=== PATIENT | male | born 1935 | race Caucasian/White ===

== ENCOUNTER 2016-12-21 11:26 | Outpatient (CLI) | payer MEDICARE, OTHER ==
[~2016-12-21 11:26] MED LIST: AMLO2.5T PO; AMLO5TAB2 PO; BSP5T; CLON0.5T3; DNPZ5T PO; DONE5TAB30 PO; DULO60CA6 PO; FLC1T PO; FLUO40CA; GBPN100C PO; GBPN300C; HYOS0.127; LORA0.5T PO; MTC10T; NF-ESOM40C
== END 2016-12-21 11:50 | disposition home or self-care (01) ==
LOC: SLEEP 11:26
PROVIDERS: ATTEND Otolaryngology Otolaryngology/Facial Plastic Surgery
DX: G47.10 Hypersomnia, unspecified (principal); R06.83 Snoring

== ENCOUNTER → 2017-01-19 | Outpatient (CLI) | payer MEDICARE, OTHER ==
--- NOTE | 2017-01-19 10:43 | Diagnostic Imaging Report ---
PROCEDURE: MRI lumbar spine. TECHNIQUE: Multiplanar, multisequence MRI of the lumbar spine was performed without contrast. INDICATION: Back pain. FINDINGS: There is minimal retrolisthesis of L4 over L5. The vertebral body heights are preserved. There is moderate disc height loss at L4/5 and mild disc height loss at L5/S1 discs. Disc desiccation is seen at all levels. There is no significant marrow signal abnormality. There is unremarkable appearance of the cauda equina and conus medullaris. There is ectasia in the infrarenal abdominal aorta up to 2.6 cm in caliber. Schmorl's node along the upper endplate of T12 level is seen with geographic likely sclerotic margins suggestive of chronicity. T12/L1: There is a mild disc bulge and mild facet hypertrophy. No central canal or lateral recess stenosis. No foraminal narrowing. L1/2: There is mild disc bulge with no significant posterior component. There is mild facet hypertrophy. No central canal, lateral recess or foraminal stenosis. L2/3: There is a diffuse disc bulge and mild facet hypertrophy. No central canal stenosis. There is however bilateral stenosis of the lateral recess mild to moderate on the right and mild on the left side. The foramina demonstrate no significant stenosis. L3/4: There is a diffuse disc bulge with a superimposed left posterior lateral disc protrusion. Moderate facet and ligamentous hypertrophy is seen. There is no central canal stenosis. There is however severe stenosis of the left lateral recess encroaching upon the descending left L4 nerve root. There is mild right lateral recess stenosis at this level. The foramina demonstrate mild stenosis bilaterally. L4/5: There is mild retrolisthesis and diffuse disc bulge asymmetric to the left. There is superimposed caudally migrated disc extrusion along the left posterior lateral aspect causing severe stenosis of the left lateral recess and encroaching upon the descending left L5 nerve roots. The facet demonstrate mild to moderate arthropathy. The right lateral recess demonstrates mild to moderate stenosis. No central canal stenosis. The foramina demonstrate moderate stenosis on the left and mild stenosis on the right side. L5/S1: There is a mild disc bulge and mild to moderate facet hypertrophy. No central canal stenosis. There is no significant lateral recess stenosis as well. The neural foramina demonstrate bilateral moderate to severe stenosis encroaching upon the L5 nerve roots. 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 There is prominent left lateral recess stenosis at L4/5 and L3/4 encroaching upon the descending left L4 and L5 nerve roots. There is also moderate to severe foraminal stenosis bilaterally at L5/S1 level. Dictated by: Dictated on workstation # [id number]
== END ==
LOC: RAD 07:46
PROVIDERS: ATTEND Family Medicine
DX: M54.17 Radiculopathy, lumbosacral region (principal)
CPT/HCPCS: 72148

== ENCOUNTER 2017-02-14 10:58 | Emergency (ER) | payer MEDICARE, OTHER ==
[~2017-02-14] VITALS: Ht 170.2 cm; Wt 72.6 kg
--- NOTE | 2017-02-14 12:01 | ED Back Pain ---
General Chief Complaint: Back Problems Stated Complaint: BACK PAIN Nursing Triage Note: pt was in wheelchair when brought back to room. pt complains of severe back pain, been having this pain since spring. pt states he can't put any pressure on his left hip/side. pt states since december of this year his pain as been the worst ever. pt states he can't walk. Nursing Sepsis Screen: No Definite Risk Source of Information: Patient Exam Limitations: No Limitations (FLORENTINO GEIGER) History of Present Illness Time Seen by Provider: 12:00 (FLORENTINO GEIGER) Initial Comments The patient is an 81-year-old white male who presents today with an apparent increase in the level of his back pain. He reports that he has been having problems since at least mid December. He has been taking physical therapy at the [facility].. Last week he was taught some additional exercises. He used these at home over the weekend and now reports that he has much worse pain in the left sciatic distribution. This was particularly bad during the night last night it seems to go down from the buttocks to the bottom of the left foot. It is also noted that he places himself and an unusually skewed position in bed, apparently because this is the most comfortable position for him. Timing/Duration: Other (6 weeks or more) Pain/Injury Location: Back, Lower Extremity Radiation: Buttocks, Feet, Lower Legs, Upper Legs Method of Injury: Unknown Associated Symptoms: weakness, lower back pain (LISSY GARCIA MD) Allergies and Home Medications Allergies Coded Allergies: amoxicillin (Verified Allergy, Unknown, 07/25/16) Home Medications Amlodipine Besylate 5 Mg Tablet, 5 MG PO DAILY, (Reported) Clonazepam 0.5 Mg Tablet, #135 (Reported) Gabapentin 100 Mg Cap, 100 MG PO TID, (Reported) Lorazepam 0.5 Mg Tablet, 0.25 MG PO BID, (Reported) Lorazepam 0.5 Mg Tablet, 0.5 MG PO Q8HR AGITATION PRN, (Reported) Constitutional: see HPI EENTM: no symptoms reported Respiratory: no symptoms reported Cardiovascular: no symptoms reported Gastrointestinal: no symptoms reported Genitourinary: no symptoms reported Musculoskeletal: see HPI, back pain, muscle pain, muscle weakness Skin: no symptoms reported Psychiatric/Neurological: No Symptoms Reported (LISSY GARCIA MD) Past Jufjckk-Nvyhys-Axujuf Hx Patient Social History Alcohol Use: Denies Use Recreational Drug Use: No Smoking Status: Never a Smoker 2nd Hand Smoke Exposure: No Recent Foreign Travel: No Contact w/Someone Who Travel: No Recent Infectious Disease Expo: No Recent Hopitalizations: No (FLORENTINO GEIGER) Immunizations Up To Date Tetanus Booster (TDap): Less than 5yrs Date of Influenza Vaccine: Jul 13, 2016 (FLORENTINO GEIGER) Seasonal Allergies Seasonal Allergies: No (FLORENTINO GEIGER) Surgeries HX Surgeries: Yes (ING.HERNIA REPAIR,T&A, hiatal hernia repair) (FLORENTINO GEIGER) Respiratory Hx Respiratory Disorders: No (FLORENTINO GEIGER) Cardiovascular Hx Cardiac Disorders: Yes Cardiac Disorders: Hypertension (FLORENTINO GEIGER) Neurological Hx Neurological Disorders: Yes Neurological Disorders: Seizure Disorder (FLORENTINO GEIGER) Reproductive System Hx Reproductive Disorders: No (FLORENTINO GEIGER) Genitourinary Hx Genitourinary Disorders: No (FLORENTINO GEIGER) Gastrointestinal Hx Gastrointestinal Disorders: No (FLORENTINO GEIGER) Musculoskeletal Hx Musculoskeletal Disorders: No (FLORENTINO GEIGER) Endocrine Hx Endocrine Disorders: No (FLORENTINO GEIGER) HEENT HX ENT Disorders: Yes HEENT Disorders: Cataract, Double Vision (FLORENTINO GEIGER) Cancer Hx Cancer: No (FLORENTINO GEIGER) Psychosocial Hx Psychiatric Problems: Yes Behavioral Health Disorders: Anxiety (FLORENTINO GEIGER) Blood Transfusions Hx Blood Disorders: No (FLORENTINO GEIGER) Physical Exam Vital Signs Vital Sign - Last 12Hours 02/14/17 11:14 Temp 97.8 Pulse 75 Resp 20 B/P (MAP) 125/88 Pulse Ox 98 O2 Delivery Room Air (LISSY GARCIA MD) Vital Signs Capillary Refill : Less Than 3 Seconds (FLORENTINO GEIGER) General Appearance: Moderate Distress, Other (rapid speech) HEENT: Normal ENT Inspection Neck: Full Range of Motion, Normal Inspection, Non Tender, Supple Cardiovascular: Regular Rate, Rhythm, No Edema, No Gallop, No JVD, No Murmur, Normal Peripheral Pulses Respiratory: Chest Non Tender, Lungs Clear, Normal Breath Sounds, No Accessory Muscle Use, No Respiratory Distress, Accessory Muscle Use Extremity: Normal Capillary Refill, Normal Inspection, Normal Range of Motion, Non Tender, No Calf Tenderness, No Pedal Edema, Calf Tenderness Neurologic/Psychiatric: Other (left patellar reflex quite hyperactive especially as compared to right) Skin: Normal Color, Warm/Dry, Cool, Cyanosis (LISSY GARCIA MD) Progress/Results/Core Measures Results/Orders Lab Results Laboratory Tests Test 02/14/17 11:32 02/14/17 11:35 Range/Units White Blood Count 6.5 4.3-11.0 10^3/uL Red Blood Count 4.74 4.35-5.85 10^6/uL Hemoglobin 14.3 13.3-17.7 G/DL Hematocrit 42 40-54 % Mean Corpuscular Volume 89 80-99 FL Mean Corpuscular Hemoglobin 30 25-34 PG Mean Corpuscular Hemoglobin Concent 34 32-36 G/DL Red Cell Distribution Width 13.4 10.0-14.5 % Platelet Count 224 130-400 10^3/uL Mean Platelet Volume 11.1 H 7.4-10.4 FL Neutrophils (%) (Auto) 66 42-75 % Lymphocytes (%) (Auto) 25 12-44 % Monocytes (%) (Auto) 8 0-12 % Eosinophils (%) (Auto) 1 0-10 % Basophils (%) (Auto) 0 0-10 % Neutrophils # (Auto) 4.3 1.8-7.8 X 10^3 Lymphocytes # (Auto) 1.6 1.0-4.0 X 10^3 Monocytes # (Auto) 0.5 0.0-1.0 X 10^3 Eosinophils # (Auto) 0.1 0.0-0.3 10^3/uL Basophils # (Auto) 0.0 0.0-0.1 10^3/uL Sodium Level 142 135-145 MMOL/L Potassium Level 3.9 3.6-5.0 MMOL/L Chloride Level 111 H 98-107 MMOL/L Carbon Dioxide Level 21 21-32 MMOL/L Anion Gap 10 5-14 MMOL/L Blood Urea Nitrogen 13 7-18 MG/DL Creatinine 1.28 0.60-1.30 MG/DL Estimat Glomerular Filtration Rate 54 BUN/Creatinine Ratio 10 Glucose Level 113 H 70-105 MG/DL Calcium Level 9.1 8.5-10.1 MG/DL Total Bilirubin 2.3 H 0.1-1.0 MG/DL Aspartate Amino Transf (AST/SGOT) 15 5-34 U/L Alanine Aminotransferase (ALT/SGPT) 13 0-55 U/L Alkaline Phosphatase 66 40-136 U/L Total Protein 6.9 6.4-8.2 G/DL Albumin 3.9 3.2-4.5 G/DL Urine Color YELLOW Urine Clarity CLEAR Urine pH 5 5-9 Urine Specific Hawley 1.020 1.016-1.022 Urine Protein NEGATIVE NEGATIVE Urine Glucose (UA) NEGATIVE NEGATIVE Urine Ketones NEGATIVE NEGATIVE Urine Nitrite NEGATIVE NEGATIVE Urine Bilirubin NEGATIVE NEGATIVE Urine Urobilinogen NORMAL NORMAL MG/DL Urine Leukocyte Esterase NEGATIVE NEGATIVE Urine RBC (Auto) NEGATIVE NEGATIVE Urine RBC NONE /HPF Urine WBC RARE /HPF Urine Squamous Epithelial Cells 0-2 /HPF Urine Crystals NONE /LPF Urine Bacteria NEGATIVE /HPF Urine Casts NONE /LPF Urine Mucus SMALL H /LPF Urine Culture Indicated NO (LISSY GARCIA MD) My Orders Orders - LISSY GARCIA MD Cbc With Automated Diff (02/14/17 12:23) Comprehensive Metabolic Panel (02/14/17 12:23) Ua Culture If Indicated (02/14/17 12:23) (LISSY GARCIA MD) Vital Signs/I&O Vital Sign - Last 12Hours 02/14/17 11:14 Temp 97.8 Pulse 75 Resp 20 B/P (MAP) 125/88 Pulse Ox 98 O2 Delivery Room Air (LISSY GARCIA MD) Blood Pressure Mean: 100 Departure Communication Progress Notes After interviewing the patient and examining him, the patient's daughter whom I have known for some years came out of the room and reported that she considered her father to be crazy. He has previously been at [facility] and also a facility in [place]. He is verbally abusive and at times threatening to his . She is becoming increasingly fearful of living with him. Fortunately his present state of affairs relative to his back keep him from being able to inflict any physical harm. We elected after this discussion to have social services manager interview and that explore options for safety for both the patient and his . After the exploration the family concluded that the resources were not available at this time. They have elected to take him home and reconsider their circumstance after he sees Dr. Gibson in consultation on relative to his MRI findings in the lumbar spine (LISSY GARCIA MD) Impression Impression: Primary Impression: Lumbar radiculopathy Additional Impression: sociopathic behavior Disposition: HOME, SELF-CARE Condition: Stable/Unchanged Departure-Patient Inst. Decision time for Depature: 13:50 (LISSY GARCIA MD) Referrals: JONA FLOOD MD (PCP/Family) Primary Care Physician Patient Instructions: Radiculopathy (DC) Add. Discharge Instructions: All discharge instructions reviewed with patient and/or family. Voiced understanding. Continue present program. Keep appointment with Dr. Gibson for 02/22 FLORENTINO GEIGER Feb 14, 2017 12:01 LISSY GARCIA MD Feb 14, 2017 12:21
[2017-02-14 12:29] LABS: BILIRUBIN,URINE NEGATIVE (NEGATIVE); KETONES,URINE NEGATIVE (NEGATIVE); LEUKOCYTE ESTERASE ,URINE NEGATIVE (NEGATIVE); NITRITE,URINE NEGATIVE (NEGATIVE); PH,URINE 5 (5-9); PROTEIN,URINE NEGATIVE (NEGATIVE); UROBILINOGEN,URINE NORMAL (NORMAL)
[2017-02-14 12:29] LABS: BASOPHILS % (AUTO) 0 % (0-10); EOSINOPHILS # (AUTO) 0.1 10^3/uL (0.0-0.3); EOSINOPHILS % (AUTO) 1 % (0-10); LYMPHOCYTES # (AUTO) 1.6 X 10^3 (1.0-4.0); LYMPHOCYTES % (AUTO) 25 % (12-44); MEAN CORPUSCULAR HEMOGLOBIN 30 PG (25-34); MEAN CORPUSCULAR HGB CONC 34 G/DL (32-36); MEAN CORPUSCULAR VOLUME 89 FL (80-99); MEAN PLATELET VOLUME 11.1 FL (7.4-10.4); MONOCYTES # (AUTO) 0.5 X 10^3 (0.0-1.0); MONOCYTES % (AUTO) 8 % (0-12); NEUTROPHILS # (AUTO) 4.3 X 10^3 (1.8-7.8); NEUTROPHILS % (AUTO) 66 % (42-75); PLATELET COUNT 224 10^3/uL (130-400); RED BLOOD COUNT 4.74 10^6/uL (4.35-5.85); RED CELL DISTRIBUTION WIDTH 13.4 % (10.0-14.5); WHITE BLOOD COUNT 6.5 10^3/uL (4.3-11.0)
[2017-02-14 12:37] LABS: SQUAMOUS EPITHELIAL CELL,UR 0-2 /HPF; WBC,URINE RARE /HPF
[2017-02-14 12:41] LABS: ALBUMIN 3.9 G/DL (3.2-4.5); BILIRUBIN,TOTAL 2.3 MG/DL (0.1-1.0); CALCIUM 9.1 MG/DL (8.5-10.1); CREATININE SERUM 1.28 MG/DL (0.60-1.30); POTASSIUM 3.9 MMOL/L (3.6-5.0); TOTAL PROTEIN 6.9 G/DL (6.4-8.2)
[2017-02-14 14:15] VITALS: BP 140/89
== END 2017-02-14 14:15 | disposition home or self-care (01) ==
LOC: EDUNIT# 10:58 → ER 11:00
DX: M54.16 Radiculopathy, lumbar region (principal); F60.2 Antisocial personality disorder; I10 Essential (primary) hypertension; G40.909 Epilepsy, unspecified, not intractable, without status epilepticus
CPT/HCPCS: 36415; 80053; 81000; 85025

== ENCOUNTER 2020-05-09 09:22 | Emergency (ER) | payer MEDICARE, OTHER ==
[~2020-05-09] VITALS: Ht 170 cm; Wt 75.0 kg
[~2020-05-09 09:22] MED LIST changes: -CLON0.5T3; +CLON0.5T4
[2020-05-09 09:47] LABS: BASOPHILS % (AUTO) 0 % (0-10); EOSINOPHILS # (AUTO) 0.3 10^3/uL (0.0-0.3); EOSINOPHILS % (AUTO) 4 % (0-10); HEMATOCRIT 42 % (40-54); HEMOGLOBIN 13.9 G/DL (13.3-17.7); LYMPHOCYTES # (AUTO) 2.5 X 10^3 (1.0-4.0); LYMPHOCYTES % (AUTO) 34 % (12-44); MEAN CORPUSCULAR HEMOGLOBIN 30 PG (25-34); MEAN CORPUSCULAR HGB CONC 33 G/DL (32-36); MEAN CORPUSCULAR VOLUME 92 FL (80-99); MONOCYTES # (AUTO) 0.6 X 10^3 (0.0-1.0); MONOCYTES % (AUTO) 8 % (0-12); NEUTROPHILS # (AUTO) 3.9 X 10^3 (1.8-7.8); NEUTROPHILS % (AUTO) 54 % (42-75); PLATELET COUNT 220 10^3/uL (130-400); RED CELL DISTRIBUTION WIDTH 13.5 % (10.0-14.5); WHITE BLOOD COUNT 7.3 10^3/uL (4.3-11.0)
[2020-05-09 10:06] LABS: ALBUMIN 4.1 GM/DL (3.2-4.5); CHLORIDE 110 MMOL/L (98-107); POTASSIUM 4.3 MMOL/L (3.6-5.0); SODIUM 142 MMOL/L (135-145)
[2020-05-09 10:07] LABS: CALCIUM 9.1 MG/DL (8.5-10.1)
[2020-05-09 10:08] LABS: GLUCOSE 173 MG/DL (70-105); TOTAL PROTEIN 7.3 GM/DL (6.4-8.2)
--- NOTE | 2020-05-09 10:08 | Diagnostic Imaging Report ---
INDICATION: Speech difficulty and altered mental status. TECHNIQUE: Multiple contiguous axial images were obtained through the brain without the use of intravenous contrast. Auto Exposure Controls were utilized during the CT exam to meet ALARA standards for radiation dose reduction. Comparison made with 04/20/2012. There are mild diffuse atrophic changes. There are mild low-density changes in the deep white matter compatible with chronic ischemic change. There is no acute hemorrhage or subdural or epidural collection. The ventricles are normal in size for age. There are vascular calcifications in the carotid siphons. There is calcific density in the right sylvian fissure which may be vascular in nature. Correlate with CTA if clinically warranted. IMPRESSION: Diffuse atrophic changes and mild chronic changes in deep white matter. No acute intracranial hemorrhage. There is a calcific density in the right sylvian fissure which was not present on 04/20/2012, this is possibly vascular in nature. Consider CTA if clinically warranted. Dictated by: Dictated on workstation # [id number]
[2020-05-09 10:09] LABS: CARBON DIOXIDE 22 MMOL/L (21-32)
[2020-05-09 10:10] LABS: BILIRUBIN,TOTAL 1.3 MG/DL (0.1-1.0)
[2020-05-09 10:11] LABS: FIBRIN DEGRADATION PRODUCTS 0.7 UG/ML (0.00-0.49); PROTHROMBIN TIME PATIENT 13.7 SEC (12.2-14.7)
[2020-05-09 10:12] LABS: ALKALINE PHOSPHATASE 76 U/L (40-136); CREATININE SERUM 1.57 MG/DL (0.60-1.30); GFR ESTIMATED 42
[2020-05-09 10:13] LABS: BUN/CREATININE RATIO 15
[2020-05-09 10:15] LABS: ALANINE AMINOTRANSFERASE 18 U/L (0-55)
--- NOTE | 2020-05-09 10:22 | Diagnostic Imaging Report ---
INDICATION: Slurred speech, possible stroke. Frontal chest obtained at 0955 a.m. compared to 07/25/2016. Heart and mediastinal silhouette are normal in appearance. Lungs appear clear. There is poor inspiration. There is no pneumothorax or pleural fluid. IMPRESSION: No acute process in the chest. Dictated by: Dictated on workstation # [id number]
[2020-05-09] MEDS ORDERED: NS IV 1000 ML 1,000 ML IV ONE (10:30)
[2020-05-09 10:35] LABS: BILIRUBIN,URINE NEGATIVE (NEGATIVE); CLARITY,URINE CLEAR; COLOR,URINE YELLOW; GLUCOSE, URINE (UA) NEGATIVE (NEGATIVE); KETONES,URINE NEGATIVE (NEGATIVE); LEUKOCYTE ESTERASE ,URINE NEGATIVE (NEGATIVE); NITRITE,URINE NEGATIVE (NEGATIVE); PROTEIN,URINE NEGATIVE (NEGATIVE)
[2020-05-09 10:37] LABS: BACTERIA,URINE NEGATIVE /HPF; SQUAMOUS EPITHELIAL CELL,UR RARE /HPF
[2020-05-09] MEDS ORDERED: IOHEXOL 350 MG/ML 100 ML (OMNIPAQUE 350) VIAL IV ONE (10:45)
[2020-05-09] MEDS ORDERED: HOLD METFORMIN - RECEIVED CONTRAST 20 ML VIAL IV SCH (10:45)
[2020-05-09] MEDS ORDERED: CATHETER FLUSH 10 ML SYR IV PRN (10:45)
[2020-05-09] MEDS ORDERED: NS 100 ML (IVPB) BAG IV ONE (10:45)
--- NOTE | 2020-05-09 11:32 | ED Neurological Problem ---
General Chief Complaint: Neuro-Stroke Like Symptoms Stated Complaint: STROKE SYMPTOMS Nursing Triage Note: PT CO OF POSSIBLE STROKE STATES THIS AM WATER RAN OUT OF R SIDE OF MOUTH, STATES CEREAL MILK SL RAN OUT OF R SIDE OF MOUTH. NO OTHER CO. PT ABLE TO MOVE ALL EXT. NIH SCALE 0 Nursing Sepsis Screen: No Definite Risk Source: patient Exam Limitations: no limitations History of Present Illness Date Seen by Provider: May 09, 2020 Time Seen by Provider: 09:28 Initial Comments Here with report of possible stroke. States he noted drooling from the right side of his mouth and felt like his speech was off. It is very concerned he was having a stroke symptoms presented here. States he was getting ready to get his ladder out to go fix the gutter when all of this happened. Completely resolved now but patient is quite anxious and occasionally tearful. Denies headache, chest pain, breathing problems or other concerns. Denies recent injuries. Denies being on blood thinners. Timing/Duration: 1 hour, waxing and waning Severity: moderate Associated Symptoms: No fever/chills, No loss of consciousness, No nausea/vomiting; slurred speech Allergies and Home Medications Allergies Coded Allergies: amoxicillin (Verified Allergy, Unknown, 07/25/16) Home Medications Amlodipine Besylate 5 Mg Tablet, 5 MG PO DAILY, (Reported) Gabapentin 100 Mg Cap, 100 MG PO TID, (Reported) Lorazepam 0.5 Mg Tablet, 0.25 MG PO BID, (Reported) Lorazepam 0.5 Mg Tablet, 0.5 MG PO Q8HR AGITATION PRN, (Reported) Patient Home Medication List Home Medication List Reviewed: Yes Review of Systems Review of Systems Constitutional: see HPI; No chills, No fever Eyes: No Symptoms Reported Ears, Nose, Mouth, Throat: see HPI; denies nose pain, denies throat pain Respiratory: no symptoms reported Cardiovascular: no symptoms reported Gastrointestinal: no symptoms reported Genitourinary: no symptoms reported Musculoskeletal: no symptoms reported Skin: no symptoms reported Psychiatric/Neurological: See HPI Endocrine: No Symptoms Reported All Other Systems Reviewed Negative Unless Noted: Yes Past Sebsaxv-Dfdzcy-Utccel Hx Past Med/Social Hx: Reviewed Nursing Past Med/Soc Hx Patient Social History Alcohol Use: Denies Use Recreational Drug Use: No Smoking Status: Never a Smoker 2nd Hand Smoke Exposure: No Recent Foreign Travel: No Contact w/Someone Who Travel: No Recent Infectious Disease Expo: No Recent Hopitalizations: No Physical Abuse: No Sexual Abuse: No Immunizations Up To Date Tetanus Booster (TDap): Less than 5yrs Date of Influenza Vaccine: Jul 13, 2016 Seasonal Allergies Seasonal Allergies: No Past Medical History Surgeries: Yes (ING.HERNIA REPAIR,T&A, hiatal hernia repair) Respiratory: No Cardiac: Yes Hypertension Neurological: Yes Seizure Disorder Reproductive Disorders: No Genitourinary: No Gastrointestinal: No Musculoskeletal: No Endocrine: No HEENT: Yes Cataract, Double Vision Cancer: No Psychosocial: Yes Anxiety Integumentary: No Blood Disorders: No Family Medical History Reviewed Nursing Family Hx Physical Exam Vital Signs Vital Signs - First Documented 05/09/20 09:25 Temp 36.4 Pulse 73 Resp 18 B/P (MAP) 135/79 (97) Pulse Ox 96 Capillary Refill : Less Than 3 Seconds Height, Weight, BMI Height: 5'7.00" Weight: 160lbs. oz. 72.456925dj; 25.00 BMI Method:Stated General Appearance: WD/WN, no apparent distress HEENT: PERRL/EOMI, pharynx normal Neck: full range of motion, supple Respiratory: lungs clear, normal breath sounds Cardiovascular: regular rate, rhythm, no murmur Peripheral Pulses: 2+ Dorsalis Pedis (R), 2+ Left Dors-Pedis (L), 2+ Radial Pulses (R), 2+ Radial Pulses (L) Gastrointestinal: non tender, soft Back: normal inspection, no CVA tenderness, no vertebral tenderness Extremities: non-tender, normal inspection, no pedal edema, no calf tenderness Neurologic/Psychiatric: alert, oriented x 3 Crainal Nerves: normal hearing, normal speech, PERRL Coordination/Gait: normal finger to nose Motor/Sensory: no motor deficit, no sensory deficit, no pronator drift Skin: normal color, warm/dry Stroke NIH Stroke Scale Assessment Level of Consciousness: 0=Alert (0), Level of Consciousness-Questions: 0=Answers both month/age (0), LOC Commands: 0=Performs both tasks (0), Visual [place]: 0=No visual loss (0), Facial Movement (Facial Paresis): 0=Normal symmetrical mnt (0), Motor Function-Arms Right: 0=No drift (0), Motor Function-Arms Left: 0=No drift (0), Motor Function-Legs Right: 0=No drift (0), Motor Function-Legs Left: 0=No drift (0), Limb Ataxia: 0=Absent (0), Sensory: 0=Normal:no loss (0), Best Language: 0=No aphasia (0), Dysarthria: 0=Normal (0), Extinction & Inattention: 0=No abnormality (0), Total: Progress/Results/Core Measures Results/Orders Lab Results Laboratory Tests Test 05/09/20 09:35 05/09/20 09:48 05/09/20 10:23 Range/Units White Blood Count 7.3 4.3-11.0 10^3/uL Red Blood Count 4.60 4.35-5.85 10^6/uL Hemoglobin 13.9 13.3-17.7 G/DL Hematocrit 42 40-54 % Mean Corpuscular Volume 92 80-99 FL Mean Corpuscular Hemoglobin 30 25-34 PG Mean Corpuscular Hemoglobin Concent 33 32-36 G/DL Red Cell Distribution Width 13.5 10.0-14.5 % Platelet Count 220 130-400 10^3/uL Mean Platelet Volume 11.0 H 7.4-10.4 FL Neutrophils (%) (Auto) 54 42-75 % Lymphocytes (%) (Auto) 34 12-44 % Monocytes (%) (Auto) 8 0-12 % Eosinophils (%) (Auto) 4 0-10 % Basophils (%) (Auto) 0 0-10 % Neutrophils # (Auto) 3.9 1.8-7.8 X 10^3 Lymphocytes # (Auto) 2.5 1.0-4.0 X 10^3 Monocytes # (Auto) 0.6 0.0-1.0 X 10^3 Eosinophils # (Auto) 0.3 0.0-0.3 10^3/uL Basophils # (Auto) 0.0 0.0-0.1 10^3/uL Prothrombin Time 13.7 12.2-14.7 SEC INR Comment 1.0 0.8-1.4 Activated Partial Thromboplast Time 28 24-35 SEC D-Dimer 0.70 H 0.00-0.49 UG/ML Sodium Level 142 135-145 MMOL/L Potassium Level 4.3 3.6-5.0 MMOL/L Chloride Level 110 H 98-107 MMOL/L Carbon Dioxide Level 22 21-32 MMOL/L Anion Gap 10 5-14 MMOL/L Blood Urea Nitrogen 24 H 7-18 MG/DL Creatinine 1.57 H 0.60-1.30 MG/DL Estimat Glomerular Filtration Rate 42 BUN/Creatinine Ratio 15 Glucose Level 173 H 70-105 MG/DL Calcium Level 9.1 8.5-10.1 MG/DL Corrected Calcium 9.0 8.5-10.1 MG/DL Total Bilirubin 1.3 H 0.1-1.0 MG/DL Aspartate Amino Transf (AST/SGOT) 19 5-34 U/L Alanine Aminotransferase (ALT/SGPT) 18 0-55 U/L Alkaline Phosphatase 76 40-136 U/L Troponin I < 0.028 <0.028 NG/ML Total Protein 7.3 6.4-8.2 GM/DL Albumin 4.1 3.2-4.5 GM/DL Glucometer 164 H 70-110 MG/DL Urine Color YELLOW Urine Clarity CLEAR Urine pH 5.0 5-9 Urine Specific [place] 1.025 H 1.016-1.022 Urine Protein NEGATIVE NEGATIVE Urine Glucose (UA) NEGATIVE NEGATIVE Urine Ketones NEGATIVE NEGATIVE Urine Nitrite NEGATIVE NEGATIVE Urine Bilirubin NEGATIVE NEGATIVE Urine Urobilinogen 0.2 < = 1.0 MG/DL Urine Leukocyte Esterase NEGATIVE NEGATIVE Urine RBC (Auto) NEGATIVE NEGATIVE Urine RBC NONE /HPF Urine WBC NONE /HPF Urine Squamous Epithelial Cells RARE /HPF Urine Crystals NONE /LPF Urine Bacteria NEGATIVE /HPF Urine Casts NONE /LPF Urine Mucus NEGATIVE /LPF Urine Culture Indicated NO My Orders Orders - FLORECITA GUZMAN MD Cbc With Automated Diff (05/09/20 09:40) Protime With Inr (05/09/20 09:40) Partial Thromboplastin Time (05/09/20 09:40) Comprehensive Metabolic Panel (05/09/20 09:40) Fibrin Degradation Products (05/09/20 09:40) Troponin I (05/09/20 09:40) Ua Culture If Indicated (05/09/20 09:40) Chest 1 View, Ap/Pa Only (05/09/20 09:40) Ekg Tracing (05/09/20 09:40) Nothing By Mouth (05/09/20 Lunch) Accucheck Stat ONCE (05/09/20 09:40) Ed Iv/Invasive Line Start (05/09/20 09:40) Ed Iv/Invasive Line Start (05/09/20 09:40) Vital Signs Stroke Patient Q15M (05/09/20 09:40) Ct Head Wo-R/O Stroke (05/09/20 09:40) O2 (05/09/20 09:40) Intake & Output 06,14,22 (05/09/20 09:40) Monitor-Rhythm Ecg Trace Only (05/09/20 09:40) Dysphagia Screening Tool (05/09/20 09:40) Lipid Panel (05/10/20 06:00) Ed Iv/Invasive Line Start (05/09/20 10:30) Ns Iv 1000 Ml (Sodium Chloride 0.9%) (05/09/20 10:30) Ct Angio Head/Neck (05/09/20 10:30) Iohexol Injection (Omnipaque 350 Mg/Ml 1 (05/09/20 10:45) Received Contrast (Hold Metformin- Contr (05/09/20 10:45) Sodium Chloride Flush (Catheter Flush Sy (05/09/20 10:45) Ns (Ivpb) (Sodium Chloride 0.9% Ivpb Bag (05/09/20 10:45) Aspirin Chewable Tablet (Baby Aspirin Ch (05/09/20 12:30) Medications Given in ED Current Medications Medications Dose Ordered Sig/Richa Route Start Time Stop Time Status Last Admin Dose Admin Iohexol 75 ml ONCE ONCE IV 05/09/20 10:45 05/09/20 10:46 DC 05/09/20 10:56 75 ML Sodium Chloride 10 ml NEEDED PRN IV 05/09/20 10:45 05/09/20 10:56 10 ML Sodium Chloride 100 ml ONCE ONCE IV 05/09/20 10:45 05/09/20 10:46 DC 05/09/20 10:56 80 ML Sodium Chloride 1,000 ml @ 0 mls/hr Q0M ONCE IV 05/09/20 10:30 05/09/20 10:32 DC 05/09/20 10:49 0 MLS/HR Vital Signs/I&O 05/09/20 09:25 Temp 36.4 Pulse 73 Resp 18 B/P (MAP) 135/79 (97) Pulse Ox 96 Blood Pressure Mean: 97 FSBG Bedside Testing Finger Stick Blood Glucose: 164 Progress Progress Note : Progress Note Seen and evaluated on arrival. Stroke order set initiated. Patient is 0 on stroke scale and no indication for TPA. Monitor patient. CT angiogram head and neck ordered after CT results noted. Normal saline 1 L bolus ordered as patient's creatinine is on lower and a GFR is greater than 40. Monitor patient. 1235: I have discussed the case with Dr. Donovan Argueta. We will initiate aspirin 324 mg by mouth now and continue at 81 mg daily. He will follow the patient in clinic. I will send a copy of the chart over to him. This was discussed with the patient as well. Discharged home with return precautions. Patient verbalized understanding of instructions and agreement with plan. Still symptom free at discharge. Initial ECG Impression Date: May 09, 2020 Initial ECG Impression Time: 09:28 Initial ECG Rate: 72 Initial ECG Rhythm: Normal Sinus Initial ECG Impression: Normal Initial ECG Comparisson: Unchanged (24 April 2012) Comment Sinus rhythm with normal axis. No evidence of ST elevation HI. Interpreted by me. Diagnostic Imaging Diagonstic Imaging: Xray Plain Films/CT/US/NM/MRI: chest [facility] [place] NAME: ALY HENNESSY [facility] REC#: [id number] PT STATUS: REG ER : 1935 PHYSICIAN: FLORECITA GUZMAN MD ADMIT DATE: 05/09/20/ER Signed Date of Exam:05/09/20 CHEST 1 VIEW, AP/PA ONLY INDICATION: Slurred speech, possible stroke. Frontal chest obtained at 0955 a.m. compared to 07/25/2016. Heart and mediastinal silhouette are normal in appearance. Lungs appear clear. There is poor inspiration. There is no pneumothorax or pleural fluid. IMPRESSION: No acute process in the chest. Dictated by: Dictated on workstation # [id number] Dict: 05/09/20 1019 Trans: 05/09/20 1049 [place] [id number] Interpreted by: ANABEL HUANG MD Electronically signed by: ANABEL HUANG MD 05/09/20 1049 Diagonstic Imaging: CT Plain Films/CT/US/NM/MRI: head Comments [facility] [place] NAME: ALY HENNESSY [facility] REC#: [id number] PT STATUS: REG ER : 1935 PHYSICIAN: FLORECITA GUZMAN MD ADMIT DATE: 05/09/20/ER Signed Date of Exam:05/09/20 CT ANGIO HEAD/NECK PROCEDURE: CT angiography of the head and CT angiography of the neck with and without contrast. TECHNIQUE: Contiguous noncontrast images were obtained from the skull base through the vertex. After intravenous contrast administration, helical CT angiography of the neck was performed. Source data was reformatted into 3D MIP projections. Delayed post contrast acquisition was also obtained. Auto Exposure Controls were utilized during the CT exam to meet ALARA standards for radiation dose reduction. INDICATION: Abnormal CT, neuro deficit. COMPARISON: CT of the head from the same date and from 04/20/2012 FINDINGS: Evaluation for intracranial hemorrhage is significantly limited secondary to presence of intravenous contrast. Mild atrophy. No intracranial mass, mass effect, midline shift, herniation, hydrocephalus, or extra-axial fluid collection. The right ocular lens is absent. Otherwise, the orbits are unremarkable. Moderate mucosal thickening within the bilateral maxillary sinuses with mucous retention cyst within the inferior aspect of the left maxillary sinus. Paranasal sinuses otherwise clear. The calvarium is intact. No enhancing intracranial mass. Atrophic left submandibular gland. Salivary glands are otherwise unremarkable. Parapharyngeal fat is symmetric and well-maintained. No significant adenopathy. The thyroid gland is unremarkable. The airway is patent. No focal fluid collection. No apical pneumothorax. A three-vessel aortic arch is present. Scattered vascular calcifications are present. There is resulting 40-50% stenosis involving the right carotid bulb based on NASCET criteria. origin of the left posterior cerebral artery. Scattered vascular calcifications associated with the intracranial portions of the bilateral internal carotid arteries. Punctate calcification is noted within the right sylvian fissure corresponding to recent CT. This does appear to be vascular in nature though contrast is identified distal to this location within vessel. 50% stenosis involving the left carotid bulb is noted. The large arterial structures of the head and neck are otherwise unremarkable without evidence of occlusion, hemodynamically significant stenosis, dissection, aneurysm, or pseudoaneurysm. Large visualized dural venous sinuses are patent. Scattered osseous degenerative changes without acute osseous abnormality. 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 50% stenosis involving the left carotid bulb/proximal left internal carotid artery. Punctate calcification within the right sylvian fissure is noted to be vascular in nature. Therefore, this may relate to a phlebolith or simply vascular calcifications. Vascular flow is present distal to this location. Mild cerebral atrophy. origin of the left posterior cerebral artery. Dictated by: Dictated on workstation # [id number] Dict: 05/09/20 1115 Trans: 05/09/20 1158 [id number] Interpreted by: MARI DA SILVA MD Electronically signed by: MARI DA SILVA MD 05/09/20 1158 Diagonstic Imaging: CT Plain Films/CT/US/NM/MRI: head Comments [facility] [place] NAME: ALY HENNESSY [facility] REC#: [id number] PT STATUS: REG ER : 1935 PHYSICIAN: FLORECITA GUZMAN MD ADMIT DATE: 05/09/20/ER Signed Date of Exam:05/09/20 CT HEAD WO-R/O STROKE INDICATION: Speech difficulty and altered mental status. TECHNIQUE: Multiple contiguous axial images were obtained through the brain without the use of intravenous contrast. Auto Exposure Controls were utilized during the CT exam to meet ALARA standards for radiation dose reduction. Comparison made with 04/20/2012. There are mild diffuse atrophic changes. There are mild low-density changes in the deep white matter compatible with chronic ischemic change. There is no acute hemorrhage or subdural or epidural collection. The ventricles are normal in size for age. There are vascular calcifications in the carotid siphons. There is calcific density in the right sylvian fissure which may be vascular in nature. Correlate with CTA if clinically warranted. IMPRESSION: Diffuse atrophic changes and mild chronic changes in deep white matter. No acute intracranial hemorrhage. There is a calcific density in the right sylvian fissure which was not present on 04/20/2012, this is possibly vascular in nature. Consider CTA if clinically warranted. Dictated by: Dictated on workstation # [id number] Dict: 05/09/20 1004 Trans: 05/09/20 1020 [facility] [id number] Interpreted by: ANABEL HUANG MD Electronically signed by: ANABEL HUANG MD 05/09/20 1020 Departure Impression Primary Impression: Transient cerebral ischemia Qualified Codes: G45.9 - Transient cerebral ischemic attack, unspecified Disposition: HOME, SELF-CARE Condition: Improved Departure-Patient Inst. Decision time for Depature: 12:39 Referrals: DONOVAN ARGUETA MD, JOHN D MD (PCP/Family) Primary Care Physician Patient Instructions: Transient Ischemic Attack (DC) Add. Discharge Instructions: All discharge instructions reviewed with patient and/or family. Voiced u nderstanding. You should start 81 mg aspirin daily (baby aspirin one tablet). Follow-up with Dr. Argueta next week for recheck and further evaluation. Drink plenty of fluids and eat a normal diet. Return for worse pain, fever, vomiting, weakness, breathing problems, problems with speech or movement or other concerns as needed. Copy Copies To 1: DONOVAN ARGUETA MD, TIMOTHY D MD May 09, 2020 11:32
[2020-05-09] MEDS ORDERED: ASPIRIN 81 MG CHEW (CHILDREN'S ASA) PO ONE (12:30)
[2020-05-09 12:45] VITALS: BP 138/79
== END 2020-05-09 12:45 | disposition home or self-care (01) ==
LOC: EDUNIT# 09:22 → ER 09:25
DX: G45.9 Transient cerebral ischemic attack, unspecified (principal); I10 Essential (primary) hypertension; F41.9 Anxiety disorder, unspecified; G40.909 Epilepsy, unspecified, not intractable, without status epilepticus; Z88.0 Allergy status to penicillin
CPT/HCPCS: 36415; 70450; 70496; 70498; 71045; 80053; 81000; 82962; 84484; 85025; 85379; 85610; 85730; 93041

== ENCOUNTER 2021-01-22 05:29 | Outpatient (CLI) | payer MEDICARE, OTHER ==
[~2021-01-22] VITALS: Ht 170.2 cm; Wt 74.9 kg
[2021-01-22] MEDS ORDERED: ASPI-1238 PO (11:01)
[2021-01-22] MEDS ORDERED: MULT-1136 PO (11:01)
[2021-01-22] MEDS ORDERED: LISI10TA25 PO (11:01)
[2021-01-22] MEDS ORDERED: CLON1TAB13 PO (11:01)
[2021-01-22] MEDS ORDERED: OMG1KC PO (11:01)
[2021-01-22] MEDS ORDERED: GABA-486 PO ×2 (11:01)
== END 2021-01-22 11:23 | disposition home or self-care (01) ==
LOC: PREOP 05:29
PROVIDERS: ATTEND Urology
DX: Z01.818 Encounter for other preprocedural examination (principal); M06.9 Rheumatoid arthritis, unspecified

== ENCOUNTER 2021-01-28 06:00 | Day surgery (SDC) | payer MEDICARE, OTHER ==
[2021-01-28] VITALS (9 sets, daily range): BP systolic 108–132; BP diastolic 54–72
[~2021-01-28] VITALS: Ht 170 cm; Wt 74.9 kg
[~2021-01-28 06:00] MED LIST changes: +ASPI-1238 PO; +CLON1TAB13 PO; +GABA-486 PO; +LISI10TA25 PO; +MULT-1136 PO; +OMG1KC PO
[2021-01-28] MEDS ORDERED: ceFAZolin INJECTION 1,000 MG in WATER (STERILE) FOR INJECTION 10 ML IV ONE (06:15)
[2021-01-28] MEDS ORDERED: LACTATED RINGERS 1,000 ML IV PRN (06:15)
[2021-01-28] MEDS ORDERED: SEVOFLURANE (ULTANE) 15 ML INHAL SOLN ONE (06:52)
[2021-01-28] MEDS ORDERED: proPOfol 200 MG/20 ML (DIPRIVAN) VIAL IV ONE (06:52)
[2021-01-28] MEDS ORDERED: fentaNYL INJ 100 MCG/2 ML AMP ONE (06:52)
[2021-01-28] MEDS ORDERED: LIDOCAINE PF 2% 5 ML (XYLOCAINE) VIAL ONE (06:52)
[2021-01-28] MEDS ORDERED: ONDANSETRON 4 MG/2 ML (SDV) Z0FRAN ONE (06:55)
[2021-01-28] MEDS ORDERED: NEOSPORIN + PAIN RELIEF CREAM 15 GM ONE (07:11)
--- NOTE | 2021-01-28 07:23 | Progress Note-Pre Operative ---
Pre-Operative Progress Note H&P Reviewed The H&P was reviewed, patient examined and no changes noted. Date Seen by Provider: January 28, 2021 Time Seen by Provider: 07:22 Date H&P Reviewed: January 28, 2021 Time H&P Reviewed: 07:22 Pre-Operative Diagnosis: SEVERE PHIMOSIS AND BXO MEGHNA DAVEY MD January 28, 2021 07:23
--- NOTE | 2021-01-28 08:17 | Progress Note-Post Operative ---
Post-Operative Progess Note Surgeon (s)/Senior Engineering Associate (s) Surgeon MEGHNA DAVEY MD Senior Engineering Associate: NONE Pre-Operative Diagnosis SEVERE PHIMOSIS AND BXO Post-Operative Diagnosis SAME Procedure & Operative Findings Date of Procedure 01/28/21 Procedure Performed/Findings CIRCUMCISION Anesthesia Type GENERAL Estimated Blood Loss Estimated blood loss (mL): NEGLIGIBLE Specimens/Packing Specimens Removed NONE TO PATH Packing: NONE MEGHNA DAVEY MD January 28, 2021 08:17
--- NOTE | 2021-01-28 08:17 | Anesthesia-General Post-Op ---
General Patient Condition Mental Status/LOC: Same as Preop Cardiovascular: Satisfactory Nausea/Vomiting: Absent Respiratory: Satisfactory Pain: Controlled Complications: Absent Post Op Complications Complications None Follow Up Care/Instructions Patient Instructions None needed. Anesthesia/Patient Condition Patient Condition Patient is doing well, no complaints, stable vital signs, no apparent adverse anesthesia problems. No complications reported per nursing. KRYSTA ORTA CRNA January 28, 2021 08:17
--- NOTE | 2021-01-28 08:20 | Discharge Inst-Urology ---
Discharge Inst-Urology Reconcile Patient Problems Problems Reviewed?: Yes Final Diagnosis SEVERE PHIMOSIS AND BXO Patient Instructions/Follow Up Plan/Assessment/Instructions Please make appointment to been seen in office in 2 weeks. Stay off ASA till then and rest Ice to penis in RR and for 6hours at home and then PRN Tomorrow start showers, no bath Keep bowels soft and moving Increase oral fluids for 48 hours and then as needed. Diet as tolerated. If questions or concerns contact your physician Or seek help at emergency department. MEGHNA DAVEY MD January 28, 2021 08:20
[2021-01-28] MEDS ORDERED: MEPERIDINE (DEMEROL) INJ 50 MG/ML IVP ONE (08:30)
[2021-01-28] MEDS ORDERED: morphine INJ 10 MG/ML 1ML (SYR OR VIAL) IVP ONE (08:30)
[2021-01-28] MEDS ORDERED: TRM50T PO (08:32)
[2021-01-28] MEDS: ONDANSETRON 4 MG/2 ML (SDV) Z0FRAN IVP PRN ×2 (08:46→09:13)
--- NOTE | 2021-01-28 11:16 | OPERATIVE REPORT ---
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 POSTOPERATIVE DIAGNOSIS: Severe phimosis and balanitis xerotica obliterans. OPERATION PERFORMED: Circumcision. SURGEON: Tristian Davey MD ANESTHESIA: General. COMPLICATIONS: None. DESCRIPTION OF PROCEDURE: Under satisfactory general anesthesia, the patient in supine position, genitalia were prepped and draped in the usual sterile fashion. A dorsal slit was performed to be able to retract the foreskin. I judged to be able to perform a circumcision, so I made two circular incision. I went at the skin at the level of the tompkins glandis and the other one in the mucosa. The excess foreskin was sharply excised. Bleeders were cauterized as dissection was proceeding. The foreskin was removed. Hemostasis was complete. The foreskin and mucosa were approximated with 4-0 Vicryl in 4-quadrant. Neosporin plus pain ointment was applied. The patient tolerated the procedure and anesthesia well and was sent to recovery room in stable condition. Instructions were given to his . Job ID: [id number] DocumentID: [id number] Dictated Date: 01/28/2021 08:22:50 [employer] Agent [employer] Date: 01/28/2021 11:16:01 Dictated By: TRISTIAN DAVEY MD
== END 2021-01-28 10:15 | disposition home or self-care (01) ==
LOC: SDC 06:00
PROVIDERS: ATTEND Urology
DX: N47.1 Phimosis (principal); N48.0 Leukoplakia of penis; I10 Essential (primary) hypertension; K21.9 Gastro-esophageal reflux disease without esophagitis; G62.9 Polyneuropathy, unspecified; Z90.89 Acquired absence of other organs; Z88.0 Allergy status to penicillin; Z79.82 Long term (current) use of aspirin; Z79.899 Other long term (current) drug therapy; Z88.1 Allergy status to other antibiotic agents
CPT/HCPCS: 87081

== ENCOUNTER → 2021-12-02 | Outpatient (CLI) | payer MEDICARE, OTHER ==
[~2021-12-02] MED LIST changes: +TRM50T PO
--- NOTE | 2021-12-02 13:52 | Diagnostic Imaging Report ---
INDICATION: Left-sided neck pain. TIME OF EXAM: 1:05 PM There is minimal retrolisthesis of C2 on C3. Minimal anterolisthesis of C4 on C5 is noted. There is significant degenerative disc disease at the C5-C6 and C6-C7 levels, with disc space narrowing and marginal spurring. No fractures are seen. Prevertebral tissues are within normal limits. Odontoid is intact. Generalized facet degenerative changes noted. IMPRESSION: Cervical spondylosis, as described. No acute bony abnormality is detected. Dictated by: Dictated on workstation # [id number]
== END ==
LOC: RAD 12:42
PROVIDERS: ATTEND Family Medicine
DX: M47.812 Spondylosis without myelopathy or radiculopathy, cervical region (principal); M50.323 Other cervical disc degeneration at C6-C7 level; M48.02 Spinal stenosis, cervical region
CPT/HCPCS: 72040

== ENCOUNTER 2022-01-09 18:13 | Emergency (ER) | payer MEDICARE, OTHER ==
--- NOTE | 2022-01-09 19:19 | ED Integumentary General ---
General Chief Complaint: Skin/Wound Problems Stated Complaint: WOUND BLEEDING Nursing Triage Note: PT AMB TO [facility] 7 WITH C/O BLEEDING NOTICED AFTER A SHOWER AROUND 1800 AROUND HIS GROIN AREA. PT THINKS HE MAY HAVE PICKED A MOLE OFF AND ITS BLEEDING Source: patient Exam Limitations: no limitations History of Present Illness Date Seen by Provider: Jan 09, 2022 Time Seen by Provider: 18:56 Initial Comments Patient to the ER by private conveyance with his spouse and chief complaint of using a towel to dry off and noticed some bleeding on his scrotum that he was having a hard time getting to stop. He was using gauze and paper towels to stop it. He finally found some quick clot like substance and put on there and got it to stop bleeding by the time he got to the ER. He takes aspirin daily but does not take a blood thinner. He says he has had scope over [address] HOGAN and does not recall if he had polyps or not however he mentioned he was having some bright red bleeding per rectum recently. He says he had blood counts by Dr. Argueta which were normal. He says he gets his prostate checked routinely by Dr. Bettencourt. He does have hemorrhoids but he does not think the bleeding was from the hemorrhoids he thinks it was something more internal. Blood was mixed in the stool. He also has a history of upper GI's for GERD. 2009 he had a colonoscopy with no evidence of polyps, inflammation or neoplasm. Allergies and Home Medications Allergies Coded Allergies: amoxicillin (Verified Allergy, Unknown, 07/25/16) Patient Home Medication List Home Medication List Reviewed: Yes Amlodipine Besylate (Amlodipine Besylate) 5 Mg Tablet, 5 MG PO DAILY, (Reported) Entered as Reported by: JARRETT TALAVERA on 04/25/12 1145 Clonazepam (Clonazepam) 1 Mg Tablet, 0.5 TAB PO HS, (Reported) Entered as Reported by: FELI CONSTANTINO on 01/22/21 1101 Gabapentin (Gabapentin) 100 Mg Capsule, 200 MG PO BID, (Reported) Entered as Reported by: FELI CONSTANTINO on 01/22/21 1101 Gabapentin (Gabapentin) 100 Mg Capsule, 300 MG PO HS, (Reported) Entered as Reported by: FELI CONSTANTINO on 01/22/21 1101 Lisinopril (Lisinopril) 10 Mg Tablet, 10 MG PO DAILY, (Reported) Entered as Reported by: FELI CONSTANTINO on 01/22/21 110 Multivitamin (Multivitamin) 1 Each Tablet, 1 EACH PO DAILY, (Reported) Entered as Reported by: FELI CONSTANTINO on 01/22/21 1101 [place] 3 Polyunsat Fatty Acids (Fish Oil 1,000 mg Capsule) 1,000 Mg Cap, 1,000 MG PO DAILY, (Reported) Entered as Reported by: FELI CONSTANTINO on 01/22/21 110 Tramadol HCl (Tramadol HCl) 50 Mg Tablet, 1-2 MG PO Q4H PRN for PAIN-MODERATE (5-7) Prescribed by: LUIS ANTONIO VELASQUEZ on 01/28/21 0832 Review of Systems Review of Systems Constitutional: No chills, No diaphoresis EENTM: No ear pain, No eye pain Respiratory: No cough, No phlegm Cardiovascular: No chest pain, No palpitations Gastrointestinal: see HPI; No abdominal pain, No nausea Genitourinary: see HPI Skin: see HPI All Other Systems Reviewed Negative Unless Noted: Yes Past Bdhxsdb-Nqzjig-Czesey Hx Patient Social History Tobacco Use?: No Use of E-Cig and/or Vaping dev: No Substance use?: No Alcohol Use?: No Pt feels they are or have been: No Immunizations Up To Date Tetanus Booster (TDap): Less than 5yrs Influenza Vaccine Up-to-Date: Yes; Up-to-Date First/Initial COVID19 Vaccinat: OCT 2020 Second COVID19 Vaccination [place]: NOV 2020 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: [employer] Seasonal Allergies Seasonal Allergies: No Past Medical History Surgery/Hospitalization HX: HTN, NERVE PAIN, ANXIETY Surgeries: Yes (ING.HERNIA REPAIR, hiatal hernia repair, R CATARACT SURGERY) Abdominal, Eye Surgery, Tonsillectomy Respiratory: No Currently Using CPAP: No Currently Using BIPAP: No Cardiac: Yes Hypertension Neurological: Yes Seizure Disorder Reproductive Disorders: No Genitourinary: No Gastrointestinal: No Musculoskeletal: No Endocrine: No HEENT: Yes (HAD SURGERY ON R EYE) Cataract Cancer: No Psychosocial: Yes Anxiety Integumentary: No Blood Disorders: No Physical Exam Vital Signs Vital Signs - First Documented 01/09/22 18:50 Temp 36.0 Pulse 74 Resp 18 B/P (MAP) 132/78 (96) Capillary Refill : General Appearance: WD/WN, no apparent distress HEENT: PERRL/EOMI, pharynx normal Cardiovascular: normal peripheral pulses, regular rate, rhythm Respiratory: no respiratory distress, no accessory muscle use Gastrointestinal: other (Rectal exam he has a soft, prominent prostate with some present external, noninflamed small hemorrhoids seen. Normal colored Loam stool in the rectal vault. No other masses or troy blood seen.) Neurologic/Psychiatric: alert, normal mood/affect, oriented x 3 Skin: other (On the right side of the scrotum he has dried scab over what used to be a peter macula. It is hemostatic. There is no pulsatile or mass palpable. Testis and penis are unremarkable without other lesions.) Progress/Results/Core Measures Results/Orders Vital Signs/I&O 01/09/22 18:50 Temp 36.0 Pulse 74 Resp 18 B/P (MAP) 132/78 (96) Blood Pressure Mean: 96 Progress Progress Note : Time: 19:23 Progress Note Patient is complaining of a nosebleed and troy bleeding from the rectum in the stool which he does not think is from his hemorrhoids. We did offer to do check for PT/INR PTT and platelets but he says he just had blood done at Dr. Argueta and did not want this at this time. He is not having chest pain or shortness of air. We did review he had endoscopy 12 years ago demonstrating no polyp by Dr. HOGAN. We also offered to do a rectal exam and guaiac stool test which he assented to. Noninflamed external hemorrhoids were noted but no other concernin g features. Fecal Hemoccult is negative. Departure Impression Primary Impression: Hemangioma of skin Additional Impressions: BRBPR (bright red blood per rectum) External hemorrhoids without complication Disposition: 01 HOME, SELF-CARE Condition: Stable Departure-Patient Inst. Decision time for Depature: 19:33 Referrals: GIOVANI CHRISTIE MD, CHAD C MD (PCP/Family) Primary Care Physician Patient Instructions: Hemorrhoids ED, Bloody Stools, Adult (DC) Add. Discharge Instructions: Keep the wound clean with regular soap and water and dry. You may apply a small dollop of Vaseline if you wish to keep the skin from getting infected. If it bleeds again then you may apply direct firm pressure for 20 minutes without lifting pressure off to peer at it. If you cannot get the bleeding to stop then I encourage you to return to the ER and we will help with this. You may follow-up with a general surgeon to discuss your history and risk for colon cancer or you may discuss this further with your primary care doctor first. Your primary care doctor can help you if you would wish to do stool testing at home or any other routine testing. All discharge instructions reviewed with patient and/or family. Voiced understanding. Copy Copies To 1: GIOVANI CHRISTIE MD; DARWIN ARGUETA MD, TITUS J Jan 09, 2022 19:19
[2022-01-09 19:37] VITALS: BP 130/76
== END 2022-01-09 19:40 | disposition home or self-care (01) ==
LOC: EDUNIT# 18:13 → ER 18:14
DX: D18.01 Hemangioma of skin and subcutaneous tissue (principal); K64.4 Residual hemorrhoidal skin tags
CPT/HCPCS: 99281

== ENCOUNTER 2022-01-15 17:42 | Inpatient (IN) | payer MEDICARE, OTHER ==
[~2022-01-15] VITALS: Ht 170.1 cm; Wt 75.3 kg
--- NOTE | 2022-01-15 18:43 | ED Abdominal Pain ---
General Chief Complaint: Abdominal/GI Problems Stated Complaint: R LEG PAIN Nursing Triage Note: Pt arrival to ER with complaint of severe groin pain after pulling down attic stairs. Pt rates pain at a 20/10 and states that there is a large "buldge down there". Source of Information: Patient Exam Limitations: No Limitations History of Present Illness Date Seen by Provider: January 15, 2022 Time Seen by Provider: 18:28 Initial Comments The patient presents ER by private conveyance with his significant other chief complaint that he was pulling down the attic stairs when he felt a sharp, constant pain in his right lower groin with a bulge and states he has nausea wanting to vomit but only dry heaves. He has not take anything for the pain and instead came straight to the ER. Allergies and Home Medications Allergies Coded Allergies: amoxicillin (Verified Allergy, Unknown, 07/25/16) Patient Home Medication List Home Medication List Reviewed: Yes Amlodipine Besylate (Amlodipine Besylate) 5 Mg Tablet, 5 MG PO DAILY, (Reported) Entered as Reported by: JARRETT TALAVERA on 04/25/12 1145 Last Action: Last Taken Edited Clonazepam (Clonazepam) 1 Mg Tablet, 0.5 TAB PO HS, (Reported) Entered as Reported by: FELI CONSTANTINO on 01/22/211100 Last Action: Last Taken Edited Gabapentin (Gabapentin) 100 Mg Capsule, 200 MG PO BID, (Reported) Entered as Reported by: FELI CONSTANTINO on 01/22/211100 Last Action: Last Taken Edited Gabapentin (Gabapentin) 100 Mg Capsule, 300 MG PO HS, (Reported) Entered as Reported by: FELI CONSTANTINO on 01/22/211100 Last Action: Last Taken Edited Lisinopril (Lisinopril) 10 Mg Tablet, 10 MG PO DAILY, (Reported) Entered as Reported by: FELI CONSTANTINO on 01/22/211100 Last Action: Last Taken Edited Multivitamin (Multivitamin) 1 Each Tablet, 1 EACH PO DAILY, (Reported) Entered as Reported by: FELI CONSTANTINO on 01/22/211100 Last Action: Last Taken Edited [place] 3 Polyunsat Fatty Acids (Fish Oil 1,000 mg Capsule) 1,000 Mg Cap, 1,000 MG PO DAILY, (Reported) Entered as Reported by: FELI CONSTANTINO on 5/13/21 1101 Last Action: Last Taken Edited Tramadol HCl (Tramadol HCl) 50 Mg Tablet, 1-2 MG PO Q4H PRN for PAIN-MODERATE (5-7) Prescribed by: LUIS ANTONIO VELASQUEZ on 01/28/21 0832 Last Action: Last Taken Edited Review of Systems Review of Systems Constitutional: No chills, No diaphoresis EENTM: No Blurred Vision, No Double Vision Respiratory: Denies Cough, Denies Shortness of Air Cardiovascular: Denies Chest Pain, Denies Lightheadedness Gastrointestinal: Denies Constipated, Denies Diarrhea Genitourinary: Denies Burning, Denies Discharge, Denies Drainage Musculoskeletal: No back pain, No joint pain All Other Systems Reviewed Negative Unless Noted: Yes Past Ejrdteq-Qjvewl-Gjqvwj Hx Patient Social History Tobacco Use?: No Use of E-Cig and/or Vaping dev: No Substance use?: No Alcohol Use?: No Pt feels they are or have been: No Immunizations Up To Date Tetanus Booster (TDap): Less than 5yrs Influenza Vaccine Up-to-Date: Yes; Up-to-Date First/Initial COVID19 Vaccinat: OCT 2020 Second COVID19 Vaccination [place]: NOV 2020 Third COVID19 Vaccination Date: 2020 COVID19 Vaccine Manager Proposal: [employer] Seasonal Allergies Seasonal Allergies: No Past Medical History Surgery/Hospitalization HX: HTN, NERVE PAIN, ANXIETY Surgeries: Yes (ING.HERNIA REPAIR, hiatal hernia repair, R CATARACT SURGERY) Abdominal, Eye Surgery, Tonsillectomy Respiratory: No Currently Using CPAP: No Currently Using BIPAP: No Cardiac: Yes Hypertension Neurological: Yes Seizure Disorder Reproductive Disorders: No Genitourinary: No Gastrointestinal: No Musculoskeletal: No Endocrine: No HEENT: Yes (HAD SURGERY ON R EYE) Cataract Cancer: No Psychosocial: Yes Anxiety Integumentary: No Blood Disorders: No Physical Exam Vital Signs Vital Signs - First Documented 01/15/22 18:11 Temp 36.2 Pulse 55 Resp 20 B/P (MAP) 162/102 (122) Pulse Ox 95 O2 Delivery Room Air Capillary Refill : Less Than 3 Seconds Height/Weight/BMI Height: 5'7.00" Weight: 160lbs. oz. 72.528666dx; 26.00 BMI Method:Stated General Appearance: WD/WN, moderate distress HEENT: PERRL/EOMI, pharynx normal Neck: full range of motion, normal inspection Respiratory: no respiratory distress, no accessory muscle use Cardiovascular: normal peripheral pulses, regular rate, rhythm Peripheral Pulses: 2+ Radial Pulses (R), 2+ Radial Pulses (L) Gastrointestinal: normal bowel sounds, soft, tenderness, other (Firm fluid- filled sac palpable with no peristalsis auscultated in the right inguinal canal approximately 4 cm x 3 cm, nonreducible) Neurologic/Psychiatric: alert, oriented x 3, other (Pain and affect,) Progress/Results/Core Measures Results/Orders Lab Results Laboratory Tests Test 01/15/22 18:52 Range/Units White Blood Count 9.8 4.3-11.0 10^3/uL Red Blood Count 4.80 4.30-5.52 10^6/uL Hemoglobin 14.5 13.3-17.7 g/dL Hematocrit 44 40-54 % Mean Corpuscular Volume 92 80-99 fL Mean Corpuscular Hemoglobin 30 25-34 pg Mean Corpuscular Hemoglobin Concent 33 32-36 g/dL Red Cell Distribution Width 12.8 10.0-14.5 % Platelet Count 222 130-400 10^3/uL Mean Platelet Volume 10.8 9.0-12.2 fL Immature Granulocyte % (Auto) 0 % Neutrophils (%) (Auto) 71 42-75 % Lymphocytes (%) (Auto) 18 12-44 % Monocytes (%) (Auto) 8 0-12 % Eosinophils (%) (Auto) 2 0-10 % Basophils (%) (Auto) 1 0-10 % Neutrophils # (Auto) 7.0 1.8-7.8 10^3/uL Lymphocytes # (Auto) 1.8 1.0-4.0 10^3/uL Monocytes # (Auto) 0.8 0.0-1.0 10^3/uL Eosinophils # (Auto) 0.2 0.0-0.3 10^3/uL Basophils # (Auto) 0.1 0.0-0.1 10^3/uL Immature Granulocyte # (Auto) 0.0 0.0-0.1 10^3/uL Sodium Level 143 135-145 MMOL/L Potassium Level 4.0 3.6-5.0 MMOL/L Chloride Level 108 H 98-107 MMOL/L Carbon Dioxide Level 18 L 21-32 MMOL/L Anion Gap 17 H 5-14 MMOL/L Blood Urea Nitrogen 16 7-18 MG/DL Creatinine 1.43 H 0.60-1.30 MG/DL Estimat Glomerular Filtration Rate 48 BUN/Creatinine Ratio 11 Glucose Level 141 H 70-105 MG/DL Calcium Level 9.6 8.5-10.1 MG/DL Corrected Calcium 9.3 8.5-10.1 MG/DL Total Bilirubin 1.3 H 0.1-1.0 MG/DL Aspartate Amino Transf (AST/SGOT) 23 5-34 U/L Alanine Aminotransferase (ALT/SGPT) 21 0-55 U/L Alkaline Phosphatase 91 40-136 U/L C-Reactive Protein High Sensitivity 0.21 0.00-0.50 MG/DL Total Protein 7.7 6.4-8.2 GM/DL Albumin 4.4 3.2-4.5 GM/DL My Orders Orders - ELLA TAN Ed Iv/Invasive Line Start (01/15/22 18:38) Ns Iv 500 Ml (Sodium Chloride 0.9%) (01/15/22 18:45) Fentanyl Inj (Sublimaze Injection) (01/15/22 18:45) Cbc With Automated Diff (01/15/22 18:38) Comprehensive Metabolic Panel (01/15/22 18:38) Hs C Reactive Protein (01/15/22 18:38) Ua Culture If Indicated (01/15/22 18:38) Ct Abdomen/Pelvis W (01/15/22 18:38) Ondansetron Injection (Zofran Injectio (01/15/22 18:45) Fentanyl Inj (Sublimaze Injection) (01/15/22 18:45) Iohexol Injection (Omnipaque 350 Mg/Ml 1 (01/15/22 20:15) Received Contrast (Hold Metformin- Contr (01/15/22 20:15) Ns (Ivpb) (Sodium Chloride 0.9% Ivpb Bag (01/15/22 20:15) Medications Given in ED Current Medications Medications Dose Ordered Sig/Richa Route Start Time Stop Time Status Last Admin Dose Admin Fentanyl Citrate 100 mcg ONCE ONCE IVP 01/15/22 18:45 01/15/22 18:46 DC 01/15/22 19:01 100 MCG Iohexol 100 ml ONCE ONCE IV 01/15/22 20:15 01/15/22 20:16 DC 01/15/22 20:15 100 ML Ondansetron HCl 8 mg ONCE ONCE IVP 01/15/22 18:45 01/15/22 18:46 DC 01/15/22 19:01 8 MG Sodium Chloride 100 ml ONCE ONCE IV 01/15/22 20:15 01/15/22 20:16 DC 01/15/22 20:15 80 ML Sodium Chloride 500 ml @ 0 mls/hr Q0M ONCE IV 01/15/22 18:45 01/15/22 18:46 DC 01/15/22 19:00 999 MLS/HR Vital Signs/I&O 01/15/22 18:11 Temp 36.2 Pulse 55 Resp 20 B/P (MAP) 162/102 (122) Pulse Ox 95 O2 Delivery Room Air Blood Pressure Mean: 122 Progress Progress Note : Time: 18:41 Progress Note We will start an IV and 100 mg of fentanyl and 8 of Zofran so we get a better interview and examination. Currently he is curled over on himself with his head leaning against the bedside table unable to sit up, lay down or be very th oroughly examined of his abdomen. Aseptic vital signs. I suspect he may have an inguinal hernia or something similar and will obtain a CT with IV contrast to examine his abdominal contents. Diagnostic Imaging Diagonstic Imaging: CT Plain Films/CT/US/NM/MRI: abdomen, pelvis Comments [facility]. [place], [place] NAME: ALY HENNESSY [facility] REC#: [id number] PT STATUS: ADM IN : 1935 PHYSICIAN: ELLA TAN MD ADMIT DATE: 01/15/22 Signed Date of Exam:01/15/22 CT ABDOMEN/PELVIS W CLINICAL INDICATION: Patient with severe groin pain after pulling down the attic stairs. Patient states there is a large bulge down there. EXAM: Axial CT scan of the abdomen and pelvis performed with 100 mL of Omnipaque 300 IV contrast. Sagittal and coronal reformatted images were created. Auto Exposure Controls were utilized during the CT exam to meet ALARA standards for radiation dose reduction. COMPARISON: None. FINDINGS: There is mild atelectasis involving the posterior aspects of both lungs. There are degenerative spurs involving the visualized lower thoracic spine and lumbar spine. The liver, pancreas, gallbladder and adrenal glands are unremarkable. There is a small amount of perisplenic fluid noted which is nonspecific. Spleen is otherwise unremarkable. Bilateral renal cysts are seen, the largest one on the left side measuring roughly 2.3 cm involving the upper aspect. Small bilateral parapelvic cysts are noted. There is a punctate nonobstructive stone involving the inferior aspect of the right kidney measuring roughly 2 mm. There is no hydronephrosis. Bladder is fluid-filled and otherwise unremarkable. There is no intra-abdominal free air or free fluid. There is diverticulosis involving the sigmoid colon and descending colon with no evidence of diverticulitis. There is aneurysmal dilation involving the infrarenal abdominal aorta measuring roughly 3.5 cm in greatest axial dimension. There is vascular ectasia involving the left common iliac artery measuring 1.8 cm. There is a right inguinal hernia seen with fat and intestine extending into it. This right inguinal hernia measures 5.0 cm x 4.2 cm. A loop of small bowel is seen within it. There is no evidence of intestinal obstruction. There is mild fat stranding adjacent to the right inguinal hernia region. The remainder of the extra-abdominal and extra-pelvic soft tissue structures are unremarkable. IMPRESSION: 1: There is a right inguinal hernia with a loop of bowel within it. There is mild fat stranding adjacent to region. There is no evidence of intestinal obstruction. 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 3: There is diverticulosis with no CT evidence of diverticulitis. 4: Nonobstructive right nephrolithiasis. Dictated by: Dictated on workstation # [id number] Dict: 01/15/222024 Trans: 01/15/222317 [id number] Interpreted by: CELY HUTCHINS MD Electronically signed by: CELY HUTCHINS MD 01/15/222317 Reviewed: Reviewed by Al Departure Communication (Admissions) Time/Spoke to Admitting Phy: 20:45 Discussed the case with Dr. Medina and she agrees to admit the patient to the floor with consultation to general surgery for planned operational repair of right inguinal incarceration in the morning. N.p.o. Time/Spoke to Consulting Phy: 20:40 Discussed the case with Dr. Zamudio, general surgery who agrees to consult on the case with plans of taking him to surgery in the morning. Impression Primary Impression: Incarcerated right inguinal hernia Disposition: 01 HOME, SELF-CARE Condition: Stable Admissions Decision to Admit Reason: Admit from ER (General) Decision to Admit/Date: January 15, 2022 Time/Decision to Admit Time: 20:35 Departure-Patient Inst. Referrals: DARWIN ARGUETA MD (PCP/Family) Primary Care Physician ELLA TAN January 15, 2022 18:42
[2022-01-15] MEDS ORDERED: ONDANSETRON 4 MG/2 ML (SDV) Z0FRAN IVP ONE (18:45)
[2022-01-15] MEDS ORDERED: fentaNYL INJ 100 MCG/2 ML AMP IVP PRN (18:45)
[2022-01-15] MEDS ORDERED: NS IV 500 ML 500 ML IV ONE (18:45)
[2022-01-15] MEDS ORDERED: fentaNYL INJ 100 MCG/2 ML AMP IVP ONE (18:45)
[2022-01-15 19:01] LABS: BASOPHILS # (AUTO) 0.1 10^3/uL (0.0-0.1); BASOPHILS % (AUTO) 1 % (0-10); EOSINOPHILS # (AUTO) 0.2 10^3/uL (0.0-0.3); EOSINOPHILS % (AUTO) 2 % (0-10); HEMATOCRIT 44 % (40-54); HEMOGLOBIN 14.5 g/dL (13.3-17.7); LYMPHOCYTES # (AUTO) 1.8 10^3/uL (1.0-4.0); LYMPHOCYTES % (AUTO) 18 % (12-44); MEAN CORPUSCULAR HEMOGLOBIN 30 pg (25-34); MEAN CORPUSCULAR HGB CONC 33 g/dL (32-36); MEAN CORPUSCULAR VOLUME 92 fL (80-99); MEAN PLATELET VOLUME 10.8 fL (9.0-12.2); MONOCYTES # (AUTO) 0.8 10^3/uL (0.0-1.0); MONOCYTES % (AUTO) 8 % (0-12); NEUTROPHILS % (AUTO) 71 % (42-75); PLATELET COUNT 222 10^3/uL (130-400); WHITE BLOOD COUNT 9.8 10^3/uL (4.3-11.0)
[2022-01-15 20:01] LABS: ALBUMIN 4.4 GM/DL (3.2-4.5); BILIRUBIN,TOTAL 1.3 MG/DL (0.1-1.0); CALCIUM 9.6 MG/DL (8.5-10.1); CREATININE SERUM 1.43 MG/DL (0.60-1.30); TOTAL PROTEIN 7.7 GM/DL (6.4-8.2)
[2022-01-15] MEDS ORDERED: NS 100 ML (IVPB) BAG IV ONE (20:15)
[2022-01-15] MEDS ORDERED: HOLD METFORMIN - RECEIVED CONTRAST 20 ML VIAL IV SCH (20:15)
[2022-01-15] MEDS ORDERED: IOHEXOL 350 MG/ML 100 ML (OMNIPAQUE 350) VIAL IV ONE (20:15)
--- NOTE | 2022-01-15 20:39 | Diagnostic Imaging Report ---
CLINICAL INDICATION: Patient with severe groin pain after pulling down the attic stairs. Patient states there is a large bulge down there. EXAM: Axial CT scan of the abdomen and pelvis performed with 100 mL of Omnipaque 300 IV contrast. Sagittal and coronal reformatted images were created. Auto Exposure Controls were utilized during the CT exam to meet ALARA standards for radiation dose reduction. COMPARISON: None. FINDINGS: There is mild atelectasis involving the posterior aspects of both lungs. There are degenerative spurs involving the visualized lower thoracic spine and lumbar spine. The liver, pancreas, gallbladder and adrenal glands are unremarkable. There is a small amount of perisplenic fluid noted which is nonspecific. Spleen is otherwise unremarkable. Bilateral renal cysts are seen, the largest one on the left side measuring roughly 2.3 cm involving the upper aspect. Small bilateral parapelvic cysts are noted. There is a punctate nonobstructive stone involving the inferior aspect of the right kidney measuring roughly 2 mm. There is no hydronephrosis. Bladder is fluid-filled and otherwise unremarkable. There is no intra-abdominal free air or free fluid. There is diverticulosis involving the sigmoid colon and descending colon with no evidence of diverticulitis. There is aneurysmal dilation involving the infrarenal abdominal aorta measuring roughly 3.5 cm in greatest axial dimension. There is vascular ectasia involving the left common iliac artery measuring 1.8 cm. There is a right inguinal hernia seen with fat and intestine extending into it. This right inguinal hernia measures 5.0 cm x 4.2 cm. A loop of small bowel is seen within it. There is no evidence of intestinal obstruction. There is mild fat stranding adjacent to the right inguinal hernia region. The remainder of the extra-abdominal and extra-pelvic soft tissue structures are unremarkable. IMPRESSION: 1: There is a right inguinal hernia with a loop of bowel within it. There is mild fat stranding adjacent to region. There is no evidence of intestinal obstruction. 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 3: There is diverticulosis with no CT evidence of diverticulitis. 4: Nonobstructive right nephrolithiasis. Dictated by: Dictated on workstation # [id number]
[2022-01-15] MEDS ORDERED: PROMETHAZINE INJ 25 MG/ML (PHENERGAN) AMP IVP ONE (21:15)
[2022-01-15] MEDS ORDERED: LACTATED RINGERS 1,000 ML IV ONE (21:15)
[2022-01-15] MEDS ORDERED: ONDANSETRON 4 MG/2 ML (SDV) Z0FRAN IV PRN (22:45)
[2022-01-15] MEDS ORDERED: fentaNYL INJ 100 MCG/2 ML AMP IV PRN (22:45)
[2022-01-15] MEDS ORDERED: HYDROmorphone 2 MG/ML VIAL (DILAUDID) IV PRN (22:45)
[2022-01-15] MEDS ORDERED: morphine INJ 4 MG/ML 1 ML (VIAL/SYRINGE) IV PRN (22:45)
[2022-01-15] MEDS: 1/2 NS IV SOLUTION 1,000 ML IV SCH (23:43)
[2022-01-15 23:49] VITALS: BP 150/70
[2022-01-16] VITALS (13 sets, daily range): BP systolic 109–176; BP diastolic 56–77
[2022-01-16] MEDS: 1/2 NS IV SOLUTION 1,000 ML IV SCH ×3 (05:49→18:37)
[2022-01-16 06:01] LABS: BASOPHILS % (AUTO) 1 % (0-10); EOSINOPHILS # (AUTO) 0.1 10^3/uL (0.0-0.3); EOSINOPHILS % (AUTO) 1 % (0-10); HEMATOCRIT 37 % (40-54); HEMOGLOBIN 12.1 g/dL (13.3-17.7); LYMPHOCYTES # (AUTO) 2.1 10^3/uL (1.0-4.0); LYMPHOCYTES % (AUTO) 24 % (12-44); MEAN CORPUSCULAR HEMOGLOBIN 30 pg (25-34); MEAN CORPUSCULAR HGB CONC 32 g/dL (32-36); MEAN CORPUSCULAR VOLUME 93 fL (80-99); MEAN PLATELET VOLUME 11.1 fL (9.0-12.2); MONOCYTES # (AUTO) 0.9 10^3/uL (0.0-1.0); MONOCYTES % (AUTO) 10 % (0-12); NEUTROPHILS # (AUTO) 5.5 10^3/uL (1.8-7.8); NEUTROPHILS % (AUTO) 64 % (42-75); PLATELET COUNT 197 10^3/uL (130-400); WHITE BLOOD COUNT 8.5 10^3/uL (4.3-11.0)
[2022-01-16 06:16] LABS: POTASSIUM 4.1 MMOL/L (3.6-5.0)
[2022-01-16 06:18] LABS: CALCIUM 8.5 MG/DL (8.5-10.1)
[2022-01-16 06:22] LABS: CREATININE SERUM 1.3 MG/DL (0.60-1.30)
--- NOTE | 2022-01-16 09:42 | Consultation - Surgery ---
History of Present Illness History of Present Illness Patient Consulted On(alba/time) 01/16/22 09:35 Time Seen by Provider: 09:24 History of Present Illness Surgery asked to consult regarding Incarcerated RIGHT inguinal hernia. HPI per ED: Nurse report - Pt arrival to ER with complaint of severe groin pain after pulling down attic stairs. Pt rates pain at a 20/10 and states that there is a large "buldge down there". Per ED provider -The patient presents ER by private conveyance with his significant other chief complaint that he was pulling down the attic stairs when he felt a sharp, constant pain in his right lower groin with a bulge and states he has nausea wanting to vomit but only dry heaves. He has not take anything for the pain and instead came straight to the ER. When I spoke to the pt this morning he states that he may have had a "twinge" in the area within past 5 years that he would have rated 1 out of 10. Last night when he came to the ER "it was a 20". Pain was at the lump and radiated outward to hip and down into groin. He states it is better this am, but still has a little bit of pain. He also can still feel the bulge, but states that is "way down". Allergies and Home Medications Allergies Coded Allergies: amoxicillin (Verified Allergy, Unknown, 07/25/16) Patient Home Medication List Home Medication List Reviewed: Yes Amlodipine Besylate (Amlodipine Besylate) 5 Mg Tablet, 5 MG PO DAILY, (Reported) Entered as Reported by: JARRETT TALAVERA on 04/25/12 1145 Last Action: Last Taken Edited Clonazepam (Clonazepam) 1 Mg Tablet, 0.5 TAB PO HS, (Reported) Entered as Reported by: FELI CONSTANTINO on 01/22/211100 Last Action: Last Taken Edited Gabapentin (Gabapentin) 100 Mg Capsule, 200 MG PO BID, (Reported) Entered as Reported by: FELI CONSTANTINO on 01/22/211100 Last Action: Last Taken Edited Gabapentin (Gabapentin) 100 Mg Capsule, 300 MG PO HS, (Reported) Entered as Reported by: FELI CONSTANTINO on 01/22/211100 Last Action: Last Taken Edited Lisinopril (Lisinopril) 10 Mg Tablet, 10 MG PO DAILY, (Reported) Entered as Reported by: FELI CONSTANTINO on 01/22/211100 Last Action: Last Taken Edited Multivitamin (Multivitamin) 1 Each Tablet, 1 EACH PO DAILY, (Reported) Entered as Reported by: FELI CONSTANTINO on 01/22/211100 Last Action: Last Taken Edited [place] 3 Polyunsat Fatty Acids (Fish Oil 1,000 mg Capsule) 1,000 Mg Cap, 1,000 MG PO DAILY, (Reported) Entered as Reported by: FELI CONSTANTINO on 01/22/211100 Last Action: Last Taken Edited Tramadol HCl (Tramadol HCl) 50 Mg Tablet, 1-2 MG PO Q4H PRN for PAIN-MODERATE (5-7) Prescribed by: LUIS ANTONIO VELASQUEZ on 01/28/21 0832 Last Action: Last Taken Edited Past Inqcnzp-Gcmloc-Wgaigd Hx Patient Social History Smoking Status: Never a Smoker (smoked a few times in his 20's "to be part of the crowd") 2nd Hand Smoke Exposure: No Recent Hopitalizations: No Alcohol Use?: No Have you traveled recently?: No Immunizations Up To Date Tetanus Booster (TDap): Less than 5yrs Date of Influenza Vaccine: Jul 13, 2016 Seasonal Allergies Seasonal Allergies: No Surgeries History of Surgeries: Yes (ING.HERNIA REPAIR, hiatal hernia repair, R CATARACT SURGERY) Surgeries: Abdominal (hernia repair in 1973, "they put in a screen". It was bilateral inguinal), Eye Surgery, Tonsillectomy Respiratory History of Respiratory Disorde: No Cardiovascular History of Cardiac Disorders: Yes Cardiac Disorders: Hypertension Neurological History of Neurological Disord: Yes Neurological Disorders: Seizure Disorder Reproductive System Hx Reproductive Disorders: No Genitourinary History of Genitourinary Disor: No Gastrointestinal History of Gastrointestinal Di: No Musculoskeletal History of Musculoskeletal Dis: No Endocrine History of Endocrine Disorders: No HEENT History of HEENT Disorders: Yes (HAD SURGERY ON R EYE) HEENT Disorders: Cataract Cancer History of Cancer: No Psychosocial History of Psychiatric Problem: Yes Behavioral Health Disorders: Anxiety Integumentary History of Skin or Integumenta: No Blood Transfusions History of Blood Disorders: No Family Medical History Significant Family History: Cancer (brother), Diabetes (brother) Review of Systems-General Constitutional: No chills, No diaphoresis, No weight loss EENTM: No blurred vision, No double vision, No mouth swelling, No epistaxis Respiratory: No cough, No dyspnea on exertion, No short of breath Cardiovascular: No chest pain, No palpitations Gastrointestinal: abdominal pain; No hematemesis, No jaundice; nausea, vomiting Genitourinary: No dysuria; frequency; No hematuria Musculoskeletal: joint pain, joint swelling, muscle stiffness Skin: No change in color, No change in hair/nails Psychiatric/Neurological: Denies Anxiety, Denies Depressed; Seizure, Weakness (normal with age) Physical Exam-General Problems Physical Exam Vital Signs Vital Signs - First Documented 01/15/22 01/16/22 18:11 00:03 Temp 36.2 Pulse 55 Resp 20 B/P (MAP) 162/102 (122) Pulse Ox 95 O2 Delivery Room Air O2 Flow Rate 0.00 Capillary Refill : Less Than 3 Seconds General Appearance: WD/WN, no apparent distress Eyes: Left Eye PERRL; Bilateral Eye EOMI HEENT: pharynx normal; No scleral icterus (R), No scleral icterus (L); other (right eye shows surgical changes) Neck: non-tender, supple Respiratory: chest non-tender, lungs clear, normal breath sounds, no respiratory distress, no accessory muscle use Cardiovascular: regular rate, rhythm, no murmur Gastrointestinal: soft, no organomegaly; No guarding, No rebound; hernia (umbilical, incarcerated right inguinal, left inguinal) Back: no CVA tenderness, no vertebral tenderness Extremities: no pedal edema, no calf tenderness 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, alert, normal mood/affect, oriented x 3 Skin: normal color, warm/dry Lymphatic: no adenopathy (neck, axilla or groin) Data Review Labs Laboratory Tests 01/15/22 18:52: White Blood Count 9.8, Red Blood Count 4.80, Hemoglobin 14.5, Hematocrit 44, Mean Corpuscular Volume 92, Mean Corpuscular Hemoglobin 30, Mean Corpuscular Hemoglobin Concent 33, Red Cell Distribution Width 12.8, Platelet Count 222, Mean Platelet Volume 10.8, Immature Granulocyte % (Auto) 0, Neutrophils (%) (Auto) 71, Lymphocytes (%) (Auto) 18, Monocytes (%) (Auto) 8, Eosinophils (%) (Auto) 2, Basophils (%) (Auto) 1, Neutrophils # (Auto) 7.0, Lymphocytes # (Auto) 1.8, Monocytes # (Auto) 0.8, Eosinophils # (Auto) 0.2, Basophils # (Auto) 0.1, Immature Granulocyte # (Auto) 0.0, Sodium Level 143, Potassium Level 4.0, Chloride Level 108H, Carbon Dioxide Level 18L, Anion Gap 17H, Blood Urea Nitrogen 16, Creatinine 1.43H, Estimat Glomerular Filtration Rate 48, BUN/Creatinine Ratio 11, Glucose Level 141H, Calcium Level 9.6, Corrected Calcium 9.3, Total Bilirubin 1.3H, Aspartate Amino Transf (AST/SGOT) 23, Alanine Aminotransferase (ALT/SGPT) 21, Alkaline Phosphatase 91, C-Reactive Protein High Sensitivity 0.21, Total Protein 7.7, Albumin 4.4 01/16/22 05:12: White Blood Count 8.5, Red Blood Count 4.04L, Hemoglobin 12.1L, Hematocrit 37L, Mean Corpuscular Volume 93, Mean Corpuscular Hemoglobin 30, Mean Corpuscular Hemoglobin Concent 32, Red Cell Distribution Width 12.9, Platelet Count 197, Mean Platelet Volume 11.1, Immature Granulocyte % (Auto) 0, Neutrophils (%) (Auto) 64, Lymphocytes (%) (Auto) 24, Monocytes (%) (Auto) 10, Eosinophils (%) (Auto) 1, Basophils (%) (Auto) 1, Neutrophils # (Auto) 5.5, Lymphocytes # (Auto) 2.1, Monocytes # (Auto) 0.9, Eosinophils # (Auto) 0.1, Basophils # (Auto) 0.0, Immature Granulocyte # (Auto) 0.0, Sodium Level 143, Potassium Level 4.1, Chloride Level 111H, Carbon Dioxide Level 21, Anion Gap 11, Blood Urea Nitrogen 13, Creatinine 1.30, Estimat Glomerular Filtration Rate 54, BUN/Creatinine Ratio 10, Glucose Level 92, Calcium Level 8.5 Radiology Date of Exam:01/15/22 CT ABDOMEN/PELVIS W CLINICAL INDICATION: Patient with severe groin pain after pulling down the attic stairs. Patient states there is a large bulge down there. EXAM: Axial CT scan of the abdomen and pelvis performed with 100 mL of Omnipaque 300 IV contrast. Sagittal and coronal reformatted images were created. Auto Exposure Controls were utilized during the CT exam to meet ALARA standards for radiation dose reduction. COMPARISON: None. FINDINGS: There is mild atelectasis involving the posterior aspects of both lungs. There are degenerative spurs involving the visualized lower thoracic spine and lumbar spine. The liver, pancreas, gallbladder and adrenal glands are unremarkable. There is a small amount of perisplenic fluid noted which is nonspecific. Spleen is otherwise unremarkable. Bilateral renal cysts are seen, the largest one on the left side measuring roughly 2.3 cm involving the upper aspect. Small bilateral parapelvic cysts are noted. There is a punctate nonobstructive stone involving the inferior aspect of the right kidney measuring roughly 2 mm. There is no hydronephrosis. Bladder is fluid-filled and otherwise unremarkable. There is no intra-abdominal free air or free fluid. There is diverticulosis involving the sigmoid colon and descending colon with no evidence of diverticulitis. There is aneurysmal dilation involving the infrarenal abdominal aorta measuring roughly 3.5 cm in greatest axial dimension. There is vascular ectasia involving the left common iliac artery measuring 1.8 cm. There is a right inguinal hernia seen with fat and intestine extending into it. This right inguinal hernia measures 5.0 cm x 4.2 cm. A loop of small bowel is seen within it. There is no evidence of intestinal obstruction. There is mild fat stranding adjacent to the right inguinal hernia region. The remainder of the extra-abdominal and extra-pelvic soft tissue structures are unremarkable. IMPRESSION: 1: There is a right inguinal hernia with a loop of bowel within it. There is mild fat stranding adjacent to region. There is no evidence of intestinal obstruction. 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 3: There is diverticulosis with no CT evidence of diverticulitis. 4: Nonobstructive right nephrolithiasis. Dictated by: Dictated on workstation # [id number] Dict: 01/15/222024 Trans: 01/15/223 [id number] Interpreted by: CELY HUTCHINS MD Electronically signed by: CELY HUTCHINS MD 01/15/22 1878 Assessment/Plan Assessment/Plan Assessment/Plan Incarcerated Right inguinal hernia - intestine Left inguinal hernia - may have fat Umbilical hernia HTN Seizure disorder I had a discussion with pt and and went over their options: 1) do nothing, his WBC is normal and his pain is improved 2) open repair of incarcerated inguinal hernia 3) Laparoscopic repair. I explained to them my thinking behind the 2 different repairs and why I thought doing nothing was a bad idea. My main concern is putting a piece of mesh in the same spot if I went open and not being able to visualize all of the intestine that was stuck in the hernia. I need to make sure the intestine is viable and healthy, plus I think placing the mesh retroperitoneally is best physiologically and it avoids previous mesh. Laparas copic does come with risks of increased operative time which would increase risk of cardiac complication. I hope at most it will take me an hour to do the procedure laparoscopically. All questions answered to their satisfaction. They elected to do procedure laparoscopically. DAVID FIELD DO January 16, 2022 09:42
[2022-01-16] MEDS ORDERED: SALINE NASAL SPRAY (OCEAN) 45 ML BTL PRN (09:45)
--- NOTE | 2022-01-16 10:03 | History & Physical-Hospitalist ---
History of Present Illness HPI/Chief Complaint Patient is an 86-year-old male with past medical history of hypertension who presented to the emergency department due to abdominal and groin pain. He states he was pulling down the stairs to his attic yesterday when he suddenly developed sharp pain in his right lower abdomen and groin. He rated it a 20 out of 10. He decided to seek evaluation in the emergency department where CT of his abdomen revealed an incarcerated inguinal hernia. He was admitted for surgical evaluation. This morning he reports feeling much better and pain is minimal. His only concern at this time is some nasal congestion for which he is requesting Vicks or saline flushes. Source: patient Date Seen 01/16/22 Time Seen by a Provider: 09:30 Attending Physician Ted Medina MD PCP Donovan Bullard MD Referring Physician Date of Admission January 15, 2022 at 21:00 Home Medications & Allergies Home Medications Reviewed patient Home Medication Reconciliation performed by pharmacy medication reconciliations wheel alignment technician and/or nursing. Patients Allergies have been reviewed. Allergies Allergies Coded Allergies amoxicillin (Verified Allergy, Unknown, 07/25/16) Past Uadqryj-Sxhhvw-Ekxxmd Hx Patient Social History Marrital Status: Employed/Student: retired Tobacco Use?: No Smoking Status: Never a Smoker (smoked a few times in his 20's "to be part of the crowd") Use of E-Cig and/or Vaping dev: No Substance use?: No Alcohol Use?: No Pt feels they are or have been: No Immunizations Up To Date Date of Influenza Vaccine: Jul 13, 2016 First/Initial COVID19 Vaccinat: November 2020 Second COVID19 Vaccination [place]: January 2021 Tetanus Booster (TDap): More Than 5 Years Seasonal Allergies Seasonal Allergies: No Current Status Advance Directives: Yes Advance Directive Location: Family to bring in copy Communicates: Verbally Primary Language: Macedonian Preferred Spoken Language: Macedonian Is interpretation needed?: No Sensory deficits: Vision impairment Implanted or Applied Medical D: None Past Medical History Surgeries: Abdominal (hernia repair in 1973, "they put in a screen". It was bilateral inguinal), Eye Surgery, Tonsillectomy Currently Using CPAP: No Currently Using BIPAP: No Hypertension Seizure Disorder Cataract Anxiety Blood Disorders: No Family Medical History Reviewed Nursing Family Hx Cancer (brother), Diabetes (brother) Review of Systems Constitutional: No chills, No fever EENTM: nose congestion; No throat pain Respiratory: no symptoms reported Cardiovascular: no symptoms reported Gastrointestinal: see HPI Genitourinary: no symptoms reported Musculoskeletal: no symptoms reported Skin: no symptoms reported Psychiatric/Neurological: No Symptoms Reported Physical Exam Physical Exam Vital Signs Vital Signs - First Documented 01/15/22 01/16/22 18:11 00:03 Temp 36.2 Pulse 55 Resp 20 B/P (MAP) 162/102 (122) Pulse Ox 95 O2 Delivery Room Air O2 Flow Rate 0.00 Capillary Refill : Less Than 3 Seconds Height, Weight, BMI Height: 5'7.00" Weight: 160lbs. oz. 72.705768us; 26.02 BMI Method:Stated General Appearance: No Apparent Distress, WD/WN, Thin HEENT: PERRL/EOMI, Moist Mucous Membranes Neck: Normal Inspection, Supple Respiratory: Lungs Clear, No Accessory Muscle Use, No Respiratory Distress Cardiovascular: Regular Rate, Rhythm, No JVD, No Murmur Gastrointestinal: Normal Bowel Sounds, Non Tender, Soft Extremity: Normal Capillary Refill, No Calf Tenderness, No Pedal Edema Neurologic/Psychiatric: Alert, Oriented x3, Normal Mood/Affect Results Results/Procedures Labs Laboratory Tests 01/15/22 18:52 01/16/22 05:12 Patient resulted labs reviewed. Imaging: Reviewed Imaging Report Imaging [facility], [place] NAME: ALY HENNESSY [facility] REC#: [id number] PT STATUS: ADM IN : 1935 PHYSICIAN: ELLA TAN MD ADMIT DATE: 01/15/22 Signed Date of Exam:01/15/22 CT ABDOMEN/PELVIS W CLINICAL INDICATION: Patient with severe groin pain after pulling down the attic stairs. Patient states there is a large bulge down there. EXAM: Axial CT scan of the abdomen and pelvis performed with 100 mL of Omnipaque 300 IV contrast. Sagittal and coronal reformatted images were created. Auto Exposure Controls were utilized during the CT exam to meet ALARA standards for radiation dose reduction. COMPARISON: None. FINDINGS: There is mild atelectasis involving the posterior aspects of both lungs. There are degenerative spurs involving the visualized lower thoracic spine and lumbar spine. The liver, pancreas, gallbladder and adrenal glands are unremarkable. There is a small amount of perisplenic fluid noted which is nonspecific. Spleen is otherwise unremarkable. Bilateral renal cysts are seen, the largest one on the left side measuring roughly 2.3 cm involving the upper aspect. Small bilateral parapelvic cysts are noted. There is a punctate nonobstructive stone involving the inferior aspect of the right kidney measuring roughly 2 mm. There is no hydronephrosis. Bladder is fluid-filled and otherwise unremarkable. There is no intra-abdominal free air or free fluid. There is diverticulosis involving the sigmoid colon and descending colon with no evidence of diverticulitis. There is aneurysmal dilation involving the infrarenal abdominal aorta measuring roughly 3.5 cm in greatest axial dimension. There is vascular ectasia involving the left common iliac artery measuring 1.8 cm. There is a right inguinal hernia seen with fat and intestine extending into it. This right inguinal hernia measures 5.0 cm x 4.2 cm. A loop of small bowel is seen within it. There is no evidence of intestinal obstruction. There is mild fat stranding adjacent to the right inguinal hernia region. The remainder of the extra-abdominal and extra-pelvic soft tissue structures are unremarkable. IMPRESSION: 1: There is a right inguinal hernia with a loop of bowel within it. There is mild fat stranding adjacent to region. There is no evidence of intestinal obstruction. 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 3: There is diverticulosis with no CT evidence of diverticulitis. 4: Nonobstructive right nephrolithiasis. Dictated by: Dictated on workstation # [id number] Dict: 01/15/222024 Trans: 01/15/222317 [facility] [id number] Interpreted by: CELY HUTCHINS MD Electronically signed by: CELY HUTCHINS MD 01/15/22 6190 Assessment/Plan Admission Diagnosis Incarcerated right inguinal hernia Admission Status: Observation Assessment and Plan Incarcerated right inguinal hernia Surgery consulted, appreciate recs Planning for OR today Pain regimen HTN BP well controlled, resume home meds post op CKD 2 Creatinine stable, trend Anemia- normocytic likely dilutional, trend TED MEDINA MD January 16, 2022 10:03
[2022-01-16] MEDS ORDERED: SEVOFLURANE (ULTANE) 15 ML INHAL SOLN ONE ×2 (10:14→12:34)
[2022-01-16] MEDS ORDERED: ROCURONIUM 50 MG/5 ML (ZEMURON) VIAL IV ONE (10:14)
[2022-01-16] MEDS ORDERED: proPOfol 200 MG/20 ML (DIPRIVAN) VIAL IV ONE (10:14)
[2022-01-16] MEDS ORDERED: LIDOCAINE PF 2% 5 ML (XYLOCAINE) VIAL ONE (10:14)
[2022-01-16] MEDS ORDERED: LIDOCAINE/EPI 1%-1:200,000 (XYLOCAINE) 30 ML VIAL ONE (10:15)
[2022-01-16] MEDS ORDERED: MIDAZOLAM 2 MG/2 ML (VERSED) VIAL ONE (10:15)
[2022-01-16] MEDS ORDERED: fentaNYL INJ 100 MCG/2 ML AMP ONE (10:15)
[2022-01-16] MEDS ORDERED: CLINDAMYCIN 600 MG/50 ML IVPB 50 ML IV ONE (10:42)
[2022-01-16] MEDS ORDERED: LACTATED RINGERS 1,000 ML IV PRN (11:15)
--- NOTE | 2022-01-16 12:47 | Progress Note-Post Operative ---
Post-Operative Progess Note Surgeon (s)/Sand Operator (s) Surgeon DAVID FIELD DO Sand Operator: Cathy Pre-Operative Diagnosis Incarcerated right inguinal hernia Post-Operative Diagnosis Incarcerated right inguinal hernia Large cord lipoma Procedure & Operative Findings Date of Procedure 01/16/22 Procedure Performed/Findings Laparoscopic Right Inguinal Herniarrapy with mesh placement Excision of cord lipoma After informed consent was obtained, the patient was brought to the operating room and placed on the operating table in a supine position. He was sterilely prepped and draped in a normal fashion. Local lidocaine was used to infiltrate the skin above the umbilicus. I made an incision with #11 blade, carried down to the skin into subcutaneous tissue and then deepened down the subcutaneous tissue with Bovie electrocautery down to the fascia. Fascia was incised with Bovie electrocautery and bluntly entered the abdomen, swept a finger around, placed 0 Vicryl [id number] suture and placed limited trocar port under direct visualization. Created pneumoperitoneum, able to visualize the hernia and took a picture of this and then placed two 8 mm ports about 10 cm on either side of the midline port using a local lidocaine, 11 blade for stab incision and then advanced the robotic port under direct visualization. Once this was in, I then placed the patient in Trendelenburg and then placed the working instruments, the fenestrated bipolar and the scissors. Looked on the left side and saw early signs of inguinal hernia. I could see an indirect hernia defect on the right side. I also looked at the bowel it appeared viable, but the part that had been incarcerated was slightly dusky. It had fallen out on its own before I had to do anything to remove from the hernia. Next, I came across the peritoneum approximately 8 cm away from the hernia defect, going across laterally starting lateral about 17cm and cutting toward the median umbilical ligament. I then carefully dissected the visceral peritoneum away and down and then in the midline, went through the parietal side and dissected down to the pubic tubercle, dissecting this down carefully pushing the peritoneum away, I was able to then visualize the pubic tubercle and Max's ligament. I went 2 cm posterior and at this point, we then had a critical view of the dissection, able to dissect 2 cm across the midline to the right side, 2 cm posterior to the Max's ligament, able to then parietalize the vas deferens and spermatic vessels right at the groove between Max's and iliac vein and able to dissect, make sure there was no peritoneum between those two, able to see the indirect hernia space, took a picture of this, looked at the femoral space (no hernia seen). Then I carefully teased out the hernia sac and could visualize the indirect hernia space. Next I looked on the cord and cord structures. There was a very large cord lipoma that I was able to reduce and cut off. This was then removed throught the port to get it out of the peritoneal space. I could clearly see the inguinal canal and the indirect space. Next I carried the posterior lateral dissection all the way out and then placed a 12 x 17 [place] Bard 3DMax mesh. It laid in nicely, covered the hernia defect and the rest of the area. It was above the peritoneum, sutured it at the pubic tubercle with a 3-0 Vicryl suture and tied this off. I also place one suture laterally to hold the mesh in place and it appeared to lay in very nicely. I then brought down the pneumoperitoneum to about 8 mmHg and then started closing the peritoneum. Started laterally and used a 2-0 V-lock barbed suture to start a running stitch to close the peritoneum. I had mad a hole in the peritoneum and had to close this with some more 3-0 Vicryl. This was closed nicely, took a picture of the closure at this point, then removed both needles had switched to a suture skip load driver from the scissors. The patient was then placed back supine, removed all ports under direct visualization, allowed pneumoperitoneum to escape and then closed the supraumbilical incision, closing the fascia with 0 Vicryl suture previously placed. Copiously irrigated all incisions and then closed the two small 8 mm incisions with two interrupted 4-0 undyed Monocryl subcuticular stitches and closed the supraumbilical incision with three interrupted undyed Monocryl subcuticular stitch. Area was cleaned and dried. Dermabond was placed. The patient tolerated the procedure. The sponge, instrument and needle counts were correct at the end of the case. Dr. Morgan assisted during this surgery by making incisions, closing incisions, helping to identify anatomy and passing/retrieving suture and needles. Anesthesia Type GET Estimated Blood Loss Estimated blood loss (mL): scant Specimens/Packing Specimens Removed cord lipoma DAVID FIELD DO January 16, 2022 12:47
[2022-01-16] MEDS ORDERED: ACHD5005 PO (12:48)
--- NOTE | 2022-01-16 12:50 | Discharge Inst-Surgical ---
Discharge Inst-Surgical Depart Medication/Instructions New, Converted or Re-Newed RX: Transmitted to Pharmacy Patient Instructions Follow up Appt: Make appointment for 1 week. [phone] Instructions: No lifting greater than 20 pounds. No strenuous activity. May shower in 24 hours, no tub bath or soaking. Use incentive spirometer at home as directed. No Smoking Skin/Wound Care: May remove bandages in am. You need to leave the Dermabond on incision it will fall off on it's own. Symptoms to Report: Appetite Changes, Extremity Discoloration, Numbness/Tingling, Swelling Increased, Bleeding Excessive, Eyesight Changes, Pain Increased, Urine Color Change, Constipation(Persistent), Fever over 101 degree F, Pain/Pressure in chest, Urinating Difficulty, Cough Up/Vomit Blood, Heart Beat Irreg/Pounding, Pain/Pressure in jaw, Cramps in feet or legs, Lightheadedness, Pain/Pressure in shoulder, Diarrhea(Persistent), Memory Changes Suddenly, Questions/Concerns, Weight gain consecutive days, Dizziness/Fainting, Nausea/Vomiting, Shortness of Breath, Weight gain over 2 pounds If questions or concerns contact your physician Or seek help at emergency department. Activity Activity as Tolerated: Yes Activity Instructions: Avoid Stress to Incision Driving Instructions: No Driving/Refer to Dr. Farris Discharge Diet: No Restrictions Diet After 24 Hours: Clear Liquid if Nauseous If Any Problems/Questions/Issu: Contact Your Physician, Go to Emergency Room Skin/Wound Care Infection Signs and Symptoms: Increased Redness, Foul Odor of Wound, Increased Drainage, Skin Itchy or Has a Rash, Increased Swelling, Temperature Above 101 F Wound Care Comment: heating pad to shoulder or neck tonight for pain Bathing Instructions: Shower Stitches/Sabine/Dermabond Dis: Dermabond Ice Pack: Ice On and Off Site DAVID FIELD DO January 16, 2022 12:50
[2022-01-16] MEDS: CLINDAMYCIN 600 MG/50 ML IVPB 50 ML IV SCH ×2 (14:43→20:47)
[2022-01-16] MEDS ORDERED: GABAPENTIN 300 MG (NEURONTIN) CAP PO NR (21:00)
[2022-01-16] MEDS ORDERED: clonazePAM 0.5 MG (KlonoPIN) TAB PO NR (21:00)
[2022-01-17] MEDS: 1/2 NS IV SOLUTION 1,000 ML IV SCH ×2 (03:07→10:21)
[2022-01-17 03:10] VITALS: BP 137/64
[2022-01-17] MEDS: CLINDAMYCIN 600 MG/50 ML IVPB 50 ML IV SCH (05:01)
[2022-01-17 08:04] VITALS: BP 150/66
--- NOTE | 2022-01-17 10:12 | Discharge Summary ---
Diagnosis/Chief Complaint Date of Admission January 15, 2022 at 21:00 Date of Discharge Discharge Date: January 17, 2022 Admission Diagnosis Incarcerated right inguinal hernia Primary Care Donovan Bullard MD Discharge Summary Discharge Physical Exam Allergies: Coded Allergies: amoxicillin (Verified Allergy, Unknown, 07/25/16) Vitals & I&Os Vital Signs Date Time Temp Pulse Resp B/P (MAP) Pulse Ox O2 Delivery O2 Flow Rate FiO2 01/17/22 08:08 93 Room Air 0.00 01/17/22 08:04 36.9 59 18 150/66 (94) General Appearance: No Apparent Distress, WD/WN Respiratory: Lungs Clear, No Respiratory Distress Cardiovascular: Regular Rate, Rhythm, No Murmur Neurologic/Psychiatric: Alert, Oriented x3 Hospital Course Drink patient was admitted to the hospital secondary to incarcerated right inguinal hernia. He underwent laparoscopic repair with mesh placement by Dr. Zamudio. He did very well and pain was controlled. He was able to be discharged home in stable and improved condition to follow-up with his primary care provider Dr. Bullard and with Dr. Zamudio as recommended. Labs (last 24 hrs) Patient resulted labs reviewed. Imaging: Reviewed Imaging Report Discussion & Recommendations Discharge Planning: <30 minutes discharge planning Discharge Home Medications: Active Scripts Active HYDROcodone/APAP 5 MG/325 MG TAB (Acetaminophen/Hydrocodone Bitart) 1 Tab Tab 1 Tab PO Q8H PRN Reported Multivitamin 1 Each Tablet 1 Each PO DAILY Fish Oil 1,000 mg Capsule ([place] 3 Polyunsat Fatty Acids) 1,000 Mg Cap 1,000 Mg PO DAILY Lisinopril 10 Mg Tablet 10 Mg PO DAILY Gabapentin 100 Mg Capsule 300 Mg PO HS Gabapentin 100 Mg Capsule 200 Mg PO BID MORNING & AFTERNOON Clonazepam 1 Mg Tablet 0.5 Tab PO HS Amlodipine Besylate 5 Mg Tablet 5 Mg PO DAILY Instructions to patient/family Please see electronic discharge instructions given to patient. TED BROWN MD January 17, 2022 10:12
[2022-01-17 10:46] VITALS: BP 173/87
--- NOTE | 2022-01-18 07:07 | Anesthesia-General Post-Op ---
General Patient Condition Mental Status/LOC: Same as Preop Cardiovascular: Satisfactory Nausea/Vomiting: Absent Respiratory: Satisfactory Pain: Controlled Complications: Absent Post Op Complications Complications None Follow Up Care/Instructions Patient Instructions None needed. Anesthesia/Patient Condition Patient Condition Patient is doing well, no complaints, stable vital signs, no apparent adverse anesthesia problems. No complications reported per nursing. D/C home per [facility] Criteria: Yes DANNIELLE YUAN CRNA January 18, 2022 07:07
== END 2022-01-17 10:45 | disposition home or self-care (01) | DRG 352 ==
LOC: EDUNIT# 17:42 → ER 17:45 → 4TH 21:00
PROVIDERS: ADMIT Family Medicine; ATTEND Family Medicine
PROC: 0YU54JZ Supplement Right Inguinal Region with Synthetic Substitute, Percutaneous Endoscopic Approach (ICD-10-PCS; principal; 2022-01-15)
PROC: 0VBF4ZZ Excision of Right Spermatic Cord, Percutaneous Endoscopic Approach (ICD-10-PCS; 2022-01-15)
DX: K40.30 Unilateral inguinal hernia, with obstruction, without gangrene, not specified as recurrent (principal); D17.6 Benign lipomatous neoplasm of spermatic cord; G40.909 Epilepsy, unspecified, not intractable, without status epilepticus; F41.9 Anxiety disorder, unspecified; K42.9 Umbilical hernia without obstruction or gangrene; D64.9 Anemia, unspecified; N18.2 Chronic kidney disease, stage 2 (mild); I12.9 Hypertensive chronic kidney disease with stage 1 through stage 4 chronic kidney disease, or unspecified chronic kidney disease
CPT/HCPCS: 36415; 74177; 80048; 80053; 85025; 86141; 87081

== ENCOUNTER → 2022-04-05 | Outpatient (CLI) | payer MEDICARE, OTHER ==
[~2022-04-05] MED LIST changes: +ACHD5005 PO
--- NOTE | 2022-04-05 11:46 | Diagnostic Imaging Report ---
INDICATION: Neck injury from a fall. AP, lateral and oblique views of the cervical spine are obtained. There is a very slight spondylolisthesis at C4-C5. There is degenerative disc changes with disc space narrowing at C5-C6 and C6-C7. There are some degenerative changes of facet joints at C2-C3 and C3-C4. IMPRESSION: Degenerative changes of the cervical spine as noted. No fracture or acute abnormality seen. Dictated by: Dictated on workstation # [id number]
== END ==
LOC: RAD 09:31
PROVIDERS: ATTEND Registered Nurse
DX: M47.812 Spondylosis without myelopathy or radiculopathy, cervical region (principal)
CPT/HCPCS: 72050

== ENCOUNTER → 2022-04-09 | Outpatient (CLI) | payer MEDICARE, OTHER ==
--- NOTE | 2022-04-09 13:11 | Diagnostic Imaging Report ---
PROCEDURE: MR imaging cervical spine without contrast. TECHNIQUE: Multiplanar, multisequence MR imaging of the cervical spine was performed without contrast. INDICATION: Trauma. Neck pain. Fall 3 weeks ago. COMPARISON: Cervical spine radiographs 04/05/2022. FINDINGS: Grade 1 anterolisthesis of C7 on T1. Vertebral body heights preserved. Normal bone marrow signal. No abnormal signal in the cervical spinal cord. Visualized paravertebral soft tissues are unremarkable. Mild degenerative changes in the atlantoaxial articulation. C2-C3: Broad-based disc bulging results in mild spinal canal and bilateral neural foraminal narrowing. C3-C4: Central disc protrusion and uncovertebral joint hypertrophy combined with facet arthropathy result in severe left and mild right neural foraminal narrowing. Mild spinal canal narrowing. C4-C5: No spinal canal . Uncovertebral facet arthropathy result in moderate left and mild right neural foraminal narrowing. C5 and C6: No spinal canal narrowing. Uncovertebral and facet arthropathy result in moderate bilateral neural foraminal narrowing. C6-C7: Annular disc bulging results in moderate right and mild left neural foraminal narrowing. No spinal canal narrowing. C7-T1: No spinal canal or neural foraminal narrowing. IMPRESSION: 1. Spondylotic changes result in scattered high-grade neural foraminal narrowing detailed above level by level. 3. No high-grade spinal canal stenosis. 4. No abnormal signal in the cervical spinal cord. Dictated by: Dictated on workstation # [id number]
== END ==
LOC: RAD 11:55
PROVIDERS: ATTEND Registered Nurse
DX: M47.812 Spondylosis without myelopathy or radiculopathy, cervical region (principal); M50.21 Other cervical disc displacement, high cervical region; M48.02 Spinal stenosis, cervical region
CPT/HCPCS: 72141

== ENCOUNTER 2022-07-21 05:44 | Outpatient (CLI) | payer MEDICARE, OTHER ==
[~2022-07-21] VITALS: Ht 170.2 cm; Wt 72.6 kg
[2022-07-21] MEDS ORDERED: CYCL5TAB PO (08:38)
[2022-07-22] MEDS ORDERED: AMLO-250 PO (15:34)
[2022-07-22] MEDS ORDERED: CLON0.5T4 PO (15:34)
[2022-07-22] MEDS ORDERED: DOCU-26 PO (15:34)
[2022-07-22] MEDS ORDERED: GABA-486 PO (15:34)
[2022-07-22] MEDS ORDERED: FISH1CAP15 PO (15:34)
[2022-07-22] MEDS ORDERED: MULT200T12 PO (15:35)
[2022-07-23] MEDS ORDERED: CLOP75TA28 PO (16:54)
[2022-07-23] MEDS ORDERED: ATOR40TA PO (16:54)
[2022-07-23] MEDS ORDERED: ASPI81TA64 PO (16:54)
== END 2022-07-21 08:40 | disposition home or self-care (01) ==
LOC: PREOP 05:44
PROVIDERS: ATTEND Surgery
DX: Z01.818 Encounter for other preprocedural examination (principal)

== ENCOUNTER 2022-07-22 06:39 | Inpatient (IN) | payer MEDICARE, OTHER ==
[~2022-07-22] VITALS: Ht 167.6 cm; Wt 69.9 kg
[2022-07-22] VITALS (10 sets, daily range): BP systolic 118–168; BP diastolic 58–130
[~2022-07-22 06:39] MED LIST changes: +CYCL5TAB PO
[2022-07-22] MEDS ORDERED: NS IV 1000 ML 1,000 ML IV SCH (07:00)
[2022-07-22 07:02] LABS: BASOPHILS % (AUTO) 1 % (0-10); EOSINOPHILS # (AUTO) 0.2 10^3/uL (0.0-0.3); EOSINOPHILS % (AUTO) 3 % (0-10); HEMATOCRIT 41 % (40-54); HEMOGLOBIN 13.5 g/dL (13.3-17.7); LYMPHOCYTES # (AUTO) 2.6 10^3/uL (1.0-4.0); LYMPHOCYTES % (AUTO) 33 % (12-44); MEAN CORPUSCULAR HEMOGLOBIN 30 pg (25-34); MEAN CORPUSCULAR HGB CONC 33 g/dL (32-36); MEAN CORPUSCULAR VOLUME 91 fL (80-99); MEAN PLATELET VOLUME 10.8 fL (9.0-12.2); MONOCYTES # (AUTO) 0.7 10^3/uL (0.0-1.0); MONOCYTES % (AUTO) 9 % (0-12); NEUTROPHILS # (AUTO) 4.3 10^3/uL (1.8-7.8); NEUTROPHILS % (AUTO) 54 % (42-75); PLATELET COUNT 230 10^3/uL (130-400); WHITE BLOOD COUNT 7.9 10^3/uL (4.3-11.0)
[2022-07-22 07:05] LABS: CHLORIDE 108 MMOL/L (98-107); POTASSIUM 3.9 MMOL/L (3.6-5.0); SODIUM 139 MMOL/L (135-145)
--- NOTE | 2022-07-22 07:05 | ED Neurological Problem ---
General Chief Complaint: Neuro-Stroke Like Symptoms Stated Complaint: POSS STROKE Nursing Triage Note: Pt here by EMS with stroke-like s/s. Pt reports numbness to his left side upon waking up. Pt is A&Ox4. Source: patient Exam Limitations: no limitations History of Present Illness Date Seen by Provider: Jul 22, 2022 Time Seen by Provider: 06:55 Initial Comments Patient is a very pleasant 87-year-old male who presents to the emergency room by EMS chief complaint left-sided weakness and sensory disturbance on awakening at approximately 530 this morning. Patient went to bed at about midnight last night. He states that he was normal at that time. Woke up this morning and states that he could not feel his left arm and left leg. No speech difficulties, no swallowing difficulties. He went off his baby aspirin this week for a scheduled endoscopy to evaluate some swallowing difficulties he has been having chronically. History of hypertension, no history of atrial fibrillation. No recent illness such as COVID symptoms. No cough, fever, abdominal pain, diarrhea or problems with bladder. He states he did have a TIA approximately a year and a half ago. Timing/Duration: 1-3 hours Severity: moderate Associated Symptoms: numbness in legs/feet (numbness left leg), other (numbness left arm) Allergies and Home Medications Allergies Coded Allergies: amoxicillin (Verified Allergy, Unknown, 07/25/16) Patient Home Medication List Home Medication List Reviewed: Yes Amlodipine Besylate (Amlodipine Besylate) 5 Mg Tablet, 5 MG PO DAILY, (Reported) Entered as Reported by: JARRETT TALAVERA on 04/25/12 1145 Clonazepam (Clonazepam) 1 Mg Tablet, 0.5 TAB PO HS, (Reported) Entered as Reported by: FELI CONSTANTINO on 01/22/21 1101 Cyclobenzaprine HCl (Cyclobenzaprine HCl) 5 Mg Tablet, 5 MG PO HS, (Reported) Entered as Reported by: ANA CONNER on 07/21/22 0838 Gabapentin (Gabapentin) 100 Mg Capsule, 300 MG PO HS, (Reported) Entered as Reported by: FELI CONSTANTINO on 01/22/21 1101 Hydrocodone Bit/Acetaminophen (HYDROcodone/APAP 5 MG/325 MG TAB) 1 Tab Tab, 1 TAB PO Q8H PRN for PAIN-MODERATE (5-7) Prescribed by: DAVID FIELD on 01/16/22 1249 Lisinopril (Lisinopril) 10 Mg Tablet, 10 MG PO DAILY, (Reported) Entered as Reported by: FELI CONSTANTINO on 01/22/21 110 Multivitamin (Multivitamin) 1 Each Tablet, 1 EACH PO DAILY, (Reported) Entered as Reported by: FELI CONSTANTINO on 01/22/21 1101 [place] 3 Polyunsat Fatty Acids (Fish Oil 1,000 mg Capsule) 1,000 Mg Cap, 1,000 MG PO DAILY, (Reported) Entered as Reported by: FELI CONSTANTINO on 01/22/21 110 Discontinued Medications Gabapentin (Gabapentin) 100 Mg Capsule, 200 MG PO BID, (Reported) Discontinued Reason: No Longer Taking Entered as Reported by: FELI CONSTANTINO on 01/22/211100 Review of Systems Review of Systems Constitutional: see HPI Eyes: No Symptoms Reported Ears, Nose, Mouth, Throat: no symptoms reported Respiratory: no symptoms reported Cardiovascular: no symptoms reported Gastrointestinal: no symptoms reported Genitourinary: no symptoms reported Musculoskeletal: no symptoms reported Skin: no symptoms reported Psychiatric/Neurological: Anxiety, Numbness (LUE LLE), Weakness (t arm and leg) All Other Systems Reviewed Negative Unless Noted: Yes Past Zrrvqjg-Ypepha-Cdirmu Hx Immunizations Up To Date Tetanus Booster (TDap): Less than 5yrs First/Initial COVID19 Vaccinat: November 2020 Second COVID19 Vaccination [place]: January 2021 Third COVID19 Vaccination Date: July 2021 Seasonal Allergies Seasonal Allergies: No Past Medical History Surgery/Hospitalization HX: Tonsilectomy Cataract Right eye surgery Inguinal hernia repair Hiatal hernia repair Surgeries: Yes (ING.HERNIA REPAIR, hiatal hernia repair, R CATARACT SURGERY) Abdominal, Eye Surgery, Tonsillectomy Respiratory: No Currently Using CPAP: No Currently Using BIPAP: No Cardiac: Yes Hypertension Neurological: Yes Seizure Disorder Reproductive Disorders: No Genitourinary: No Gastrointestinal: No Musculoskeletal: No Endocrine: No HEENT: Yes (HAD SURGERY ON R EYE) Cataract Cancer: No Psychosocial: Yes Anxiety Integumentary: No Blood Disorders: No Family Medical History Cancer, Diabetes Physical Exam Vital Signs Vital Signs - First Documented 07/22/22 06:42 Temp 36.8 Pulse 62 Resp 18 B/P (MAP) 168/58 (94) Pulse Ox 94 O2 Delivery Room Air Capillary Refill : Less Than 3 Seconds Height, Weight, BMI Height: 5'7.00" Weight: 160lbs. oz. 72.280359ai; 25.00 BMI Method:Stated General Appearance: WD/WN, no apparent distress, thin HEENT: PERRL/EOMI, pharynx normal Neck: supple Respiratory: lungs clear, normal breath sounds, no respiratory distress, no accessory muscle use Cardiovascular: regular rate, rhythm (60's) Peripheral Pulses: 2+ Radial Pulses (R), 2+ Radial Pulses (L) Gastrointestinal: normal bowel sounds, non tender, soft Back: normal inspection Extremities: normal inspection, no pedal edema Neurologic/Psychiatric: alert, oriented x 3; No aphasia, No EOM palsy, No facial droop; motor weakness (LUE LLE some effort against gravity), sensory deficit, other (anxious) Crainal Nerves: normal hearing, normal speech, PERRL Coordination/Gait: normal finger to nose (on the right, cannot perform on the left) Motor/Sensory: sensory deficit, weak motor strength LUE, weak motor strength LLE Skin: normal color, warm/dry Stroke Onset of Symptoms Date of Onset of Symptoms: Jul 22, 2022 Onset of Symptoms: No Symptoms onset unknown: Yes NIH Stroke Scale Assessment Select: Initial Level of Consciousness: 0=Alert (0), Level of Consciousness- Questions: 0=Answers both month/age (0), LOC Commands: 0=Performs both tasks (0), Gaze: Normal (0), Visual [place]: 1=Partial hemianopia (1), Facial Movement (Facial Paresis): 0=Normal symmetrical mnt (0), Motor Function-Arms Right: 0=No drift (0), Motor Function-Arms Left: 2=Some effort/gravity (2), Motor Function-Legs Right: 0=No drift (0), Motor Function-Legs Left: 2=Some effort/gravity (2), Limb Ataxia: 2=Present in two limbs (2), Sensory: 2=Severe to total loss (2), Best Language: 0=No aphasia (0), Dysarthria: 0=Normal (0), Extinction & Inattention: 0=No abnormality (0), Total: 9 Stroke Thrombolytic Exclusion Age 18 or Over: Yes History of CVA: No Uncontrolled Coagulation Defec: No GI or Bleed: No Subarachnoid Hemorrhage: No Oral Anticoagulants: No Surgery or Trauma: No Puncture of Non-Compressible V: No Recent CPR: No Diabetic Hemorrhagic Retinopat: No Organ Biopsy: No Recent Obstetric Delivery: No Glucose: No Significant Hepatic Dysfunctio: No NIH Stoke Scale >22: No Bacterial Endocarditis: No Pericarditis: No Improving Symptoms: No Platelets: No TPA Contraindication: Yes IV - TPa Received IV - TPa Procedure Performed?: No Progress/Results/Core Measures Results/Orders Lab Results Laboratory Tests Test 07/22/22 06:47 07/22/22 06:50 07/22/22 07:36 Range/Units Glucometer 91 70-110 MG/DL White Blood Count 7.9 4.3-11.0 10^3/uL Red Blood Count 4.48 4.30-5.52 10^6/uL Hemoglobin 13.5 13.3-17.7 g/dL Hematocrit 41 40-54 % Mean Corpuscular Volume 91 80-99 fL Mean Corpuscular Hemoglobin 30 25-34 pg Mean Corpuscular Hemoglobin Concent 33 32-36 g/dL Red Cell Distribution Width 12.6 10.0-14.5 % Platelet Count 230 130-400 10^3/uL Mean Platelet Volume 10.8 9.0-12.2 fL Immature Granulocyte % (Auto) 0 % Neutrophils (%) (Auto) 54 42-75 % Lymphocytes (%) (Auto) 33 12-44 % Monocytes (%) (Auto) 9 0-12 % Eosinophils (%) (Auto) 3 0-10 % Basophils (%) (Auto) 1 0-10 % Neutrophils # (Auto) 4.3 1.8-7.8 10^3/uL Lymphocytes # (Auto) 2.6 1.0-4.0 10^3/uL Monocytes # (Auto) 0.7 0.0-1.0 10^3/uL Eosinophils # (Auto) 0.2 0.0-0.3 10^3/uL Basophils # (Auto) 0.0 0.0-0.1 10^3/uL Immature Granulocyte # (Auto) 0.0 0.0-0.1 10^3/uL Prothrombin Time 13.6 12.2-14.7 SEC INR Comment 1.0 0.8-1.4 Activated Partial Thromboplast Time 29 24-35 SEC D-Dimer 1.02 H 0.00-0.49 UG/ML Sodium Level 139 135-145 MMOL/L Potassium Level 3.9 3.6-5.0 MMOL/L Chloride Level 108 H 98-107 MMOL/L Carbon Dioxide Level 21 21-32 MMOL/L Anion Gap 10 5-14 MMOL/L Blood Urea Nitrogen 17 7-18 MG/DL Creatinine 1.46 H 0.60-1.30 MG/DL Estimat Glomerular Filtration Rate 46 BUN/Creatinine Ratio 12 Glucose Level 92 70-105 MG/DL Calcium Level 9.8 8.5-10.1 MG/DL Corrected Calcium 9.8 8.5-10.1 MG/DL Total Bilirubin 1.6 H 0.1-1.0 MG/DL Aspartate Amino Transf (AST/SGOT) 16 5-34 U/L Alanine Aminotransferase (ALT/SGPT) 14 0-55 U/L Alkaline Phosphatase 78 40-136 U/L Troponin I < 0.028 <0.028 NG/ML Total Protein 7.0 6.4-8.2 GM/DL Albumin 4.0 3.2-4.5 GM/DL Urine Color YELLOW Urine Clarity CLEAR Urine pH 5.5 5-9 Urine Specific [place] 1.025 H 1.016-1.022 Urine Protein NEGATIVE NEGATIVE Urine Glucose (UA) NEGATIVE NEGATIVE Urine Ketones NEGATIVE NEGATIVE Urine Nitrite NEGATIVE NEGATIVE Urine Bilirubin NEGATIVE NEGATIVE Urine Urobilinogen 0.2 < = 1.0 MG/DL Urine Leukocyte Esterase NEGATIVE NEGATIVE Urine RBC (Auto) NEGATIVE NEGATIVE Urine RBC NONE /HPF Urine WBC NONE /HPF Urine Squamous Epithelial Cells 0-2 /HPF Urine Crystals NONE /LPF Urine Bacteria NEGATIVE /HPF Urine Casts NONE /LPF Urine Mucus NEGATIVE /LPF Urine Culture Indicated NO My Orders Orders - MICHELLE GARCIA MD Cbc With Automated Diff (07/22/22 06:53) Protime With Inr (07/22/22 06:53) Partial Thromboplastin Time (07/22/22 06:53) Comprehensive Metabolic Panel (07/22/22 06:53) Fibrin Degradation Products (07/22/22 06:53) Troponin I Melonie (07/22/22 06:53) Ua Culture If Indicated (07/22/22 06:53) Chest 1 View, Ap/Pa Only (07/22/22 06:53) Ekg Tracing (07/22/22 06:53) Nothing By Mouth (07/22/22 Breakfast) Accucheck Stat ONCE (07/22/22 06:53) Ed Iv/Invasive Line Start (07/22/22 06:53) Ed Iv/Invasive Line Start (07/22/22 06:53) Vital Signs Stroke Patient Q15M (07/22/22 06:53) O2 (07/22/22 06:53) Intake & Output 06,14,22 (07/22/22 06:53) Monitor-Rhythm Ecg Trace Only (07/22/22 06:53) Dysphagia Screening Tool Q10MX1 (07/22/22 06:53) Post Thrombolytic Adminstratio (07/22/22 06:53) Lipid Panel (07/23/22 06:00) Ns Iv 1000 Ml (Sodium Chloride 0.9%) (07/22/22 07:00) Ct Head Perfusion W/ Contrast (07/22/22 06:55) Ct Head Wo-R/O Stroke (07/22/22 ) Ct Angio Head/Neck (07/22/22 06:53) Iohexol Injection (Omnipaque 350 Mg/Ml 1 (07/22/22 08:15) Received Contrast (Hold Metformin- Contr (07/22/22 08:15) Sodium Chloride Flush (Catheter Flush Sy (07/22/22 08:15) Ns (Ivpb) (Sodium Chloride 0.9% Ivpb Bag (07/22/22 08:15) Medications Given in ED Current Medications Medications Dose Ordered Sig/Richa Route Start Time Stop Time Status Last Admin Dose Admin Iohexol 150 ml ONCE ONCE IV 07/22/22 08:15 07/22/22 08:16 DC 07/22/22 08:20 150 ML Sodium Chloride 10 ml NEEDED PRN IV 07/22/22 08:15 07/22/22 08:20 10 ML Sodium Chloride 100 ml ONCE ONCE IV 07/22/22 08:15 07/22/22 08:16 DC 07/22/22 08:20 150 ML Vital Signs/I&O 07/22/22 06:42 Temp 36.8 Pulse 62 Resp 18 B/P (MAP) 168/58 (94) Pulse Ox 94 O2 Delivery Room Air Blood Pressure Mean: 94 FSBG Bedside Testing Finger Stick Blood Glucose: 91 Blood Glucose Action Taken: RN NOTIFIED Progress Progress Note #1: Time: 09:18 Progress Note Patient reexamined after CT angios, he has return of sensation in the left upper and lower extremity however maintains weakness in the left lower, can contract his quadriceps on the left but cannot straight leg raise. His left arm appears to be flaccid however he can squeeze my hand with relatively good strength. Call made to [facility] at this time to discuss with stroke neurologist. Progress Note #2: Time: 09:39 Progress Note Discussed with KENISHA, neurology Dr. Bojorquez. She did recommend an MRI as well as further risk stratification with echo and standard stroke work-up. She recommended full-strength aspirin today and a 300 mg Plavix load. Case is discussed with Dr. Snyder. We will put him in observation to the cardiac stepdown unit. Patient's vital signs are currently stable. Patient and family made aware of plan of care and are agreeable Initial ECG Impression Date: Jul 22, 2022 Initial ECG Impression Time: 07:15 Initial ECG Rate: 57 Initial ECG Rhythm: S.Jad Initial ECG Intervals: Normal Initial ECG Impression: Nonspecific Changes Diagnostic Imaging Diagonstic Imaging: Xray Plain Films/CT/US/NM/MRI: chest Comments [facility], [place] NAME: ALY HENNESSY [facility] REC#: [id number] PT STATUS: REG ER : 1935 PHYSICIAN: MICHELLE GARCIA MD ADMIT DATE: 07/22/22/ER Draft Date of Exam:07/22/22 CHEST 1 VIEW, AP/PA ONLY INDICATION: Stroke protocol, left-sided weakness. EXAMINATION: Chest 07/22/2022. COMPARISON: 05/09/2022 FINDINGS: Left hemidiaphragm elevated with adjacent atelectasis noted. Heart normal. Pulmonary vasculature unremarkable. No pneumothorax. No significant effusions. IMPRESSION: 1. Left base atelectasis versus infiltrate with elevated left hemidiaphragm. Dictated on workstation # [id number] Dict: 07/22/22 0751 Trans: 07/22/22 0755 [id number] Interpreted by: MEL BREAUX MD Electronically signed by: Diagonstic Imaging: CT Comments [facility], [place] NAME: ALY HENNESSY [facility] REC#: [id number] PT STATUS: REG ER : 1935 PHYSICIAN: MICHELLE GARCIA MD ADMIT DATE: 07/22/22/ER Draft Date of Exam:07/22/22 CT HEAD WO-R/O STROKE PROCEDURE: CT head wo r/o stroke. TECHNIQUE: Multiple contiguous axial images were obtained through the brain without the use of intravenous contrast. Auto Exposure Controls were utilized during the CT exam to meet ALARA standards for radiation dose reduction. INDICATION: Left-sided numbness EXAMINATION: CT brain without contrast 07/22/2022 COMPARISON: 05/09/2020 FINDINGS: There is chronic ischemic disease in a periventricular and deep white matter distribution with age-appropriate atrophy also noted. There is no acute hemorrhage or infarct. No mass, mass effect or midline shift. No hydrocephalus. There is no acute osseous abnormality. Mucosal thickening and retention polyp or cyst noted in the sinuses with no air-fluid levels present. Mastoid air cells clear. IMPRESSION: 1. Chronic changes with no superimposed acute intracranial process. Dictated on workstation # [id number] Dict: 07/22/2212 Trans: 07/22/22 0732 [facility] [phone] Interpreted by: MEL BREAUX MD Electronically signed by: Comments [facility], [place] NAME: ALY HENNESSY [facility] REC#: [id number] PT STATUS: REG ER : 1935 PHYSICIAN: MICHELLE GARCIA MD ADMIT DATE: 07/22/22/ER Signed Date of Exam:07/22/22 CT ANGIO HEAD/NECK INDICATION: Left-sided numbness, stroke alert. TECHNIQUE: Contiguous noncontrast images were obtained from the skull base through the vertex. After intravenous contrast administration, helical CT angiography of the neck was performed. Source data was reformatted into 3D MIP projections. Delayed post contrast acquisition was also obtained. Auto Exposure Controls were utilized during the CT exam to meet ALARA standards for radiation dose reduction. Comparison made with noncontrast CT earlier today. CTA neck findings: Aortic arch shows some atherosclerotic plaquing. There is no aneurysm or dissection. There is some atherosclerotic plaquing of the innominate artery with mild stenosis. The common carotid arteries are patent on both sides. The external carotids are patent. There are tight stenoses of the internal carotid origins on both sides, with about 70% stenosis of the right internal carotid proximally and about 90% stenosis of the left proximal ICA. Distal portions of the internal carotids were patent. The vertebral arteries are patent on both sides and appear codominant and without stenosis. There is fairly extensive degenerative change throughout the cervical spine. CTA head findings: The distal vertebral arteries and basilar artery are patent with mild plaquing. The posterior cerebral arteries are patent on both sides. The distal internal carotid arteries show some concentric plaquing throughout the carotid siphons. Distal ICAs are patent. The anterior cerebral arteries and middle cerebral arteries and their visualized branches appear unremarkable. The dural venous sinuses are patent. Delayed images demonstrate no abnormal intracranial enhancing lesions. IMPRESSION: CTA neck demonstrates about 90% stenosis of the left ICA origin and about 70% stenosis of the right ICA origin. There is plaquing visualized in the innominate artery without high-grade stenosis. Both vertebrals are patent. CTA had demonstrates scattered plaquing in the carotid siphon but no major vessel stenosis or occlusion or aneurysmal disease. 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 Dictated by: Dictated on workstation # [id number] Dict: 07/22/2235 Trans: 07/22/22911 PENDING [facility] TO [facility] [phone] Interpreted by: ANABEL HUANG MD Electronically signed by: ANABEL HUANG MD 07/22/22911 Comments [facility] [place] NAME: ALY HENNESSY [facility] REC#: [id number] PT STATUS: REG ER : 1935 PHYSICIAN: MICHELLE GARCIA MD ADMIT DATE: 07/22/22/ER Signed Date of Exam:07/22/22 CT HEAD PERFUSION W/ CONTRAST INDICATION: Stroke alert, left-sided numbness CT perfusion study performed with axial slices without IV contrast with perfusion maps generated via the rapid protocol. Dose reduction protocol was used. The cerebral blood flow images demonstrate no evidence of core infarct. T- max images demonstrate no ischemic penumbra using the 6 2nd threshold. Perfusion maps appear symmetric bilaterally. IMPRESSION: CT perfusion study demonstrates no evidence of core infarct or ischemic penumbra. Dictated by: Dictated on workstation # [id number] Dict: 07/22/22841 Trans: 07/22/22911 PEND[facility] TO [facility] [phone] Interpreted by: ANABEL HUANG MD Electronically signed by: ANABEL HUANG MD 07/22/22911 Departure Communication (Admissions) Time/Spoke to Admitting Phy: 09:[address] Snyder; observation Cardiac Stepdown; he will do que'd orders Impression Primary Impression: Stroke Qualified Codes: I63.9 - Cerebral infarction, unspecified Disposition: ADMITTED INPATIENT Condition: Stable Admissions Decision to Admit Reason: Admit from ER (General) Decision to Admit/Date: Jul 22, 2022 Time/Decision to Admit Time: 09:40 Departure-Patient Inst. Referrals: DARWIN ARGUETA MD (PCP/Family) Primary Care Physician MICHELLE GARCIA MD Jul 22, 2022 07:04
[2022-07-22 07:06] LABS: CALCIUM 9.8 MG/DL (8.5-10.1)
[2022-07-22 07:07] LABS: GLUCOSE 92 MG/DL (70-105)
[2022-07-22 07:09] LABS: BILIRUBIN,TOTAL 1.6 MG/DL (0.1-1.0); CARBON DIOXIDE 21 MMOL/L (21-32)
[2022-07-22 07:11] LABS: ALKALINE PHOSPHATASE 78 U/L (40-136); CREATININE SERUM 1.46 MG/DL (0.60-1.30); GFR ESTIMATED 46
[2022-07-22 07:12] LABS: BUN/CREATININE RATIO 12
[2022-07-22 07:14] LABS: ALANINE AMINOTRANSFERASE 14 U/L (0-55)
[2022-07-22 07:29] LABS: FIBRIN DEGRADATION PRODUCTS 1.02 UG/ML (0.00-0.49); PROTHROMBIN TIME PATIENT 13.6 SEC (12.2-14.7)
--- NOTE | 2022-07-22 07:32 | Diagnostic Imaging Report ---
PROCEDURE: CT head wo r/o stroke. TECHNIQUE: Multiple contiguous axial images were obtained through the brain without the use of intravenous contrast. Auto Exposure Controls were utilized during the CT exam to meet ALARA standards for radiation dose reduction. INDICATION: Left-sided numbness EXAMINATION: CT brain without contrast 07/22/2022 COMPARISON: 05/09/2020 FINDINGS: There is chronic ischemic disease in a periventricular and deep white matter distribution with age-appropriate atrophy also noted. There is no acute hemorrhage or infarct. No mass, mass effect or midline shift. No hydrocephalus. There is no acute osseous abnormality. Mucosal thickening and retention polyp or cyst noted in the sinuses with no air-fluid levels present. Mastoid air cells clear. IMPRESSION: 1. Chronic changes with no superimposed acute intracranial process. Dictated by: Dictated on workstation # [id number]
[2022-07-22 07:39] LABS: BILIRUBIN,URINE NEGATIVE (NEGATIVE); CLARITY,URINE CLEAR; COLOR,URINE YELLOW; GLUCOSE, URINE (UA) NEGATIVE (NEGATIVE); KETONES,URINE NEGATIVE (NEGATIVE); LEUKOCYTE ESTERASE ,URINE NEGATIVE (NEGATIVE); NITRITE,URINE NEGATIVE (NEGATIVE); PH,URINE 5.5 (5-9); PROTEIN,URINE NEGATIVE (NEGATIVE)
[2022-07-22 07:46] LABS: BACTERIA,URINE NEGATIVE /HPF; SQUAMOUS EPITHELIAL CELL,UR 0-2 /HPF
--- NOTE | 2022-07-22 07:56 | Diagnostic Imaging Report ---
INDICATION: Stroke protocol, left-sided weakness. EXAMINATION: Chest 07/22/2022. COMPARISON: 05/09/2022 FINDINGS: Left hemidiaphragm elevated with adjacent atelectasis noted. Heart normal. Pulmonary vasculature unremarkable. No pneumothorax. No significant effusions. IMPRESSION: 1. Left base atelectasis versus infiltrate with elevated left hemidiaphragm. Dictated by: Dictated on workstation # [id number]
[2022-07-22] MEDS ORDERED: HOLD METFORMIN - RECEIVED CONTRAST 20 ML VIAL IV SCH (08:15)
[2022-07-22] MEDS ORDERED: CATHETER FLUSH 10 ML SYR IV PRN (08:15)
[2022-07-22] MEDS ORDERED: NS 100 ML (IVPB) BAG IV ONE (08:15)
[2022-07-22] MEDS ORDERED: IOHEXOL 350 MG/ML 150 ML (OMNIPAQUE 350) VIAL IV ONE (08:15)
--- NOTE | 2022-07-22 09:02 | Diagnostic Imaging Report ---
INDICATION: Left-sided numbness, stroke alert. TECHNIQUE: Contiguous noncontrast images were obtained from the skull base through the vertex. After intravenous contrast administration, helical CT angiography of the neck was performed. Source data was reformatted into 3D MIP projections. Delayed post contrast acquisition was also obtained. Auto Exposure Controls were utilized during the CT exam to meet ALARA standards for radiation dose reduction. Comparison made with noncontrast CT earlier today. CTA neck findings: Aortic arch shows some atherosclerotic plaquing. There is no aneurysm or dissection. There is some atherosclerotic plaquing of the innominate artery with mild stenosis. The common carotid arteries are patent on both sides. The external carotids are patent. There are tight stenoses of the internal carotid origins on both sides, with about 70% stenosis of the right internal carotid proximally and about 90% stenosis of the left proximal ICA. Distal portions of the internal carotids were patent. The vertebral arteries are patent on both sides and appear codominant and without stenosis. There is fairly extensive degenerative change throughout the cervical spine. CTA head findings: The distal vertebral arteries and basilar artery are patent with mild plaquing. The posterior cerebral arteries are patent on both sides. The distal internal carotid arteries show some concentric plaquing throughout the carotid siphons. Distal ICAs are patent. The anterior cerebral arteries and middle cerebral arteries and their visualized branches appear unremarkable. The dural venous sinuses are patent. Delayed images demonstrate no abnormal intracranial enhancing lesions. IMPRESSION: CTA neck demonstrates about 90% stenosis of the left ICA origin and about 70% stenosis of the right ICA origin. There is plaquing visualized in the innominate artery without high-grade stenosis. Both vertebrals are patent. CTA had demonstrates scattered plaquing in the carotid siphon but no major vessel stenosis or occlusion or aneurysmal disease. 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 Dictated by: Dictated on workstation # [id number]
--- NOTE | 2022-07-22 09:08 | Diagnostic Imaging Report ---
INDICATION: Stroke alert, left-sided numbness CT perfusion study performed with axial slices without IV contrast with perfusion maps generated via the rapid protocol. Dose reduction protocol was used. The cerebral blood flow images demonstrate no evidence of core infarct. T- max images demonstrate no ischemic penumbra using the 6 2nd threshold. Perfusion maps appear symmetric bilaterally. IMPRESSION: CT perfusion study demonstrates no evidence of core infarct or ischemic penumbra. Dictated by: Dictated on workstation # [id number]
[2022-07-22] MEDS ORDERED: MILK OF MAGNESIA 400 MG/5 ML 30 ML UDC PO PRN (12:45)
[2022-07-22] MEDS ORDERED: polyethylene glycoL POWDER 17 GM (MIRALAX) PACK PO PRN (12:45)
[2022-07-22] MEDS ORDERED: ANTACID SUSP 30 ML UDC (MYLANTA) PO PRN (12:45)
[2022-07-22] MEDS ORDERED: CALCIUM CARBONATE 500 MG (TUMS) TAB.CHEW PO PRN (12:45)
[2022-07-22] MEDS ORDERED: MELATONIN 3 MG TABLET PO PRN (12:45)
[2022-07-22] MEDS ORDERED: ACETAMINOPHEN 325 MG TABLET PO PRN (12:45)
[2022-07-22] MEDS ORDERED: ONDANSETRON 4 MG (ZOFRAN) ORAL DISSOLVE TAB PO PRN (12:45)
[2022-07-22] MEDS ORDERED: BISACODYL 10 MG SUPP (DULCOLAX) PR PRN (12:45)
[2022-07-22] MEDS ORDERED: LACTULOSE SYRUP 10GM/15ML (ENULOSE) 30ML UDC PO PRN (12:45)
[2022-07-22] MEDS ORDERED: ONDANSETRON 4 MG/2 ML (SDV) Z0FRAN IV PRN (12:45)
[2022-07-22] MEDS: ENOXAPARIN 40 MG/0.4 ML (LOVENOX) SYR SC SCH (13:44)
[2022-07-22] MEDS ORDERED: hydrALAZINE (APESOLINE) 20 MG/ML VIAL IV PRN (13:45)
--- NOTE | 2022-07-22 14:38 | Occ Therapy Progress Note ---
Therapy Progress Note OT orders received and chart reviewed. Pt currently out of room for MRI. OT will attempt again at a later time if scheduling allows. Taylor Rinaldi OT Jul 22, 2022 14:38
--- NOTE | 2022-07-22 14:39 | History & Physical-Hospitalist ---
FREDYSHAILAIMMANUEL 07/22/22 1439: History of Present Illness HPI/Chief Complaint Joao Berrios is a 87y/o M w/ a PMH of TIA, HTN, and seizures who is being seen to day due to left sided weakness and sensory changes. Pt reports that this morning while sitting in bed and watching TV he started to experience a MOROCHO. He then tried to reach for the remote w/ his left hand and was unable to. He also noticed that he was unable to move his left leg. It was at this point that he told his to call for EMS. Currently he has been regaining function in his left arm and leg. Pt is now able to flex his elbow but unable to lift at the shoulder joint. Able to vegetable picker his left leg off the table but he cannot control it enough to slowly put it down. Sensation is decreased but is present in both his left arm and leg. Has not had any difficulties w/ speech or been unable to swallow over the course of the incident. Denies any vision changes or difficulties seeing. No motor or sensory issues on right side. He reports that he was not having any issues last night before he went to bed. When he had a TIA about 1.5 years ago he had slurred speech but did not have any other deficits. Does have chronic issues swallowing his medications and was scheduled to have an EGD down w/ Dr. Zamudio on Tuesday. Source: patient Exam Limitations: no limitations Date Seen 07/22/22 Time Seen by a Provider: 11:38 Attending Physician Donovan Bullard MD PCP Admitting Physician: Jorge Iniguez MD Attending Physician: Jorge Iniguez MD Referring Physician Date of Admission Jul 22, 2022 at 11:28 Home Medications & Allergies Home Medications Reviewed patient Home Medication Reconciliation performed by pharmacy medication reconciliations career resource technician and/or nursing. Patients Allergies have been reviewed. Allergies Allergies Coded Allergies amoxicillin (Verified Allergy, Unknown, 07/25/16) Past Pdsalbw-Xieenh-Ruywgm Hx Patient Social History Marrital Status: Employed/Student: retired Tobacco Use?: No Substance use?: No Alcohol Use?: No Pt feels they are or have been: No Immunizations Up To Date Date of Influenza Vaccine: Jun 28, 2022 First/Initial COVID19 Vaccinat: November 2020 Second COVID19 Vaccination [place]: January 2021 Tetanus Booster (TDap): Unknown Seasonal Allergies Seasonal Allergies: No Current Status Advance Directives: Yes Advance Directive Location: Copy from prev record Communicates: Verbally Primary Language: Moldovan Preferred Spoken Language: Moldovan Is interpretation needed?: No Implanted or Applied Medical D: None Past Medical History Surgeries: Abdominal, Eye Surgery, Tonsillectomy Currently Using CPAP: No Currently Using BIPAP: No Hypertension Seizure Disorder Cataract Anxiety Blood Disorders: No Family Medical History Cancer, Diabetes Review of Systems Constitutional: No chills, No fever; weakness EENTM: No blurred vision, No double vision Respiratory: No cough, No dyspnea on exertion, No short of breath Cardiovascular: No chest pain, No palpitations Gastrointestinal: No abdominal pain, No nausea, No vomiting Genitourinary: No dysuria, No hematuria Musculoskeletal: No back pain, No neck pain Psychiatric/Neurological: Headache, Numbness, Paresthesia; Denies Tremors; Weakness Physical Exam Physical Exam Vital Signs Vital Signs - First Documented 07/22/22 06:42 Temp 36.8 Pulse 62 Resp 18 B/P (MAP) 168/58 (94) Pulse Ox 94 O2 Delivery Room Air Capillary Refill : Less Than 3 Seconds Height, Weight, BMI Height: 5'7.00" Weight: 160lbs. oz. 72.755658jw; 25.41 BMI Method:Stated General Appearance: No Apparent Distress, WD/WN HEENT: PERRL/EOMI; No Photophobia Neck: Non Tender, Supple Respiratory: Chest Non Tender, Lungs Clear, Normal Breath Sounds, No Accessory Muscle Use, No Respiratory Distress Cardiovascular: Regular Rate, Rhythm, No Murmur, Normal Peripheral Pulses Gastrointestinal: Non Tender, Soft Extremity: Non Tender, No Calf Tenderness, No Pedal Edema Neurologic/Psychiatric: Alert, Oriented x3, Normal Mood/Affect, track moving machine operator II-XII Norm as Tested; No Facial Droop; Motor Weakness (B/l pyrometer operator strength 5/5, left elbow flexion 5/5, extension 3/5, lf arm flexion 1/5 extension 0/5, left leg flexion 4/5 extension 0/5 left, left foot dosiflexion and plantarflexion 5/5, rt arm and leg testing all 5/5), Sensory Deficit (decreased sensation in left arm and leg) Skin: Normal Color, Warm/Dry Results Results/Procedures Labs Laboratory Tests 07/22/22 06:50 Patient resulted labs reviewed. Assessment/Plan Admission Diagnosis CVA HTN Seizures Assessment and Plan CVA -CTs done of head and neck, no intracranial acute processes seen according to reports. left ICA 90% stenosis and right ICA 70% stenosis found -[facility] neurology suggested brain MRI and starting full dose aspirin and 300mg Plavix load according to report -EKG done, currently on telemetry -Echo ordered -Start high intensity statin -Aspirin 81mg QD and Plavix 75mg QD starting tomorrow -Refer to vascular surgery due to ICA stenosis -PT and OT ordered HTN -Hydralazine PRN -Start home meds tomorrow Seizures -Resume home gabapentin DVT prophylaxis: Lovenox Diet: Low sodium diet Code status: Full code Clinical Quality Measures Stroke: Date of last known well: Jul 22, 2022 Symptoms onset unknown: Yes JORGE INIGUEZ MD 07/22/22 1843: History of Present Illness Time Seen by a Provider: 12:00 Results Results/Procedures Imaging: Reviewed Imaging Films, Reviewed Imaging Report Assessment/Plan Admission Diagnosis Admission Status: Observation Assessment and Plan Admitted with stroke like symptoms. CTA revealed bilateral carotid stenosis, 90% on right. MRI revealed multifocal strokes, likely embolic, consistent with atheroembolism from carotid arteries. Will need vascular surgery follow up. Started on Plavix. Continue Aspirin. Started on Lipitor. PT/OT ordered. Echo ordered. 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 I reviewed and verified all information documented by the medical student and made modifications to such information, when appropriate. I personally performed the physical exam and medical decision making. IMMANUEL NORMAN Jul 22, 2022 14:39 JORGE INIGUEZ MD Jul 22, 2022 18:43
[2022-07-22] MEDS ORDERED: GADOTERATE 0.5 MMOL/ML (CLARISCAN) 15 ML VIAL IV ONE (14:45)
[2022-07-22] MEDS ORDERED: GABA-486 PO (15:34)
[2022-07-22] MEDS ORDERED: DOCU-26 PO (15:34)
[2022-07-22] MEDS ORDERED: AMLO-250 PO (15:34)
[2022-07-22] MEDS ORDERED: FISH1CAP15 PO (15:34)
[2022-07-22] MEDS ORDERED: CLON0.5T4 PO (15:34)
[2022-07-22] MEDS ORDERED: MULT200T12 PO (15:35)
--- NOTE | 2022-07-22 16:59 | Diagnostic Imaging Report ---
PROCEDURE: MR imaging of the brain with and without contrast. TECHNIQUE: Multiplanar, multisequence MR imaging of the brain was performed with and without contrast. INDICATION: Neurological changes. Evaluate for stroke. Left-sided numbness. Comparison is made with CT examinations performed earlier the same day. FINDINGS: The diffusion series demonstrates some small scattered cortical and subcortical foci of diffusion restriction present within both of the cerebral hemispheres. On the left, there are a few foci of involvement in both the left frontal and parietal lobes. On the right, there are some tiny foci within the right parietal lobe with the most significant involvement within the high right parietal lobe. There is a questionable small focus within the left occipital lobe. There is no involvement of the brainstem or of the cerebellum. Given the multiplicity of vascular territories, this suggests an embolic event. There is no large territorial infarct evident. There are no findings of associated hemorrhage. There is no mass effect. There is no hydrocephalus. There is no extra-axial collection. The findings are superimposed on age-related volume loss with moderate chronic microvascular changes in the subcortical and deep white matter. Note is also made of some microvascular disease within the bandar. The postcontrast imaging demonstrates no evidence of pathologic intracranial enhancement. The pituitary gland and the pineal region are normal. There is normal alignment of the craniocervical junction. The mastoid air cells are clear. There are mucus retention cysts and mucosal thickening in the maxillary sinuses and some scattered mucosal thickening within the ethmoids. There has been a prior right ocular lens replacement. The major expected vascular flow voids are maintained. IMPRESSION: 1. Scattered small cortical and subcortical microinfarcts are present within both cerebral hemispheres with greatest degree of involvement in the right parietal region. Given the multiplicity of vascular territories, this suggests an embolic event. There is no large territorial infarct. There is no associated hemorrhage or mass effect. 2. Age-related global volume loss with chronic microvascular changes within the white matter. 3. No findings of pathologic intracranial enhancement. Dictated by: Dictated on workstation # [id number]
[2022-07-22 18:53] LABS: TRIGLYCERIDES 96 MG/DL (<150); VLDL CHOLESTEROL 19 MG/DL (5-40)
[2022-07-22 18:58] LABS: CHOLESTEROL 180 MG/DL (< 200)
[2022-07-22 18:59] LABS: HDL CHOLESTEROL 43 MG/DL (40-60)
[2022-07-22] MEDS: DOCUSATE SODIUM 100 MG (COLACE) CAP PO SCH (20:53)
[2022-07-22] MEDS: SENNOSIDES 8.6 MG (SENOKOT) TAB PO SCH (20:54)
[2022-07-22] MEDS: amLODIPine 5 MG (NORVASC) TAB PO SCH (21:15)
[2022-07-22] MEDS: clonazePAM 0.5 MG (KlonoPIN) TAB PO SCH (21:15)
[2022-07-22] MEDS: GABAPENTIN 100 MG (NEURONTIN) CAP PO SCH (21:16)
[2022-07-23] VITALS (23 sets, daily range): BP systolic 104–150; BP diastolic 56–99
[2022-07-23 05:30] LABS: CALCIUM 8.9 MG/DL (8.5-10.1); CREATININE SERUM 1.21 MG/DL (0.60-1.30); POTASSIUM 3.5 MMOL/L (3.6-5.0)
[2022-07-23] MEDS: GABAPENTIN 100 MG (NEURONTIN) CAP PO SCH ×2 (08:29→20:48)
[2022-07-23] MEDS: lisINopril 10 MG (PRINIVIL) TABLET PO SCH (08:30)
[2022-07-23] MEDS: ASPIRIN 81 MG CHEW (CHILDREN'S ASA) PO SCH (08:30)
[2022-07-23] MEDS: SENNOSIDES 8.6 MG (SENOKOT) TAB PO SCH ×2 (08:30→20:47)
[2022-07-23] MEDS: CLOPIDOGREL 75 MG (PLAVIX) TABLET PO SCH (08:30)
[2022-07-23] MEDS: DOCUSATE SODIUM 100 MG (COLACE) CAP PO SCH ×2 (08:30→20:47)
--- NOTE | 2022-07-23 08:39 | Speech Therapy Progress Note ---
Therapy Progress Note Speech pathology received the consultation, completed a chart review, and presented for the evaluation at 0815 on this date. The patient was seated upright in bed, eating breakfast which consisted of toast, scrambled eggs, and milk. The patient greeted the clinician appropriately and was agreeable to participation in the cognitive, language, speech, and swallowing screening. The patient "passed" the RN Dysphagia Screening. The patient had a regular consistency diet order placed on 07/22/22 at 1251. The patient reports tolerance of the diet consistency and denied s/s of suspected aspiration. S/s of suspected aspiration were not present throughout the clinician's discussions with the patient. Per chart review, the patient experiences "chronic swallowing" issues and was scheduled for an EGD with Dr. Zamudio on 07/26/22. The clinician requested additional details from the patient regarding his swallowing issues. The patient stated, "I have GERD and my stomach wilson, especially with my medication. A long time ago, I had my stomach wrapped around my esophagus. I also had a hiatal hernia." The patient reports esophageal swallowing concerns which do remain most appropriate for evaluation and treatment by his surgeon. The patient does not report or display oropharyngeal swallowing concerns or changes. The patient does not display facial asymmetry. The patient denied changes or concerns to his his speech, language, or cognition. Per patient, the previous skills are at baseline function. The patient is curious if he should modify or cancel his EGD appointment for 07/26/22. The patient's question was provided to his RN. At this time, the patient does not qualify for skilled speech pathology services as he is functioning at baseline in the clinician's skill set. Speech pathology will discharge the patient. If concerns arise, please re-consult speech path ology. Thank you. JASE TIM Jul 23, 2022 08:39
--- NOTE | 2022-07-23 11:05 | Physical Therapy Evaluation ---
PT Evaluation-General Medical Diagnosis Admission Date Jul 22, 2022 at 11:28 Medical Diagnosis: CVA Onset Date: Jul 22, 2022 Therapy Diagnosis Therapy Diagnosis: generalized weakness/impaired mobility Height/Weight Height (Feet): 5 Height (Inches): 7.00 Weight (Pounds): 160 Precautions Precautions/Isolations: Seizure, Fall Prevention, Standard Precautions Referral Physician: Claudio Reason for Referral: Evaluation/Treatment Medical History Pertinent Medical History: HTN Additional Medical History seizure Current History EMS secondary to woke up with left sided weakness Reviewed History: Yes Social History Home: Single Level Current Living Status: Spouse Entry Into Home: Stairs With Railing PT Steps Into Home: 3 Prior Prior Level of Function SCALE: Activities may be completed with or without assistive devices. 4-Lvckjoxfsz-hpxuytu completes the activity by him/herself with no assistance from a helper. 5-Set-up or Clean-up Assistance-helper sets up or cleans up; patient completes activity. Kent assists only prior to or following the activity. 4-Supervision or Touching Assistance-helper provides verbal cues and/or touching/steadying and/or contact guard assistance as patient completes activity. Assistance may be provided throughout the activity or intermittently. 3-Partial/Moderate Assistance-helper does LESS THAN HALF the effort. Kent lifts, holds or supports trunk or limbs, but provides less than half the effort. 2-Substantial/Maximal Assistance-helper does MORE THAN HALF the effort. [place] lifts or holds trunk or limbs and provides more than half the effort. 4-Qhrnbldai-irccdz does ALL the effort. Patient does none of the effort to complete the activity. Or, the assistance of 2 or more helpers is required for the patient to complete the activity. If activity was not attempted, code reason: 7-Patient Refused. 9-Not Applicable-not attempted and the patient did not perform the activity before the current illness, exacerbation or injury. 10-Not Attempted due to Environmental Limitations-(lack of equipment, weather restraints, etc.). 88-Not Attempted due to Medical Conditions or Safety Concerns. Bed Mobility: 6 Transfers (B,C,W/C): 6 Gait: 6 Stairs: 6 Indoor Mobility (Ambulation): Independent Stairs: Independent Prior Devices Use: None PT Evaluation-Current Subjective Patient agrees to PT. Objective Patient Orientation: Normal For Age ROM/Strength ROM Lower Extremities bilateral LE WFL Strength Lower Extremities right LE 3/5 grossly/left LE 2-/5 grossly (unable to formally test due attention) Integumentary/Posture Posture kyphotic Neuromuscular (Tone, Coordination, Reflexes) severely diminished with all/severe left lean with moderate neglect Sensory Vision: Functional Hearing: Functional Transfers Roll Left to Right (QC): 1 (x 2) Sit to Lying (QC): 1 (x 2) Lying to Sitting/Side of Bed(Q: 1 (x 2) Sit to Stand (QC): 88 Chair/Chk-jx-Xhbfm Xfer(QC): 88 Patient currently not safe for OOB activity. Unable to sit EOB without dependent assist due to severe left knee and weakness. Balance Sitting Static: Poor Sitting Dynamic: Poor Assessment/Needs Patient will benefit from skilled PT to address functional strength and mobility. Patient is currently at dependent LOF. Rehab Potential: Guarded PT Short Term Goals Short Term Goals Time Frame: Aug 07, 2022 Roll Left & Right: 2 Sit to lyin Lying to sitting on side of be: 2 Sit to stand: 2 Chair/avb-az-xbwkb transfer: 2 PT Mcfp Goals Mcfp Goals PT Handwriting Expert Goals Time Frame: Aug 21, 2022 Roll Left & Right (QC): 3 Sit to Lying (QC): 3 Lying-Sitting on Side/Bed(QC): 3 Sit to Stand (QC): 3 Chair/Bzz-hu-Vxvdg Xfer(QC): 3 Toilet Transfer (QC): 3 Walk 10 feet (QC): 3 Walk 50ft with 2 Turns (QC): 3 PT Plan Problem List Problem List: Activity Tolerance, Functional Strength, Safety, Balance, Gait, Transfer, Bed Mobility Treatment/Plan Treatment Plan: Continue Plan of Care Treatment Plan: Bed Mobility, Education, Functional Activity Brit, Functional Strength, Gait, Safety, Therapeutic Exercise, Transfers Treatment Duration: Aug 21, 2022 Frequency: 6 times per week Estimated Hrs Per Day: .25 hour per day Discharge Recommendations Therapy Discharge Recommendati: Other, See Comments, Post Acute PT Time Time In: 720 Time Out: 736 DATE: Jul 23, 2022 Total Billed Treatment Time: 16 [facility] Jul 23, 2022 11:05
--- NOTE | 2022-07-23 11:57 | Occupational Therapy Eval ---
OT Evaluation-General/PLF Medical Diagnosis Admission Date Jul 22, 2022 at 11:28 Medical Diagnosis: CVA Onset Date: Jul 22, 2022 Therapy Diagnosis Therapy Diagnosis: Reduced ADL status Height/Weight Height (Feet): 5 Height (Inches): 7.00 Weight (Pounds): 160 Precautions Precautions/Isolations: Seizure, Fall Prevention, Standard Precautions Referral Physician: Claudio Referral Reason: Evaluation/Treatment Medical History Pertinent Medical History: CVA, HTN Current History Pt came to ER with left sided weakness and sensory changes. Pt was found to have had a stroke. Pt lives in a single story home with his . Pt was independent with all ADLs. He completed some yard work, but took care of cooking/cleaning. He did not use any AD at baseline. Reviewed History: Yes Social History Home: Single Level Current Living Status: Spouse Entry Into Home: Stairs With Railing Steps Into Home: 3 ADL-Prior Level of Function SCALE: Activities may be completed with or without assistive devices. 0-Nnkdtfqhmr-vfaifgx completes the activity by him/herself with no assistance from a helper. 5-Set-up or Clean-up Assistance-helper sets up or cleans up; patient completes activity. Falcon assists only prior to or following the activity. 4-Supervision or Touching Assistance-helper provides verbal cues and/or touching/steadying and/or contact guard assistance as patient completes activity. Assistance may be provided throughout the activity or intermittently. 3-Partial/Moderate Assistance-helper does LESS THAN HALF the effort. Falcon lifts, holds or supports trunk or limbs, but provides less than half the effort. 2-Substantial/Maximal Assistance-helper does MORE THAN HALF the effort. Falcon lifts or holds trunk or limbs and provides more than half the effort. 4-Bcvfhglup-jyjqsd does ALL the effort. Patient does none of the effort to complete the activity. Or, the assistance of 2 or more helpers is required for the patient to complete the activity. If activity was not attempted, code reason: 7-Patient Refused. 9-Not Applicable-not attempted and the patient did not perform the activity before the current illness, exacerbation or injury. 10-Not Attempted due to Environmental Limitations-(lack of equipment, weather restraints, etc.). 88-Not Attempted due to Medical Conditions or Safety Concerns. Self Care: Independent Functional Cognition: Independent DME/Equipment: Bath Chair, Tub/Shower Drive Self: Yes OT Current Status Subjective Pt was laying in bed with present. They agree to therapy eval. Appearance Pt was left laying in bed with all needs within reach. Mental Status/Objective Patient Orientation: Person, Place, Time, Situation Current Glasses/Contacts: Yes (reading) Hand Dominance: Right Upper Extremity ROM Right side: WNL Left side: ~10 degrees at shoulders. ~15-20 degrees at elbow. Full range of fingers and wrist. Upper Extremity Strength Left side: 2-/5 at shoulders. Minimally impaired assistant manager retail strength. Right side: 4/5 at shoulders ADL-Treatment Lower Body Dressing (QC): 1 On/Off Footwear (QC): 1 Toileting Hygiene (QC): 1 Pt in bed, at bedside. Pt and provided information about PLOF and home set up and pt participated in UE screen. Pt was dependent x2 to move towards HOB. Per PT, he was dependent x2 for all bed mobility and sitting EOB. Poor sitting balance. Therapist educated and demonstrated KAKE assisted UE exercises that he could perform in bed to improve L sided weakness and lack of ROM. Education OT Patient Education: Correct positioning, Exercise program, Purpose of tx/functional activities, Reviewed precautions, Rehab process Teaching Recipient: Patient Teaching Methods: Demonstration, Discussion Response to Teaching: Verbalize Understanding, Return Demonstration OT Alf Goals Home Stager Goals Time Frame: Aug 11, 2022 Oral Hygiene (QC): 3 Toileting Hygiene (QC): 3 Shower/Bathe Self (QC): 3 Upper Body Dressing (QC): 3 Lower Body Dressing (QC): 3 On/Off Footwear (QC): 3 Additional Goals: 1-Demonstrate ADL Tasks, 2-Verbalize Understanding, 3- ImproveStrength/Brit 1=Demonstrate adherence to instructed precautions during ADL tasks. 2=Patient will verbalize/demonstrate understanding of assistive devices/modifications for ADL. 3=Patient will improve strength/tolerance for activity to enable patient to perform ADL's. OT Education/Plan Problem List/Assessment Assessment: Decreased Activ Tolerance, Decreased Safety Aware, Decreased UE St rength, Dependent Transfers, Impaired Bed Mobility, Impaired Coordination, Impaired Funct Balance, Impaired I ADL's, Impaired Self-Care Skills, Restricted Funct UE ROM Discharge Recommendations Plan/Recommendations: Continue POC Therapy Discharge Recommendati: Post Acute OT Treatment Plan/Plan of Care Treatment,Training & Education: Yes Patient would benefit from OT for education, treatment and training to promote independence in ADL's, mobility, safety and/or upper extremity function for ADL's. Plan of Care: ADL Retraining, Caregiver Training, Functional Mobility, Group Exercise/Act as Ind, UE Funct Exercise/Act, UE Neuromus Re-Ed/Coord, W/C Manag ement Training Treatment Duration: Aug 11, 2022 Frequency: 3 times per week (3-5 x/week) Estimated Hrs Per Day: .25 hour per day Agreement: Yes Rehab Potential: Guarded Time Start Time: 11:17 Stop Time: 11:40 DATE: Jul 23, 2022 Total Time Billed (hr/min): 23 Billed Treatment Time 1, EVM (10'), EX (13') SHAKILA RUTH OT Jul 23, 2022 11:57
[2022-07-23] MEDS: ENOXAPARIN 40 MG/0.4 ML (LOVENOX) SYR SC SCH (14:01)
[2022-07-23] MEDS ORDERED: GABAPENTIN 100 MG (NEURONTIN) CAP PO SCH (15:00)
--- NOTE | 2022-07-23 16:48 | Progress Note - Hospitalist ---
Subjective HPI/CC On Admission Date Seen by Provider: Jul 23, 2022 Time Seen by Provider: 11:20 Subjective/Events-last exam He is feeling a little better. He still has left arm weakness. Objective Exam Vital Signs Vital Signs Date Time Temp Pulse Resp B/P (MAP) Pulse Ox O2 Delivery O2 Flow Rate FiO2 07/23/22 16:00 77 132/75 95 07/23/22 12:00 20 07/23/22 08:00 Room Air 07/22/22 06:42 36.8 Capillary Refill : Less Than 3 Seconds General Appearance: No Apparent Distress, WD/WN Respiratory: Lungs Clear, No Respiratory Distress Cardiovascular: Regular Rate, Rhythm, No Murmur Gastrointestinal: Normal Bowel Sounds, Soft Extremity: Normal Inspection, No Pedal Edema Neurologic/Psychiatric: Alert, Motor Weakness Skin: Normal Color, Warm/Dry Results/Procedures Lab Laboratory Tests 07/23/22 04:43 Patient resulted labs reviewed. 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
[2022-07-23] MEDS ORDERED: CLOP75TA28 PO (16:54)
[2022-07-23] MEDS ORDERED: ASPI81TA64 PO (16:54)
[2022-07-23] MEDS ORDERED: ATOR40TA PO (16:54)
[2022-07-23] MEDS: amLODIPine 5 MG (NORVASC) TAB PO SCH (20:47)
[2022-07-23] MEDS: clonazePAM 0.5 MG (KlonoPIN) TAB PO SCH (20:47)
[2022-07-24] VITALS (8 sets, daily range): BP systolic 104–157; BP diastolic 54–84
[2022-07-24] MEDS: GABAPENTIN 100 MG (NEURONTIN) CAP PO SCH (08:50)
[2022-07-24] MEDS: lisINopril 10 MG (PRINIVIL) TABLET PO SCH (08:51)
[2022-07-24] MEDS: ASPIRIN 81 MG CHEW (CHILDREN'S ASA) PO SCH (08:51)
[2022-07-24] MEDS: CLOPIDOGREL 75 MG (PLAVIX) TABLET PO SCH (08:51)
[2022-07-24] MEDS: SENNOSIDES 8.6 MG (SENOKOT) TAB PO SCH (09:17)
[2022-07-24] MEDS: DOCUSATE SODIUM 100 MG (COLACE) CAP PO SCH (09:17)
--- NOTE | 2022-07-24 16:06 | Discharge Summary ---
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 stenosis of carotid arteries Status: Acute (3) Bilateral carotid artery stenosis Status: Acute (4) HTN (hypertension) Status: Acute Qualifiers: Qualified Codes: I10 - Essential (primary) hypertension (5) HLD (hyperlipidemia) Status: Chronic Hospital Course Date of Admission: Jul 23, 2022 at 15:12 Admission Diagnosis : Stroke like symptoms Family Physician/Provider: Donovan Bullard MD Date of Discharge: 07/24/22 Discharge Diagnosis: Acute embolic stroke due to carotid stenosis Hospital Course: Joao Berrios is an 87 year old male who presented with stroke like symptoms and was admitted with acute embolic stroke secondary to carotid stenosis. His CT/CTA showed no acute intracranial abnormalities but did show bilateral carotid stenosis greater on the left with 90% stenosis. He underwent an MRI which showed multifocal strokes indicative of embolism. This was consistent with atheroembolism from known carotid stenosis. He was started on Plavix. He was continued on Aspirin. He was started on Lipitor. He worked with PT/OT. His weakness was greatest in his left upper extremity with some weakness of the left lower extremity as well. He was transferred to the inpatient rehab unit for continued therapy. He will need to follow up with vascular surgery in about a month to discuss possible intervention. Labs and Pending Lab Test: Home Meds Active Children's Aspirin (Aspirin) 81 Mg Tab.chew 81 Mg PO DAILY 30 Days Lipitor (Atorvastatin Calcium) 40 Mg Tablet 40 Mg PO HS 30 Days Clopidogrel (Clopidogrel Bisulfate) 75 Mg Tablet 75 Mg PO DAILY 30 Days Reported Multivitamin Gummies (Multivit-Minerals/Folic Acid) 200 Mcg Tab.chew 200 Mcg PO DAILY Fish Oil 1,200 mg Fish Oil (Fish Oil/Dha/Epa) 1,200 Mg-144 Mg-216 Mg Capsule 1 Each PO DAILY Stool Softener (Docusate Sodium) 100 Mg Capsule 100 Mg PO DAILY Clonazepam 0.5 Mg Tablet 0.25 Mg PO 2100 TAKES OF A 0.5MG Gabapentin 100 Mg Capsule 200 Mg PO 1500 TAKES 2 (100MG) CAPS Amlodipine Besylate 5 Mg Tablet 5 Mg PO 2100 Lisinopril 10 Mg Tablet 10 Mg PO DAILY Gabapentin 100 Mg Capsule 300 Mg PO 0800,2100 TAKES 3 (100MG) CAPS Assessment/Pt Instructions Transferred to inpatient rehab Discharge Planning: >30 minutes discharge planning Discharge Instructions Discharge Diet: Low Sodium Diet Activity as Tolerated: Yes Discharge Physical Examination Vital Signs Vital Signs Date Time Temp Pulse Resp B/P (MAP) Pulse Ox O2 Delivery O2 Flow Rate FiO2 07/24/22 08:00 61 19 127/60 (82) 92 Room Air 07/24/22 03:30 36.6 General Appearance: No Apparent Distress, WD/WN Respiratory: Lungs Clear, No Respiratory Distress Cardiovascular: Regular Rate, Rhythm, No Murmur Gastrointestinal: Normal Bowel Sounds, Soft Extremity: Normal Inspection, No Pedal Edema Skin: Normal Color, Warm/Dry Neurologic/Psychiatric: Alert, Oriented x3, Motor Weakness (left upper extremity weakness) Allergies: Coded Allergies: amoxicillin (Verified Allergy, Unknown, 07/25/16) Copy Copies To 1: DONOVAN BULLARD MD Discharge Summary Date of Admission Jul 23, 2022 at 15:12 Date of Discharge Jul 24, 2022 at 11:00 Discharge Date: Jul 24, 2022 Discharge Time: 11:00 Admission Diagnosis Stroke Discharge Diagnosis Acute embolic stroke secondary to carotid stenois (1) Stroke Status: Acute Qualifiers: (2) 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
== END 2022-07-24 11:00 | DRG 65 ==
LOC: EDUNIT# 06:39 → ER 06:40 → CSD 11:28 → UNDOADMOB 11:28 → CSD 21:31 → OBSVTOIN 07-23 15:11 → INTOOBSV 07-23 15:12 → OBSVTOIN 07-23 15:12 → UNDODISIN 07-24 11:00
PROVIDERS: ADMIT Internal Medicine; ATTEND Internal Medicine
DX: I63.233 Cerebral infarction due to unspecified occlusion or stenosis of bilateral carotid arteries (principal); G81.94 Hemiplegia, unspecified affecting left nondominant side; I10 Essential (primary) hypertension; E78.5 Hyperlipidemia, unspecified; G40.909 Epilepsy, unspecified, not intractable, without status epilepticus; F41.9 Anxiety disorder, unspecified; R29.709 NIHSS score 9; R20.0 Anesthesia of skin; M62.838 Other muscle spasm
CPT/HCPCS: 0042T; 36415; 70450; 70496; 70498; 70553; 71045; 80048; 80053; 80061; 81000; 82947; 84484; 85025; 85379; 85610; 85730; 93005; 93306

== ENCOUNTER 2022-07-24 11:00 | Inpatient (IN) | payer MEDICARE, OTHER ==
[~2022-07-24] VITALS: Ht 167.7 cm; Wt 73.0 kg
[~2022-07-24 11:00] MED LIST changes: +AMLO-250 PO; +ASPI81TA64 PO; +ATOR40TA PO; +CLON0.5T4 PO; +CLOP75TA28 PO; +DOCU-26 PO; +FISH1CAP15 PO; +MULT200T12 PO
[2022-07-24] MEDS ORDERED: FLEET ENEMA ADULT 1 EA BTL PR PRN (11:15)
[2022-07-24] MEDS ORDERED: BISACODYL 10 MG SUPP (DULCOLAX) PR PRN ×2 (11:15→12:15)
[2022-07-24] MEDS ORDERED: LACTULOSE SYRUP 10GM/15ML (ENULOSE) 30ML UDC PO PRN ×2 (11:15→12:15)
[2022-07-24] MEDS ORDERED: diphenhydrAMINE 25 MG TAB (BENADRYL) PO PRN (11:15)
[2022-07-24] MEDS ORDERED: ALPRAZolam 0.25 MG (XANAX) TAB PO PRN (11:15)
[2022-07-24] MEDS ORDERED: LOPERAMIDE 2 MG (IMODIUM) TABLET PO PRN (11:15)
[2022-07-24] MEDS ORDERED: ACETAMINOPHEN 325 MG TABLET PO PRN ×2 (11:15→12:15)
[2022-07-24] MEDS ORDERED: ONDANSETRON 4 MG (ZOFRAN) ORAL DISSOLVE TAB PO PRN ×2 (11:15→12:15)
[2022-07-24] MEDS ORDERED: MELATONIN 3 MG TABLET PO PRN ×2 (11:15→12:15)
[2022-07-24] MEDS ORDERED: DOCUSATE SODIUM 100 MG (COLACE) CAP PO PRN (11:15)
[2022-07-24] MEDS ORDERED: guaiFENesin/CODEINE (ROBITUSSIN AC) 10ML UDC PO PRN (11:15)
--- NOTE | 2022-07-24 11:15 | PM&R Post Admission Assessment ---
PM&R HP Date of Visit: Jul 24, 2022 Time of Visit: 11:30 History of Present Illness Chief complaint: CVA with left-sided weakness HPI: This is an 87-year-old male clinic patient of Dr. Donovan Bullard who has a past medical history of hypertension hyperlipidemia who presented to the ER with findings consistent with a subacute stroke. stroke center helped manage the patient and he was not a tPA candidate. Cardiology will be consulted. Left- sided weakness will be managed with aggressive therapy. [facility] H&P HPI: Joao Berrios is a 87y/o M w/ a PMH of TIA, HTN, and seizures who is being seen today due to left sided weakness and sensory changes. Pt reports that this morning while sitting in bed and watching TV he started to experience a MOROCHO. He then tried to reach for the remote w/ his left hand and was unable to. He also noticed that he was unable to move his left leg. It was at this point that he told his to call for EMS. Currently he has been regaining function in his left arm and leg. Pt is now able to flex his elbow but unable to lift at the shoulder joint. Able to pick up worker his left leg off the table but he cannot control it enough to slowly put it down. Sensation is decreased but is present in both his left arm and leg. Has not had any difficulties w/ speech or been unable to swallow over the course of the incident. Denies any vision changes or difficulties seeing. No motor or sensory issues on right side. He reports that he was not having any issues last night before he went to bed. When he had a TIA about 1.5 years ago he had slurred speech but did not have any other deficits. Does have chronic issues swallowing his medications and was scheduled to have an EGD down w/ Dr. Zamudio on Tuesday. Past Cvxfaig-Cwrmre-Hjcduc Hx Past Med/Social Hx: Reviewed Nursing Past Med/Soc Hx, Reviewed and Corrections made Patient Social History Marrital Status: Employed/Student: retired Alcohol Use: Denies Use Smoking Status: Former Smoker 2nd Hand Smoke Exposure: No Recent Hopitalizations: No Immunizations Up To Date Tetanus Booster (TDap): Less than 5yrs Date of Influenza Vaccine: Jun 28, 2022 Seasonal Allergies Seasonal Allergies: No Past Medical History Surgeries: Abdominal, Eye Surgery, Tonsillectomy Currently Using CPAP: No Currently Using BIPAP: No Cardiac: High Cholesterol, Hypertension Neurological: Seizure Disorder, Stroke, TIA Reproductive: No HEENT: Cataract Psychosocial: Anxiety History of Blood Disorders: No Family History Cancer, Diabetes PM&R Allergy/Meds/Data Review Allergies Coded Allergies: amoxicillin (Verified Allergy, Unknown, 07/25/16) Home Medications Scheduled Amlodipine Besylate (Amlodipine Besylate), 5 MG PO 2100, (Reported) Aspirin (Children's Aspirin), 81 MG PO DAILY Atorvastatin Calcium (Lipitor), 40 MG PO HS Clonazepam (Clonazepam), 0.25 MG PO 2100, (Reported) Clopidogrel Bisulfate (Clopidogrel), 75 MG PO DAILY Docusate Sodium (Stool Softener), 100 MG PO DAILY, (Reported) Fish Oil/Dha/Epa (Fish Oil 1,200 mg Fish Oil), 1 EACH PO DAILY, (Reported) Gabapentin (Gabapentin), 300 MG PO 0800,2100, (Reported) Gabapentin (Gabapentin), 200 MG PO 1500, (Reported) Lisinopril (Lisinopril), 10 MG PO DAILY, (Reported) Multivit-Minerals/Folic Acid (Multivitamin Gummies), 200 MCG PO DAILY, (Reported) Discontinued Medications Amlodipine Besylate (Amlodipine Besylate), 5 MG PO DAILY, (Reported) Discontinued Reason: No Longer Taking Clonazepam (Clonazepam), 0.5 TAB PO HS, (Reported) Discontinued Reason: No Longer Taking Cyclobenzaprine HCl (Cyclobenzaprine HCl), 5 MG PO HS, (Reported) Discontinued Reason: No Longer Taking Gabapentin (Gabapentin), 200 MG PO BID, (Reported) Discontinued Reason: No Longer Taking Hydrocodone Bit/Acetaminophen (HYDROcodone/APAP 5 MG/325 MG TAB), 1 TAB PO Q8H PRN for PAIN-MODERATE (5-7) Discontinued Reason: No Longer Taking Multivitamin (Multivitamin), 1 EACH PO DAILY, (Reported) Discontinued Reason: No Longer Taking [place] 3 Polyunsat Fatty Acids (Fish Oil 1,000 mg Capsule), 1,000 MG PO DAILY, (Reported) Discontinued Reason: No Longer Taking Current Medications Current Medications Reviewed Review of Systems Constitutional: see HPI, malaise, weakness EENTM: no symptoms reported Respiratory: no symptoms reported Cardiovascular: no symptoms reported Gastrointestinal: no symptoms reported Genitourinary: no symptoms reported Musculoskeletal: back pain, muscle pain, muscle stiffness, muscle cramps, muscle weakness Skin: no symptoms reported Psychiatric/Neurological: Paresthesia, Weakness All Other Systems Reviewed Negative Unless Noted: Yes Physical Exam Physical Exam Vital Signs Capillary Refill : Height, Weight, BMI Height: 5'7.00" Weight: 160lbs. oz. [id number]; 26.09 BMI Method:Stated General Appearance: No Apparent Distress, WD/WN, Chronically ill Eyes: Bilateral Eye Normal Inspection, Bilateral Eye PERRL HEENT: PERRL/EOMI, Normal ENT Inspection, Pharynx Normal Neck: Full Range of Motion, Normal Inspection, Non Tender, Supple, Carotid Bruit Respiratory: Chest Non Tender, Lungs Clear, Normal Breath Sounds, No Accessory Muscle Use, No Respiratory Distress Cardiovascular: Regular Rate, Rhythm, No Edema, No Gallop, No JVD, No Murmur, Normal Peripheral Pulses Gastrointestinal: Normal Bowel Sounds, No Organomegaly, No Pulsatile Mass, Non Tender, Soft Back: Normal Inspection, No CVA Tenderness, No Vertebral Tenderness Extremity: Normal Capillary Refill, Normal Inspection, Normal Range of Motion (except left side), Non Tender, No Calf Tenderness, No Pedal Edema Neurologic/Psychiatric: Alert, Oriented x3, Normal Mood/Affect, unit coordinator II-XII Norm as Tested, Abnormal Gait, Motor Weakness (left sided weakness 1/5) Skin: Normal Color, Warm/Dry Lymphatic: No Adenopathy PM&R Medical Assessment & Plan REHAB/MEDICAL ASSESSMENT AND PLAN: REHAB IMPAIRMENT GROUP: CVA ETIOLOGIC DIAGNOSIS: CVA The comorbidities that impact the patients function and/or functional outcome by: advanced age, left-sided weakness, fall risk REHAB PLAN: The patient is being admitted to our comprehensive inpatient rehabilitation facility and can tolerate the intensity of service consisting of at least: 180 minutes of therapy a day, 5 out of 7 days a week Rehab treatment will consist of: PT and OT will focus on regaining function of left-sided weakness with use of assistive devices and regain stamina in order to return back to independent living The patient/family has a good understanding of our discharge process and will benefit from an interdisciplinary inpatient rehabilitation program. The patient has potential to make improvement and is in need of at least two of the following multidisciplinary therapies including but not limited to physical, occupational, speech, and prosthetics and orthotics. Additionally the patient will need services from respiratory, nutritional services, wound care, psychology, etc. (Customize this to each patient). Given the patients complex condition and risk of further medical complications, rehabilitation services cannot be safely or effectively provided at a lower level of care such as a fpc facility. BARRIERS TO DISCHARGE: Advanced age with left-sided weakness ESTIMATED LOS: 10 days DISPOSITION: Home RELEVANT CHANGES SINCE PREADMISSION SCREENING: I have compared the patients medical and functional status at the time of the preadmission screening and there are: No changes PROGNOSIS: Fair REHABILITATION GOALS: 1. PT and OT will focus on regaining function of left-sided weakness with use of assistive devices and regain stamina in order to return back to independent living All the above goals were reviewed with the patient and he/she is in agreement. By signing this document, I acknowledge that I have personally performed a full physical examination on this patient within 24 hours of admission to this [facility] and have determined the patient to be able to tolerate the above course of treatment at an intensive level for a reasonable period of time. I will be completing a detailed individualized Plan of Care for this patient by day #4 of the patients stay based upon the Preadmission Screen, the Post-Admission Evaluation, and the therapy evaluations. 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2 - Mixed hyperlipidemia Assessment/Plan Assessment and Plan Assess & Plan/Chief Complaint Assessment: CVA with left-sided weakness Bilateral carotid stenosis Hypertension Hyperlipidemia History of TIA Advanced age Plan: Supportive care Monitor closely Aggressive rehab NEHEMIAH CHAMORRO DO Jul 24, 2022 11:15
[2022-07-24 11:20] VITALS: BP 165/81
[2022-07-24] MEDS ORDERED: CALCIUM CARBONATE 500 MG (TUMS) TAB.CHEW PO PRN (12:15)
[2022-07-24] MEDS ORDERED: CATHETER FLUSH 10 ML SYR IV PRN (12:15)
[2022-07-24] MEDS ORDERED: MILK OF MAGNESIA 400 MG/5 ML 30 ML UDC PO PRN (12:15)
[2022-07-24] MEDS ORDERED: polyethylene glycoL POWDER 17 GM (MIRALAX) PACK PO PRN (12:15)
[2022-07-24] MEDS ORDERED: ANTACID SUSP 30 ML UDC (MYLANTA) PO PRN (12:15)
[2022-07-24] MEDS ORDERED: ONDANSETRON 4 MG/2 ML (SDV) Z0FRAN IV PRN (12:15)
[2022-07-24] MEDS ORDERED: hydrALAZINE (APESOLINE) 20 MG/ML VIAL IV PRN (12:15)
--- NOTE | 2022-07-24 12:47 | Consultation-Cardiology ---
HPI-Cardiology Cardiology Consultation: Date of Consultation 07/24/22 Date of Admission 07/24/22 Attending Physician Donovan Bullard MD Admitting Physician Admitting Physician: Atiya Baldwin DO Attending Physician: Atiya Baldwin DO Consulting Physician GALA RIDER JR, MD HPI: Time Seen by a Provider: 12:46 Chief Complaint: REASON FOR CONSULTATION: Cerebrovascular accident. I had the pleasure of seeing Joao in the inpatient physical rehabilitation unit at [facility] in [place], [place] today. He has no known history of cardiac disease other than hypertension and carotid atherosclerosis. 2 days ago when he woke up he had left-sided weakness. He was afraid to even get out of bed because he was not sure he could stand. He called 911 and was taken to the emergency room for further evaluation. He was found to have had an acute/subacute stroke involving multiple vascular territories with the worst being in the right parietal region. He was admitted to the inpatient service and earlier today he was transferred to inpatient rehab. His left-sided weakness has made remarkable improvements. He denies any recurrent neurologic complaints. He denies chest discomfort, dyspnea, paroxysmal nocturnal dyspnea, orthopnea, or palpitations. He has had some intermittent lightheaded spells in the past but none recently. He denies syncope. From time to time, his feet will swell. Because of the cerebrovascular accident, a cardiology consultation was requested. Certain portions of this document may have been dictated utilizing voice recognition technology. Inherent to this technology, typographical and grammatical errors may exist. As much as I am diligent to identify and correct these mistakes, some errors may remain in the document. Review of Systems-Cardiology Review of Systems Other comments Review of 10 organ systems is as per the history of present illness, otherwise negative. GPA-Xqbvsm-Gvitey Hx Patient Social History Marrital Status: Smoking Status: Never a Smoker 2nd Hand Smoke Exposure: No Have you traveled recently?: No Alcohol Use?: No Pt feels they are or have been: No Immunizations Up To Date Tetanus Booster (TDap): Less than 5yrs Date of Influenza Vaccine: Jun 28, 2022 Past Medical History PMH As described under Assessment. Family Medical History Family Medical History: His mother had a myocardial infarction at the age of 87. Allergies and Home Medications Allergies Coded Allergies: amoxicillin (Verified Allergy, Unknown, 07/25/16) Patient Home Medication List Home Medication List Reviewed: Yes Amlodipine Besylate (Amlodipine Besylate) 5 Mg Tablet, 5 MG PO 2100, (Reported) Entered as Reported by: HERMINIA CHISHOLM on 07/22/22 153 Aspirin (Children's Aspirin) 81 Mg Tab.chew, 81 MG PO DAILY Prescribed by: JORGE INIGUEZ on 07/23/22 165 Atorvastatin Calcium (Lipitor) 40 Mg Tablet, 40 MG PO HS Prescribed by: JORGE INIGUEZ on 07/23/22 165 Clonazepam (Clonazepam) 0.5 Mg Tablet, 0.25 MG PO 2100, (Reported) Entered as Reported by: HERMINIA CHISHOLM on 07/22/22 153 Clopidogrel Bisulfate (Clopidogrel) 75 Mg Tablet, 75 MG PO DAILY Prescribed by: JORGE INIGUEZ on 07/23/221653 Docusate Sodium (Stool Softener) 100 Mg Capsule, 100 MG PO DAILY, (Reported) Entered as Reported by: HERMINIA CHISHOLM on 07/22/22 153 Fish Oil/Dha/Epa (Fish Oil 1,200 mg Fish Oil) 1,200 Mg-144 Mg-216 Mg Capsule, 1 EACH PO DAILY, (Reported) Entered as Reported by: HERMINIA CHISHOLM on 07/22/22 153 Gabapentin (Gabapentin) 100 Mg Capsule, 300 MG PO 0800,2100, (Reported) Entered as Reported by: FELI CONSTANTINO on 01/22/21 1101 Gabapentin (Gabapentin) 100 Mg Capsule, 200 MG PO 1500, (Reported) Entered as Reported by: HERMINIA CHISHOLM on 07/22/22 153 Lisinopril (Lisinopril) 10 Mg Tablet, 10 MG PO DAILY, (Reported) Entered as Reported by: FELI CONSTANTINO on 01/22/21 1101 Multivit-Minerals/Folic Acid (Multivitamin Gummies) 200 Mcg Tab.chew, 200 MCG PO DAILY, (Reported) Entered as Reported by: HERMINIA CHISHOLM on 07/22/22 153 Discontinued Medications Amlodipine Besylate (Amlodipine Besylate) 5 Mg Tablet, 5 MG PO DAILY, (Reported) Discontinued Reason: No Longer Taking Entered as Reported by: JARRETT TALAVERA on 04/25/12 1145 Clonazepam (Clonazepam) 1 Mg Tablet, 0.5 TAB PO HS, (Reported) Discontinued Reason: No Longer Taking Entered as Reported by: FELI CONSTANTINO on 01/22/21 1101 Cyclobenzaprine HCl (Cyclobenzaprine HCl) 5 Mg Tablet, 5 MG PO HS, (Reported) Discontinued Reason: No Longer Taking Entered as Reported by: ANA CONNER on 07/21/22 0838 Gabapentin (Gabapentin) 100 Mg Capsule, 200 MG PO BID, (Reported) Discontinued Reason: No Longer Taking Entered as Reported by: FELI CONSTANTINO on 01/22/21 1101 Hydrocodone Bit/Acetaminophen (HYDROcodone/APAP 5 MG/325 MG TAB) 1 Tab Tab, 1 TAB PO Q8H PRN for PAIN-MODERATE (5-7) Discontinued Reason: No Longer Taking Prescribed by: DAVID FIELD on 01/16/22 1249 Multivitamin (Multivitamin) 1 Each Tablet, 1 EACH PO DAILY, (Reported) Discontinued Reason: No Longer Taking Entered as Reported by: FELI CONSTANTINO on 01/22/21 1101 [place] 3 Polyunsat Fatty Acids (Fish Oil 1,000 mg Capsule) 1,000 Mg Cap, 1,000 MG PO DAILY, (Reported) Discontinued Reason: No Longer Taking Entered as Reported by: FELI CONSTANTINO on 01/22/21 1101 Exam Vital Signs Vital Signs Date Time Temp Pulse Resp B/P (MAP) Pulse Ox O2 Delivery O2 Flow Rate FiO2 07/24/22 11:20 36.6 63 20 165/81 (109) 96 Room Air Physical Exam General: Alert. No acute distress. Well nourished and appears stated age. Eye: Extraocular movements are intact. Conjunctivae are clear. There are no xanthelasma. HENT: Normocephalic. Atraumatic. Carotid pulsations 2/2 with bilateral bruits louder on the left. Neck: Jugular venous pressure does not appear elevated. No thyromegaly appreciated. Respiratory: Lungs are clear to auscultation. Respirations are non-labored. Breath sounds are equal. Symmetrical chest wall expansion. Cardiovascular: Normal rate. Regular rhythm. No murmur. No gallop. Point of maximal impulse is not appear displaced. Good pulses equal in all extremities. No edema. Gastrointestinal: Soft. Normal bowel sounds. Skin: Skin turgor is normal. There is no pallor. Musculoskeletal: No kyphosis or scoliosis appreciated. Neurologic: Alert and oriented to person, place, time. Cranial nerves 3-12 appear grossly intact. The patient has good motor tone strength in the upper and lower extremities bilaterally. Psychiatric: Cooperative. Appropriate mood & affect. ECG Impression ECG Comment Electrocardiogram from the emergency room in 07/22/2022 shows sinus bradycardia at 57 bpm, otherwise unremarkable tracing. Diagnosis/Problems Diagnosis/Problems (1) Acute cerebrovascular accident Assessment & Plan: He had a cerebrovascular accident that involved multiple vascular territories as noted on his MRI of the brain. This raises a concern for possible underlying atrial fibrillation. He is currently on telemetry monitoring. He is currently receiving aspirin and clopidogrel in addition to intensive dose statin medication. Once he is ready for discharge, I will plan on an external shelter monitor. If this does not show atrial fibrillation, he may need an implantable loop recorder. Additionally, he has significant bilateral carotid disease, worse on the left. Unclear whether or not this may have had anything to do with his stroke. He will ultimately need evaluation by vascular surgery but this can be done as an outpatient after he completely recovers from the stroke. (2) Bilateral carotid artery stenosis Status: Acute Assessment & Plan: As above, he had significant bilateral carotid stenosis. I recommend he continue on aspirin, clopidogrel, and intensive dose statin medication in light of the stroke. Since neither side is critically stenosed, and is often preferable to wait for a patient to recover from an acute stroke before performing any sort of carotid intervention. (3) Primary hypertension Assessment & Plan: He is on his home dose of amlodipine and lisinopril. His blood pressures are intermittently elevated. If this persists, we may need to make some adjustment to his antihypertensive medication. (4) Mixed hyperlipidemia Assessment & Plan: Continue intensive dose statin medication in light of the acute/subacute cerebrovascular accident. GALA RIDER JR, MD Jul 24, 2022 12:47
[2022-07-24 13:00] VITALS: BP 158/80
[2022-07-24] MEDS: HYDROcodone/APAP 7.5 MG/325 MG (LORTAB, LORCET PLUS) TABLET PO PRN (16:27)
[2022-07-24] MEDS: ENOXAPARIN 40 MG/0.4 ML (LOVENOX) SYR SC SCH (16:28)
[2022-07-24] MEDS: DICLOFENAC 1% GEL 100 GM (VOLTAREN) TUBE TOP SCH ×3 (16:29→21:07)
[2022-07-24] MEDS: GABAPENTIN 100 MG (NEURONTIN) CAP PO SCH (16:31)
[2022-07-24] MEDS: SENNOSIDES 8.6 MG (SENOKOT) TAB PO SCH (19:48)
[2022-07-24] MEDS: polyethylene glycoL POWDER 17 GM (MIRALAX) PACK PO SCH (19:48)
[2022-07-24] MEDS: DOCUSATE SODIUM 100 MG (COLACE) CAP PO SCH ×2 (19:48→20:35)
[2022-07-24 20:08] VITALS: BP 156/72
[2022-07-24] MEDS: SENNA W/DOCUSATE (SENOKOT S) TABLET PO SCH (20:35)
[2022-07-24] MEDS: clonazePAM 0.5 MG (KlonoPIN) TAB PO SCH (20:43)
[2022-07-24] MEDS: amLODIPine 5 MG (NORVASC) TAB PO SCH (20:43)
[2022-07-24] MEDS: GABAPENTIN 300 MG (NEURONTIN) CAP PO SCH (21:06)
[2022-07-25 05:28] LABS: BASOPHILS # (AUTO) 0.1 10^3/uL (0.0-0.1); BASOPHILS % (AUTO) 1 % (0-10); EOSINOPHILS # (AUTO) 0.4 10^3/uL (0.0-0.3); EOSINOPHILS % (AUTO) 5 % (0-10); HEMATOCRIT 40 % (40-54); HEMOGLOBIN 13.3 g/dL (13.3-17.7); LYMPHOCYTES # (AUTO) 2.4 10^3/uL (1.0-4.0); LYMPHOCYTES % (AUTO) 34 % (12-44); MEAN CORPUSCULAR HEMOGLOBIN 30 pg (25-34); MEAN CORPUSCULAR HGB CONC 33 g/dL (32-36); MEAN CORPUSCULAR VOLUME 91 fL (80-99); MEAN PLATELET VOLUME 10.9 fL (9.0-12.2); MONOCYTES # (AUTO) 0.7 10^3/uL (0.0-1.0); MONOCYTES % (AUTO) 10 % (0-12); NEUTROPHILS # (AUTO) 3.6 10^3/uL (1.8-7.8); NEUTROPHILS % (AUTO) 50 % (42-75); PLATELET COUNT 204 10^3/uL (130-400); WHITE BLOOD COUNT 7.2 10^3/uL (4.3-11.0)
[2022-07-25 05:48] LABS: ALBUMIN 3.6 GM/DL (3.2-4.5); BILIRUBIN,TOTAL 1.2 MG/DL (0.1-1.0); CALCIUM 8.9 MG/DL (8.5-10.1); CREATININE SERUM 1.3 MG/DL (0.60-1.30); POTASSIUM 3.8 MMOL/L (3.6-5.0); TOTAL PROTEIN 6.4 GM/DL (6.4-8.2)
--- NOTE | 2022-07-25 07:05 | PM&R Progress Note ---
Subjective HPI/CC On Admission Date Seen by Provider: Jul 25, 2022 Time Seen by Provider: 12:00 Subjective/Events-last exam 07/25/2022: Much improved status Left sided weakness remains Suicidal ideation reported by family at times but none that RN notes Monitoring closely Labs stable EGD postponed until stable Review of Systems General: Fatigue, Malaise Neurological: Weakness, Incoordination Objective Exam Vital Signs Vital Signs Date Time Temp Pulse Resp B/P (MAP) Pulse Ox O2 Delivery O2 Flow Rate FiO2 07/25/22 19:46 36.2 70 20 138/72 (94) 95 Room Air Capillary Refill : General Appearance: No Apparent Distress, WD/WN, Chronically ill HEENT: PERRL/EOMI, Normal ENT Inspection, Pharynx Normal Neck: Full Range of Motion, Normal Inspection, Non Tender, Supple, Carotid Bruit Respiratory: Chest Non Tender, Lungs Clear, Normal Breath Sounds, No Accessory Muscle Use, No Respiratory Distress Cardiovascular: Regular Rate, Rhythm, No Edema, No Gallop, No JVD, No Murmur, Normal Peripheral Pulses Gastrointestinal: Normal Bowel Sounds, No Organomegaly, No Pulsatile Mass, Non Tender, Soft Back: Normal Inspection, No CVA Tenderness, No Vertebral Tenderness Extremity: Normal Capillary Refill, Normal Inspection, Normal Range of Motion (except left side), Non Tender, No Calf Tenderness, No Pedal Edema Neurologic/Psychiatric: Alert, Oriented x3, Normal Mood/Affect, 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 FIM Transfers Therapy Code Descriptions/Definitions Functional [place] Measure: 0=Not Assessed/NA 4=Minimal Assistance 1=Total Assistance 5=Supervision or Setup 2=Maximal Assistance 6=Modified [place] 3=Moderate Assistance 7=Complete IndependenceSCALE: Activities may be completed with or without assistive devices. 2-Dwihwbbdjn-zlcsloh completes the activity by him/herself with no assistance from a helper. 5-Set-up or Clean-up Assistance-helper sets up or cleans up; patient completes activity. [place] assists only prior to or following the activity. 4-Supervision or Touching Assistance-helper provides verbal cues and/or touching/steadying and/or contact guard assistance as patient completes activity. Assistance may be provided throughout the activity or intermittently. 3-Partial/Moderate Assistance-helper does LESS THAN HALF the effort. [place] lifts, holds or supports trunk or limbs, but provides less than half the effort. 2-Substantial/Maximal Assistance-helper does MORE THAN HALF the effort. [place] lifts or holds trunk or limbs and provides more than half the effort. 9-Yvmzfxirw-vkjhcd does ALL the effort. Patient does none of the effort to c omplete the activity. Or, the assistance of 2 or more helpers is required for the patient to complete the activity. If activity was not attempted, code reason: 7-Patient Refused. 9-Not Applicable-not attempted and the patient did not perform the activity before the current illness, exacerbation or injury. 10-Not Attempted due to Environmental Limitations-(lack of equipment, weather restraints, etc.). 88-Not Attempted due to Medical Conditions or Safety Concerns. 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
[2022-07-25 07:11] VITALS: BP 160/82
[2022-07-25] MEDS: CLOPIDOGREL 75 MG (PLAVIX) TABLET PO SCH (08:14)
[2022-07-25] MEDS: ASPIRIN 81 MG CHEW (CHILDREN'S ASA) PO SCH (08:14)
[2022-07-25] MEDS: lisINopril 10 MG (PRINIVIL) TABLET PO SCH (08:14)
[2022-07-25] MEDS: GABAPENTIN 300 MG (NEURONTIN) CAP PO SCH ×2 (08:14→19:42)
[2022-07-25] MEDS: DICLOFENAC 1% GEL 100 GM (VOLTAREN) TUBE TOP SCH ×4 (08:14→19:45)
[2022-07-25] MEDS: HYDROcodone/APAP 7.5 MG/325 MG (LORTAB, LORCET PLUS) TABLET PO PRN (08:15)
[2022-07-25] MEDS: SENNA W/DOCUSATE (SENOKOT S) TABLET PO SCH ×2 (08:15→19:43)
[2022-07-25] MEDS: DOCUSATE SODIUM 100 MG (COLACE) CAP PO SCH ×4 (08:15→19:43)
--- NOTE | 2022-07-25 08:15 | Physical Therapy Evaluation ---
PT Evaluation-General Medical Diagnosis Admission Date Jul 24, 2022 at 11:00 Medical Diagnosis: CVA Onset Date: Jul 22, 2022 Therapy Diagnosis Therapy Diagnosis: impaired mobility/generalized weakness/diminished proprioception Height/Weight Height (Feet): 5 Height (Inches): 7.00 Weight (Pounds): 160 Precautions Precautions/Isolations: Seizure, Fall Prevention, Standard Precautions Referral Physician: Denny Reason for Referral: Evaluation/Treatment Medical History Pertinent Medical History: CVA, HTN Current History transfer to ARU for continued care Reviewed History: Yes Social History Home: Single Level Current Living Status: Spouse Entry Into Home: Stairs With Railing PT Steps Into Home: 3 Prior Prior Level of Function SCALE: Activities may be completed with or without assistive devices. 1-Afvocrgeom-xmdbaqf completes the activity by him/herself with no assistance from a helper. 5-Set-up or Clean-up Assistance-helper sets up or cleans up; patient completes activity. [place] assists only prior to or following the activity. 4-Supervision or Touching Assistance-helper provides verbal cues and/or touching/steadying and/or contact guard assistance as patient completes activity. Assistance may be provided throughout the activity or intermittently. 3-Partial/Moderate Assistance-helper does LESS THAN HALF the effort. [place] lifts, holds or supports trunk or limbs, but provides less than half the effort. 2-Substantial/Maximal Assistance-helper does MORE THAN HALF the effort. [place] lifts or holds trunk or limbs and provides more than half the effort. 0-Bruomlghg-kpjorr does ALL the effort. Patient does none of the effort to complete the activity. Or, the assistance of 2 or more helpers is required for the patient to complete the activity. If activity was not attempted, code reason: 7-Patient Refused. 9-Not Applicable-not attempted and the patient did not perform the activity before the current illness, exacerbation or injury. 10-Not Attempted due to Environmental Limitations-(lack of equipment, weather restraints, etc.). 88-Not Attempted due to Medical Conditions or Safety Concerns. Bed Mobility: 6 Transfers (B,C,W/C): 6 Gait: 6 Stairs: 6 Wheelchair Mobility: 9 Indoor Mobility (Ambulation): Independent Stairs: Independent Prior Devices Use: None per patient report PT Evaluation-Current Subjective Patient is very agreeable to participate with PT. C/o cervical pain with RN issuing pain pill. Pain Numeric Pain Scale: 5-Moderate Pain Location: Soft Tissue Location Body Site: Neck Pain Description: Chronic Section J - Health Conditions 1. Rarely or not at all 2. Occasionally 3. Frequently 4. Almost constantly 8. Unable to answer Pain Effect on Sleep: 2 Pain Interference with Therapy: 2 Pain Interference w/Day-to-Day: 2 Objective Patient Orientation: Normal For Age ROM/Strength ROM Lower Extremities bilateral LE WFL Strength Lower Extremities left knee flexion/extension 3+/5, hip flexion 3+/5., DF/PF 3/5 right knee flexion/extension 4+/5; hip flexion 4+/5; DF/PF 4/5 Integumentary/Posture Bowel Incontinence: No Bladder Incontinence: No Posture kyphotic Neuromuscular (Tone, Coordination, Reflexes) diminished coordination and proprioception left UE/LE Sensory Vision: Functional Hearing: Functional Sensation Right Lower Extremit: Intact Sensation Left Lower Extremity: Intact Transfers Roll Left & Right (QC): 3 Sit to Lying (QC): 3 Lying to Sitting/Side of Bed(Q: 3 Sit to Stand (QC): 2 Chair/Tac-ae-Nwbth Xfer(QC): 2 Toilet Transfer (QC): 2 Car Transfer (QC): 2 Gait Mode of Locomotion: Walk Anticipated Mode of Locomotion: Walk Walk 10 feet (QC): 2 Walk 50 ft with 2 Turns(QC): 88 Walk 150 ft (QC): 88 Walking 10ft/uneven surface-QC: 88 Distance: 10' Gait Assistive Device: FWW Comments/Gait Description severe left lean with Poor balance with PT correct/diminished coordination left LE Wheelchair Training Wheel 50 ft with 2 turns (QC): 88 Wheel 150 ft (QC): 88 Type of Wheelchair: Manual Stairs 1 Step (curb) (QC): 88 (not safe to perform due to Poor balance and diminished coordination) 4 Steps (QC): 88 12 Steps (QC): 88 Balance Sitting Static: Fair Sitting Dynamic: Poor Standing Static: Poor Standing Dynamic: Poor Picking up an Object (QC): 88 Assessment/Needs 87 y.o. male, will benefit from skilled PT to address functional strength and mobility to improve current LOF to safely return to home with family at maximum LOF. Patient presents with diminished strength, coordination and proprioception left UE/LE. Rehab Potential: Guarded PT Short Term Goals Short Term Goals Time Frame: Aug 11, 2022 Roll Left & Right: 4 Sit to lyin Lying to sitting on side of be: 4 Sit to stand: 4 Chair/mja-la-imdkj transfer: 4 Toilet transfer: 4 Car transfer: 4 Walk 10 feet: 3 Walk 50 feet with two turns: 3 Walk 150 feet: 3 Walking 10ft on uneven surface: 3 1 step (curb): 3 PT Underwriting Clerks Supervisor Goals Underwriting Clerks Supervisor Goals PT Underwriting Clerks Supervisor Goals Time Frame: Aug 28, 2022 Roll Left to Right (QC): 6 Sit to Lying (QC): 6 Lying-Sitting on Side/Bed(QC): 6 Sit to Stand (QC): 6 Chair/Syn-yu-Uezli Xfer(QC): 6 Toilet/Commode Transfer (QC): 6 Car Transfer (QC): 6 Walk 10 feet (QC): 5 Walk 10ft-Uneven Surface(QC): 5 Walk 50ft with 2 Turns (QC): 5 Walk 150 ft (QC): 5 Wheel 50 feet with 2 turns (QC: 9 Wheel 150 feet: 9 1 Step (curb) (QC): 4 4 Steps (QC): 4 12 Steps (QC): 4 Picking up an Object (QC): 4 PT Plan Problem List Problem List: Activity Tolerance, Functional Strength, Safety, Balance, Gait, Transfer, Bed Mobility Treatment/Plan Treatment Plan: Continue Plan of Care Treatment Plan: Bed Mobility, Concurrent Therapy, Education, Functional Activity Brit, Functional Strength, Group Therapy, Gait, Safety, Therapeutic Exercise, Transfers Treatment Duration: Aug 28, 2022 Frequency: At least 5 of 7 days/Wk (IRF) Estimated Hrs Per Day: 1.5 hours per day Patient and/or Family Agrees t: Yes Safety Risks/Education Patient Education: Gait Training, Correct Positioning, Safety Issues Teaching Recipient: Patient Teaching Methods: Demonstration, Discussion Response to Teaching: Verbalize Understanding, Return Demonstration Time Time In: 750 Time Out: 810 DATE: Jul 25, 2022 Total Billed Treatment Time: 20 Total Billed Treatment 1 visit EVModC 20 min THUY WHITE PT Jul 25, 2022 08:15
[2022-07-25] MEDS: polyethylene glycoL POWDER 17 GM (MIRALAX) PACK PO SCH ×2 (11:06→19:24)
[2022-07-25] MEDS: SENNOSIDES 8.6 MG (SENOKOT) TAB PO SCH ×2 (11:07→19:24)
[2022-07-25] MEDS ORDERED: cloNIDine 0.1 MG (CATAPRES) TAB PO PRN (11:45)
--- NOTE | 2022-07-25 12:00 | Cardiology Progress Note ---
Progress Note-Cardiology Events since last exam Date Seen by Provider: Jul 25, 2022 Time Seen by Provider: 11:59 Events since last exam I am following him due to a stroke. He remains on our inpatient physical re habilitation unit. He denies any recurrent neurologic complaints. His left- sided weakness has nearly completely resolved. He denies chest discomfort, dyspnea, palpitations, syncope, or ankle edema. Certain portions of this document may have been dictated utilizing voice recognition technology. Inherent to this technology, typographical and grammatical errors may exist. As much as I am diligent to identify and correct these mistakes, some errors may remain in the document. Vitals Last set of Vitals Signs Vital Signs 07/25/22 07/25/22 07:11 12:50 Temp 37.2 Pulse 76 Resp 16 B/P (MAP) 160/82 (108) Pulse Ox 94 O2 Delivery Room Air Labs Labs Laboratory Tests 07/25/22 05:20 Exam Vital Signs Vital Signs Date Time Temp Pulse Resp B/P (MAP) Pulse Ox O2 Delivery O2 Flow Rate FiO2 07/25/22 12:50 76 07/25/22 07:11 37.2 16 160/82 (108) 94 Room Air Physical Exam General: Alert. No acute distress. Eye: No xanthelasma. HENT: Normocephalic. Neck: Jugular venous pressure does not appear elevated. Respiratory: Lungs are clear to auscultation. Respirations are non-labored. Breath sounds are equal. Symmetrical chest wall expansion. Cardiovascular: Normal rate. Regular rhythm. No murmur. No gallop. No edema. Gastrointestinal: Soft. Normal bowel sounds. Skin: Warm. Dry. Neurologic: Alert and oriented to person, place, time. Cranial nerves 3-11 grossly intact. Psychiatric: Cooperative. Appropriate mood & affect. Labs Laboratory Tests Test 07/24/22 13:29 07/25/22 05:20 Range/Units Thyroid Stimulating Hormone (TSH) 1.43 0.35-4.94 UIU/ML White Blood Count 7.2 4.3-11.0 10^3/uL Red Blood Count 4.41 4.30-5.52 10^6/uL Hemoglobin 13.3 13.3-17.7 g/dL Hematocrit 40 40-54 % Mean Corpuscular Volume 91 80-99 fL Mean Corpuscular Hemoglobin 30 25-34 pg Mean Corpuscular Hemoglobin Concent 33 32-36 g/dL Red Cell Distribution Width 12.8 10.0-14.5 % Platelet Count 204 130-400 10^3/uL Mean Platelet Volume 10.9 9.0-12.2 fL Immature Granulocyte % (Auto) 0 % Neutrophils (%) (Auto) 50 42-75 % Lymphocytes (%) (Auto) 34 12-44 % Monocytes (%) (Auto) 10 0-12 % Eosinophils (%) (Auto) 5 0-10 % Basophils (%) (Auto) 1 0-10 % Neutrophils # (Auto) 3.6 1.8-7.8 10^3/uL Lymphocytes # (Auto) 2.4 1.0-4.0 10^3/uL Monocytes # (Auto) 0.7 0.0-1.0 10^3/uL Eosinophils # (Auto) 0.4 H 0.0-0.3 10^3/uL Basophils # (Auto) 0.1 0.0-0.1 10^3/uL Immature Granulocyte # (Auto) 0.0 0.0-0.1 10^3/uL Sodium Level 142 135-145 MMOL/L Potassium Level 3.8 3.6-5.0 MMOL/L Chloride Level 112 H 98-107 MMOL/L Carbon Dioxide Level 20 L 21-32 MMOL/L Anion Gap 10 5-14 MMOL/L Blood Urea Nitrogen 17 7-18 MG/DL Creatinine 1.30 0.60-1.30 MG/DL Estimat Glomerular Filtration Rate 53 BUN/Creatinine Ratio 13 Glucose Level 98 70-105 MG/DL Calcium Level 8.9 8.5-10.1 MG/DL Corrected Calcium 9.2 8.5-10.1 MG/DL Total Bilirubin 1.2 H 0.1-1.0 MG/DL Aspartate Amino Transf (AST/SGOT) 16 5-34 U/L Alanine Aminotransferase (ALT/SGPT) 8 0-55 U/L Alkaline Phosphatase 74 40-136 U/L Total Protein 6.4 6.4-8.2 GM/DL Albumin 3.6 3.2-4.5 GM/DL Diagnosis/Problems Diagnosis/Problems (1) Acute cerebrovascular accident Assessment & Plan: He had a cerebrovascular accident that involved multiple vascular territories as noted on his MRI of the brain. This raises a concern for possible underlying atrial fibrillation. He is currently receiving aspirin and clopidogrel in addition to intensive dose statin medication. Once he is ready for discharge, I will plan on an external cardiac monitor technician. If this does not show atrial fibrillation, he may need an implantable loop recorder. Additionally, he has significant bilateral carotid disease, worse on the left. Unclear whether or not this may have had anything to do with his stroke. He will ultimately need evaluation by vascular surgery but this can be done as an o utpatient after he completely recovers from the stroke. (2) Bilateral carotid artery stenosis Status: Acute Assessment & Plan: As above, he has significant bilateral carotid stenosis. I recommend he continue on aspirin, clopidogrel, and intensive dose statin medication in light of the stroke. Since neither side is critically stenosed it is often preferable to wait for a patient to recover from an acute stroke before performing any sort of carotid intervention. (3) Primary hypertension Assessment & Plan: He is on his home dose of amlodipine and lisinopril. His blood pressures are intermittently elevated. If this persists, we may need to make some adjustment to his antihypertensive medication. I would avoid aggressive treatment of the hypertension or he could be at risk of extension of the stroke if his blood pressure becomes too low. (4) Mixed hyperlipidemia Assessment & Plan: Continue intensive dose statin medication in light of the acute/subacute cerebrovascular accident. GALA RIDER JR, MD Jul 25, 2022 12:00
[2022-07-25] MEDS: ENOXAPARIN 40 MG/0.4 ML (LOVENOX) SYR SC SCH (13:59)
[2022-07-25] MEDS: GABAPENTIN 100 MG (NEURONTIN) CAP PO SCH (16:19)
[2022-07-25] MEDS: amLODIPine 5 MG (NORVASC) TAB PO SCH (19:42)
[2022-07-25] MEDS: clonazePAM 0.5 MG (KlonoPIN) TAB PO SCH (19:43)
[2022-07-25 19:46] VITALS: BP 138/72
--- NOTE | 2022-07-26 05:21 | PM&R Progress Note ---
Subjective HPI/CC On Admission Date Seen by Provider: Jul 26, 2022 Time Seen by Provider: 08:30 Subjective/Events-last exam 07/26/2022: Patient doing well Bowels moved yesterday Took a shower today with therapy Moving left arm a bit 07/25/2022: Much improved status Left sided weakness remains Suicidal ideation reported by family at times but none that RN notes Monitoring closely Labs stable EGD postponed until stable Review of Systems General: Fatigue, Malaise Neurological: Weakness, Incoordination Objective Exam Vital Signs Vital Signs Date Time Temp Pulse Resp B/P (MAP) Pulse Ox O2 Delivery O2 Flow Rate FiO2 07/27/22 01:00 61 07/26/22 21:00 Room Air 07/26/22 20:00 36.5 16 129/75 (93) 94 Capillary Refill : General Appearance: No Apparent Distress, WD/WN, Chronically ill HEENT: PERRL/EOMI, Normal ENT Inspection, Pharynx Normal Neck: Full Range of Motion, Normal Inspection, Non Tender, Supple, Carotid Bruit Respiratory: Chest Non Tender, Lungs Clear, Normal Breath Sounds, No Accessory Muscle Use, No Respiratory Distress Cardiovascular: Regular Rate, Rhythm, No Edema, No Gallop, No JVD, No Murmur, Normal Peripheral Pulses Gastrointestinal: Normal Bowel Sounds, No Organomegaly, No Pulsatile Mass, Non Tender, Soft Back: Normal Inspection, No CVA Tenderness, No Vertebral Tenderness Extremity: Normal Capillary Refill, Normal Inspection, Normal Range of Motion (except left side), Non Tender, No Calf Tenderness, No Pedal Edema Neurologic/Psychiatric: Alert, Oriented x3, Normal 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 FIM Transfers Therapy Code Descriptions/Definitions Functional [place] Measure: 0=Not Assessed/NA 4=Minimal Assistance 1=Total Assistance 5=Supervision or Setup 2=Maximal Assistance 6=Modified [place] 3=Moderate Assistance 7=Complete IndependenceSCALE: Activities may be completed with or without assistive devices. 5-Poqbztkxey-wtjfpcc completes the activity by him/herself with no assistance from a helper. 5-Set-up or Clean-up Assistance-helper sets up or cleans up; patient completes activity. [place] assists only prior to or following the activity. 4-Supervision or Touching Assistance-helper provides verbal cues and/or touching/steadying and/or contact guard assistance as patient completes activity. Assistance may be provided throughout the activity or intermittently. 3-Partial/Moderate Assistance-helper does LESS THAN HALF the effort. [place] lifts, holds or supports trunk or limbs, but provides less than half the effort. 2-Substantial/Maximal Assistance-helper does MORE THAN HALF the effort. [place] lifts or holds trunk or limbs and provides more than half the effort. 4-Tbhnimero-levcyx does ALL the effort. Patient does none of the effort to complete the activity. Or, the assistance of 2 or more helpers is required for the patient to complete the activity. If activity was not attempted, code reason: 7-Patient Refused. 9-Not Applicable-not attempted and the patient did not perform the activity before the current illness, exacerbation or injury. 10-Not Attempted due to Environmental Limitations-(lack of equipment, weather restraints, etc.). 88-Not Attempted due to Medical Conditions or Safety Concerns. Roll Left to Right (QC): 3 Sit to Lying (QC): 3 Sit to Stand (QC): 2 Chair/Hsq-pj-Niphp Xfer(QC): 2 Car Transfer (QC): 2 Gait Training Walk 10 feet (QC): 2 Walk 50 ft with 2 Turns(QC): 88 Walk 150 ft (QC): 88 Walking 10ft/uneven surface-QC: 88 Gait Assistive Device: FWW Wheelchair Training Wheel 50 ft with 2 turns (QC): 88 Wheel 150 ft (QC): 88 Type of Wheelchair: Manual Stair Training 1 Step (curb) (QC): 88 (not safe to perform due to Poor balance and diminished coordination) 4 Steps (QC): 88 12 Steps (QC): 88 Balance Picking up an Object (QC): 88 Assessment/Plan Assessment and Plan Assess & Plan/Chief Complaint Assessment: CVA with left-sided weakness Bilateral carotid stenosis Hypertension Hyperlipidemia History of TIA Advanced age Depression hx Suicidal ideation reported by family but no acute issues Plan: Supportive care Monitor closely Aggressive rehab 07/25/2022: Monitor closely 07/26/2022: Supportive care Monitor closely (1) Acute cerebrovascular accident Assessment & Plan: He had a cerebrovascular accident that involved multiple vascular territories as noted on his MRI of the brain. This raises a concern for possible underlying atrial fibrillation. He is currently receiving aspirin and clopidogrel in addition to intensive dose statin medication. Once he is ready for discharge, I will plan on an external thickener operator. If this does not show atrial fibrillation, he may need an implantable loop recorder. Additionally, he has significant bilateral carotid disease, worse on the left. Unclear whether or not this may have had anything to do with his stroke. He will ultimately need evaluation by vascular surgery but this can be done as an outpatient after he completely recovers from the stroke. (2) Bilateral carotid artery stenosis Status: Acute Assessment & Plan: As above, he has significant bilateral carotid stenosis. I recommend he continue on aspirin, clopidogrel, and intensive dose statin medication in light of the stroke. Since neither side is critically stenosed it is often preferable to wait for a patient to recover from an acute stroke before performing any sort of carotid intervention. (3) Primary hypertension Assessment & Plan: He is on his home dose of amlodipine and lisinopril. His blood pressures are intermittently elevated. If this persists, we may need to make some adjustment to his antihypertensive medication. I would avoid aggressive treatment of the hypertension or he could be at risk of extension of the stroke if his blood pressure becomes too low. (4) Mixed hyperlipidemia Assessment & Plan: Continue intensive dose statin medication in light of the acute/subacute cerebrovascular accident. NEHEMIAH CHAMORRO DO Jul 26, 2022 05:21
[2022-07-26] MEDS: CLOPIDOGREL 75 MG (PLAVIX) TABLET PO SCH (07:47)
[2022-07-26] MEDS: GABAPENTIN 300 MG (NEURONTIN) CAP PO SCH ×2 (07:47→20:14)
[2022-07-26] MEDS: ASPIRIN 81 MG CHEW (CHILDREN'S ASA) PO SCH (07:47)
[2022-07-26] MEDS: DOCUSATE SODIUM 100 MG (COLACE) CAP PO SCH ×2 (07:47→20:15)
[2022-07-26] MEDS: lisINopril 10 MG (PRINIVIL) TABLET PO SCH (07:47)
[2022-07-26] MEDS: SENNA W/DOCUSATE (SENOKOT S) TABLET PO SCH ×2 (07:47→20:16)
[2022-07-26] MEDS: DICLOFENAC 1% GEL 100 GM (VOLTAREN) TUBE TOP SCH ×4 (07:48→20:16)
[2022-07-26] MEDS: polyethylene glycoL POWDER 17 GM (MIRALAX) PACK PO SCH ×2 (07:49→20:16)
[2022-07-26 08:00] VITALS: BP 133/81
--- NOTE | 2022-07-26 08:59 | Occupational Therapy Eval ---
OT Evaluation-General/PLF Medical Diagnosis Admission Date Jul 24, 2022 at 11:00 Medical Diagnosis: CVA Onset Date: Jul 22, 2022 Therapy Diagnosis Therapy Diagnosis: Reduced ADL status Height/Weight Height (Feet): 5 Height (Inches): 7.00 Weight (Pounds): 160 Precautions Precautions/Isolations: Seizure, Fall Prevention, Standard Precautions Referral Physician: Denny Referral Reason: Evaluation/Treatment Medical History Pertinent Medical History: CVA, HTN Current History Pt came to ER with left sided weakness and sensory changes. Pt was found to have had a stroke. From the cardiac floor, pt came down to ARU. Pt lives in a single story home with his . Pt was independent with all ADLs. He completed some yard work, but took care of cooking/cleaning. He did not use any AD at baseline. Reviewed History: Yes Social History Home: Single Level Current Living Status: Spouse Entry Into Home: Stairs With Railing Steps Into Home: 3 ADL-Prior Level of Function SCALE: Activities may be completed with or without assistive devices. 6-Zomwtvbkrd-kjrbhbh completes the activity by him/herself with no assistance from a helper. 5-Set-up or Clean-up Assistance-helper sets up or cleans up; patient completes activity. [place] assists only prior to or following the activity. 4-Supervision or Touching Assistance-helper provides verbal cues and/or touching/steadying and/or contact guard assistance as patient completes activity. Assistance may be provided throughout the activity or intermittently. 3-Partial/Moderate Assistance-helper does LESS THAN HALF the effort. Marion lifts, holds or supports trunk or limbs, but provides less than half the effort. 2-Substantial/Maximal Assistance-helper does MORE THAN HALF the effort. [place] lifts or holds trunk or limbs and provides more than half the effort. 1-Zwzwbatou-ehwvry does ALL the effort. Patient does none of the effort to complete the activity. Or, the assistance of 2 or more helpers is required for the patient to complete the activity. If activity was not attempted, code reason: 7-Patient Refused. 9-Not Applicable-not attempted and the patient did not perform the activity before the current illness, exacerbation or injury. 10-Not Attempted due to Environmental Limitations-(lack of equipment, weather restraints, etc.). 88-Not Attempted due to Medical Conditions or Safety Concerns. Self Care: Independent Functional Cognition: Independent DME/Equipment: Bath Chair, Tub/Shower Drive Self: Yes OT Current Status Subjective Pt was laying in bed eating breakfast. Pt agreed to therapy eval and would like to get cleaned up. Co-treat with PT completed secondary to fall risk, poor coordination, strength, balance, and endurance. Appearance Pt was left laying in bed with bed alarm in place. All needs were within reach. Mental Status/Objective Patient Orientation: Person, Place, Time, Situation Attachments: IV Current Glasses/Contacts: Yes (reading) Hearing Aids: No Dentures/Partials: No Hand Dominance: Right Upper Extremity ROM Right side: WNL Left side: at acute eval on (07/23/22) pt was ~10 degrees at shoulders. ~15-20 degrees at elbow. Full range of fingers and wrist. Left side: at ARU eval on (07/26/22) pt was ~155 degrees at shoulders. Full range at elbows, wrist and fingers. Upper Extremity Coordination decreased coordination for L side- unable to control movements Upper Extremity Sensation intact Upper Extremity Strength Left side: 3-/5 at shoulders. 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 Right side: 4/5 at shoulders ADL-Treatment Eating (QC): 5 Oral Hygiene (QC): 3 (anticipate assist for balance if performed at baseline (standing)) Shower/Bathe Self (QC): 1 Upper Body Dressing (QC): 3 Lower Body Dressing (QC): 1 On/Off Footwear (QC): 3 (assist required for unsupported sitting balance, no righting reflex noted.) Toileting Hygiene (QC): 1 Pt is easily distracted, hypertalkative and needs cues for redirection to task. Sitting balance: min-mod assist with cues for returning to midline secondary to listing left. No righting reflex observed when patients loses balance. Pt required mod assist for bed<> w/c transfer. A full shower was deemed unsafe due to poor coordination, balance, and listing, so sponge bath seated in w/c was completed. Pt able to reach all body parts (except agnes area and buttocks) in supported sitting with SBA for safety, coordination, and balance. Anticipate significant increase in assist required if performed in unsupported sitting (such as a shower bench) secondary to poor sitting balance. He stood with min- mod assist but required assist x2 for standing functional tasks secondary to heavy leaning left during tasks.Pt attempted to cleanse agnes-area and buttocks, ultimately requiring mod assist for completion especially on left side. Pt able to thread bilateral legs and shows good flexibility in LEs. Mod assist for pulling pants over hips in standing. Min assist for pulling shirt over one shoulder and pulling down. Increased time needed to complete all tasks. Other Treatments Pt able to propel w/c with bilateral arms and feet with initiation cues. Pt completed 3 ambulation bouts of ~15 ft each with min assist for sit<>stand and during ambulation. Pt required mod-max cues for posture, hand placement, coordination, and step size. Pt is increasingly unsafe with ambulation and requires assist of 2 clinicians due to poor endurance, proprioception, strength, balance, coordination and need of 2 for w/c follow. Education OT Patient Education: Correct positioning, Energy conservation, Modified ADL t echniques, Progress toward Goal/Update tx plan, Purpose of tx/functional activities, Reviewed precautions, Rehab process, Safety issues, Transfer techniques, W/C management Teaching Recipient: Patient Teaching Methods: Demonstration, Discussion Response to Teaching: Verbalize Understanding, Return Demonstration, Rein forcement Needed BIMS CAM BIMS Expression of Ideas and Wants: Without Difficulty Understanding Verbal Content: Understands Brief Interview/Mental Status: Yes IRF ANA MARÍA BIMS: IRF ANA MARÍA BIMS Response (Comments) Value Repitition of Three Words Three 3 Recalls Socks Yes, No Cue Required 2 Recalls Blue Yes, No Cue Required 2 Recalls Bed Yes, No Cue Required 2 Year Correct 3 Month Accurate Within 5 Days 2 Day Correct 1 Total 15 Should Staff Asses. Mental St.: No Notes: CAM Mental Status Change/Baseline: 0 Inattention: 0 Disorganized thinkin Altered level of consciousness: 0 OT Short Term Goals Short Term Goals Time Frame: Aug 06, 2022 Eatin Oral hygiene: 5 Toileting hygiene: 3 Shower/bathe self: 3 Upper body dressin Lower body dressin Putting on/taking off footwear: 4 OT Land Commissioner Goals [facility] Goals Time Frame: Aug 13, 2022 Eating (QC): 6 Oral Hygiene (QC): 6 Toileting Hygiene (QC): 5 Shower/Bathe Self (QC): 5 Upper Body Dressing (QC): 5 Lower Body Dressing (QC): 5 On/Off Footwear (QC): 6 Additional Goals: 1-Demonstrate ADL Tasks, 2-Verbalize Understanding, 3- ImproveStrength/Brit 1=Demonstrate adherence to instructed precautions during ADL tasks. 2=Patient will verbalize/demonstrate understanding of assistive devices/modifications for ADL. 3=Patient will improve strength/tolerance for activity to enable patient to perform ADL's. OT Education/Plan Problem List/Assessment Assessment: Decreased Activ Tolerance, Decreased Safety Aware, Decreased UE Strength, Dependent Transfers, Impaired Bed Mobility, Impaired Coordination, Impaired Funct Balance, Impaired I ADL's, Impaired Self-Care Skills, Restricted Funct UE ROM Discharge Recommendations Plan/Recommendations: Continue POC Treatment Plan/Plan of Care Treatment,Training & Education: Yes Patient would benefit from OT for education, treatment and training to promote independence in ADL's, mobility, safety and/or upper extremity function for ADL's. Plan of Care: ADL Retraining, Caregiver Training, Functional Mobility, Group Exercise/Act as Ind, UE Funct Exercise/Act, UE Neuromus Re-Ed/Coord, W/C Management Training Treatment Duration: Aug 13, 2022 Frequency: At least 5 of 7 days/Wk (IRF) Estimated Hrs Per Day: 1.5 hours per day (75-90 min/day) Agreement: Yes Rehab Potential: Guarded Time Start Time: 07:45 Stop Time: 09:00 DATE: Jul 26, 2022 Total Time Billed (hr/min): 75 Billed Treatment Time 1 visit EVM (15 min) ADL x3 (45 min) FA (15 min) OT eval: [id number] Co-treat with PT: [id number] (60 min) Taylor Rinaldi OT Jul 26, 2022 08:59
--- NOTE | 2022-07-26 08:59 | Physical Therapy Daily Note ---
PT Daily Note-Current Subjective Patient in WC pre tx, agrees to PT, has no complaints of pain at rest. Will be co-treating with OT due to poor patient mobility, strength, endurance, severe balance deficit, coordinate UE and LE during activity, safety and reduce risk of falls. Pain Section J - Health Conditions 1. Rarely or not at all 2. Occasionally 3. Frequently 4. Almost constantly 8. Unable to answer Pain Effect on Sleep: 2 Pain Interference with Therapy: 2 Pain Interference w/Day-to-Day: 2 Appearance Patient in bed post tx with nurse call, phone, tray, all needs met, bed alarm on. Mental Status Patient Orientation: Person, Place, Situation Transfers SCALE: Activities may be completed with or without assistive devices. 7-Pxfktkgryq-ppyjyyr completes the activity by him/herself with no assistance f rom a helper. 5-Set-up or Clean-up Assistance-helper sets up or cleans up; patient completes activity. [place] assists only prior to or following the activity. 4-Supervision or Touching Assistance-helper provides verbal cues and/or touching/steadying and/or contact guard assistance as patient completes activity. Assistance may be provided throughout the activity or intermittently. 3-Partial/Moderate Assistance-helper does LESS THAN HALF the effort. [place] lifts, holds or supports trunk or limbs, but provides less than half the effort. 2-Substantial/Maximal Assistance-helper does MORE THAN HALF the effort. [place] lifts or holds trunk or limbs and provides more than half the effort. 7-Faylrcnrq-reuwth does ALL the effort. Patient does none of the effort to complete the activity. Or, the assistance of 2 or more helpers is required for the patient to complete the activity. If activity was not attempted, code reason: 7-Patient Refused. 9-Not Applicable-not attempted and the patient did not perform the activity before the current illness, exacerbation or injury. 10-Not Attempted due to Environmental Limitations-(lack of equipment, weather restraints, etc.). 88-Not Attempted due to Medical Conditions or Safety Concerns. Roll Left & Right (QC): 4 Sit to Lying (QC): 4 Sit to Stand (QC): 3 Chair/Cmx-kb-Dajrj Xfer(QC): 3 Patient performed bathing from level, partially dresses, stands to complete bathing and dressing. Cues for positioning and safety, min assist for balance. Gait Training Distance: 20'x3 Walk 10 feet (QC): 3 Gait Assistive Device: FWW min assist to maintain balance and to help guide walker, patient has uncoordinated steps, hyperextension of left knee, uncoordinated trunk and left arm and shoulder Wheelchair Training Does the Pt Use a Wheelchair?: Yes Wheel 50 ft with 2 turns (QC): 3 Type of Wheelchair: Manual 50'x2, min assist Treatments PT performed bed mobility and transfers, ambulation, WC mobility, positioning and safety during bathing and dressing, OT performed bathing, dressing, UE positioning and safety during activity. Assessment Current Status: Fair Progress slightly improved general mobility, fairly severe coordination deficits PT Short Term Goals Short Term Goals Time Frame: Aug 11, 2022 Roll Left & Right: 4 Sit to lyin Lying to sitting on side of be: 4 Sit to stand: 4 Chair/hut-lu-diqid transfer: 4 Toilet transfer: 4 Car transfer: 4 Walk 10 feet: 3 Walk 50 feet with two turns: 3 Walk 150 feet: 3 Walking 10ft on uneven surface: 3 1 step (curb): 3 PT Nursing Home Goals Nursing Home Goals PT Nursing Home Goals Time Frame: Aug 28, 2022 Roll Left & Right (QC): 6 Sit to Lying (QC): 6 Lying-Sitting on Side/Bed(QC): 6 Sit to Stand (QC): 6 Chair/Nji-wo-Efrfx Xfer(QC): 6 Toilet Transfer (QC): 6 Car Transfer (QC): 6 Does the Patient Walk: Yes Walk 10 feet (QC): 5 Walk 50ft with 2 Turns (QC): 5 Walk 150 ft (QC): 5 Walking 10ft on Uneven Surface: 5 1 Step (curb) (QC): 4 4 Steps (QC): 4 12 Steps (QC): 4 Picking up an Object (QC): 4 Wheel 50 feet with 2 turns (QC: 9 Wheel 150 feet: 9 PT Plan Problem List Problem List: Activity Tolerance, Functional Strength, Safety, Balance, Gait, Transfer, Bed Mobility, ROM Treatment/Plan Treatment Plan: Continue Plan of Care Treatment Plan: Bed Mobility, Concurrent Therapy, Education, Functional Activity Brit, Functional Strength, Group Therapy, Gait, Safety, Therapeutic Exercise, Transfers Treatment Duration: Aug 28, 2022 Frequency: At least 5 of 7 days/Wk (IRF) Estimated Hrs Per Day: 1.5 hours per day Patient and/or Family Agrees t: Yes Safety Risks/Education Patient Education: Gait Training, Transfer Techniques, Correct Positioning, W/C Management, Safety Issues Teaching Recipient: Patient Teaching Methods: Demonstration, Discussion Response to Teaching: Reinforcement Needed Time Time In: 0800 Time Out: 0900 DATE: Jul 26, 2022 Total Billed Treatment Time: 60 Total Billed Treatment 1 visit FA 60' co-treated for 60' BENNETT GONZALEZ PT Jul 26, 2022 08:59
--- NOTE | 2022-07-26 09:52 | ST Cognitive Linguistic Eval ---
Speech Evaluation-General Medical Diagnosis CVA Onset Date: Jul 22, 2022 Therapy Diagnosis Therapy Diagnosis: Intact Cognition (Baseline) Precautions Precautions: Fall Precautions/Isolations: Fall Prevention, Standard Precautions Referral Referring Physician: Dr. Baldwin Reason for Referral: Evaluation/Treatment Medical History Pertinent Medical History: CVA, HTN Current History The patient is an 87 year-old male with a past medical history of CVA and HTN, who presented to the acute rehabilitation unit following a stroke. Reviewed History: Yes Social History Current Living Status: Spouse Speech PLF-Current Status Prior Level of Function The patient denied prior or current concerns with his speech, language, or cognition. Subjective The patient was seated upright in his bed, awake and alert, upon entrance to his room by the clinician. The patient greeted the clinician appropriately and was agreeable to participation in the cognitive linguistic assessment. Language Eval: Auditory Comprehends Simple Yes/No Ques: Functional Indent/Objects Multiple [place]: Functional Follows 1-Step Commands: Functional Follows Complex Directions: Functional Follows General Conversations: Functional Language Eval: Verbal Language Completes Spontaneous Greeting: Functional Produces Auto, Serial Info: Functional Imitates Simple Words/Phrases: Functional Word Finding: Functional Requests Basic Needs: Functional States Basic Personal Info: Functional Language Evaluation: Reading Follows Simple Written Direct: Functional Cognitive Patient Orientation The patient was independently oriented to self, location, month, day of the week, and year. Objective Cognitive Domain Attention: WNL Memory: WNL Problem Solving: Functional Executive Functions: WNL Visuospatial Skills: WNL Composite Severity Rating: WNL Objective Formal/Standardized Tests [facility] Mental Status Exam (UMS) Results The patient demonstrated a result of +26/26 on the SLUMS correlating to a result within normal limits. The clock drawing task was unable to be completed due to time constraints. However, the patient was able to read the time accurately on the in-room clock. Oral Motor/Speech Production The patient did not display dysarthria or apraxia of speech. The patient was 100% intelligible in known and unknown contexts. Impression The patient demonstrated intact and baseline cognitive linguistic skills. Speech-Plan Treatment Plan Speech Therapy Treatment Plan: Discontinue ST Treatment Duration: Jul 26, 2022 Frequency: 1 time per week Estimated Hrs Per Day: .5 hour per day Rehab Potential: Good Safety Risks/Education Teaching Recipient: Patient Teaching Methods: Discussion Response to Teaching: Verbalize Understanding Education Topics Provided: Results, Recommendations, Plan of Care Time Speech Therapy Time In: 09:00 Speech Therapy Time Out: 09:30 DATE: Jul 26, 2022 Total Billed Time: 30 Billed Treatment Time 1, NILE EDDY ELIZABETH ST Jul 26, 2022 09:52
--- NOTE | 2022-07-26 11:04 | Physical Therapy Daily Note ---
PT Daily Note-Current Subjective Patient in bed pre tx, agrees to PT, has no complaints of pain. Pain Section J - Health Conditions 1. Rarely or not at all 2. Occasionally 3. Frequently 4. Almost constantly 8. Unable to answer Pain Effect on Sleep: 2 Pain Interference with Therapy: 2 Pain Interference w/Day-to-Day: 2 Appearance Patient in bed post tx with nurse call, phone, tray, all needs met, bed alarm on. Mental Status Patient Orientation: Person, Place, Situation Attachments: SCD's Transfers SCALE: Activities may be completed with or without assistive devices. 8-Qnwgcskntq-esfogzk completes the activity by him/herself with no assistance from a helper. 5-Set-up or Clean-up Assistance-helper sets up or cleans up; patient completes activity. [place] assists only prior to or following the activity. 4-Supervision or Touching Assistance-helper provides verbal cues and/or touching/steadying and/or contact guard assistance as patient completes activity. Assistance may be provided throughout the activity or intermittently. 3-Partial/Moderate Assistance-helper does LESS THAN HALF the effort. [place] lifts, holds or supports trunk or limbs, but provides less than half the effort. 2-Substantial/Maximal Assistance-helper does MORE THAN HALF the effort. [place] lifts or holds trunk or limbs and provides more than half the effort. 3-Sdrwowqqu-mdmwdi does ALL the effort. Patient does none of the effort to comp lete the activity. Or, the assistance of 2 or more helpers is required for the patient to complete the activity. If activity was not attempted, code reason: 7-Patient Refused. 9-Not Applicable-not attempted and the patient did not perform the activity before the current illness, exacerbation or injury. 10-Not Attempted due to Environmental Limitations-(lack of equipment, weather restraints, etc.). 88-Not Attempted due to Medical Conditions or Safety Concerns. Exercises Supine Ex: Ankle pumps, Quad Set, Glut sets, Heel Slides, Short Arc Quads, Straight leg raise, Hip abd/add Supine Reps: 20 Treatments LE strengthening/ROM Assessment Current Status: Fair Progress right leg ataxic PT Short Term Goals Short Term Goals Time Frame: Aug 11, 2022 Roll Left & Right: 4 Sit to lyin Lying to sitting on side of be: 4 Sit to stand: 4 Chair/cjm-rw-jkgmx transfer: 4 Toilet transfer: 4 Car transfer: 4 Walk 10 feet: 3 Walk 50 feet with two turns: 3 Walk 150 feet: 3 Walking 10ft on uneven surface: 3 1 step (curb): 3 PT Jail Goals Jail Goals PT Ciaio Lumite Injector Goals Time Frame: Aug 28, 2022 Roll Left & Right (QC): 6 Sit to Lying (QC): 6 Lying-Sitting on Side/Bed(QC): 6 Sit to Stand (QC): 6 Chair/Okt-js-Rfqpm Xfer(QC): 6 Toilet Transfer (QC): 6 Car Transfer (QC): 6 Does the Patient Walk: Yes Walk 10 feet (QC): 5 Walk 50ft with 2 Turns (QC): 5 Walk 150 ft (QC): 5 Walking 10ft on Uneven Surface: 5 1 Step (curb) (QC): 4 4 Steps (QC): 4 12 Steps (QC): 4 Picking up an Object (QC): 4 Wheel 50 feet with 2 turns (QC: 9 Wheel 150 feet: 9 PT Plan Problem List Problem List: Activity Tolerance, Functional Strength, Safety, Balance, Gait, Transfer, Bed Mobility, ROM Treatment/Plan Treatment Plan: Continue Plan of Care Treatment Plan: Bed Mobility, Concurrent Therapy, Education, Functional Activity Brit, Functional Strength, Group Therapy, Gait, Safety, Therapeutic Exercise, Transfers Treatment Duration: Aug 28, 2022 Frequency: At least 5 of 7 days/Wk (IRF) Estimated Hrs Per Day: 1.5 hours per day Patient and/or Family Agrees t: Yes Safety Risks/Education Patient Education: Correct Positioning, Safety Issues Teaching Recipient: Patient Teaching Methods: Demonstration, Discussion Response to Teaching: Reinforcement Needed Time Time In: 1000 Time Out: 1015 DATE: Jul 26, 2022 Total Billed Treatment Time: 15 Total Billed Treatment 1 visit EX 15' BENNETT GONZALEZ PT Jul 26, 2022 11:04
--- NOTE | 2022-07-26 11:39 | Progress Note ---
SOFYA VARGAS 07/26/22 1139: Progress Note S: Mr. Berrios is an 87 year old male who presents to the ARU s/p CVA with L- sided weakness. Patient was in the gym this morning working with PT. Patient states he is doing well. Patient reports increased strength and mobility of his L UE. Patient reports pain in his neck that he states is chronic from arthritis. Patient is tolerating PO food and drink. Patient's last BM was yesterday. O: Vital signs stable: T 36.2, HR 60, RR 20, BP 138/72, SpO2 95% RA PE: -Cardiovascular: HRRR -Pulmonary: LCTAB Labs: CBC and CMP WNL, Total bilirubin 1.2 A/P: 1. L-sided weakness s/p CVA; continue PT and OT in-patient rehabilitation 2. Continue Lovenox inj, ASA, and clopidogrel therapy for DVT prophylaxis and cardiovascular/neuro protection 3. Hyperbilirubinemia - monitor and repeat labs ATIYA CHAMORRO DO 07/27/22 0457: Supervisory-Addendum Brief Verification & Attestation Participated in pt care: history, MDM, physical Personally performed: exam, history, MDM, supervision of care Care discussed with: Medical Student Procedures: n/a Results interpretation: Verified all documentation Verification and Attestation of Medical Student E/M Service A medical student performed and documented this service in my presence. I reviewed and verified all information documented by the medical student and made modifications to such information, when appropriate. I personally performed the physical exam and medical decision making. Atiya Chamorro Jul 27, 2022,04:57 SOFYA VARGAS Jul 26, 2022 11:39 ATIYA CHAMORRO DO Jul 27, 2022 04:57
[2022-07-26] MEDS: ENOXAPARIN 40 MG/0.4 ML (LOVENOX) SYR SC SCH (12:00)
[2022-07-26] MEDS: GABAPENTIN 100 MG (NEURONTIN) CAP PO SCH (14:37)
[2022-07-26 20:00] VITALS: BP 129/75
[2022-07-26] MEDS: clonazePAM 0.5 MG (KlonoPIN) TAB PO SCH (20:14)
[2022-07-26] MEDS: amLODIPine 5 MG (NORVASC) TAB PO SCH (20:15)
--- NOTE | 2022-07-27 05:26 | PM&R Progress Note ---
Subjective HPI/CC On Admission Date Seen by Provider: Jul 27, 2022 Time Seen by Provider: 08:30 Subjective/Events-last exam 07/27/2022: Patient doing well No pain is reported Eating and drinking well Moving left arm a bit more 07/26/2022: Patient doing well Bowels moved yesterday Took a shower today with therapy Moving left arm a bit 07/25/2022: Much improved status Left sided weakness remains Suicidal ideation reported by family at times but none that RN notes Monitoring closely Labs stable EGD postponed until stable Review of Systems General: Fatigue, Malaise Objective Exam Vital Signs Vital Signs Date Time Temp Pulse Resp B/P (MAP) Pulse Ox O2 Delivery O2 Flow Rate FiO2 07/28/22 01:00 62 07/27/22 21:00 Room Air 07/27/22 20:32 36.2 16 120/69 (86) 94 Capillary Refill : General Appearance: No Apparent Distress, WD/WN, Chronically ill HEENT: PERRL/EOMI, Normal ENT Inspection, Pharynx Normal Neck: Full Range of Motion, Normal Inspection, Non Tender, Supple, Carotid Bruit Respiratory: Chest Non Tender, Lungs Clear, Normal Breath Sounds, No Accessory Muscle Use, No Respiratory Distress Cardiovascular: Regular Rate, Rhythm, No Edema, No Gallop, No JVD, No Murmur, Normal Peripheral Pulses Gastrointestinal: Normal Bowel Sounds, No Organomegaly, No Pulsatile Mass, Non Tender, Soft Back: Normal Inspection, No CVA Tenderness, No Vertebral Tenderness Extremity: Normal Capillary Refill, Normal Inspection, Normal Range of Motion (except left side), Non Tender, No Calf Tenderness, No Pedal Edema Neurologic/Psychiatric: Alert, Oriented x3, Normal Mood/Affect, prep manager II-XII Norm as Tested, Abnormal Gait, Motor Weakness (left sided weakness 1/5) Skin: Normal Color, Warm/Dry Lymphatic: No Adenopathy Results/Procedures Lab Patient resulted labs reviewed. FIM Transfers Therapy Code Descriptions/Definitions Functional [place] Measure: 0=Not Assessed/NA 4=Minimal Assistance 1=Total Assistance 5=Supervision or Setup 2=Maximal Assistance 6=Modified [place] 3=Moderate Assistance 7=Complete IndependenceSCALE: Activities may be completed with or without assistive devices. 9-Zjwaxpmrbw-qirykrr completes the activity by him/herself with no assistance from a helper. 5-Set-up or Clean-up Assistance-helper sets up or cleans up; patient completes activity. [place] assists only prior to or following the activity. 4-Supervision or Touching Assistance-helper provides verbal cues and/or touching/steadying and/or contact guard assistance as patient completes activity. Assistance may be provided throughout the activity or intermittently. 3-Partial/Moderate Assistance-helper does LESS THAN HALF the effort. [place] lifts, holds or supports trunk or limbs, but provides less than half the effort. 2-Substantial/Maximal Assistance-helper does MORE THAN HALF the effort. [place] lifts or holds trunk or limbs and provides more than half the effort. 7-Hsuacldlk-wuxprj does ALL the effort. Patient does none of the effort to complete the activity. Or, the assistance of 2 or more helpers is required for the patient to complete the activity. If activity was not attempted, code reason: 7-Patient Refused. 9-Not Applicable-not attempted and the patient did not perform the activity before the current illness, exacerbation or injury. 10-Not Attempted due to Environmental Limitations-(lack of equipment, weather restraints, etc.). 88-Not Attempted due to Medical Conditions or Safety Concerns. Roll Left to Right (QC): 4 Sit to Lying (QC): 4 Sit to Stand (QC): 3 Chair/Dtz-mn-Aifww Xfer(QC): 3 Car Transfer (QC): 2 Gait Training Distance: 20'x3 Walk 10 feet (QC): 3 Walk 50 ft with 2 Turns(QC): 88 Walk 150 ft (QC): 88 Walking 10ft/uneven surface-QC: 88 Gait Assistive Device: FWW Wheelchair Training Does the Pt Use a Wheelchair?: Yes Wheel 50 ft with 2 turns (QC): 3 Wheel 150 ft (QC): 88 Type of Wheelchair: Manual Stair Training 1 Step (curb) (QC): 88 (not safe to perform due to Poor balance and diminished coordination) 4 Steps (QC): 88 12 Steps (QC): 88 Balance Picking up an Object (QC): 88 ADL-Treatment Eating (QC): 5 Oral Hygiene (QC): 3 (anticipate assist for balance if performed at baseline (standing)) Shower/Bathe Self (QC): 1 Upper Body Dressing (QC): 3 Lower Body Dressing (QC): 1 On/Off Footwear (QC): 3 (assist required for unsupported sitting balance, no righting reflex noted.) Toileting Hygiene (QC): 1 Assessment/Plan Assessment and Plan Assess & Plan/Chief Complaint Assessment: CVA with left-sided weakness Bilateral carotid stenosis Hypertension Hyperlipidemia History of TIA Advanced age Depression hx Suicidal ideation reported by family but no acute issues Plan: Supportive care Monitor closely Aggressive rehab 07/25/2022: Monitor closely 07/26/2022: Supportive care Monitor closely 07/27/2022: Supportive care Fall risk (1) Acute cerebrovascular accident Assessment & Plan: He had a cerebrovascular accident that involved multiple vascular territories as noted on his MRI of the brain. This raises a concern for possible underlying atrial fibrillation. He is currently receiving aspirin and clopidogrel in addition to intensive dose statin medication. Once he is ready for discharge, I will plan on an external monitoring manager. If this does not show atrial fibrillation, he may need an implantable loop recorder. Additionally, he has significant bilateral carotid disease, worse on the left. Unclear whether or not this may have had anything to do with his stroke. He will ultimately need evaluation by vascular surgery but this can be done as an outpatient after he completely recovers from the stroke. (2) Bilateral carotid artery stenosis Status: Acute Assessment & Plan: As above, he has significant bilateral carotid stenosis. I recommend he continue on aspirin, clopidogrel, and intensive dose statin medication in light of the stroke. Since neither side is critically stenosed it is often preferable to wait for a patient to recover from an acute stroke before performing any sort of carotid intervention. (3) Primary hypertension Assessment & Plan: He is on his home dose of amlodipine and lisinopril. His blood pressures are intermittently elevated. If this persists, we may need to make some adjustment to his antihypertensive medication. I would avoid aggressive treatment of the hypertension or he could be at risk of extension of the stroke if his blood pressure becomes too low. (4) Mixed hyperlipidemia Assessment & Plan: Continue intensive dose statin medication in light of the acute/subacute cerebrovascular accident. NEHEMIAH CHAMORRO DO Jul 27, 2022 05:26
--- NOTE | 2022-07-27 05:28 | Individualized Plan of Care ---
Individualized Plan of Care Rehab Nursing IPOC Order Admission Date Jul 24, 2022 at 11:00 Current Orders Orders Admission Arrival Bed Request (07/24/22 11:00) Admission Order(Inpt,Obs,Sdc) (07/24/22 11:13) Vital Signs: Per Unit Policy ( 08,16,00 (07/24/22 11:13) Jb Cam (07/24/22 11:13) Sequential Compression Device (07/24/22 11:13) Boat Worker-Inpt Rehab Con (07/24/22 11:13) Rehab Nursing Orders-Ipoc (07/24/22 11:13) Physical Therapy Rehab Orders (07/24/22 11:13) Occupational Therapy Rehab Ord (07/24/22 11:13) Speech Therapy Rehab Orders (07/24/22 11:13) Cbc With Automated Diff (07/25/22 06:00) Comprehensive Metabolic Panel (07/25/22 06:00) Precautions (Aru) (07/24/22 11:13) Weekly Weight WEEK (07/24/22 11:13) Rehab-Intensity Of Therapy (07/24/22 11:13) Initiate Admission Nursing Pro .admission (07/24/22 11:13) Alprazolam Tablet (Xanax Tablet) (07/24/22 11:15) Calcium Carbonate Chew Tablet (Antacid C (07/24/22 11:15) Diphenhydramine Tablet (Benadryl Tablet) (07/24/22 11:15) Docusate Sodium Capsule (Colace Capsule) (07/24/22 21:00) Docusate Sodium Capsule (Colace Capsule) (07/24/22 11:15) Bisacodyl Suppository (Dulcolax Supposit (07/24/22 11:15) Lactulose Oral Solution (Enulose Oral So (07/24/22 11:15) Na Phos/Na Biphos Enema (Fleet Enema Nghia (07/24/22 11:15) Guaifenesin/Codeine Syrup (Robitussin Ac (07/24/22 11:15) Loperamide Tablet (Imodium Tablet) (07/24/22 11:15) Melatonin Tablet (Melatonin Tablet) (07/24/22 11:15) Polyethylene Glycol Powder Pkt (Miralax (07/24/22 21:00) Ondansetron Oral Dissolve Tab (Zofran (07/24/22 11:15) Senna S Tablet (Senokot S Tablet) (07/24/22 21:00) Acetaminophen Tablet/Caplet (Tylenol T (07/24/22 11:15) Code/Resuscitation (07/24/22 12:10) Sequential Compression Device ONCE (07/24/22 12:10) Telemetry (07/24/22 12:10) Sodium 2g (2000 Mg) (07/24/22 Lunch) Aspirin Chewable Tablet (Baby Aspirin Ch (07/25/22 09:00) Atorvastatin Tablet (Lipitor Tablet) (07/24/22 21:00) Clopidogrel Tablet (Plavix Tablet) (07/25/22 09:00) Docusate Sodium Capsule (Colace Capsule) (07/24/22 21:00) Bisacodyl Suppository (Dulcolax Supposit (07/24/22 12:15) Lactulose Oral Solution (Enulose Oral So (07/24/22 12:15) Gabapentin Capsule/Tablet (Neurontin Cap (07/24/22 15:00) Enoxaparin Injection (Lovenox Injection) (07/24/22 12:15) Melatonin Tablet (Melatonin Tablet) (07/24/22 12:15) Magnesium Hydroxide Oral Susp (Mom Oral (07/24/22 12:15) Polyethylene Glycol Powder Pkt (Miralax (07/24/22 12:15) Antacid Suspension (Mylanta Suspension (07/24/22 12:15) Sennosides Tablet (Senokot Tablet) (07/24/22 21:00) Sodium Chloride Flush (Catheter Flush Sy (07/24/22 12:15) Calcium Carbonate Chew Tablet (Antacid C (07/24/22 12:15) Acetaminophen Tablet/Caplet (Tylenol T (07/24/22 12:15) Ondansetron Injection (Zofran Injectio (07/24/22 12:15) Ondansetron Oral Dissolve Tab (Zofran (07/24/22 12:15) Amlodipine Tablet (Norvasc Tablet) (07/24/22 21:00) Clonazepam Tablet (Klonopin Tablet) (07/24/22 21:00) Hydralazine Injection (Apresoline Inject (07/24/22 12:15) Lisinopril Tablet (Zestril Tablet) (07/25/22 09:00) Telemetry (07/24/22 12:10) Telemetry Nursing Assessment ( (07/24/22 12:10) Heating Pad (07/24/22 12:10) Hydrocodone/Apap 7.5/325 Tab (Lortab 7. (07/24/22 12:15) Diclofenac 1% Gel (Voltaren 1% Gel) (07/24/22 13:00) Thyroid Stimulating Hormone (07/24/22 12:26) Consult Cardiology (07/24/22 12:47) Gabapentin Capsule/Tablet (Neurontin Cap (07/24/22 21:00) Patient Visit (07/25/22 ) Pt Eval Moderate Complexity (07/25/22 ) Clonidine Tablet (Catapres Tablet) (07/25/22 11:45) Patient Visit (07/26/22 ) Speech Sound Lang Comp (07/26/22 ) Treat. Speech/Lang/Voice (07/26/22 ) Patient Visit (07/25/22 ) Functional Activities, Ea 15 (07/25/22 ) Exercise Therap, Ea 15 Min (07/25/22 ) Rehab Nursing Orders: Ongoing Assess. of Cognitive Status, Ongoing Assess. of Function Status, Bladder Management, Bladder Scan, Bladder Training, Bowel Management, Bowel Training, Disease Management & Educaiton, DVT Prophylaxis, Fall Prevention, Fluid/Electrolyte/Nutrition Mgmt, Infection Prevention, Medication Management & Education, Management of Risks & Complications, Management of Skin Intergrity, Nutrition Management, Pain Management, Patient/Family Support, Safety Management Intensity of Therapy to be met Patient to be seen: Min.3h per day/5 of 7d PT IPOC Problem List: Activity Tolerance, Functional Strength, Safety, Balance, Gait, Transfer, Bed Mobility, ROM Treatment Plan: Continue Plan of Care Bed Mobility, Concurrent Therapy, Education, Functional Activity Brit, Functional Strength, Group Therapy, Gait, Safety, Therapeutic Exercise, Transfers Treatment Duration: Aug 28, 2022 Frequency: At least 5 of 7 days/Wk (IRF) Estimated Hrs Per Day: 1.5 hours per day OT IPOC Problems: Decreased Activ Tolerance, Decreased Safety Aware, Decreased UE Strength, Dependent Transfers, Impaired Bed Mobility, Impaired Coordination, Impaired Funct Balance, Impaired I ADL's, Impaired Self-Care Skills, Restricted Funct UE ROM OT Treatment, Training and Edu: Yes Plan of Care: ADL Retraining, Caregiver Training, Functional Mobility, Group Exercise/Act as Ind, UE Funct Exercise/Act, UE Neuromus Re-Ed/Coord, W/C Management Training Treatment Duration: Aug 13, 2022 Frequency: At least 5 of 7 days/Wk (IRF) Estimated Hrs Per Day: 1.5 hours per day (75-90 min/day) ST IPOC Speech Therapy Treatment Plan: Discontinue ST Treatment Duration: Jul 26, 2022 Frequency: 1 time per week Estimated Hrs Per Day: .5 hour per day Boat Worker/Case Mgmt Boat Worker/Case Managemen: Discharge Planning Dietitian/Robot Programmer Dietitian/Robot Programmer to monitor nutritional status and make changes and/or recommendations as needed and work with speech pathology on dietary upgrades as the occur. Physician IPOC Medical Issues being managed closely and that require the 24 hour availability of a physician: Recent CVA with high risk of decompensation so will require cardiology evaluation and monitoring of blood pressure and fall risk Medical Issues: Bowel/Bladder Function, DVT Prophylaxis, Falls Precautions, Fluid/Electrolyte/Nutrition Balance, Infection Protection, Pain Management, Weight Bearing Precautions Brief Synthesis of Preadmission Screen, Post-Admission Evaluation, and Therapy Evaluations: PT and OT will focus on regaining function with use of assistive devices in or ofelia to prevent falls and increase independence in order to return home Medical Prognosis: Fair Anticipated Length of Stay: 10 days NEHEMIAH CHAMORRO DO Jul 27, 2022 05:28
[2022-07-27 07:45] VITALS: BP 136/67
[2022-07-27] MEDS: ASPIRIN 81 MG CHEW (CHILDREN'S ASA) PO SCH (08:54)
[2022-07-27] MEDS: SENNA W/DOCUSATE (SENOKOT S) TABLET PO SCH ×2 (08:55→21:25)
[2022-07-27] MEDS: CLOPIDOGREL 75 MG (PLAVIX) TABLET PO SCH (08:55)
[2022-07-27] MEDS: DICLOFENAC 1% GEL 100 GM (VOLTAREN) TUBE TOP SCH ×4 (08:55→21:25)
[2022-07-27] MEDS: GABAPENTIN 300 MG (NEURONTIN) CAP PO SCH ×2 (08:55→21:25)
[2022-07-27] MEDS: lisINopril 10 MG (PRINIVIL) TABLET PO SCH (08:55)
[2022-07-27] MEDS: DOCUSATE SODIUM 100 MG (COLACE) CAP PO SCH ×2 (08:55→21:25)
[2022-07-27] MEDS: polyethylene glycoL POWDER 17 GM (MIRALAX) PACK PO SCH ×2 (08:56→21:24)
--- NOTE | 2022-07-27 09:01 | Occupational Ther Daily Note ---
OT Current Status-Daily Note Subjective Pt sitting up in bed eating breakfast. Pt agrees to therapy. Co-treat with PT completed secondary to fall risk, poor coordination, strength, balance, and endurance. Appearance Pt left laying in bed with all needs within reach. Mental Status/Objective Patient Orientation: Person, Place, Time, Situation Attachments: IV ADL-Treatment Therapy Code Descriptions/Definitions Functional [place] Measure: 0=Not Assessed/NA 4=Minimal Assistance 1=Total Assistance 5=Supervision or Setup 2=Maximal Assistance 6=Modified [place] 3=Moderate Assistance 7=Complete IndependenceSCALE: Activities may be completed with or without assistive devices. 3-Vrsgsowowj-ucutmxx completes the activity by him/herself with no assistance from a helper. 5-Set-up or Clean-up Assistance-helper sets up or cleans up; patient completes activity. [place] assists only prior to or following the activity. 4-Supervision or Touching Assistance-helper provides verbal cues and/or touching/steadying and/or contact guard assistance as patient completes activity. Assistance may be provided throughout the activity or intermittently. 3-Partial/Moderate Assistance-helper does LESS THAN HALF the effort. [place] lifts, holds or supports trunk or limbs, but provides less than half the effort. 2-Substantial/Maximal Assistance-helper does MORE THAN HALF the effort. [place] lifts or holds trunk or limbs and provides more than half the effort. 5-Lbqgyhoal-mvyudt does ALL the effort. Patient does none of the effort to complete the activity. Or, the assistance of 2 or more helpers is required for the patient to complete the activity. If activity was not attempted, code reason: 7-Patient Refused. 9-Not Applicable-not attempted and the patient did not perform the activity before the current illness, exacerbation or injury. 10-Not Attempted due to Environmental Limitations-(lack of equipment, weather restraints, etc.). 88-Not Attempted due to Medical Conditions or Safety Concerns. Eating (QC): 5 Upper Body Dressing (QC): 4 (SBA- cues for proper technique) Lower Body Dressing (QC): 1 (assist x2 for clothing management in standing. Heavy listing left needing cues to adjust posture.) On/Off Footwear: 4 (sitting EOB, needing cues for balance) Pt completes bed mobility with SBA for safety. Pt able to sit EOB for dressing but required min assist for balance. Pt completes footwear and UB dressing with SBA for cues with balance and proper technique of donning shirt. He was min assist for donning underwear/pants due to increased LOB. New technique taught to pt regarding figure 4 method and energy conservation to don pants. Assist x2 in standing for clothing management. Heavy listing left and slightly retropulsive in standing needing cues/physical assist to return to midline. Bed<>w/c transfer: Min assist. Other Treatment Pt shows compensation through trunk and shoulder for weak L side with all functional tasks. Pt able to propel w/c with bilateral arms and feet with initiation cues. Poor safety/body awareness notable as pt often will drag L hand on wheel throughout propulsion. Pt completed 2 ambulation bouts of ~120 ft each with min assist for sit<>stand and during ambulation. Pt required mod-max cues for posture, hand placement, coordination, and step size. Pt completes gait better with faster paced ambulation. Pt completed functional task of seated balloon batting to improve dynamic sitting balance and coordination. He performed dowel clive with isometric holds 1x10 in supine to improve bilateral coordination, endurance, and UE strength. Pt is increasingly unsafe with ambulation and functional activities and requires assist of 2 clinicians due to poor endurance, proprioception, strength, balance, coordination and need of 2 for w/c follow. Education OT Patient Education: Correct positioning, Exercise program, Modified ADL techniques, Progress toward Goal/Update tx plan, Purpose of tx/functional activities, Reviewed precautions, Rehab process, Safety issues, Transfer techniques, W/C management Teaching Recipient: Patient Teaching Methods: Demonstration, Discussion Response to Teaching: Verbalize Understanding, Return Demonstration OT Short Term Goals Short Term Goals Time Frame: Aug 06, 2022 Eatin Oral hygiene: 5 Toileting hygiene: 3 Shower/bathe self: 3 Upper body dressin Lower body dressin Putting on/taking off footwear: 4 OT Mcc Goals Mcc Goals Time Frame: Aug 13, 2022 Acute change in mental status: 0 Inattention: 0 Disorganized thinkin Altered level of consciousness: 0 Eating (QC): 6 Oral Hygiene (QC): 6 Toileting Hygiene (QC): 5 Shower/Bathe Self (QC): 5 Upper Body Dressing (QC): 5 Lower Body Dressing (QC): 5 On/Off Footwear (QC): 6 Additional Goals: 1-Demonstrate ADL Tasks, 2-Verbalize Understanding, 3-Impr oveStrength/Brit 1=Demonstrate adherence to instructed precautions during ADL tasks. 2=Patient will verbalize/demonstrate understanding of assistive devices/modifications for ADL. 3=Patient will improve strength/tolerance for activity to enable patient to perform ADL's. OT Education/Plan Problem List/Assessment Assessment: Decreased Activ Tolerance, Decreased Safety Aware, Decreased UE Strength, Impaired Coordination, Impaired Funct Balance, Impaired I ADL's, I mpaired Self-Care Skills, Restricted Funct UE ROM Discharge Recommendations Plan/Recommendations: Continue POC Treatment Plan/Plan of Care Treatment,Training & Education: Yes Patient would benefit from OT for education, treatment and training to promote independence in ADL's, mobility, safety and/or upper extremity function for ADL's. Plan of Care: ADL Retraining, Caregiver Training, Functional Mobility, Group Exercise/Act as Ind, UE Funct Exercise/Act, UE Neuromus Re-Ed/Coord, W/C Management Training Treatment Duration: Aug 13, 2022 Frequency: At least 5 of 7 days/Wk (IRF) Estimated Hrs Per Day: 1.5 hours per day (75-90 min/day) Agreement: Yes Rehab Potential: Good Time Start Time: 07:30 Stop Time: 09:00 DATE: Jul 27, 2022 Total Time Billed (hr/min): 90 Billed Treatment Time 1 visit ADL x2 (30 min) FA x3 (40 min) Ex (20 min) Co-treat with PT ([id number]) Taylor Rinaldi OT Jul 27, 2022 09:01
--- NOTE | 2022-07-27 09:01 | Physical Therapy Daily Note ---
PT Daily Note-Current Subjective Patient sitting EOB pre tx, agrees to PT, has no complaints of pain. Will be co-treating with OT due to poor patient mobility, strength, endurance, ataxia, coordinate UE and LE with activity, safety and reduce risk of falls. Pain Section J - Health Conditions 1. Rarely or not at all 2. Occasionally 3. Frequently 4. Almost constantly 8. Unable to answer Pain Effect on Sleep: 2 Pain Interference with Therapy: 2 Pain Interference w/Day-to-Day: 2 Appearance Patient in bed post tx with nurse call, phone, tray, bed alarm on. Mental Status Patient Orientation: Person, Place, Situation Transfers SCALE: Activities may be completed with or without assistive devices. 8-Nhophhmqru-pzdbomd completes the activity by him/herself with no assistance from a helper. 5-Set-up or Clean-up Assistance-helper sets up or cleans up; patient completes activity. [place] assists only prior to or following the activity. 4-Supervision or Touching Assistance-helper provides verbal cues and/or touching/steadying and/or contact guard assistance as patient completes activity. Assistance may be provided throughout the activity or intermittently. 3-Partial/Moderate Assistance-helper does LESS THAN HALF the effort. [place] lifts, holds or supports trunk or limbs, but provides less than half the effort. 2-Substantial/Maximal Assistance-helper does MORE THAN HALF the effort. [place] lifts or holds trunk or limbs and provides more than half the effort. 1-Swrobwsfm-ovdjhn does ALL the effort. Patient does none of the effort to complete the activity. Or, the assistance of 2 or more helpers is required for the patient to complete the activity. If activity was not attempted, code reason: 7-Patient Refused. 9-Not Applicable-not attempted and the patient did not perform the activity before the current illness, exacerbation or injury. 10-Not Attempted due to Environmental Limitations-(lack of equipment, weather restraints, etc.). 88-Not Attempted due to Medical Conditions or Safety Concerns. Roll Left & Right (QC): 6 Sit to Lying (QC): 4 Lying to Sitting/Side of Bed(Q: 4 Sit to Stand (QC): 3 Chair/Wsc-nv-Xjvzt Xfer(QC): 3 SBA for supine to sit, min assist for sit to stand and transfers, cues for po sitioning and safety Gait Training Distance: 100'x2 Walk 10 feet (QC): 3 Walk 50 ft with 2 Turns(QC): 3 Gait Assistive Device: FWW WC follow, min assist for balance and needs assist guiding walker, cues for increased gait speed and step length Wheelchair Training Does the Pt Use a Wheelchair?: Yes Wheel 50 ft with 2 turns (QC): 3 Wheel 150 ft (QC): 3 Type of Wheelchair: Manual 300', min assist, cues for left hand, tends to stop using it Exercises Supine Ex: Bridging (with theraball under legs), Lower trunk rotation (with theraball under legs) seated balance activity hitting balloon, supine marching x20 with abdominal activation Treatments PT performed bed mobility and transfers, ambulation, WC mobility, LE strengthening, balance and positioning during balloon activity, OT performed UE exercise, seated balloon activity, UE positioning and safety during activity Assessment Current Status: Fair Progress continued ataxia PT Short Term Goals Short Term Goals Time Frame: Aug 11, 2022 Roll Left & Right: 4 Sit to lyin Lying to sitting on side of be: 4 Sit to stand: 4 Chair/rvu-bp-nntvh transfer: 4 Toilet transfer: 4 Car transfer: 4 Walk 10 feet: 3 Walk 50 feet with two turns: 3 Walk 150 feet: 3 Walking 10ft on uneven surface: 3 1 step (curb): 3 PT Longterm Goals Aircraft Instrument Tester Goals PT Longterm Goals Time Frame: Aug 28, 2022 Roll Left & Right (QC): 6 Sit to Lying (QC): 6 Lying-Sitting on Side/Bed(QC): 6 Sit to Stand (QC): 6 Chair/Tmg-mr-Ecvsh Xfer(QC): 6 Toilet Transfer (QC): 6 Car Transfer (QC): 6 Does the Patient Walk: Yes Walk 10 feet (QC): 5 Walk 50ft with 2 Turns (QC): 5 Walk 150 ft (QC): 5 Walking 10ft on Uneven Surface: 5 1 Step (curb) (QC): 4 4 Steps (QC): 4 12 Steps (QC): 4 Picking up an Object (QC): 4 Wheel 50 feet with 2 turns (QC: 9 Wheel 150 feet: 9 PT Plan Problem List Problem List: Activity Tolerance, Functional Strength, Safety, Balance, Gait, Transfer, Bed Mobility, ROM Treatment/Plan Treatment Plan: Continue Plan of Care Treatment Plan: Bed Mobility, Concurrent Therapy, Education, Functional Activity Brit, Functional Strength, Group Therapy, Gait, Safety, Therapeutic Exercise, Transfers Treatment Duration: Aug 28, 2022 Frequency: At least 5 of 7 days/Wk (IRF) Estimated Hrs Per Day: 1.5 hours per day Patient and/or Family Agrees t: Yes Safety Risks/Education Patient Education: Gait Training, Transfer Techniques, Correct Positioning, Safety Issues Teaching Recipient: Patient Teaching Methods: Demonstration, Discussion Response to Teaching: Reinforcement Needed Time Time In: 0800 Time Out: 09 DATE: Jul 27, 2022 Total Billed Treatment Time: 60 Total Billed Treatment 1 visit EX 30' FA 30' co-treated for 60' BENNETT GONZALEZ PT Jul 27, 2022 09:01
--- NOTE | 2022-07-27 11:30 | Physical Therapy Daily Note ---
PT Daily Note-Current Subjective Patient in bed pre tx, agrees to PT, has no complaints of pain. Pain Section J - Health Conditions 1. Rarely or not at all 2. Occasionally 3. Frequently 4. Almost constantly 8. Unable to answer Pain Effect on Sleep: 2 Pain Interference with Therapy: 2 Pain Interference w/Day-to-Day: 2 Appearance Patient in bed post tx with nurse call, phone, tray, all needs met, bed alarm on. Mental Status Patient Orientation: Person, Place, Situation Transfers SCALE: Activities may be completed with or without assistive devices. 5-Pnxltukcwm-mkpmxqh completes the activity by him/herself with no assistance from a helper. 5-Set-up or Clean-up Assistance-helper sets up or cleans up; patient completes activity. [place] assists only prior to or following the activity. 4-Supervision or Touching Assistance-helper provides verbal cues and/or touching/steadying and/or contact guard assistance as patient completes a ctivity. Assistance may be provided throughout the activity or intermittently. 3-Partial/Moderate Assistance-helper does LESS THAN HALF the effort. [place] lifts, holds or supports trunk or limbs, but provides less than half the effort. 2-Substantial/Maximal Assistance-helper does MORE THAN HALF the effort. [place] lifts or holds trunk or limbs and provides more than half the effort. 9-Sekrlqzcg-iotkma does ALL the effort. Patient does none of the effort to complete the activity. Or, the assistance of 2 or more helpers is required for the patient to complete the activity. If activity was not attempted, code reason: 7-Patient Refused. 9-Not Applicable-not attempted and the patient did not perform the activity before the current illness, exacerbation or injury. 10-Not Attempted due to Environmental Limitations-(lack of equipment, weather restraints, etc.). 88-Not Attempted due to Medical Conditions or Safety Concerns. Roll Left & Right (QC): 4 Sit to Lying (QC): 4 Lying to Sitting/Side of Bed(Q: 4 Sit to Stand (QC): 3 Chair/Ltw-lp-Lbmcx Xfer(QC): 3 Gait Training Distance: 100'x2 Walk 10 feet (QC): 3 Walk 50 ft with 2 Turns(QC): 3 Gait Persons Needed: 1 Gait Assistive Device: FWW needs assist with balance and guiding walker, ataxia on right side and trunk Exercises NuStep Minutes: 15 NuStep Workload: 5 Treatments bed mobility and transfers, ambulation, strengthening Assessment Current Status: Fair Progress improving endurance but ataxia remains the same PT Short Term Goals Short Term Goals Time Frame: Aug 11, 2022 Roll Left & Right: 4 Sit to lyin Lying to sitting on side of be: 4 Sit to stand: 4 Chair/ufl-yd-eficy transfer: 4 Toilet transfer: 4 Car transfer: 4 Walk 10 feet: 3 Walk 50 feet with two turns: 3 Walk 150 feet: 3 Walking 10ft on uneven surface: 3 1 step (curb): 3 PT Process Automation Engineer Goals Process Automation Engineer Goals PT Process Automation Engineer Goals Time Frame: Aug 28, 2022 Roll Left & Right (QC): 6 Sit to Lying (QC): 6 Lying-Sitting on Side/Bed(QC): 6 Sit to Stand (QC): 6 Chair/Oji-fh-Ulcag Xfer(QC): 6 Toilet Transfer (QC): 6 Car Transfer (QC): 6 Does the Patient Walk: Yes Walk 10 feet (QC): 5 Walk 50ft with 2 Turns (QC): 5 Walk 150 ft (QC): 5 Walking 10ft on Uneven Surface: 5 1 Step (curb) (QC): 4 4 Steps (QC): 4 12 Steps (QC): 4 Picking up an Object (QC): 4 Wheel 50 feet with 2 turns (QC: 9 Wheel 150 feet: 9 PT Plan Problem List Problem List: Activity Tolerance, Functional Strength, Safety, Balance, Gait, T ransfer, Bed Mobility, ROM Treatment/Plan Treatment Plan: Continue Plan of Care Treatment Plan: Bed Mobility, Concurrent Therapy, Education, Functional Activity Brit, Functional Strength, Group Therapy, Gait, Safety, Therapeutic Exercise, Transfers Treatment Duration: Aug 28, 2022 Frequency: At least 5 of 7 days/Wk (IRF) Estimated Hrs Per Day: 1.5 hours per day Patient and/or Family Agrees t: Yes Safety Risks/Education Patient Education: Gait Training, Transfer Techniques, Correct Positioning, Safety Issues Teaching Recipient: Patient Teaching Methods: Demonstration, Discussion Response to Teaching: Reinforcement Needed Time Time In: 1100 Time Out: 1130 DATE: Jul 27, 2022 Total Billed Treatment Time: 30 Total Billed Treatment 1 visit EX 15' FA 15' BENNETT GONZALEZ PT Jul 27, 2022 11:30
[2022-07-27] MEDS: ENOXAPARIN 40 MG/0.4 ML (LOVENOX) SYR SC SCH (12:27)
--- NOTE | 2022-07-27 13:09 | Progress Note ---
SOFYA VARGAS 07/27/22 1309: Progress Note S: Mr. Berrios is an 87 year old male who presents to the ARU s/p CVA with L- sided weakness. Patient was resting in bed eating breakfast this morning. Patient states he is doing well. Patient reports increased strength and mobility of his L UE. Patient is tolerating PO food and drink. Patient's last BM was yesterday. Patient reports he is tolerating therapy well and feels like his strength is returning. O: Vital signs stable: T 36.6, HR 66, RR 18, BP 136/67, SpO2 91% RA PE: -Cardiovascular: HRRR -Pulmonary: LCTAB Labs: CBC and CMP WNL, Total bilirubin 1.2 on 07/25 A/P: 1. L-sided weakness s/p CVA; continue PT and OT in-patient rehabilitation 2. Continue Lovenox inj, ASA, and clopidogrel therapy for DVT prophylaxis and cardiovascular/neuro protection 3. Hyperbilirubinemia - monitor and repeat labs ATIYA CHAMORRO DO 07/27/22 2013: Supervisory-Addendum Brief Verification & Attestation Participated in pt care: history, MDM, physical Personally performed: exam, history, MDM, supervision of care Care discussed with: Medical Student Procedures: n/a Results interpretation: Verified all documentation Verification and Attestation of Medical Student E/M Service A medical student performed and documented this service in my presence. I reviewed and verified all information documented by the medical student and made modifications to such information, when appropriate. I personally performed the physical exam and medical decision making. Atiya Chamorro Jul 27, 2022,20:13 SOFYA VARGAS Jul 27, 2022 13:09 ATIYA CHAMORRO DO Jul 27, 2022 20:13
[2022-07-27] MEDS: GABAPENTIN 100 MG (NEURONTIN) CAP PO SCH (14:55)
--- NOTE | 2022-07-27 16:10 | Cardiology Progress Note ---
Progress Note-Cardiology Events since last exam Date Seen by Provider: Jul 27, 2022 Time Seen by Provider: 16:05 Events since last exam I am following him due to a stroke. This morning I received a notification from the nurse that the patient had several pauses while he was sleeping early this morning. He was asleep at the time and presumably asymptomatic. When I saw the patient this afternoon, he was laying in bed. He states rehab is going well. He denies chest discomfort, dyspnea, palpitations, syncope, or ankle edema. Certain portions of this document may have been dictated utilizing voice recognition technology. Inherent to this technology, typographical and gr ammatical errors may exist. As much as I am diligent to identify and correct these mistakes, some errors may remain in the document. Vitals Last set of Vitals Signs Vital Signs 07/27/22 07/27/22 07/27/22 07:45 09:24 13:00 Temp 36.6 Pulse 66 Resp 18 B/P (MAP) 136/67 (90) Pulse Ox 91 O2 Delivery Room Air Exam Vital Signs Vital Signs Date Time Temp Pulse Resp B/P (MAP) Pulse Ox O2 Delivery O2 Flow Rate FiO2 07/27/22 13:00 66 07/27/22 09:24 Room Air 07/27/22 07:45 36.6 18 136/67 (90) 91 Physical Exam General: Alert. No acute distress. Eye: No xanthelasma. HENT: Normocephalic. Neck: Jugular venous pressure does not appear elevated. Respiratory: Lungs are clear to auscultation. Respirations are non-labored. Breath sounds are equal. Symmetrical chest wall expansion. Cardiovascular: Normal rate. Regular rhythm. No murmur. No gallop. No edema. Gastrointestinal: Soft. Normal bowel sounds. Skin: Warm. Dry. Neurologic: Alert and oriented to person, place, time. Cranial nerves 3-11 grossly intact. Psychiatric: Cooperative. Appropriate mood & affect. Radiology Telemetry: There were several telemetry strips from earlier this morning that show sinus rhythm with 2-1 AV block that lasted 1 cardiac cycle on each occasion. This started around 04:49 and ended around 06:25. Diagnosis/Problems Diagnosis/Problems (1) Acute cerebrovascular accident Assessment & Plan: He had a cerebrovascular accident that involved multiple vascular territories as noted on his MRI of the brain. This raises a concern for possible underlying atrial fibrillation. He is currently receiving aspirin and clopidogrel in addition to intensive dose statin medication. Once he is ready for discharge, I will plan on an external postie. If this does not show atrial fibrillation, he may need an implantable loop recorder following discharge.. Additionally, he has significant bilateral carotid disease, worse on the left. Unclear whether or not this may have had anything to do with his stroke. He will ultimately need evaluation by vascular surgery but this can be done as an outpatient after he completely recovers from the stroke. (2) Mobitz type 1 second degree AV block Assessment & Plan: He had several episodes of 2-1 AV block earlier this morning. He is not on any AV jalil blocking agents and his TSH level was normal. I recommend we just continue the patient on telemetry monitoring for the time being. (3) Bilateral carotid artery stenosis Status: Acute Assessment & Plan: As above, he has significant bilateral carotid stenosis. I recommend he continue on aspirin, clopidogrel, and intensive dose statin medication in light of the stroke. Since neither side is critically stenosed it is often preferable to wait for a patient to recover from an acute stroke before performing any sort of carotid intervention. (4) Primary hypertension Assessment & Plan: He is on his home dose of amlodipine and lisinopril. His blood pressures are reasonably controlled most of the time. (5) Mixed hyperlipidemia Assessment & Plan: Continue intensive dose statin medication in light of the acute/subacute cerebrovascular accident. GALA RIDER JR, MD Jul 27, 2022 16:10
[2022-07-27 20:32] VITALS: BP 120/69
[2022-07-27] MEDS: amLODIPine 5 MG (NORVASC) TAB PO SCH (21:24)
[2022-07-27] MEDS: clonazePAM 0.5 MG (KlonoPIN) TAB PO SCH (21:25)
--- NOTE | 2022-07-28 06:06 | PM&R Progress Note ---
Subjective HPI/CC On Admission Date Seen by Provider: Jul 28, 2022 Time Seen by Provider: 08:30 Subjective/Events-last exam 07/28/2022: Patient doing well after in/out cath He does have urinary retention when he is constipated Will initiate soapsuds enema if needed along with lactulose and senna KUB showed dilated loops of bowel so in case this is an ileus we will initiate clear liquid diet 07/27/2022: Patient doing well No pain is reported Eating and drinking well Moving left arm a bit more 07/26/2022: Patient doing well Bowels moved yesterday Took a shower today with therapy Moving left arm a bit 07/25/2022: Much improved status Left sided weakness remains Suicidal ideation reported by family at times but none that RN notes Monitoring closely Labs stable EGD postponed until stable Review of Systems General: Fatigue, Malaise Neurological: Weakness, Incoordination Objective Exam Vital Signs Vital Signs Date Time Temp Pulse Resp B/P (MAP) Pulse Ox O2 Delivery O2 Flow Rate FiO2 07/29/22 01:00 75 07/28/22 20:46 Room Air 07/28/22 20:45 36.6 16 109/54 (72) 96 Capillary Refill : General Appearance: No Apparent Distress, WD/WN, Chronically ill HEENT: PERRL/EOMI, Normal ENT Inspection, Pharynx Normal Neck: Full Range of Motion, Normal Inspection, Non Tender, Supple, Carotid Bruit Respiratory: Chest Non Tender, Lungs Clear, Normal Breath Sounds, No Accessory Muscle Use, No Respiratory Distress Cardiovascular: Regular Rate, Rhythm, No Edema, No Gallop, No JVD, No Murmur, Normal Peripheral Pulses Gastrointestinal: Normal Bowel Sounds, No Organomegaly, No Pulsatile Mass, Non Tender, Soft Back: Normal Inspection, No CVA Tenderness, No Vertebral Tenderness Extremity: Normal Capillary Refill, Normal Inspection, Normal Range of Motion (except left side), Non Tender, No Calf Tenderness, No Pedal Edema Neurologic/Psychiatric: Alert, Oriented x3, Normal Mood/Affect, lockstitch front edge tape sewer II-XII Norm as Tested, Abnormal Gait, Motor Weakness (left sided weakness 1/5) Skin: Normal Color, Warm/Dry Lymphatic: No Adenopathy Results/Procedures Lab Patient resulted labs reviewed. FIM Transfers Therapy Code Descriptions/Definitions Functional [place] Measure: 0=Not Assessed/NA 4=Minimal Assistance 1=Total Assistance 5=Supervision or Setup 2=Maximal Assistance 6=Modified [place] 3=Moderate Assistance 7=Complete IndependenceSCALE: Activities may be completed with or without assistive devices. 5-Uxlnjxpzaw-nsnixqm completes the activity by him/herself with no assistance from a helper. 5-Set-up or Clean-up Assistance-helper sets up or cleans up; patient completes activity. [place] assists only prior to or following the activity. 4-Supervision or Touching Assistance-helper provides verbal cues and/or touching/steadying and/or contact guard assistance as patient completes activity. Assistance may be provided throughout the activity or intermittently. 3-Partial/Moderate Assistance-helper does LESS THAN HALF the effort. [place] lifts, holds or supports trunk or limbs, but provides less than half the effort. 2-Substantial/Maximal Assistance-helper does MORE THAN HALF the effort. [place] lifts or holds trunk or limbs and provides more than half the effort. 7-Vvayhkyea-qugwaw does ALL the effort. Patient does none of the effort to complete the activity. Or, the assistance of 2 or more helpers is required for the patient to complete the activity. If activity was not attempted, code reason: 7-Patient Refused. 9-Not Applicable-not attempted and the patient did not perform the activity before the current illness, exacerbation or injury. 10-Not Attempted due to Environmental Limitations-(lack of equipment, weather restraints, etc.). 88-Not Attempted due to Medical Conditions or Safety Concerns. Roll Left to Right (QC): 4 Sit to Lying (QC): 4 Sit to Stand (QC): 3 Chair/Juq-il-Schlf Xfer(QC): 3 Car Transfer (QC): 2 Gait Training Distance: 100'x2 Walk 10 feet (QC): 3 Walk 50 ft with 2 Turns(QC): 3 Walk 150 ft (QC): 88 Walking 10ft/uneven surface-QC: 88 Gait Persons Needed: 1 Gait Assistive Device: FWW Wheelchair Training Does the Pt Use a Wheelchair?: Yes Wheel 50 ft with 2 turns (QC): 3 Wheel 150 ft (QC): 3 Type of Wheelchair: Manual Stair Training 1 Step (curb) (QC): 88 (not safe to perform due to Poor balance and diminished coordination) 4 Steps (QC): 88 12 Steps (QC): 88 Balance Picking up an Object (QC): 88 ADL-Treatment Eating (QC): 5 Oral Hygiene (QC): 3 (anticipate assist for balance if performed at baseline (standing)) Shower/Bathe Self (QC): 1 Upper Body Dressing (QC): 4 (SBA- cues for proper technique) Lower Body Dressing (QC): 1 (assist x2 for clothing management in standing. Hea vy listing left needing cues to adjust posture.) On/Off Footwear (QC): 4 (sitting EOB, needing cues for balance) Toileting Hygiene (QC): 1 Assessment/Plan Assessment and Plan Assess & Plan/Chief Complaint Assessment: CVA with left-sided weakness Bilateral carotid stenosis Hypertension Hyperlipidemia History of TIA Advanced age Depression hx Suicidal ideation reported by family but no acute issues Plan: Supportive care Monitor closely Aggressive rehab 07/25/2022: Monitor closely 07/26/2022: Supportive care Monitor closely 07/27/2022: Supportive care Fall risk 07/28/2022: Supportive care Consult Dr. CHRISTIE Clear liquid diet MiraLAX and lactulose and senna (1) Acute cerebrovascular accident Assessment & Plan: He had a cerebrovascular accident that involved multiple vascular territories as noted on his MRI of the brain. This raises a concern for possible underlying atrial fibrillation. He is currently receiving aspirin and clopidogrel in addition to intensive dose statin medication. Once he is ready for discharge, I will plan on an external quality assurance monitor. If this does not show atrial fibrillation, he may need an implantable loop recorder following discharge.. Additionally, he has significant bilateral carotid disease, worse on the left. Unclear whether or not this may have had anything to do with his stroke. He will ultimately need evaluation by vascular surgery but this can be done as an outpatient after he completely recovers from the stroke. (2) Mobitz type 1 second degree AV block Assessment & Plan: He had several episodes of 2-1 AV block earlier this morning. He is not on any AV jalil blocking agents and his TSH level was normal. I recommend we just continue the patient on telemetry monitoring for e time being. (3) Bilateral carotid artery stenosis Status: Acute Assessment & Plan: As above, he has significant bilateral carotid stenosis. I recommend he continue on aspirin, clopidogrel, and intensive dose statin medication in light of the stroke. Since neither side is critically stenosed it is often preferable to wait for a patient to recover from an acute stroke before performing any sort of carotid intervention. (4) Primary hypertension Assessment & Plan: He is on his home dose of amlodipine and lisinopril. His blood pressures are reasonably controlled most of the time. (5) Mixed hyperlipidemia Assessment & Plan: Continue intensive dose statin medication in light of the acute/subacute cerebrovascular accident. NEHEMIAH CHAMORRO DO Jul 28, 2022 06:06
[2022-07-28 07:51] VITALS: BP 163/73
[2022-07-28 08:38] LABS: BILIRUBIN,URINE NEGATIVE (NEGATIVE); CLARITY,URINE CLEAR; COLOR,URINE YELLOW; GLUCOSE, URINE (UA) NEGATIVE (NEGATIVE); KETONES,URINE NEGATIVE (NEGATIVE); LEUKOCYTE ESTERASE ,URINE NEGATIVE (NEGATIVE); NITRITE,URINE NEGATIVE (NEGATIVE); PROTEIN,URINE NEGATIVE (NEGATIVE)
--- NOTE | 2022-07-28 08:43 | Occupational Ther Daily Note ---
OT Current Status-Daily Note Subjective Pt laying in bed upon arrival. He immediately declined therapy this morning due to 10/10 pain in stomach and feeling constipated. With encouragement for movement to get bowels moving, he agreed. Nursing conducted a bladder ultrasound, catheterization, and ordered an x-ray for a possible bowel obstruction. Appearance Pt left laying in bed with all needs within reach. Pt extremely fatigued and fell asleep quickly after laying down. Mental Status/Objective Patient Orientation: Person, Place, Time, Situation ADL-Treatment Therapy Code Descriptions/Definitions Functional [place] Measure: 0=Not Assessed/NA 4=Minimal Assistance 1=Total Assistance 5=Supervision or Setup 2=Maximal Assistance 6=Modified [place] 3=Moderate Assistance 7=Complete IndependenceSCALE: Activities may be completed with or without assistive devices. 1-Agnbcolbpj-jnofzwr completes the activity by him/herself with no assistance from a helper. 5-Set-up or Clean-up Assistance-helper sets up or cleans up; patient completes activity. [place] assists only prior to or following the activity. 4-Supervision or Touching Assistance-helper provides verbal cues and/or touching/steadying and/or contact guard assistance as patient completes activity. Assistance may be provided throughout the activity or intermittently. 3-Partial/Moderate Assistance-helper does LESS THAN HALF the effort. [place] lifts, holds or supports trunk or limbs, but provides less than half the effort. 2-Substantial/Maximal Assistance-helper does MORE THAN HALF the effort. [place] lifts or holds trunk or limbs and provides more than half the effort. 7-Ymxaeryhw-qedojh does ALL the effort. Patient does none of the effort to complete the activity. Or, the assistance of 2 or more helpers is required for the patient to complete the activity. If activity was not attempted, code reason: 7-Patient Refused. 9-Not Applicable-not attempted and the patient did not perform the activity before the current illness, exacerbation or injury. 10-Not Attempted due to Environmental Limitations-(lack of equipment, weather restraints, etc.). 88-Not Attempted due to Medical Conditions or Safety Concerns. Bathing Location: L Arm, R Arm, L Upper Leg, R Upper Leg, Chest, Abdomen Shower/Bathe Self (QC): 4 Upper Body Dressing (QC): 3 (mod assist for buttoning shirt) Lower Body Dressing (QC): 3 On/Off Footwear: 1 (due to time (leaving room for stat x-ray) and pain) Toileting Hygiene (QC): 2 Toilet Transfer (QC): 3 1st session-([id number]) Min-mod assist for supine<>sit at beginning of session. Extra assist required due to c/o abdominal pain. While seated EOB, Pt washed UB and thighs with SBA, cues for initiation. Pt often has no insight/awareness that he is falling backwards or to the side. Cues to return to midline often. He was able to don button up shirt with good retention of yesterday's cue to thread L arm first. He needed min assist for buttoning half of the shirt due to fatigue and pain. Post minimal activity, pt reports wanting to return to bed secondary to pain. RN in to complete bladder scan, assist to return to supine. After urine catheterization, X-ray in to take patient off floor. Min a to stand, slightly impulsive. Once standing, pt with liquid stools. Assist for rectal agnes care. Pt returned to sitting and OT donned brief over feet secondary to time restraints and pain. Dependent to pull clothing over hips in standing. Pt ambulated short distance to w/c with min a and use of walker. 2nd session: ([id number]) Pt sitting on toilet at OT arrival. Mod a for standing balance as he attempts agnes care. Mod a still needed for thoroughness. Pt threaded brief and pants over feet with significant time and cues. Again, mod a for standing balance, max a to trap puller hips. Pt exhibits increased weakness and fatigue when compared to past sessions. He ambulated back to room, ~15 feet with mod a and walker. Pt often sinking further into flexion and needs cues to extend at hips/trunk and knees. Cues for walker safety as he pushes walker too far out in front of him. Pt requires several rest breaks this date and often verbalizes significant levels of fatigue. Pt able to return to supine with cues for body placement. Pt able to reach towards HOB and scoot self up. Physical assist to move hips over. Once back in bed, pt immediately falls asleep. Education OT Patient Education: Correct positioning, Energy conservation, Modified ADL techniques, Progress toward Goal/Update tx plan, Purpose of tx/functional activities, Reviewed precautions, Rehab process, Safety issues, Transfer techniques Teaching Recipient: Patient Teaching Methods: Demonstration, Discussion Response to Teaching: Verbalize Understanding, Return Demonstration OT Short Term Goals Short Term Goals Time Frame: Aug 06, 2022 Eatin Oral hygiene: 5 Toileting hygiene: 3 Shower/bathe self: 3 Upper body dressin Lower body dressin Putting on/taking off footwear: 4 OT Teacher Music Goals Assisted Goals Time Frame: Aug 13, 2022 Acute change in mental status: 0 Inattention: 0 Disorganized thinkin Altered level of consciousness: 0 Eating (QC): 6 Oral Hygiene (QC): 6 Toileting Hygiene (QC): 5 Shower/Bathe Self (QC): 5 Upper Body Dressing (QC): 5 Lower Body Dressing (QC): 5 On/Off Footwear (QC): 6 Additional Goals: 1-Demonstrate ADL Tasks, 2-Verbalize Understanding, 3- ImproveStrength/Brit 1=Demonstrate adherence to instructed precautions during ADL tasks. 2=Patient will verbalize/demonstrate understanding of assistive devices/modifications for ADL. 3=Patient will improve strength/tolerance for activity to enable patient to perform ADL's. OT Education/Plan Problem List/Assessment Assessment: Decreased Activ Tolerance, Decreased Safety Aware, Decreased UE Strength, Impaired Coordination, Impaired Funct Balance, Impaired I ADL's, Impaired Self-Care Skills Discharge Recommendations Plan/Recommendations: Continue POC Treatment Plan/Plan of Care Treatment,Training & Education: Yes Patient would benefit from OT for education, treatment and training to promote independence in ADL's, mobility, safety and/or upper extremity function for ADL's. Plan of Care: ADL Retraining, Caregiver Training, Functional Mobility, Group Exercise/Act as Ind, UE Funct Exercise/Act, UE Neuromus Re-Ed/Coord, W/C Management Training Treatment Duration: Aug 13, 2022 Frequency: At least 5 of 7 days/Wk (IRF) Estimated Hrs Per Day: 1.5 hours per day (75-90 min/day) Agreement: Yes Rehab Potential: Good Time Start Time: 07:40 (1015) Stop Time: 08:30 (1055) DATE: Jul 28, 2022 Total Time Billed (hr/min): 90 Billed Treatment Time 1 visit ADL x3 (50 min) 2nd visit ADL x3 (40 min) Taylor Rinaldi OT Jul 28, 2022 08:43
[2022-07-28 08:44] LABS: BACTERIA,URINE NEGATIVE /HPF
[2022-07-28] MEDS ORDERED: SENNA W/DOCUSATE (SENOKOT S) TABLET PO NR (09:00)
[2022-07-28] MEDS ORDERED: LACTULOSE SYRUP 10GM/15ML (ENULOSE) 30ML UDC PO NR (09:00)
--- NOTE | 2022-07-28 09:06 | Diagnostic Imaging Report ---
Indication: Bowel obstruction, no bowel movement COMPARISON: 01/15/2022 TECHNIQUE: 2 radiographs of the abdomen dated 07/28/2022 FINDINGS: The minimally visualized lung bases are clear. Small amount of gas and stool within the colon. No abnormally dilated loops of small bowel. No free air. Scattered osseous degenerative changes without acute osseous abnormality. IMPRESSION: Nonobstructive bowel gas pattern without free air. Dictated by: Dictated on workstation # [id number]
--- NOTE | 2022-07-28 09:21 | Progress Note ---
SOFYA VARGAS 07/28/22 0921: Progress Note S: Mr. Berrios is an 87 year old male who presents to the ARU s/p CVA with L- sided weakness. This morning around 0500 the patient was experiencing 10/10 lower abdominal pain with abdominal distension and absent bowel sounds. A bladder scan was performed indicating urinary retention and straight catheteri zation produced 950cc of urine. Urine was sent for UA. Patient denies chronic urinary retention but does admit that occasionally when he is constipated he must relieve his bladder first before defecating. Patient states his pain has greatly improved. The patient last had a small bowel movement yesterday, 07/27. Per nursing report, yesterday evening the patient was attempting to disimpact stool. Patient was given a suppository last night and no stool was appreciated in the rectal vault. O: Vital signs stable: T 36.2, HR 63, RR 16, BP 120/69, SpO2 94% RA PE: -Cardiovascular: HRRR -Pulmonary: LCTAB -GI: Bowel sounds absent, no current tenderness with palpation of four quadrants, no masses palpable, mild lower abdominal distension Labs: CBC and CMP WNL, Total bilirubin 1.2 on 07/25. UA 07/28 unremarkable, negative for UTI KUB 07/28: FINDINGS: The minimally visualized lung bases are clear. Small amount of gas and stool within the colon. No abnormally dilated loops of small bowel. No free air. Scattered osseous degenerative changes without acute osseous abnormality. IMPRESSION: Nonobstructive bowel gas pattern without free air. A/P: 1. L-sided weakness s/p CVA; continue PT and OT in-patient rehabilitation 2. Continue Lovenox inj, ASA, and clopidogrel therapy for DVT prophylaxis and cardiovascular/neuro protection 3. Hyperbilirubinemia - monitor and repeat labs 4. Urinary retention. Patient has had a bladder scan with straight catheterization. KUB has been performed and UA sent. UA was unremarkable for UTI. KUB was negative for signs of SBO or large stool burden. Non-obstructing gas pattern was visualized, thus patient may benefit from PO simethicone and an enema to relieve any impacted stool and promote flatus. Patient should have bowel rest with clear liquids until symptoms improve. ATIYA CHAMORRO DO 07/29/22 0541: Supervisory-Addendum Brief Verification & Attestation Participated in pt care: history, MDM, physical Personally performed: exam, history, MDM, supervision of care Care discussed with: Medical Student Procedures: n/a Results interpretation: Verified all documentation Verification and Attestation of Medical Student E/M Service A medical student performed and documented this service in my presence. I reviewed and verified all information documented by the medical student and made modifications to such information, when appropriate. I personally performed the physical exam and medical decision making. Atiya Chamorro, Jul 29, 2022,05:41 SOFYA VARGAS Jul 28, 2022 09:21 ATIYA CHAMORRO DO Jul 29, 2022 05:41
[2022-07-28] MEDS: SENNA W/DOCUSATE (SENOKOT S) TABLET PO SCH ×2 (10:14→20:26)
[2022-07-28] MEDS: GABAPENTIN 300 MG (NEURONTIN) CAP PO SCH ×2 (10:14→20:30)
[2022-07-28] MEDS: lisINopril 10 MG (PRINIVIL) TABLET PO SCH (10:15)
[2022-07-28] MEDS: CLOPIDOGREL 75 MG (PLAVIX) TABLET PO SCH (10:15)
[2022-07-28] MEDS: DICLOFENAC 1% GEL 100 GM (VOLTAREN) TUBE TOP SCH ×4 (10:15→20:30)
[2022-07-28] MEDS: DOCUSATE SODIUM 100 MG (COLACE) CAP PO SCH ×2 (10:16→20:25)
[2022-07-28] MEDS: polyethylene glycoL POWDER 17 GM (MIRALAX) PACK PO SCH ×2 (10:16→20:34)
[2022-07-28] MEDS: LACTULOSE SYRUP 10GM/15ML (ENULOSE) 30ML UDC PO SCH ×2 (10:19→20:44)
[2022-07-28] MEDS: ASPIRIN 81 MG CHEW (CHILDREN'S ASA) PO SCH (10:23)
[2022-07-28] MEDS: TAMSULOSIN 0.4 MG (FLOMAX) CAP PO SCH ×2 (10:29→20:26)
--- NOTE | 2022-07-28 11:59 | Physical Therapy Daily Note ---
PT Daily Note-Current Subjective Pt. in bed curled up on his side . Pt. keeps eyes closed and needs several attempts at verbal stimuli and a gentle tap on the leg to respond verbally but still keeps eyes closed. Pt. eventually awakens and shares that he is "having a really bad day and doesnt feel well at all", "I think Im still constipated and they got so much urine out of me earlier today because I could not urinate" Pt encouraged to slowly move in bed to begin therapy . Pain Location: No Pain Reported Section J - Health Conditions 1. Rarely or not at all 2. Occasionally 3. Frequently 4. Almost constantly 8. Unable to answer Pain Effect on Sleep: 2 Pain Interference with Therapy: 2 Pain Interference w/Day-to-Day: 2 Mental Status Patient Orientation: Normal For Age pt. head down, somnolent but more engaging as Rx unfolds Transfers SCALE: Activities may be completed with or without assistive devices. 9-Gsckabibsm-luqywcs completes the activity by him/herself with no assistance from a helper. 5-Set-up or Clean-up Assistance-helper sets up or cleans up; patient completes activity. [place] assists only prior to or following the activity. 4-Supervision or Touching Assistance-helper provides verbal cues and/or touching/steadying and/or contact guard assistance as patient completes activity. Assistance may be provided throughout the activity or intermittently. 3-Partial/Moderate Assistance-helper does LESS THAN HALF the effort. [place] lifts, holds or supports trunk or limbs, but provides less than half the effort. 2-Substantial/Maximal Assistance-helper does MORE THAN HALF the effort. [place] lifts or holds trunk or limbs and provides more than half the effort. 2-Cfxpsekpz-qzalhq does ALL the effort. Patient does none of the effort to complete the activity. Or, the assistance of 2 or more helpers is required for the patient to complete the activity. If activity was not attempted, code reason: 7-Patient Refused. 9-Not Applicable-not attempted and the patient did not perform the activity before the current illness, exacerbation or injury. 10-Not Attempted due to Environmental Limitations-(lack of equipment, weather restraints, etc.). 88-Not Attempted due to Medical Conditions or Safety Concerns. Roll Left & Right (QC): 4 Sit to Lying (QC): 3 Lying to Sitting/Side of Bed(Q: 3 Sit to Stand (QC): 3 Gait Training Does the Patient Walk?: Yes Walk 10 feet (QC): 3 Gait Persons Needed: 1 Gait Assistive Device: FWW pt. leaning heavily left , required instruction for broader ARSH and alignment as pt. is very kyphotic, 12 ft in room to recliner from bed Exercises Supine Ex: Bridging, Ankle pumps, Quad Set, Rolling, Glut sets, Heel Slides, Short Arc Quads, Scooting, Straight leg raise, Hip abd/add Supine Reps: 15 Seated Therapy Exercises: Ankle pumps, Sit to stand, Long arc quads, Hip flexion Seated Reps: 15 Treatments supine ex LEs, nursing in to do EKG as pt. was monitored and has elevated T wave per nurse . TRF training for up in bed, rolling sup to sit and sitting balance as well as sit to stand, pt. requires assist min to mod, gait short dist in room as pt c/o fatigue and not feeling well but agrees to up in recliner for meal. pt requested coffee and warmed blankets and room air turned warmer, this was all delivered . call em at hand Assessment Current Status: Poor Progress pt. struggling to participate today, fatigue and abdominal discomfort PT Short Term Goals Short Term Goals Time Frame: Aug 11, 2022 Roll Left & Right: 4 Sit to lyin Lying to sitting on side of be: 4 Sit to stand: 4 Chair/izf-hx-ndyby transfer: 4 Toilet transfer: 4 Car transfer: 4 Walk 10 feet: 3 Walk 50 feet with two turns: 3 Walk 150 feet: 3 Walking 10ft on uneven surface: 3 1 step (curb): 3 PT Ssis Developer Goals Ssis Developer Goals PT [facility] Goals Time Frame: Aug 28, 2022 Roll Left & Right (QC): 6 Sit to Lying (QC): 6 Lying-Sitting on Side/Bed(QC): 6 Sit to Stand (QC): 6 Chair/Bms-pc-Tbskl Xfer(QC): 6 Toilet Transfer (QC): 6 Car Transfer (QC): 6 Does the Patient Walk: Yes Walk 10 feet (QC): 5 Walk 50ft with 2 Turns (QC): 5 Walk 150 ft (QC): 5 Walking 10ft on Uneven Surface: 5 1 Step (curb) (QC): 4 4 Steps (QC): 4 12 Steps (QC): 4 Picking up an Object (QC): 4 Wheel 50 feet with 2 turns (QC: 9 Wheel 150 feet: 9 PT Plan Treatment/Plan Treatment Plan: Continue Plan of Care Treatment Plan: Bed Mobility, Concurrent Therapy, Education, Functional Activity Brit, Functional Strength, Group Therapy, Gait, Safety, Therapeutic Exercise, Transfers Treatment Duration: Aug 28, 2022 Frequency: At least 5 of 7 days/Wk (IRF) Estimated Hrs Per Day: 1.5 hours per day Patient and/or Family Agrees t: Yes Safety Risks/Education Patient Education: Gait Training, Transfer Techniques, Correct Positioning, Disease Process, Safety Issues Teaching Recipient: Patient Teaching Methods: Demonstration, Discussion Response to Teaching: Verbalize Understanding, Return Demonstration, Reinforcement Needed Time Time In: 1100 Time Out: 1200 DATE: Jul 28, 2022 Total Billed Treatment Time: 60 Total Billed Treatment 1,FA35m,GT10m,EX15m MAXIMILIAN GARCÍA MANAGEMENT RETAIL INTERN Jul 28, 2022 11:59
[2022-07-28] MEDS: ENOXAPARIN 40 MG/0.4 ML (LOVENOX) SYR SC SCH (12:35)
--- NOTE | 2022-07-28 14:40 | Physical Therapy Daily Note ---
PT Daily Note-Current Subjective Pt. c/o he is still so tired and thinks it is from a med he took to help him relax this morning, "and now Joanie had no energy all day long" During supine ex pt states he needs to go in to toilet. present in room. Pain Location: No Pain Reported Section J - Health Conditions 1. Rarely or not at all 2. Occasionally 3. Frequently 4. Almost constantly 8. Unable to answer Pain Effect on Sleep: 1 Pain Interference with Therapy: 1 Pain Interference w/Day-to-Day: 1 Appearance conts lethargic and fatigued Mental Status Patient Orientation: Normal For Age Transfers SCALE: Activities may be completed with or without assistive devices. 7-Tkojmyhoqk-ztbuqsx completes the activity by him/herself with no assistance from a helper. 5-Set-up or Clean-up Assistance-helper sets up or cleans up; patient completes activity. [place] assists only prior to or following the activity. 4-Supervision or Touching Assistance-helper provides verbal cues and/or touching/steadying and/or contact guard assistance as patient completes activity. Assistance may be provided throughout the activity or intermittently. 3-Partial/Moderate Assistance-helper does LESS THAN HALF the effort. [place] lifts, holds or supports trunk or limbs, but provides less than half the effort. 2-Substantial/Maximal Assistance-helper does MORE THAN HALF the effort. [place] lifts or holds trunk or limbs and provides more than half the effort. 1-Dqjdasdbm-wroovj does ALL the effort. Patient does none of the effort to complete the activity. Or, the assistance of 2 or more helpers is required for the patient to complete the activity. If activity was not attempted, code reason: 7-Patient Refused. 9-Not Applicable-not attempted and the patient did not perform the activity before the current illness, exacerbation or injury. 10-Not Attempted due to Environmental Limitations-(lack of equipment, weather restraints, etc.). 88-Not Attempted due to Medical Conditions or Safety Concerns. Roll Left & Right (QC): 4 Sit to Lying (QC): 4 Lying to Sitting/Side of Bed(Q: 3 Sit to Stand (QC): 3 Toilet Transfer (QC): 3 pt. required mod assist of 1 and 25% of time max assist, back up was called for gait as pts function was vulnerable and unsafe Gait Training Does the Patient Walk?: Yes Walk 10 feet (QC): 2 Gait Persons Needed: 2 Gait Assistive Device: FWW 2 assist for gait bed to toilet in bthrom with pt. leaning heavily on this MACHINE PECAN PICKER on right and required assist to maintain safe ARSH as pts feet slipped and scissored . pt. using FWW required max assist to advance it and for turns, approx 3 ft from toilet pt required max assist to prevent a fall, pts posture very flexed and diffifuclt to right him Exercises Supine Ex: Bridging, Ankle pumps, Quad Set, Rolling, Heel Slides, Scooting, Straight leg raise, Hip abd/add Supine Reps: 15 Treatments therx in bed, TRFs, gait asst of 2 FWW to bthrm 10 ft, incont BM in brief, pt was cleaned, brief changed , w/c back to bed as pts function is declined from 11-15. in bed with call maria antonia, at side Assessment Current Status: Poor Progress limited balance and function, poor control, weakness PT Short Term Goals Short Term Goals Time Frame: Aug 11, 2022 Roll Left & Right: 4 Sit to lyin Lying to sitting on side of be: 4 Sit to stand: 4 Chair/qqe-cl-irwxy transfer: 4 Toilet transfer: 4 Car transfer: 4 Walk 10 feet: 3 Walk 50 feet with two turns: 3 Walk 150 feet: 3 Walking 10ft on uneven surface: 3 1 step (curb): 3 PT Dry Cleaner Apprentice Goals Intermediate Goals PT Dry Cleaner Apprentice Goals Time Frame: Aug 28, 2022 Roll Left & Right (QC): 6 Sit to Lying (QC): 6 Lying-Sitting on Side/Bed(QC): 6 Sit to Stand (QC): 6 Chair/Njc-dg-Hzjnr Xfer(QC): 6 Toilet Transfer (QC): 6 Car Transfer (QC): 6 Does the Patient Walk: Yes Walk 10 feet (QC): 5 Walk 50ft with 2 Turns (QC): 5 Walk 150 ft (QC): 5 Walking 10ft on Uneven Surface: 5 1 Step (curb) (QC): 4 4 Steps (QC): 4 12 Steps (QC): 4 Picking up an Object (QC): 4 Wheel 50 feet with 2 turns (QC: 9 Wheel 150 feet: 9 PT Plan Treatment/Plan Treatment Plan: Continue Plan of Care Treatment Plan: Bed Mobility, Concurrent Therapy, Education, Functional Activity Brit, Functional Strength, Group Therapy, Gait, Safety, Therapeutic Exercise, Transfers Treatment Duration: Aug 28, 2022 Frequency: At least 5 of 7 days/Wk (IRF) Estimated Hrs Per Day: 1.5 hours per day Patient and/or Family Agrees t: Yes Safety Risks/Education Patient Education: Gait Training, Transfer Techniques, Correct Positioning, Safety Issues Teaching Recipient: Patient Teaching Methods: Demonstration, Discussion Response to Teaching: Unable to Return Demonstration, Reinforcement Needed Time Time In: 1400 Time Out: 1430 DATE: Jul 28, 2022 Total Billed Treatment Time: 30 Total Billed Treatment 1,EX10m,FA20m MAXIMILIAN GARCÍA MACHINE PECAN PICKER Jul 28, 2022 14:40
[2022-07-28] MEDS: GABAPENTIN 100 MG (NEURONTIN) CAP PO SCH (15:17)
--- NOTE | 2022-07-28 15:34 | Cardiology Progress Note ---
Progress Note-Cardiology Events since last exam Date Seen by Provider: Jul 28, 2022 Time Seen by Provider: 15:29 Events since last exam I am following him due to a cerebrovascular accident and then bradycardia. He remains on the inpatient rehab unit. He denies chest discomfort, dyspnea, palpitations, syncope, or ankle edema. Plans are in place for him to potentially be discharged on Tuesday. Certain portions of this document may have been dictated utilizing voice recognition technology. Inherent to this technology, typographical and grammat ical errors may exist. As much as I am diligent to identify and correct these mistakes, some errors may remain in the document. Vitals Last set of Vitals Signs Vital Signs 07/28/22 07/28/22 07/28/22 07:51 09:00 13:09 Temp 36.4 Pulse 81 Resp 16 B/P (MAP) 163/73 (103) Pulse Ox 96 O2 Delivery Room Air Exam Vital Signs Vital Signs Date Time Temp Pulse Resp B/P (MAP) Pulse Ox O2 Delivery O2 Flow Rate FiO2 07/28/22 13:09 81 07/28/22 09:00 Room Air 07/28/22 07:51 36.4 16 163/73 (103) 96 Physical Exam General: Alert. No acute distress. Eye: No xanthelasma. HENT: Normocephalic. Neck: Jugular venous pressure does not appear elevated. Respiratory: Lungs are clear to auscultation. Respirations are non-labored. Breath sounds are equal. Symmetrical chest wall expansion. Cardiovascular: Normal rate. Regular rhythm. No murmur. No gallop. No edema. Gastrointestinal: Soft. Normal bowel sounds. Skin: Warm. Dry. Neurologic: Alert and oriented to person, place, time. Cranial nerves 3-11 grossly intact. Psychiatric: Cooperative. Appropriate mood & affect. Labs Laboratory Tests Test 07/28/22 08:20 Range/Units Urine Color YELLOW Urine Clarity CLEAR Urine pH 6.0 5-9 Urine Specific [place] 1.010 L 1.016-1.022 Urine Protein NEGATIVE NEGATIVE Urine Glucose (UA) NEGATIVE NEGATIVE Urine Ketones NEGATIVE NEGATIVE Urine Nitrite NEGATIVE NEGATIVE Urine Bilirubin NEGATIVE NEGATIVE Urine Urobilinogen 0.2 < = 1.0 MG/DL Urine Leukocyte Esterase NEGATIVE NEGATIVE Urine RBC (Auto) NEGATIVE NEGATIVE Urine RBC NONE /HPF Urine WBC NONE /HPF Urine Squamous Epithelial Cells NONE /HPF Urine Crystals NONE /LPF Urine Bacteria NEGATIVE /HPF Urine Casts NONE /LPF Urine Mucus NEGATIVE /LPF Urine Culture Indicated NO Diagnosis/Problems Diagnosis/Problems (1) Acute cerebrovascular accident Assessment & Plan: He had a cerebrovascular accident that involved multiple vascular territories as noted on his MRI of the brain. This raises a concern for possible underlying atrial fibrillation. There has not been any evidence of atrial fibrillation on telemetry. He is currently receiving aspirin and clopidogrel in addition to intensive dose statin medication. Once he is ready for discharge, I will plan on an external campus monitor. I have ordered this through the office. Unfortunately, if he is discharged on the weekend, he will need to come back to the hospital to get the monitor at a later point in time. These external monitors are an outpatient test and cannot be placed while the patient is on inpatient status. If this external monitor does not show atrial fibrillation, he may need an implantable loop recorder following discharge. Additionally, he has significant bilateral carotid disease, worse on the left. Unclear whether or not this may have had anything to do with his stroke. He will ultimately need evaluation by vascular surgery but this can be done as an outpatient after he completely recovers from the stroke. 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 He is not on any AV jalil blocking agents and his TSH level was normal. I recommend we just continue the patient on telemetry monitoring for the time being. We can also evaluate this with the external monitor that we will be coordinating following discharge. (3) Bilateral carotid artery stenosis Status: Acute Assessment & Plan: As above, he has significant bilateral carotid stenosis. I recommend he continue on aspirin, clopidogrel, and intensive dose statin medication in light of the stroke. Since neither side is critically stenosed it is often preferable to wait for a patient to recover from an acute stroke before performing any sort of carotid intervention. (4) Primary hypertension Assessment & Plan: His blood pressures have been running somewhat high over the past 24-48 hours. I will increase his dose of lisinopril from 10 mg daily to 20 mg daily. I will give an extra dose of 10 mg of lisinopril today and he will need a basic metabolic panel in the morning and preferably again in 1 week. He should continue on the current dose of amlodipine. (5) Mixed hyperlipidemia Assessment & Plan: Continue intensive dose statin medication in light of the acute/subacute cerebrovascular accident. GALA RIDER JR, MD Jul 28, 2022 15:34
[2022-07-28] MEDS ORDERED: lisINopril 10 MG (PRINIVIL) TABLET PO NR (15:45)
[2022-07-28 17:27] VITALS: BP 124/60
--- NOTE | 2022-07-28 19:00 | CONSULTATION REPORT ---
DATE OF SERVICE: 07/28/2022 HISTORY OF PRESENT ILLNESS: The patient is an 87-year-old male with history of hypertension, hyperlipidemia, who presented to the Emergency Department with findings consistent with a subacute stroke. He was outside of the tissue plasminogen activator timeframe. Cardiology was consulted and he did have a significant left sided weakness, which has been managed with aggressive therapy in inpatient rehabilitation. The patient has had some abdominal distention and has not had a bowel movement for the past few days. He also does have some crampy pain. An abdominal x-ray was performed, which did not show any distended loops of small bowel. There was a significant amount of stool along the right side of the colon, but the vast majority was in the rectal vault. This was the likely cause of his abdominal symptoms. PAST MEDICAL HISTORY: History of subacute stroke, hypertension, hypercholesterolemia, seizure disorder, history of TIA, anxiety, cataracts. PAST SURGICAL HISTORY: Tonsillectomy, bilateral cataract surgery. ALLERGIES: AMOXICILLIN. MEDICATIONS: Amlodipine 5 mg daily, aspirin 81 mg daily, atorvastatin 40 mg daily, Plavix 75 mg daily, Colace 100 mg daily. Gabapentin 200 mg once a day, 300 mg twice a day. Lisinopril 10 mg daily. SOCIAL HISTORY: Previous smoker. Negative alcohol. FAMILY HISTORY: Noncontributory. PHYSICAL EXAMINATION: VITAL SIGNS: Temperature 36.4, blood pressure 124/60, pulse 88, respirations 16, pulse ox 96% on room air. REVIEW OF SYSTEMS: Well-nourished male, currently in no acute distress. He is not experiencing any shortness of breath or difficulty breathing. No chest pain, palpitations, diaphoresis. He did develop some mild abdominal distention as well as crampy pain starting yesterday. He also has not had a bowel movement in the past few days. No fever or chills. No recent inadvertent illness. All other review of systems negative. PHYSICAL EXAMINATION: CHEST: Clear, good breath sounds bilaterally. HEART: Regular, no murmurs. EXTREMITIES: No lower extremity edema. Negative Homans sign. HEENT: No scleral icterus. No cervical lymphadenopathy. ABDOMEN: Soft, nondistended. No hernias. SKIN: Warm and dry. LABORATORY DATA: WBC 7.2. Labs on July 25, WBC 7.2, hemoglobin 13.3, hematocrit 40, platelets 204. BUN 17, creatinine 1.30. ASSESSMENT AND PLAN: An 87-year-old male with constipation with the majority of the stool bulk in the rectal vault. Recommendation is to proceed with MiraLax 17 grams b.i.d.; however, also proceed with Dulcolax suppositories b.i.d. This has already been initiated and he did have a significant large bowel movement and since that time, his abdominal distention and pain has resolved. He was also started back on his regular, low sodium diet, which he has been able to tolerate. Due to his hindered mobility due to his subacute stroke as well as being on pain medications, recommendations is to be cognizant about having bowel movements on a daily basis and to use either stool softeners or a small amount of laxatives on a daily basis and to gauge this by having at least one bowel movement on a daily basis. Job ID: [id number] DocumentID: [id number] Dictated Date: 07/28/2022 18:07:34 Fitting Room Associate Date: 07/28/2022 18:59:00 Dictated By: GIOVANI CHRISTIE MD
[2022-07-28] MEDS: clonazePAM 0.5 MG (KlonoPIN) TAB PO SCH (20:25)
[2022-07-28] MEDS: amLODIPine 5 MG (NORVASC) TAB PO SCH (20:26)
[2022-07-28 20:45] VITALS: BP 109/54
[2022-07-28] MEDS ORDERED: BISACODYL 10 MG SUPP (DULCOLAX) PR SCH (21:00)
[2022-07-29] MEDS: CALCIUM CARBONATE 500 MG (TUMS) TAB.CHEW PO PRN (02:51)
[2022-07-29 05:41] LABS: POTASSIUM 4.4 MMOL/L (3.6-5.0)
[2022-07-29 05:46] LABS: CREATININE SERUM 2.22 MG/DL (0.60-1.30)
[2022-07-29 07:31] VITALS: BP 103/57
--- NOTE | 2022-07-29 08:16 | Occupational Ther Daily Note ---
OT Current Status-Daily Note Subjective Pt consistently reporting fatigue and that he usually naps during the day. ADL-Treatment Therapy Code Descriptions/Definitions Functional [place] Measure: 0=Not Assessed/NA 4=Minimal Assistance 1=Total Assistance 5=Supervision or Setup 2=Maximal Assistance 6=Modified [place] 3=Moderate Assistance 7=Complete IndependenceSCALE: Activities may be completed with or without assistive devices. 2-Zoxhnukvlc-tivrpnd completes the activity by him/herself with no assistance from a helper. 5-Set-up or Clean-up Assistance-helper sets up or cleans up; patient completes activity. [place] assists only prior to or following the activity. 4-Supervision or Touching Assistance-helper provides verbal cues and/or touching/steadying and/or contact guard assistance as patient completes activity. Assistance may be provided throughout the activity or intermittently. 3-Partial/Moderate Assistance-helper does LESS THAN HALF the effort. [place] lifts, holds or supports trunk or limbs, but provides less than half the effort. 2-Substantial/Maximal Assistance-helper does MORE THAN HALF the effort. [place] lifts or holds trunk or limbs and provides more than half the effort. 3-Fnfytkpxy-snwxos does ALL the effort. Patient does none of the effort to complete the activity. Or, the assistance of 2 or more helpers is required for the patient to complete the activity. If activity was not attempted, code reason: 7-Patient Refused. 9-Not Applicable-not attempted and the patient did not perform the activity before the current illness, exacerbation or injury. 10-Not Attempted due to Environmental Limitations-(lack of equipment, weather restraints, etc.). 88-Not Attempted due to Medical Conditions or Safety Concerns. C/o fatigue prior to any activity. BP at start of treatment: 88/50. RN notified and reports that is pt's normal. OT Short Term Goals Short Term Goals Time Frame: Aug 06, 2022 Eatin Oral hygiene: 5 Toileting hygiene: 3 Shower/bathe self: 3 Upper body dressin Lower body dressin Putting on/taking off footwear: 4 OT Alf Goals Alf Goals Time Frame: Aug 13, 2022 Acute change in mental status: 0 Inattention: 0 Disorganized thinkin Altered level of consciousness: 0 Eating (QC): 6 Oral Hygiene (QC): 6 Toileting Hygiene (QC): 5 Shower/Bathe Self (QC): 5 Upper Body Dressing (QC): 5 Lower Body Dressing (QC): 5 On/Off Footwear (QC): 6 Additional Goals: 1-Demonstrate ADL Tasks, 2-Verbalize Understanding, 3- ImproveStrength/Brit 1=Demonstrate adherence to instructed precautions during ADL tasks. 2=Patient will verbalize/demonstrate understanding of assistive devices/m odifications for ADL. 3=Patient will improve strength/tolerance for activity to enable patient to perform ADL's. OT Education/Plan Treatment Plan/Plan of Care Patient would benefit from OT for education, treatment and training to promote independence in ADL's, mobility, safety and/or upper extremity function for ADL's. Plan of Care: ADL Retraining, Caregiver Training, Functional Mobility, Group Exercise/Act as Ind, UE Funct Exercise/Act, UE Neuromus Re-Ed/Coord, W/C Management Training Treatment Duration: Aug 13, 2022 Frequency: At least 5 of 7 days/Wk (IRF) Estimated Hrs Per Day: 1.5 hours per day (75-90 min/day) Agreement: Yes Rehab Potential: Taylor Coronado OT Jul 29, 2022 08:16
--- NOTE | 2022-07-29 08:45 | Occupational Ther Daily Note ---
OT Current Status-Daily Note Subjective Session 1: Pt sitting up in recliner, eating breakfast. Pt stated that nursing got him into the chair for breakfast but only put on his pants, no brief. Per student physician, pt was to stop therapy after third low BP reading was taken. Session 2: BP taken at beginning of session. He was laying in bed and agreed to therapy. He was much more awake and cognitively aware during this session. Although he needed increased cues to remember that we already worked with him this morning. Appearance Session 1: Pt left laying in bed, extremely fatigued. Pt immediately fell asleep once back in bed. Session 2: Pt's now in room. Pt laying in bed with all needs within reach. Mental Status/Objective Patient Orientation: Person ADL-Treatment Therapy Code Descriptions/Definitions Functional [place] Measure: 0=Not Assessed/NA 4=Minimal Assistance 1=Total Assistance 5=Supervision or Setup 2=Maximal Assistance 6=Modified [place] 3=Moderate Assistance 7=Complete IndependenceSCALE: Activities may be completed with or without assistive devices. 5-Uiqsjputqe-crbplkf completes the activity by him/herself with no assistance from a helper. 5-Set-up or Clean-up Assistance-helper sets up or cleans up; patient completes activity. [place] assists only prior to or following the activity. 4-Supervision or Touching Assistance-helper provides verbal cues and/or touching/steadying and/or contact guard assistance as patient completes activity. Assistance may be provided throughout the activity or intermittently. 3-Partial/Moderate Assistance-helper does LESS THAN HALF the effort. [place] lifts, holds or supports trunk or limbs, but provides less than half the effort. 2-Substantial/Maximal Assistance-helper does MORE THAN HALF the effort. [place] lifts or holds trunk or limbs and provides more than half the effort. 9-Dnggfdkdx-gciygm does ALL the effort. Patient does none of the effort to complete the activity. Or, the assistance of 2 or more helpers is required for the patient to complete the activity. If activity was not attempted, code reason: 7-Patient Refused. 9-Not Applicable-not attempted and the patient did not perform the activity before the current illness, exacerbation or injury. 10-Not Attempted due to Environmental Limitations-(lack of equipment, weather restraints, etc.). 88-Not Attempted due to Medical Conditions or Safety Concerns. Eating (QC): 6 Oral Hygiene (QC): 4 Toileting Hygiene (QC): 1 Toilet Transfer (QC): 3 Session 1: ([id number]) C/o fatigue prior to any activity. BP at start of treatment: 88/50. RN notified and reports that is pt's normal; treatment continued. Pt requested to use bathroom, but unable to reach toilet before having incontinence of bowels in pants. Dependent for clean up. Sit<>stand: Min assist. Mod assist for ambulation with constant cues for posture, hand/foot placement, and correct technique. As fatigue worsens, pt sinks further into flexion. BP after toiletin/59. Pt transferred to w/c to perform seated grooming tasks with set up assist. Consistent cues for upright posture as pt leaning left while seated in chair. Medical student came into room at this time. While threading underwear, pt became fatigued, dizzy, and lethargic. He was unable to answer questions being asked and had a blank look on his face. BP taken again and was 76/44 with a HR of 92. Medical student requested pt be put back to bed and to hold therapy. Mod assist for assisting pt back in bed. Therapist and medical student donned Jb Hose. Total assist x2 for positioning pt in bed. Pt immediately fell asleep after getting into bed. Significant decline in balance, attention, activity tolerance, and overall performance this date. RN notified on change in status. Other Treatment Session 2: ([id number]) BP taken at beginning of session: 101/60. Pt was SBA for bed mobility. He was much more awake and with it during this session. He required zero cues in this session for proper positioning or maintaining balance. Pt participated in functional activity of playing sequence sitting EOB unsupported to improve ROM, fine motor skills, scanning, strength, coordination, and seated balance. He used primarily his L UE for game. He has good self-awareness to use L UE during functional tasks/activities to regain function and coordination. 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 Pt still shows a lack of coordination/ control, and strength in L UE. Education OT Patient Education: Correct positioning, Energy conservation, Modified ADL techniques, Progress toward Goal/Update tx plan, Purpose of tx/functional acti vities, Rehab process, Safety issues, Transfer techniques, W/C management Teaching Recipient: Patient Teaching Methods: Demonstration, Discussion Response to Teaching: Verbalize Understanding, Reinforcement Needed OT Short Term Goals Short Term Goals Time Frame: Aug 06, 2022 Eatin Oral hygiene: 5 Toileting hygiene: 3 Shower/bathe self: 3 Upper body dressin Lower body dressin Putting on/taking off footwear: 4 OT Fpc Goals Fpc Goals Time Frame: Aug 13, 2022 Acute change in mental status: 0 Inattention: 0 Disorganized thinkin Altered level of consciousness: 0 Eating (QC): 6 Oral Hygiene (QC): 6 Toileting Hygiene (QC): 5 Shower/Bathe Self (QC): 5 Upper Body Dressing (QC): 5 Lower Body Dressing (QC): 5 On/Off Footwear (QC): 6 Additional Goals: 1-Demonstrate ADL Tasks, 2-Verbalize Understanding, 3-Im proveStrength/Brit 1=Demonstrate adherence to instructed precautions during ADL tasks. 2=Patient will verbalize/demonstrate understanding of assistive devices/modifications for ADL. 3=Patient will improve strength/tolerance for activity to enable patient to perform ADL's. OT Education/Plan Problem List/Assessment Assessment: Decreased Activ Tolerance, Decreased Safety Aware, Decreased UE Strength, Impaired Bed Mobility, Impaired Coordination, Impaired Funct Balance, Impaired I ADL's, Impaired Self-Care Skills, Restricted Funct UE ROM Discharge Recommendations Plan/Recommendations: Continue POC Treatment Plan/Plan of Care Treatment,Training & Education: Yes Patient would benefit from OT for education, treatment and training to promote independence in ADL's, mobility, safety and/or upper extremity function for ADL's. Plan of Care: ADL Retraining, Caregiver Training, Functional Mobility, Group Exercise/Act as Ind, UE Funct Exercise/Act, UE Neuromus Re-Ed/Coord, W/C Management Training Treatment Duration: Aug 13, 2022 Frequency: At least 5 of 7 days/Wk (IRF) Estimated Hrs Per Day: 1.5 hours per day (75-90 min/day) Agreement: Yes Rehab Potential: Good Time Start Time: 07:40 (7505) Stop Time: 08:40 (1335) DATE: Jul 29, 2022 Total Time Billed (hr/min): 90 Billed Treatment Time 1 visit ADL x4 2nd visit FA x2 Taylor Rinaldi OT Jul 29, 2022 08:45
[2022-07-29] MEDS ORDERED: BISACODYL 10 MG SUPP (DULCOLAX) PR SCH (09:00)
[2022-07-29] MEDS: DICLOFENAC 1% GEL 100 GM (VOLTAREN) TUBE TOP SCH ×4 (09:00→19:43)
[2022-07-29] MEDS ORDERED: lisINopril 10 MG (PRINIVIL) TABLET PO SCH (09:00)
[2022-07-29] MEDS ORDERED: NS IV 1000 ML 1,000 ML ONE (09:05)
[2022-07-29] MEDS: GABAPENTIN 300 MG (NEURONTIN) CAP PO SCH ×2 (09:09→19:43)
[2022-07-29] MEDS: DOCUSATE SODIUM 100 MG (COLACE) CAP PO SCH ×2 (09:09→19:43)
[2022-07-29] MEDS: ASPIRIN 81 MG CHEW (CHILDREN'S ASA) PO SCH (09:09)
[2022-07-29] MEDS: TAMSULOSIN 0.4 MG (FLOMAX) CAP PO SCH ×2 (09:09→19:43)
[2022-07-29] MEDS: LACTULOSE SYRUP 10GM/15ML (ENULOSE) 30ML UDC PO SCH ×2 (09:09→19:29)
[2022-07-29] MEDS: CLOPIDOGREL 75 MG (PLAVIX) TABLET PO SCH (09:09)
[2022-07-29] MEDS: polyethylene glycoL POWDER 17 GM (MIRALAX) PACK PO SCH ×2 (09:10→19:30)
[2022-07-29] MEDS: SENNA W/DOCUSATE (SENOKOT S) TABLET PO SCH ×2 (09:10→19:43)
[2022-07-29] MEDS: lisINopril 10 MG (PRINIVIL) TABLET PO SCH (09:10)
[2022-07-29 11:07] VITALS: BP 114/55
--- NOTE | 2022-07-29 11:41 | Physical Therapy Daily Note ---
PT Daily Note-Current Subjective Patient in bed pre-tx, reports no pain, agrees to PT. Pain Section J - Health Conditions 1. Rarely or not at all 2. Occasionally 3. Frequently 4. Almost constantly 8. Unable to answer Pain Effect on Sleep: 1 Pain Interference with Therapy: 1 Pain Interference w/Day-to-Day: 1 Appearance Patient in bed post-tx with nurse call, tray, phone, SCD's on, all needs met. Mental Status Patient Orientation: Person, Place, Situation Attachments: IV Transfers SCALE: Activities may be completed with or without assistive devices. 2-Zulwcndokh-bugsvdr completes the activity by him/herself with no assistance from a helper. 5-Set-up or Clean-up Assistance-helper sets up or cleans up; patient completes activity. [place] assists only prior to or following the activity. 4-Supervision or Touching Assistance-helper provides verbal cues and/or touching/steadying and/or contact guard assistance as patient completes activity. Assistance may be provided throughout the activity or intermittently. 3-Partial/Moderate Assistance-helper does LESS THAN HALF the effort. [place] lifts, holds or supports trunk or limbs, but provides less than half the effort. 2-Substantial/Maximal Assistance-helper does MORE THAN HALF the effort. [place] lifts or holds trunk or limbs and provides more than half the effort. 1-Pnregksmd-lzzkzu does ALL the effort. Patient does none of the effort to complete the activity. Or, the assistance of 2 or more helpers is required for the patient to complete the activity. If activity was not attempted, code reason: 7-Patient Refused. 9-Not Applicable-not attempted and the patient did not perform the activity before the current illness, exacerbation or injury. 10-Not Attempted due to Environmental Limitations-(lack of equipment, weather restraints, etc.). 88-Not Attempted due to Medical Conditions or Safety Concerns. Roll Left & Right (QC): 4 (SBA) Sit to Lying (QC): 4 (SBA) Lying to Sitting/Side of Bed(Q: 4 (SBA) Sit to Stand (QC): 4 (CGA) SBA for bed mobility, CGA for alg-lh-hsmmc transfer and W/C transfers due to impulsive movements and unsteadiness. Patient partially dresses pants in sitting, finishes with assist in standing and transfers to WC. Weight Bearing Right Lower Extremity: Right Full Weight Bearing Left Lower Extremity: Left Full Weight Bearing Wheelchair Training Does the Pt Use a Wheelchair?: Yes Wheel 50 ft with 2 turns (QC): 4 Wheel 150 ft (QC): 4 Type of Wheelchair: Manual SBA for W/C, patient requires verbal cueing to turn right so that he does not run into objects, reach back farther with hands, and that he can use his feet. Patient requires breaks, reports BUE's get tired quickly. Exercises Seated Therapy Exercises: Ankle pumps, Long arc quads, Hip flexion Seated Reps: 20 Treatments W/C Mobility, Transfers, LE Strengthening Assessment Current Status: Fair Progress Patient BP taken laying down in bed (97/54), sitting EOB (99/53), after transferring to W/C (115/58), and half-way through session in W/C (115/55). Patient did all exercises seated in bed or in W/C due to low BP readings. Patient fatigues quickly and requires verbal cueing to correct direction of W/C. Needs frequent rest breaks due to fatigue. PT Short Term Goals Short Term Goals Time Frame: Aug 11, 2022 Roll Left & Right: 4 Sit to lyin Lying to sitting on side of be: 4 Sit to stand: 4 Chair/hrb-um-ajanu transfer: 4 Toilet transfer: 4 Car transfer: 4 Walk 10 feet: 3 Walk 50 feet with two turns: 3 Walk 150 feet: 3 Walking 10ft on uneven surface: 3 1 step (curb): 3 PT Assistant Case Manager Goals Assistant Case Manager Goals PT Assisted Goals Time Frame: Aug 28, 2022 Roll Left & Right (QC): 6 Sit to Lying (QC): 6 Lying-Sitting on Side/Bed(QC): 6 Sit to Stand (QC): 6 Chair/Fbp-wi-Flfjv Xfer(QC): 6 Toilet Transfer (QC): 6 Car Transfer (QC): 6 Does the Patient Walk: Yes Walk 10 feet (QC): 5 Walk 50ft with 2 Turns (QC): 5 Walk 150 ft (QC): 5 Walking 10ft on Uneven Surface: 5 1 Step (curb) (QC): 4 4 Steps (QC): 4 12 Steps (QC): 4 Picking up an Object (QC): 4 Wheel 50 feet with 2 turns (QC: 9 Wheel 150 feet: 9 PT Plan Problem List Problem List: Activity Tolerance, Functional Strength, Safety, Balance, Gait, Transfer, Bed Mobility, ROM Treatment/Plan Treatment Plan: Continue Plan of Care Treatment Plan: Bed Mobility, Concurrent Therapy, Education, Functional Activity Brit, Functional Strength, Group Therapy, Gait, Safety, Therapeutic Exercise, Transfers Treatment Duration: Aug 28, 2022 Frequency: At least 5 of 7 days/Wk (IRF) Estimated Hrs Per Day: 1.5 hours per day Patient and/or Family Agrees t: Yes Safety Risks/Education Patient Education: Transfer Techniques, Correct Positioning, W/C Management, Safety Issues Teaching Recipient: Patient Teaching Methods: Demonstration, Discussion Response to Teaching: Reinforcement Needed Time Time In: 1045 Time Out: 1145 DATE: Jul 29, 2022 Total Billed Treatment Time: 60 Total Billed Treatment 1 visit FA x3 (45min) EX x1 (15min) BENNETT GONZALEZ PT Jul 29, 2022 11:41
--- NOTE | 2022-07-29 11:45 | PM&R Progress Note ---
Subjective HPI/CC On Admission Date Seen by Provider: Jul 29, 2022 Time Seen by Provider: 11:45 Subjective/Events-last exam 07/29/2022: Patient doing fairly well IVF initiated for hypotension Diarrhea likely has volume depleted him Appreciate Yisel Duarte and Rivera 07/28/2022: Patient doing well after in/out cath He does have urinary retention when he is constipated Will initiate soapsuds enema if needed along with lactulose and senna KUB showed dilated loops of bowel so in case this is an ileus we will initiate clear liquid diet 07/27/2022: Patient doing well No pain is reported Eating and drinking well Moving left arm a bit more 07/26/2022: Patient doing well Bowels moved yesterday Took a shower today with therapy Moving left arm a bit 07/25/2022: Much improved status Left sided weakness remains Suicidal ideation reported by family at times but none that RN notes Monitoring closely Labs stable EGD postponed until stable Review of Systems General: Fatigue, Malaise Objective Exam Vital Signs Vital Signs Date Time Temp Pulse Resp B/P (MAP) Pulse Ox O2 Delivery O2 Flow Rate FiO2 07/30/22 00:46 76 07/29/22 19:48 Room Air 07/29/22 19:12 36.6 24 113/63 (80) 92 Capillary Refill : General Appearance: No Apparent Distress, WD/WN, Chronically ill HEENT: PERRL/EOMI, Normal ENT Inspection, Pharynx Normal Neck: Full Range of Motion, Normal Inspection, Non Tender, Supple, Carotid Bruit Respiratory: Chest Non Tender, Lungs Clear, Normal Breath Sounds, No Accessory Muscle Use, No Respiratory Distress Cardiovascular: Regular Rate, Rhythm, No Edema, No Gallop, No JVD, No Murmur, Normal Peripheral Pulses Gastrointestinal: Normal Bowel Sounds, No Organomegaly, No Pulsatile Mass, Non Tender, Soft Back: Normal Inspection, No CVA Tenderness, No Vertebral Tenderness Extremity: Normal Capillary Refill, Normal Inspection, Normal Range of Motion (except left side), Non Tender, No Calf Tenderness, No Pedal Edema Neurologic/Psychiatric: Alert, Oriented x3, Normal Mood/Affect, supervisor production II-XII Norm as Tested, Abnormal Gait, Motor Weakness (left sided weakness 1/5) Skin: Normal Color, Warm/Dry Lymphatic: No Adenopathy Results/Procedures Lab Laboratory Tests 07/29/22 05:20 Patient resulted labs reviewed. FIM Transfers Therapy Code Descriptions/Definitions Functional [place] Measure: 0=Not Assessed/NA 4=Minimal Assistance 1=Total Assistance 5=Supervision or Setup 2=Maximal Assistance 6=Modified [place] 3=Moderate Assistance 7=Complete IndependenceSCALE: Activities may be completed with or without assistive devices. 3-Iregwqixcc-velaolf completes the activity by him/herself with no assistance from a helper. 5-Set-up or Clean-up Assistance-helper sets up or cleans up; patient completes activity. [place] assists only prior to or following the activity. 4-Supervision or Touching Assistance-helper provides verbal cues and/or touching/steadying and/or contact guard assistance as patient completes activity. Assistance may be provided throughout the activity or intermittently. 3-Partial/Moderate Assistance-helper does LESS THAN HALF the effort. [place] lifts, holds or supports trunk or limbs, but provides less than half the effort. 2-Substantial/Maximal Assistance-helper does MORE THAN HALF the effort. [place] lifts or holds trunk or limbs and provides more than half the effort. 7-Yrfmgoopc-siydlb does ALL the effort. Patient does none of the effort to complete the activity. Or, the assistance of 2 or more helpers is required for the patient to complete the activity. If activity was not attempted, code reason: 7-Patient Refused. 9-Not Applicable-not attempted and the patient did not perform the activity before the current illness, exacerbation or injury. 10-Not Attempted due to Environmental Limitations-(lack of equipment, weather restraints, etc.). 88-Not Attempted due to Medical Conditions or Safety Concerns. Roll Left to Right (QC): 4 Sit to Lying (QC): 4 Sit to Stand (QC): 3 Chair/Gdl-aw-Wthjc Xfer(QC): 3 Car Transfer (QC): 2 Gait Training Does the Patient Walk?: Yes Distance: 100'x2 Walk 10 feet (QC): 2 Walk 50 ft with 2 Turns(QC): 3 Walk 150 ft (QC): 88 Walking 10ft/uneven surface-QC: 88 Gait Persons Needed: 2 Gait Assistive Device: FWW Wheelchair Training Does the Pt Use a Wheelchair?: Yes Wheel 50 ft with 2 turns (QC): 3 Wheel 150 ft (QC): 3 Type of Wheelchair: Manual Stair Training 1 Step (curb) (QC): 88 (not safe to perform due to Poor balance and diminished coordination) 4 Steps (QC): 88 12 Steps (QC): 88 Balance Picking up an Object (QC): 88 ADL-Treatment Eating (QC): 6 Oral Hygiene (QC): 4 Bathing Location: L Arm, R Arm, L Upper Leg, R Upper Leg, Chest, Abdomen Shower/Bathe Self (QC): 4 Upper Body Dressing (QC): 3 (mod assist for buttoning shirt) Lower Body Dressing (QC): 3 On/Off Footwear (QC): 1 (due to time (leaving room for stat x-ray) and pain) Toileting Hygiene (QC): 1 Toilet Transfer (QC): 3 Assessment/Plan Assessment and Plan Assess & Plan/Chief Complaint Assessment: CVA with left-sided weakness Bilateral carotid stenosis Hypertension Hyperlipidemia History of TIA Advanced age Depression hx Suicidal ideation reported by family but no acute issues CKD Plan: Supportive care Monitor closely Aggressive rehab 07/25/2022: Monitor closely 07/26/2022: Supportive care Monitor closely 07/27/2022: Supportive care Fall risk 07/28/2022: Supportive care Consult Dr. CHRISTIE Clear liquid diet MiraLAX and lactulose and senna 07/29/22: IVF Monitor closely (1) Acute cerebrovascular accident Assessment & Plan: He had a cerebrovascular accident that involved multiple vascular territories as noted on his MRI of the brain. This raises a concern for possible underlying atrial fibrillation. There has not been any evidence of atrial fibrillation on telemetry. He is currently receiving aspirin and clopidogrel in addition to intensive dose statin medication. Once he is ready for discharge, I will plan on an external ekg monitor tech. I have ordered this through the office. Unfortunately, if he is discharged on the weekend, he will need to come back to the hospital to get the monitor at a later point in time. These external monitors are an outpatient test and cannot be placed while the patient is on inpatient status. If this external monitor does not show atrial fibrillation, he may need an implantable loop recorder following discharge. Additionally, he has significant bilateral carotid disease, worse on the left. Unclear whether or not this may have had anything to do with his stroke. He will ultimately need evaluation by vascular surgery but this can be done as an outpatient after he completely recovers from the stroke. 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 He is not on any AV jalil blocking agents and his TSH level was normal. I recommend we just continue the patient on telemetry monitoring for the time being. We can also evaluate this with the external monitor that we will be coordinating following discharge. (3) Bilateral carotid artery stenosis Status: Acute Assessment & Plan: As above, he has significant bilateral carotid stenosis. I recommend he continue on aspirin, clopidogrel, and intensive dose statin medication in light of the stroke. Since neither side is critically stenosed it is often preferable to wait for a patient to recover from an acute stroke before performing any sort of carotid intervention. (4) Primary hypertension Assessment & Plan: His blood pressures have been running somewhat high over the past 24-48 hours. I will increase his dose of lisinopril from 10 mg daily to 20 mg daily. I will give an extra dose of 10 mg of lisinopril today and he will need a basic metabolic panel in the morning and preferably again in 1 week. He should continue on the current dose of amlodipine. (5) Mixed hyperlipidemia Assessment & Plan: Continue intensive dose statin medication in light of the acute/subacute cerebrovascular accident. NEHEMIAH CHAMORRO DO Jul 29, 2022 11:45
--- NOTE | 2022-07-29 11:55 | Cardiology Progress Note ---
Progress Note-Cardiology Events since last exam Date Seen by Provider: Jul 29, 2022 Time Seen by Provider: 11:54 Events since last exam I am following him due to his stroke and bradycardia. He remains on the inp atient rehab unit working with physical therapy. Discharge is anticipated for Tuesday, 07/31. He denies chest discomfort, dyspnea, palpitations, syncope, or ankle edema. Certain portions of this document may have been dictated utilizing voice recognition technology. Inherent to this technology, typographical and grammatical errors may exist. As much as I am diligent to identify and correct these mistakes, some errors may remain in the document. Vitals Last set of Vitals Signs Vital Signs 07/29/22 07/29/22 07:31 09:00 Temp 36.6 Pulse 79 Resp 18 B/P (MAP) 103/57 (72) Pulse Ox 93 O2 Delivery Room Air Labs Labs Laboratory Tests 07/29/22 05:20 Exam Vital Signs Vital Signs Date Time Temp Pulse Resp B/P (MAP) Pulse Ox O2 Delivery O2 Flow Rate FiO2 07/29/22 09:00 Room Air 07/29/22 07:31 36.6 79 18 103/57 (72) 93 Physical Exam General: Alert. No acute distress. Eye: No xanthelasma. HENT: Normocephalic. Neck: Jugular venous pressure does not appear elevated. Respiratory: Lungs are clear to auscultation. Respirations are non-labored. Breath sounds are equal. Symmetrical chest wall expansion. Cardiovascular: Normal rate. Regular rhythm. No murmur. No gallop. No edema. Gastrointestinal: Soft. Normal bowel sounds. Skin: Warm. Dry. Neurologic: Alert and oriented to person, place, time. Cranial nerves 3-11 grossly intact. Psychiatric: Cooperative. Appropriate mood & affect. Labs Laboratory Tests Test 07/29/22 05:20 Range/Units Sodium Level 139 135-145 MMOL/L Potassium Level 4.4 3.6-5.0 MMOL/L Chloride Level 107 98-107 MMOL/L Carbon Dioxide Level 21 21-32 MMOL/L Anion Gap 11 5-14 MMOL/L Blood Urea Nitrogen 31 H 7-18 MG/DL Creatinine 2.22 H 0.60-1.30 MG/DL Estimat Glomerular Filtration Rate 28 BUN/Creatinine Ratio 14 Glucose Level 104 70-105 MG/DL Calcium Level 9.0 8.5-10.1 MG/DL Diagnosis/Problems Diagnosis/Problems (1) Acute cerebrovascular accident Assessment & Plan: He had a cerebrovascular accident that involved multiple vascular territories as noted on his MRI of the brain. This raises a concern for possible underlying atrial fibrillation. There has not been any evidence of atrial fibrillation on telemetry. He is currently receiving aspirin and clopidogrel in addition to intensive dose statin medication. Once he is ready for discharge, I will plan on an external monitor tech. I have ordered this through the office. Unfortunately, if he is discharged on the weekend, he will need to come back to the hospital to get the monitor at a later point in time. These external monitors are an outpatient test and cannot be placed while the patient is on inpatient status. If this external monitor does not show atrial fibrillation, he may need an implantable loop recorder following discharge. Additionally, he has significant bilateral carotid disease, worse on the left. Unclear whether or not this may have had anything to do with his stroke. He will ultimately need evaluation by vascular surgery but this can be done as an outpatient after he completely recovers from the stroke. 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 He is not on any AV jalil blocking agents and his TSH level was normal. I recommend we just continue the patient on telemetry monitoring for the time being. We can also evaluate this with the external monitor that we will be coordinating following discharge. (3) Bilateral carotid artery stenosis Status: Acute Assessment & Plan: As above, he has significant bilateral carotid stenosis. I recommend he continue on aspirin, clopidogrel, and intensive dose statin medication in light of the stroke. Since neither side is critically stenosed it is often preferable to wait for a patient to recover from an acute stroke before performing any sort of carotid intervention. (4) Primary hypertension Assessment & Plan: His blood pressures had been running somewhat high but are improved today. He should continue the present combination of antihypertensive medication. (5) Mixed hyperlipidemia Assessment & Plan: Continue intensive dose statin medication in light of the acute/subacute cerebrovascular accident. GALA RIDER JR, MD Jul 29, 2022 11:55
[2022-07-29 12:42] VITALS: BP_SYST 103; BP_SYST 114; BP_DIAS 55; BP_DIAS 57
[2022-07-29] MEDS: ENOXAPARIN INJECTION 30 MG/0.3 ML SYR SC SCH (12:58)
--- NOTE | 2022-07-29 13:07 | Physical Therapy Daily Note ---
PT Daily Note-Current Subjective Patient in bed pre-tx, reports no pain, agrees to PT. Pain Section J - Health Conditions 1. Rarely or not at all 2. Occasionally 3. Frequently 4. Almost constantly 8. Unable to answer Pain Effect on Sleep: 1 Pain Interference with Therapy: 1 Pain Interference w/Day-to-Day: 1 Appearance Patient in bed post-tx with nurse in room, nurse call, phone, tray, all needs met. Mental Status Patient Orientation: Person, Place, Situation Attachments: IV Transfers SCALE: Activities may be completed with or without assistive devices. 2-Fdgiuhjjeb-tkwcogy completes the activity by him/herself with no assistance from a helper. 5-Set-up or Clean-up Assistance-helper sets up or cleans up; patient completes activity. [place] assists only prior to or following the activity. 4-Supervision or Touching Assistance-helper provides verbal cues and/or touching/steadying and/or contact guard assistance as patient completes activity. Assistance may be provided throughout the activity or intermittently. 3-Partial/Moderate Assistance-helper does LESS THAN HALF the effort. [place] lifts, holds or supports trunk or limbs, but provides less than half the effort. 2-Substantial/Maximal Assistance-helper does MORE THAN HALF the effort. [place] lifts or holds trunk or limbs and provides more than half the effort. 8-Pvwkrpbfn-vtvucu does ALL the effort. Patient does none of the effort to complete the activity. Or, the assistance of 2 or more helpers is required for the patient to complete the activity. If activity was not attempted, code reason: 7-Patient Refused. 9-Not Applicable-not attempted and the patient did not perform the activity before the current illness, exacerbation or injury. 10-Not Attempted due to Environmental Limitations-(lack of equipment, weather restraints, etc.). 88-Not Attempted due to Medical Conditions or Safety Concerns. Weight Bearing Right Lower Extremity: Right Full Weight Bearing Left Lower Extremity: Left Full Weight Bearing Exercises Supine Ex: Ankle pumps, Quad Set, Heel Slides, Straight leg raise Supine Reps: 20 Treatments LE Strengthening Assessment Current Status: Fair Progress Patient tolerated exercise well needing a couple small breaks. Patient BLE ROM WFL. PT Short Term Goals Short Term Goals Time Frame: Aug 11, 2022 Roll Left & Right: 4 Sit to lyin Lying to sitting on side of be: 4 Sit to stand: 4 Chair/jha-bv-hmzkl transfer: 4 Toilet transfer: 4 Car transfer: 4 Walk 10 feet: 3 Walk 50 feet with two turns: 3 Walk 150 feet: 3 Walking 10ft on uneven surface: 3 1 step (curb): 3 PT [facility]iary Goals Filler Spreader Goals PT [facility] Goals Time Frame: Aug 28, 2022 Roll Left & Right (QC): 6 Sit to Lying (QC): 6 Lying-Sitting on Side/Bed(QC): 6 Sit to Stand (QC): 6 Chair/Mmt-iv-Zyqyc Xfer(QC): 6 Toilet Transfer (QC): 6 Car Transfer (QC): 6 Does the Patient Walk: Yes Walk 10 feet (QC): 5 Walk 50ft with 2 Turns (QC): 5 Walk 150 ft (QC): 5 Walking 10ft on Uneven Surface: 5 1 Step (curb) (QC): 4 4 Steps (QC): 4 12 Steps (QC): 4 Picking up an Object (QC): 4 Wheel 50 feet with 2 turns (QC: 9 Wheel 150 feet: 9 PT Plan Problem List Problem List: Activity Tolerance, Functional Strength, Safety, Balance, Gait, Transfer, Bed Mobility Treatment/Plan Treatment Plan: Continue Plan of Care Treatment Plan: Bed Mobility, Concurrent Therapy, Education, Functional Activi ty Brit, Functional Strength, Group Therapy, Gait, Safety, Therapeutic Exercise, Transfers Treatment Duration: Aug 28, 2022 Frequency: At least 5 of 7 days/Wk (IRF) Estimated Hrs Per Day: 1.5 hours per day Patient and/or Family Agrees t: Yes Safety Risks/Education Patient Education: Correct Positioning, Safety Issues Teaching Recipient: Patient Teaching Methods: Demonstration, Discussion Response to Teaching: Reinforcement Needed Time Time In: 1235 Time Out: 1305 DATE: Jul 29, 2022 Total Billed Treatment Time: 30 Total Billed Treatment 1 visit EX x2 (30min) THUY WHITE PT Jul 29, 2022 13:07
--- NOTE | 2022-07-29 14:16 | Progress Note ---
JAYDEN VARGASAELA 07/29/22 1416: Progress Note S: Mr. Berrios is an 87 year old male who presents to the ARU s/p CVA with L- sided weakness. This morning while working with OT the patient began experiencing dizziness, fatigue, and hypotensive blood pressures. The patient's blood pressure at the time of encounter was 76/44, HR 92. Per OT report, the pa morales had had two previous BPs of 88/50 at 0745 and 100/59 at 0800 while OT was providing therapy. Patient was safely transferred to bed. 1000ml saline bolus was initiated the patient's lisinopril 10mg was not administered this morning. Patient states he has had loose stools and has been voiding without difficulty. Patient states he has not felt hungry nor feels like he has had much to drink in the past day. Patient is lethargic during encounter and stated he felt as though he was "losing control." Patient denies abdominal pain, nausea, chest pain, or SOA. O: Vital signs: T36.6, HR 79, RR 18, BP 114/55, SpO2 94% RA PE: -Cardiovascular: HRRR -Pulmonary: LCTAB -GI: Bowel sounds present, abdomen soft, no current tenderness with palpation of four quadrants, no masses palpable, no abdominal distension Labs: BUN 31 (17 on 07/25), Cr 2.22 (1.3 on 07/25) KUB 07/28: FINDINGS: The minimally visualized lung bases are clear. Small amount of gas and stool within the colon. No abnormally dilated loops of small bowel. No free air. Scattered osseous degenerative changes without acute osseous abnormality. IMPRESSION: Nonobstructive bowel gas pattern without free air. A/P: 1. L-sided weakness s/p CVA; continue PT and OT in-patient rehabilitation 2. Continue Lovenox inj, ASA, and clopidogrel therapy for DVT prophylaxis and cardiovascular/neuro protection 3. Hyperbilirubinemia - monitor and repeat labs 4. Urinary retention. Patient has had a bladder scan with straight catheterization. KUB has been performed and UA sent. UA was unremarkable for UTI. KUB was negative for signs of SBO or large stool burden. Non-obstructing gas pattern was visualized, thus patient may benefit from PO simethicone and an enema to relieve any impacted stool and promote flatus. Patient should have bowel rest with clear liquids until symptoms improve -> symptoms have improved and Surgery has seen patient 5. [place] likely due to dehydration. Continue to monitor BP and re-evaluate BUN and Cr after IV and PO hydration 6. Dehydration/hypotension; hold lisinopril until BP improves, 1000ml saline bolus. Encourage PO hydration. Advance diet as tolerated ATIYA CHAMORRO DO 07/30/22 0524: Supervisory-Addendum Brief Verification & Attestation Participated in pt care: history, MDM, physical Personally performed: exam, history, MDM, supervision of care Care discussed with: Medical Student Procedures: n/a Results interpretation: Verified all documentation Verification and Attestation of Medical Student E/M Service A medical student performed and documented this service in my presence. I reviewed and verified all information documented by the medical student and made modifications to such information, when appropriate. I personally performed the physical exam and medical decision making. Atiya Chamorro Jul 30, 2022,05:24 SOFYA VARGAS Jul 29, 2022 14:16 ATIYA CHAMORRO DO Jul 30, 2022 05:24
[2022-07-29] MEDS: GABAPENTIN 100 MG (NEURONTIN) CAP PO SCH (15:52)
[2022-07-29 17:16] VITALS: BP 110/58
[2022-07-29 19:12] VITALS: BP 113/63
[2022-07-29] MEDS: clonazePAM 0.5 MG (KlonoPIN) TAB PO SCH (19:43)
[2022-07-29] MEDS: amLODIPine 5 MG (NORVASC) TAB PO SCH (19:46)
--- NOTE | 2022-07-30 05:32 | PM&R Progress Note ---
Subjective HPI/CC On Admission Date Seen by Provider: Jul 30, 2022 Time Seen by Provider: 12:15 Subjective/Events-last exam 07/30/2022: Patient doing really well IV fluids really helped him Hep-Lock now In a good mood Saline nasal spray will be ordered as he requested 07/29/2022: Patient doing fairly well IVF initiated for hypotension Diarrhea likely has volume depleted him Appreciate Yisel Duarte and Rivera 07/28/2022: Patient doing well after in/out cath He does have urinary retention when he is constipated Will initiate soapsuds enema if needed along with lactulose and senna KUB showed dilated loops of bowel so in case this is an ileus we will initiate clear liquid diet 07/27/2022: Patient doing well No pain is reported Eating and drinking well Moving left arm a bit more 07/26/2022: Patient doing well Bowels moved yesterday Took a shower today with therapy Moving left arm a bit 07/25/2022: Much improved status Left sided weakness remains Suicidal ideation reported by family at times but none that RN notes Monitoring closely Labs stable EGD postponed until stable Review of Systems General: Fatigue, Malaise Objective Exam Vital Signs Vital Signs Date Time Temp Pulse Resp B/P (MAP) Pulse Ox O2 Delivery O2 Flow Rate FiO2 07/31/22 01:00 67 07/30/22 20:36 135/65 (88) 07/30/22 20:30 Room Air 07/30/22 19:47 36.4 16 95 Capillary Refill : General Appearance: No Apparent Distress, WD/WN, Chronically ill HEENT: PERRL/EOMI, Normal ENT Inspection, Pharynx Normal Neck: Full Range of Motion, Normal Inspection, Non Tender, Supple, Carotid Bruit Respiratory: Chest Non Tender, Lungs Clear, Normal Breath Sounds, No Accessory Muscle Use, No Respiratory Distress Cardiovascular: Regular Rate, Rhythm, No Edema, No Gallop, No JVD, No Murmur, Normal Peripheral Pulses Gastrointestinal: Normal Bowel Sounds, No Organomegaly, No Pulsatile Mass, Non Tender, Soft Back: Normal Inspection, No CVA Tenderness, No Vertebral Tenderness Extremity: Normal Capillary Refill, Normal Inspection, Normal Range of Motion (except left side), Non Tender, No Calf Tenderness, No Pedal Edema Neurologic/Psychiatric: Alert, Oriented x3, Normal Mood/Affect, estate tax examiner II-XII Norm as Tested, Abnormal Gait, Motor Weakness (left sided weakness 1/5) Skin: Normal Color, Warm/Dry Lymphatic: No Adenopathy Results/Procedures Lab Laboratory Tests 07/30/22 06:06 Patient resulted labs reviewed. FIM Transfers Therapy Code Descriptions/Definitions Functional [place] Measure: 0=Not Assessed/NA 4=Minimal Assistance 1=Total Assistance 5=Supervision or Setup 2=Maximal Assistance 6=Modified [place] 3=Moderate Assistance 7=Complete IndependenceSCALE: Activities may be completed with or without assistive devices. 4-Azrwvysapn-vjiqjrk completes the activity by him/herself with no assistance from a helper. 5-Set-up or Clean-up Assistance-helper sets up or cleans up; patient completes activity. Hurley assists only prior to or following the activity. 4-Supervision or Touching Assistance-helper provides verbal cues and/or touching/steadying and/or contact guard assistance as patient completes activity. Assistance may be provided throughout the activity or intermittently. 3-Partial/Moderate Assistance-helper does LESS THAN HALF the effort. Hurley lifts, holds or supports trunk or limbs, but provides less than half the effort. 2-Substantial/Maximal Assistance-helper does MORE THAN HALF the effort. Hurley lifts or holds trunk or limbs and provides more than half the effort. 1-Rjfduqtwx-srplqf does ALL the effort. Patient does none of the effort to complete the activity. Or, the assistance of 2 or more helpers is required for the patient to complete the activity. If activity was not attempted, code reason: 7-Patient Refused. 9-Not Applicable-not attempted and the patient did not perform the activity before the current illness, exacerbation or injury. 10-Not Attempted due to Environmental Limitations-(lack of equipment, weather restraints, etc.). 88-Not Attempted due to Medical Conditions or Safety Concerns. Roll Left to Right (QC): 4 Sit to Lying (QC): 4 Sit to Stand (QC): 4 Chair/Wyn-yo-Zqhuc Xfer(QC): 3 Car Transfer (QC): 2 Gait Training Does the Patient Walk?: Yes Distance: 100'x2 Walk 10 feet (QC): 2 Walk 50 ft with 2 Turns(QC): 3 Walk 150 ft (QC): 88 Walking 10ft/uneven surface-QC: 88 Gait Persons Needed: 2 Gait Assistive Device: FWW Wheelchair Training Does the Pt Use a Wheelchair?: Yes Wheel 50 ft with 2 turns (QC): 4 Wheel 150 ft (QC): 4 Type of Wheelchair: Manual Stair Training 1 Step (curb) (QC): 88 (not safe to perform due to Poor balance and diminished coordination) 4 Steps (QC): 88 12 Steps (QC): 88 Balance Picking up an Object (QC): 88 ADL-Treatment Eating (QC): 6 Oral Hygiene (QC): 4 Bathing Location: L Arm, R Arm, L Upper Leg, R Upper Leg, Chest, Abdomen Shower/Bathe Self (QC): 4 Upper Body Dressing (QC): 3 (mod assist for buttoning shirt) Lower Body Dressing (QC): 3 On/Off Footwear (QC): 1 (due to time (leaving room for stat x-ray) and pain) Toileting Hygiene (QC): 1 Toilet Transfer (QC): 3 Assessment/Plan Assessment and Plan Assess & Plan/Chief Complaint Assessment: CVA with left-sided weakness Bilateral carotid stenosis Hypertension Hyperlipidemia History of TIA Advanced age Depression hx Suicidal ideation reported by family but no acute issues CKD Acute kidney injury creatinine 2.2 due to volume depletion status post IV fluids on 07/29/2022 Plan: Supportive care Monitor closely Aggressive rehab 07/25/2022: Monitor closely 07/26/2022: Supportive care Monitor closely 07/27/2022: Supportive care Fall risk 07/28/2022: Supportive care Consult Dr. CHRISTIE Clear liquid diet MiraLAX and lactulose and senna 07/29/22: IVF Monitor closely 07/30/2022: Saline nasal spray Status post IV fluid (1) Acute cerebrovascular accident Assessment & Plan: He had a cerebrovascular accident that involved multiple vascular territories as noted on his MRI of the brain. This raises a concern for possible underlying atrial fibrillation. There has not been any evidence of atrial fibrillation on telemetry. He is currently receiving aspirin and clopidogrel in addition to intensive dose statin medication. Once he is ready for discharge, I will plan on an external outside sales representative. I have ordered this through the office. Unfortunately, if he is discharged on the weekend, he will need to come back to the hospital to get the monitor at a later point in time. These external monitors are an outpatient test and cannot be placed while the patient is on inpatient status. If this external monitor does not show atrial fibrillation, he may need an implantable loop recorder following discharge. Ad ditionally, he has significant bilateral carotid disease, worse on the left. Unclear whether or not this may have had anything to do with his stroke. He will ultimately need evaluation by vascular surgery but this can be done as an outpatient after he completely recovers from the stroke. 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 He is not on any AV jalil blocking agents and his TSH level was normal. I recommend we just continue the patient on telemetry monitoring for the time being. We can also evaluate this with the external monitor that we will be coordinating following discharge. (3) Bilateral carotid artery stenosis Status: Acute Assessment & Plan: As above, he has significant bilateral carotid stenosis. I recommend he continue on aspirin, clopidogrel, and intensive dose statin m edication in light of the stroke. Since neither side is critically stenosed it is often preferable to wait for a patient to recover from an acute stroke before performing any sort of carotid intervention. (4) Primary hypertension Assessment & Plan: His blood pressures had been running somewhat high but are improved today. He should continue the present combination of antihypertensive medication. (5) Mixed hyperlipidemia Assessment & Plan: Continue intensive dose statin medication in light of the acute/subacute cerebrovascular accident. NEHEMIAH CHAMORRO DO Jul 30, 2022 05:32
[2022-07-30 06:16] LABS: BASOPHILS % (AUTO) 1 % (0-10); EOSINOPHILS # (AUTO) 0.4 10^3/uL (0.0-0.3); EOSINOPHILS % (AUTO) 4 % (0-10); HEMATOCRIT 36 % (40-54); HEMOGLOBIN 11.8 g/dL (13.3-17.7); LYMPHOCYTES # (AUTO) 2.4 10^3/uL (1.0-4.0); LYMPHOCYTES % (AUTO) 29 % (12-44); MEAN CORPUSCULAR HEMOGLOBIN 31 pg (25-34); MEAN CORPUSCULAR HGB CONC 33 g/dL (32-36); MEAN CORPUSCULAR VOLUME 92 fL (80-99); MEAN PLATELET VOLUME 11.5 fL (9.0-12.2); MONOCYTES # (AUTO) 0.9 10^3/uL (0.0-1.0); MONOCYTES % (AUTO) 11 % (0-12); NEUTROPHILS # (AUTO) 4.6 10^3/uL (1.8-7.8); NEUTROPHILS % (AUTO) 55 % (42-75); PLATELET COUNT 200 10^3/uL (130-400); WHITE BLOOD COUNT 8.4 10^3/uL (4.3-11.0)
[2022-07-30 06:33] LABS: ALBUMIN 3.3 GM/DL (3.2-4.5); CALCIUM 8.4 MG/DL (8.5-10.1); CREATININE SERUM 1.64 MG/DL (0.60-1.30); POTASSIUM 4.4 MMOL/L (3.6-5.0); TOTAL PROTEIN 5.8 GM/DL (6.4-8.2)
[2022-07-30 07:20] VITALS: BP 138/70
--- NOTE | 2022-07-30 07:59 | Cardiology Progress Note ---
Subjective Date Seen by Provider: Jul 30, 2022 Time Seen by Provider: 07:51 Subjective/Events-last exam Mr. Berrios was sitting up in his chair this morning. He denies chest pain, SOB, edema, palpitations, and syncope. He states that they are planning his discharge for next Tuesday, and he is disappointed won't be home for [place]. Some hypotension was noted in his documentation yesterday; his lisinopril was held. He is normotensive currently. Dr. Duarte: I am following him due to a stroke and bradycardia which resolved. He remains on the inpatient rehab unit. He has been using a walker with assistance. Prior to his stroke, he was walking on his own at home. He denies chest discomfort, dyspnea, palpitations, syncope, or ankle edema. Certain portions of this document may have been dictated utilizing voice recognition technology. Inherent to this technology, typographical and grammatical errors may exist. As much as I am diligent to identify and correct these mistakes, some errors may remain in the document. Focused Exam Respiratory: Lungs Clear, Normal Breath Sounds, No Accessory Muscle Use, No Respiratory Distress Cardiovascular: Regular Rate, Rhythm, No Murmur Skin: normal color, warm/dry Objective-Cardiology Exam Last Set of Vital Signs Vital Signs 07/30/22 07/30/22 07/30/22 07:20 08:51 09:26 Temp 36.3 Pulse 84 Resp 18 B/P (MAP) 126/64 (84) Pulse Ox 96 O2 Delivery Room Air I&O Intake and Output 07/30/22 00:00 Intake Total 2700 ml Output Total 275 ml Balance 2425 ml Intake Oral 1700 ml IV Total 1000 ml Output Urine Total 275 ml # Voids 2 # Bowel Movements 1 General: Alert, Cooperative, No Acute Distress HEENT: Atraumatic, EOMI Neck: Supple Lungs: Clear to Auscultation, Normal Air Movement Heart: Regular Rate, No Murmurs Abdomen: Soft, No Tenderness Extremities: No Edema Skin: No Significant Lesion Neuro: Normal Speech Psych/Mental Status: Mental Status NL, Mood NL Other physical findings Dr. Duarte: General: Alert. No acute distress. Eye: No xanthelasma. HENT: Normocephalic. Neck: Jugular venous pressure does not appear elevated. Respiratory: Lungs are clear to auscultation. Respirations are non-labored. Breath sounds are equal. Symmetrical chest wall expansion. Cardiovascular: Normal rate. Regular rhythm. 1/6 systolic ejection murmur. No gallop. No edema. Gastrointestinal: Soft. Normal bowel sounds. Skin: Warm. Dry. Neurologic: Alert and oriented to person, place, time. Cranial nerves 3-11 grossly intact. Psychiatric: Cooperative. Appropriate mood & affect. Results Lab Laboratory Tests 07/30/22 06:06 A/P-Cardiology Assessment/Plan (1) Acute cerebrovascular accident Assessment & Plan: concern for possible underlying atrial fibrillation; receiving aspirin and clopidogrel in addition to intensive dose statin medication; external threat monitoring analyst will be needed after he is discharged. He will ultimately need evaluation by vascular surgery but this can be done as an outpatient after he completely recovers from the stroke. (2) Mobitz type 1 second degree AV block Assessment & Plan: continue the patient on telemetry monitoring for the time being. We can also evaluate this with the external monitor that we will be coordinating following discharge. (3) Bilateral carotid artery stenosis Assessment & Plan: continue on aspirin, clopidogrel, and intensive dose statin medication in light of the stroke; allowing him to recover more before carotid intervention (4) Primary hypertension Assessment & Plan: His blood pressures ran low yesterday, but he is currently normotensive. Hold lisinopril if bp drops again. (5) Mixed hyperlipidemia Assessment & Plan: Continue intensive dose statin medication Diagnosis/Problems Diagnosis/Problems (1) Acute cerebrovascular accident Assessment & Plan: He had a cerebrovascular accident that involved multiple vascular territories as noted on his MRI of the brain. This raises a concern for possible underlying atrial fibrillation. There has not been any evidence of atrial fibrillation on telemetry. He is currently receiving aspirin and clopidogrel in addition to intensive dose statin medication. Once he is ready for discharge, I will plan on an external threat monitoring analyst. I have ordered this through the office. If he is discharged on the weekend, he will need to come back to the hospital to get the monitor at a later point in time. These external monitors are an outpatient test and cannot be placed while the patient is on inpatient status. If this external monitor does not show atrial fibrillation, he may need an implantable loop recorder following discharge. Additionally, he has significant bilateral carotid disease, worse on the left. Unclear whether or not this may have had anything to do with his stroke. He will ultimately need evaluation by vascular surgery but this can be done as an outpatient after he completely recovers from the stroke. 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 He is not on any AV jalil blocking agents and his TSH level was normal. I recommend we just continue the patient on telemetry monitoring for the time being. We can also evaluate this with the external monitor that we will be coordinating following discharge. (3) Bilateral carotid artery stenosis Status: Acute Assessment & Plan: As above, he has significant bilateral carotid stenosis. I recommend he continue on aspirin, clopidogrel, and intensive dose statin medication in light of the stroke. Since neither side is critically stenosed it is often preferable to wait for a patient to recover from an acute stroke before performing any sort of carotid intervention. (4) Primary hypertension Assessment & Plan: His blood pressures had been running somewhat high but are improved but then improved. He should continue the present combination of antihypertensive medication. (5) Mixed hyperlipidemia Assessment & Plan: Continue intensive dose statin medication in light of the stroke. Supervisory-Addendum Brief Verification & Attestation Participated in pt care: history, MDM, physical Personally performed: exam, history, MDM, supervision of care Care discussed with: Medical Student Procedures: n/a Results interpretation: Verified all documentation I independently performed my own history and physical and physical examination. I formulated my own impression and plan. I also reviewed the documentation of the medical student. YUE ESCUDERO Jul 30, 2022 07:59 GALA DUARTE JR, MD Jul 30, 2022 10:00
[2022-07-30] MEDS: CLOPIDOGREL 75 MG (PLAVIX) TABLET PO SCH (08:30)
[2022-07-30] MEDS: TAMSULOSIN 0.4 MG (FLOMAX) CAP PO SCH ×2 (08:30→20:39)
[2022-07-30] MEDS: ASPIRIN 81 MG CHEW (CHILDREN'S ASA) PO SCH (08:30)
[2022-07-30] MEDS: lisINopril 10 MG (PRINIVIL) TABLET PO SCH (08:31)
[2022-07-30] MEDS: LACTULOSE SYRUP 10GM/15ML (ENULOSE) 30ML UDC PO SCH ×2 (08:31→21:00)
[2022-07-30] MEDS: polyethylene glycoL POWDER 17 GM (MIRALAX) PACK PO SCH ×2 (08:31→21:00)
[2022-07-30] MEDS: DICLOFENAC 1% GEL 100 GM (VOLTAREN) TUBE TOP SCH ×4 (08:31→20:41)
[2022-07-30] MEDS: GABAPENTIN 300 MG (NEURONTIN) CAP PO SCH ×2 (08:31→20:41)
[2022-07-30] MEDS: DOCUSATE SODIUM 100 MG (COLACE) CAP PO SCH ×2 (08:31→20:39)
[2022-07-30] MEDS: SENNA W/DOCUSATE (SENOKOT S) TABLET PO SCH ×2 (08:31→20:39)
--- NOTE | 2022-07-30 08:40 | Occupational Ther Daily Note ---
OT Current Status-Daily Note Subjective Pt sitting up in the chair and had just finished breakfast. He stated that he was feeling much better today. Appearance Pt left sitting in recliner with chair alarm on. All needs within reach. Mental Status/Objective Patient Orientation: Person, Place, Time, Situation Attachments: IV ADL-Treatment Therapy Code Descriptions/Definitions Functional [place] Measure: 0=Not Assessed/NA 4=Minimal Assistance 1=Total Assistance 5=Supervision or Setup 2=Maximal Assistance 6=Modified [place] 3=Moderate Assistance 7=Complete IndependenceSCALE: Activities may be completed with or without assistive devices. 5-Nrsyszjyuk-rvundla completes the activity by him/herself with no assistance from a helper. 5-Set-up or Clean-up Assistance-helper sets up or cleans up; patient completes activity. [place] assists only prior to or following the activity. 4-Supervision or Touching Assistance-helper provides verbal cues and/or touching/steadying and/or contact guard assistance as patient completes activity. Assistance may be provided throughout the activity or intermittently. 3-Partial/Moderate Assistance-helper does LESS THAN HALF the effort. Wilson lifts, holds or supports trunk or limbs, but provides less than half the effort. 2-Substantial/Maximal Assistance-helper does MORE THAN HALF the effort. Wilson lifts or holds trunk or limbs and provides more than half the effort. 8-Xjrixsgzw-rjksif does ALL the effort. Patient does none of the effort to complete the activity. Or, the assistance of 2 or more helpers is required for the patient to complete the activity. If activity was not attempted, code reason: 7-Patient Refused. 9-Not Applicable-not attempted and the patient did not perform the activity before the current illness, exacerbation or injury. 10-Not Attempted due to Environmental Limitations-(lack of equipment, weather restraints, etc.). 88-Not Attempted due to Medical Conditions or Safety Concerns. Eating (QC): 5 Oral Hygiene (QC): 5 Upper Body Dressing (QC): 3 (min assist with buttons) Lower Body Dressing (QC): 3 (mod assist) Toileting Hygiene (QC): 3 Toilet Transfer (QC): 4 Pt was much more aware and with it in today's session. He doffed his button up with independence and was able to don his new shirt with min assist for 2 buttons. Pt able to thread bilateral legs into briefs and pants with independence. Sit<>stand: CGA. Once in standing, pt able to pull pants up with min-mod assist for balance. He needed only min cues for posture today. Pt ambulated into bathroom with min assist and with more steadiness and rhythm than in previous sessions. Pt toileted with SBA. He was able to stand and wipe self with mod assist for balance, but he was able to thoroughly wipe and pull up pants with no physical assistance, other than for balance in standing. Pt sat in w/c to perform oral hygiene with set up assist. He was able to self-correct his posture during task. He showed much improvement in awareness, ADLs, balance, and coordination with all tasks, transfers and ambulation. Education OT Patient Education: Correct positioning, Energy conservation, Modified ADL techniques, Progress toward Goal/Update tx plan, Purpose of tx/functional activities, Reviewed precautions, Rehab process, Safety issues, W/C management Teaching Recipient: Patient Teaching Methods: Demonstration, Discussion Response to Teaching: Verbalize Understanding, Return Demonstration, Reinforcement Needed OT Short Term Goals Short Term Goals Time Frame: Aug 06, 2022 Eatin Oral hygiene: 5 Toileting hygiene: 3 Shower/bathe self: 3 Upper body dressin Lower body dressin Putting on/taking off footwear: 4 OT Care Home Goals Patient Day Coordinator Goals Time Frame: Aug 13, 2022 Acute change in mental status: 0 Inattention: 0 Disorganized thinkin Altered level of consciousness: 0 Eating (QC): 6 Oral Hygiene (QC): 6 Toileting Hygiene (QC): 5 Shower/Bathe Self (QC): 5 Upper Body Dressing (QC): 5 Lower Body Dressing (QC): 5 On/Off Footwear (QC): 6 Additional Goals: 1-Demonstrate ADL Tasks, 2-Verbalize Understanding, 3- ImproveStrength/Brit 1=Demonstrate adherence to instructed precautions during ADL tasks. 2=Patient will verbalize/demonstrate understanding of assistive devices/modifications for ADL. 3=Patient will improve strength/tolerance for activity to enable patient to perform ADL's. OT Education/Plan Problem List/Assessment Assessment: Decreased Activ Tolerance, Decreased Safety Aware, Decreased UE Strength, Impaired Coordination, Impaired Funct Balance, Impaired I ADL's, Impaired Self-Care Skills Discharge Recommendations Plan/Recommendations: Continue POC Treatment Plan/Plan of Care Treatment,Training & Education: Yes Patient would benefit from OT for education, treatment and training to promote independence in ADL's, mobility, safety and/or upper extremity function for ADL's. Plan of Care: ADL Retraining, Caregiver Training, Functional Mobility, Group Exercise/Act as Ind, UE Funct Exercise/Act, UE Neuromus Re-Ed/Coord, W/C Management Training Treatment Duration: Aug 13, 2022 Frequency: At least 5 of 7 days/Wk (IRF) Estimated Hrs Per Day: 1.5 hours per day (75-90 min/day) Agreement: Yes Rehab Potential: Good Time Start Time: 07:30 Stop Time: 08:30 DATE: Jul 30, 2022 Total Time Billed (hr/min): 60 Billed Treatment Time 1 visit ADL x4 Taylor Rinaldi OT Jul 30, 2022 08:39
[2022-07-30 08:51] VITALS: BP 126/64
--- NOTE | 2022-07-30 10:57 | Physical Therapy Daily Note ---
PT Daily Note-Current Subjective Patient in recliner, reports no pain, agrees to PT. Pain Section J - Health Conditions 1. Rarely or not at all 2. Occasionally 3. Frequently 4. Almost constantly 8. Unable to answer Pain Effect on Sleep: 1 Pain Interference with Therapy: 1 Pain Interference w/Day-to-Day: 1 Appearance Patient in recliner post-tx with chair alarm on, nurse call, phone, tray, all needs met. Mental Status Patient Orientation: Person, Place, Situation Transfers SCALE: Activities may be completed with or without assistive devices. 7-Mzikcewmab-rdgdubu completes the activity by him/herself with no assistance from a helper. 5-Set-up or Clean-up Assistance-helper sets up or cleans up; patient completes activity. [place] assists only prior to or following the activity. 4-Supervision or Touching Assistance-helper provides verbal cues and/or touching/steadying and/or contact guard assistance as patient completes activi ty. Assistance may be provided throughout the activity or intermittently. 3-Partial/Moderate Assistance-helper does LESS THAN HALF the effort. [place] lifts, holds or supports trunk or limbs, but provides less than half the effort. 2-Substantial/Maximal Assistance-helper does MORE THAN HALF the effort. [place] lifts or holds trunk or limbs and provides more than half the effort. 7-Mhkodyprl-wkwltj does ALL the effort. Patient does none of the effort to complete the activity. Or, the assistance of 2 or more helpers is required for the patient to complete the activity. If activity was not attempted, code reason: 7-Patient Refused. 9-Not Applicable-not attempted and the patient did not perform the activity before the current illness, exacerbation or injury. 10-Not Attempted due to Environmental Limitations-(lack of equipment, weather restraints, etc.). 88-Not Attempted due to Medical Conditions or Safety Concerns. Sit to Stand (QC): 4 CGA due to patient impulsive/ quick movements. Weight Bearing Right Lower Extremity: Right Full Weight Bearing Left Lower Extremity: Left Full Weight Bearing Gait Training Does the Patient Walk?: Yes Distance: 100', 100' Walk 10 feet (QC): 4 Walk 50 ft with 2 Turns(QC): 4 Gait Persons Needed: 1 Gait Assistive Device: FWW CGA due to patient fast gait speed with impulsive movements. Patient has good foot clearance and step length. Exercises Standing: Heel/toe raises, 3 way Ex=Flex, Abd, Ext, Marching, Mini squats (10 reps guarding L knee buckling) Standing Reps: 20 NuStep Minutes: 15 NuStep Workload: 6 Treatments Ambulation, LE Strengthening Assessment Current Status: Fair Progress Patient most challenging exercises are in standing and needs verbal cueing to stand up straight and move COM forward over his body more. Patient's L knee shirley sometimes during mini squats. Continued ataxia on left side. PT Short Term Goals Short Term Goals Time Frame: Aug 11, 2022 Roll Left & Right: 4 Sit to lyin Lying to sitting on side of be: 4 Sit to stand: 4 Chair/xlk-oc-vtgmx transfer: 4 Toilet transfer: 4 Car transfer: 4 Walk 10 feet: 3 Walk 50 feet with two turns: 3 Walk 150 feet: 3 Walking 10ft on uneven surface: 3 1 step (curb): 3 PT Oriental Rug Stretcher Goals Oriental Rug Stretcher Goals PT Care Home Goals Time Frame: Aug 28, 2022 Roll Left & Right (QC): 6 Sit to Lying (QC): 6 Lying-Sitting on Side/Bed(QC): 6 Sit to Stand (QC): 6 Chair/Dat-zx-Kinxq Xfer(QC): 6 Toilet Transfer (QC): 6 Car Transfer (QC): 6 Does the Patient Walk: Yes Walk 10 feet (QC): 5 Walk 50ft with 2 Turns (QC): 5 Walk 150 ft (QC): 5 Walking 10ft on Uneven Surface: 5 1 Step (curb) (QC): 4 4 Steps (QC): 4 12 Steps (QC): 4 Picking up an Object (QC): 4 Wheel 50 feet with 2 turns (QC: 9 Wheel 150 feet: 9 PT Plan Problem List Problem List: Activity Tolerance, Functional Strength, Safety, Balance, Gait, Transfer, Bed Mobility, ROM Treatment/Plan Treatment Plan: Continue Plan of Care Treatment Plan: Bed Mobility, Concurrent Therapy, Education, Functional Activity Brit, Functional Strength, Group Therapy, Gait, Safety, Therapeutic Exercise, Transfers Treatment Duration: Aug 28, 2022 Frequency: At least 5 of 7 days/Wk (IRF) Estimated Hrs Per Day: 1.5 hours per day Patient and/or Family Agrees t: Yes Safety Risks/Education Patient Education: Gait Training, Transfer Techniques, Correct Positioning, Safety Issues Teaching Recipient: Patient Teaching Methods: Demonstration, Discussion Response to Teaching: Reinforcement Needed Time Time In: 1000 Time Out: 1100 DATE: Jul 30, 2022 Total Billed Treatment Time: 60 Total Billed Treatment 1 visit FA x2 (30min) EX x2 (30min) BENNETT GONZALEZ PT Jul 30, 2022 10:56
[2022-07-30] MEDS: ENOXAPARIN INJECTION 30 MG/0.3 ML SYR SC SCH (12:08)
--- NOTE | 2022-07-30 14:36 | Therapy Group Daily Note ---
Therapy Daily Group Note Patient Education Topic Home Safety, Other List Below (ARU expectations) Exercises LE Seated Exercise, UE Exercise Session Ratio (pt:therapist): 3:1 Goal of Session: Education on ARU Expectations, Home Safety Strategies, UE/LE Strengthing, Use of Adaptive Equipment Goal Met for this Session: Yes Pt Benefit of Group: Contributions to Others, Increased Functional Safety, Recognition of Peers, Socialization Other/Notes Pt. participated in group PT OT session this date, pt. ambulated to and from with FWW CGA to min A, Pt. shared and introduced himself to others and participated in sharing regarding falls at home and safety and prevention. Pts participated in seated breathing ex, posture, cervical exercises and U&L ext exercises while seated. Home safety issues covered included lighting, bathing, rail placement in bathrooms and tubs, rails at stairs as well as safety devices like life alert and use of FWW with basket for easy transport of food etc. Pts shared their experiences and strategies to be safe at home. Pt,. 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
--- NOTE | 2022-07-30 15:30 | Progress Note ---
SOFYA VARGAS 07/30/22 1530: Progress Note S: Mr. Berrios is an 87 year old male who presents to the ARU s/p CVA with L- sided weakness. Patient reports feeling much better this morning. Patient denies pain, chest pain, SOA, abdominal pain, diarrhea, or urinary retention. Patient states he is tolerating PO food and drink well. Patient states his last BM was yesterday. The patient is alert and oriented this morning. O: Vital signs: T36.3, HR 70, RR 18, BP 138/70, SpO2 96% RA PE: -Cardiovascular: HRRR -Pulmonary: LCTAB Labs: BUN 34 (31 on 07/29), Cr 1.64 (2.22 on 07/29) KUB 07/28: FINDINGS: The minimally visualized lung bases are clear. Small amount of gas and stool within the colon. No abnormally dilated loops of small bowel. No free air. Scattered osseous degenerative changes without acute osseous abnormality. IMPRESSION: Nonobstructive bowel gas pattern without free air. A/P: 1. L-sided weakness s/p CVA; continue PT and OT in-patient rehabilitation 2. Continue Lovenox inj, ASA, and clopidogrel therapy for DVT prophylaxis and cardiovascular/neuro protection 3. Hyperbilirubinemia - monitor and repeat labs 4. Urinary retention. Patient has had a bladder scan with straight catheterization. KUB has been performed and UA sent. UA was unremarkable for UTI. KUB was negative for signs of SBO or large stool burden. Non-obstructing gas pattern was visualized, thus patient may benefit from PO simethicone and an enema to relieve any impacted stool and promote flatus. Patient should have bowel rest with clear liquids until symptoms improve -> symptoms have improved and Surgery has seen patient 5. [place] likely due to dehydration. Continue to monitor BP and re-evaluate BUN and Cr after IV and PO hydration -> Cr has improved from 2.22 -> 1.64 s/p IVF 6. Dehydration/hypotension; hold lisinopril until BP improves, 1000ml saline bolus. Encourage PO hydration. Advance diet as tolerated ATIYA CHAMORRO DO 07/31/22 0541: Supervisory-Addendum Brief Verification & Attestation Participated in pt care: history, MDM, physical Personally performed: exam, history, MDM, supervision of care Care discussed with: Medical Student Procedures: n/a Results interpretation: Verified all documentation Verification and Attestation of Medical Student E/M Service A medical student performed and documented this service in my presence. I reviewed and verified all information documented by the medical student and made modifications to such information, when appropriate. I personally performed the physical exam and medical decision making. Atiya Chamorro, Jul 31, 2022,05:41 SOFYA VARGAS Jul 30, 2022 15:30 ATIYA CHAMORRO DO Jul 31, 2022 05:41
[2022-07-30] MEDS: GABAPENTIN 100 MG (NEURONTIN) CAP PO SCH (15:56)
[2022-07-30 19:47] VITALS: BP 107/58
[2022-07-30 20:36] VITALS: BP 135/65
[2022-07-30] MEDS: SALINE NASAL SPRAY (OCEAN) 45 ML BTL SCH (20:39)
[2022-07-30] MEDS: clonazePAM 0.5 MG (KlonoPIN) TAB PO SCH (20:40)
[2022-07-30] MEDS: amLODIPine 5 MG (NORVASC) TAB PO SCH (20:40)
[2022-07-31] MEDS: CALCIUM CARBONATE 500 MG (TUMS) TAB.CHEW PO PRN (05:39)
--- NOTE | 2022-07-31 06:34 | PM&R Progress Note ---
Subjective HPI/CC On Admission Date Seen by Provider: Jul 31, 2022 Time Seen by Provider: 10:30 Subjective/Events-last exam 07/31/2022: Patient doing well Needs hemorrhoid cream so ordered that Feet were very cold last night Using saline nasal spray 07/30/2022: Patient doing really well IV fluids really helped him Hep-Lock now In a good mood Saline nasal spray will be ordered as he requested 07/29/2022: Patient doing fairly well IVF initiated for hypotension Diarrhea likely has volume depleted him Appreciate Yisel Duarte and Rivera 07/28/2022: Patient doing well after in/out cath He does have urinary retention when he is constipated Will initiate soapsuds enema if needed along with lactulose and senna KUB showed dilated loops of bowel so in case this is an ileus we will initiate clear liquid diet 07/27/2022: Patient doing well No pain is reported Eating and drinking well Moving left arm a bit more 07/26/2022: Patient doing well Bowels moved yesterday Took a shower today with therapy Moving left arm a bit 07/25/2022: Much improved status Left sided weakness remains Suicidal ideation reported by family at times but none that RN notes Monitoring closely Labs stable EGD postponed until stable Review of Systems General: Fatigue, Malaise Objective Exam Vital Signs Vital Signs Date Time Temp Pulse Resp B/P (MAP) Pulse Ox O2 Delivery O2 Flow Rate FiO2 08/01/22 01:00 60 07/31/22 21:00 Room Air 07/31/22 19:18 36.4 16 119/69 (86) 95 Capillary Refill : General Appearance: No Apparent Distress, WD/WN, Chronically ill HEENT: PERRL/EOMI, Normal ENT Inspection, Pharynx Normal Neck: Full Range of Motion, Normal Inspection, Non Tender, Supple, Carotid Bruit Respiratory: Chest Non Tender, Lungs Clear, Normal Breath Sounds, No Accessory Muscle Use, No Respiratory Distress Cardiovascular: Regular Rate, Rhythm, No Edema, No Gallop, No JVD, No Murmur, Normal Peripheral Pulses Gastrointestinal: Normal Bowel Sounds, No Organomegaly, No Pulsatile Mass, Non Tender, Soft Back: Normal Inspection, No CVA Tenderness, No Vertebral Tenderness Extremity: Normal Capillary Refill, Normal Inspection, Normal Range of Motion (except left side), Non Tender, No Calf Tenderness, No Pedal Edema Neurologic/Psychiatric: Alert, Oriented x3, Normal Mood/Affect, pool player II-XII Norm as Tested, Abnormal Gait, Motor Weakness (left sided weakness 1/5) Skin: Normal Color, Warm/Dry Lymphatic: No Adenopathy Results/Procedures Lab Patient resulted labs reviewed. FIM Transfers Therapy Code Descriptions/Definitions Functional [place] Measure: 0=Not Assessed/NA 4=Minimal Assistance 1=Total Assistance 5=Supervision or Setup 2=Maximal Assistance 6=Modified [place] 3=Moderate Assistance 7=Complete IndependenceSCALE: Activities may be completed with or without assistive devices. 1-Sipdqzokon-jypkqsk completes the activity by him/herself with no assistance from a helper. 5-Set-up or Clean-up Assistance-helper sets up or cleans up; patient completes activity. [place] assists only prior to or following the activity. 4-Supervision or Touching Assistance-helper provides verbal cues and/or to uching/steadying and/or contact guard assistance as patient completes activity. Assistance may be provided throughout the activity or intermittently. 3-Partial/Moderate Assistance-helper does LESS THAN HALF the effort. [place] lifts, holds or supports trunk or limbs, but provides less than half the effort. 2-Substantial/Maximal Assistance-helper does MORE THAN HALF the effort. [place] lifts or holds trunk or limbs and provides more than half the effort. 7-Mhadvubob-gqliep does ALL the effort. Patient does none of the effort to complete the activity. Or, the assistance of 2 or more helpers is required for the patient to complete the activity. If activity was not attempted, code reason: 7-Patient Refused. 9-Not Applicable-not attempted and the patient did not perform the activity before the current illness, exacerbation or injury. 10-Not Attempted due to Environmental Limitations-(lack of equipment, weather restraints, etc.). 88-Not Attempted due to Medical Conditions or Safety Concerns. Roll Left to Right (QC): 4 Sit to Lying (QC): 4 Sit to Stand (QC): 4 Chair/Jvi-po-Gbczh Xfer(QC): 3 Car Transfer (QC): 2 Gait Training Does the Patient Walk?: Yes Distance: 100', 100' Walk 10 feet (QC): 4 Walk 50 ft with 2 Turns(QC): 4 Walk 150 ft (QC): 88 Walking 10ft/uneven surface-QC: 88 Gait Persons Needed: 1 Gait Assistive Device: FWW Wheelchair Training Does the Pt Use a Wheelchair?: Yes Wheel 50 ft with 2 turns (QC): 4 Wheel 150 ft (QC): 4 Type of Wheelchair: Manual Stair Training 1 Step (curb) (QC): 88 (not safe to perform due to Poor balance and diminished coordination) 4 Steps (QC): 88 12 Steps (QC): 88 Balance Picking up an Object (QC): 88 ADL-Treatment Eating (QC): 5 Oral Hygiene (QC): 5 Bathing Location: L Arm, R Arm, L Upper Leg, R Upper Leg, Chest, Abdomen Shower/Bathe Self (QC): 4 Upper Body Dressing (QC): 3 (min assist with buttons) Lower Body Dressing (QC): 3 (mod assist) On/Off Footwear (QC): 1 (due to time (leaving room for stat x-ray) and pain) Toileting Hygiene (QC): 3 Toilet Transfer (QC): 4 Assessment/Plan Assessment and Plan Assess & Plan/Chief Complaint Assessment: CVA with left-sided weakness Bilateral carotid stenosis Hypertension Hyperlipidemia History of TIA Advanced age Depression hx Suicidal ideation reported by family but no acute issues CKD Acute kidney injury creatinine 2.2 due to volume depletion status post IV fluids on 07/29/2022 Hemorrhoid flare up 07/31/20 Dry nasal passageways ordered saline nasal spray Plan: Supportive care Monitor closely Aggressive rehab 07/25/2022: Monitor closely 07/26/2022: Supportive care Monitor closely 07/27/2022: Supportive care Fall risk 07/28/2022: Supportive care Consult Dr. CHRISTIE Clear liquid diet MiraLAX and lactulose and senna 07/29/22: IVF Monitor closely 07/30/2022: Saline nasal spray Status post IV fluid 07/31/2022: Hemorrhoid cream (1) Acute cerebrovascular accident Assessment & Plan: He had a cerebrovascular accident that involved multiple vascular territories as noted on his MRI of the brain. This raises a concern for possible underlying atrial fibrillation. There has not been any evidence of atrial fibrillation on telemetry. He is currently receiving aspirin and clopidogrel in addition to intensive dose statin medication. Once he is ready for discharge, I will plan on an external machine stapler. I have ordered this through the office. If he is discharged on the weekend, he will need to come back to the hospital to get the monitor at a later point in time. These external monitors are an outpatient test and cannot be placed while the patient is on inpatient status. If this external monitor does not show atrial fibrillat ion, he may need an implantable loop recorder following discharge. Additionally, he has significant bilateral carotid disease, worse on the left. Unclear whether or not this may have had anything to do with his stroke. He will ultimately need evaluation by vascular surgery but this can be done as an outpatient after he completely recovers from the stroke. 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 He is not on any AV jalil blocking agents and his TSH level was normal. I recommend we just continue the patient on telemetry monitoring for the time being. We can also evaluate this with the external monitor that we will be coordinating following discharge. (3) Bilateral carotid artery stenosis Status: Acute Assessment & Plan: As above, he has significant bilateral carotid stenosis. I recommend he continue on aspirin, clopidogrel, and intensive dose statin medication in light of the stroke. Since neither side is critically stenosed it is often preferable to wait for a patient to recover from an acute stroke before performing any sort of carotid intervention. (4) Primary hypertension Assessment & Plan: His blood pressures had been running somewhat high but are improved but then improved. He should continue the present combination of antihypertensive medication. (5) Mixed hyperlipidemia Assessment & Plan: Continue intensive dose statin medication in light of the stroke. NEHEMIAH CHAMORRO DO Jul 31, 2022 06:34
[2022-07-31 07:25] VITALS: BP 156/69
[2022-07-31] MEDS: DICLOFENAC 1% GEL 100 GM (VOLTAREN) TUBE TOP SCH ×4 (08:25→21:41)
[2022-07-31] MEDS: ASPIRIN 81 MG CHEW (CHILDREN'S ASA) PO SCH (08:25)
[2022-07-31] MEDS: LACTULOSE SYRUP 10GM/15ML (ENULOSE) 30ML UDC PO SCH ×2 (08:26→21:40)
[2022-07-31] MEDS: polyethylene glycoL POWDER 17 GM (MIRALAX) PACK PO SCH ×2 (08:26→21:40)
[2022-07-31] MEDS: SENNA W/DOCUSATE (SENOKOT S) TABLET PO SCH ×2 (08:26→21:40)
[2022-07-31] MEDS: GABAPENTIN 300 MG (NEURONTIN) CAP PO SCH ×2 (08:26→21:40)
[2022-07-31] MEDS: lisINopril 10 MG (PRINIVIL) TABLET PO SCH (08:26)
[2022-07-31] MEDS: SALINE NASAL SPRAY (OCEAN) 45 ML BTL SCH ×4 (08:26→21:40)
[2022-07-31] MEDS: DOCUSATE SODIUM 100 MG (COLACE) CAP PO SCH ×2 (08:26→21:40)
[2022-07-31] MEDS: CLOPIDOGREL 75 MG (PLAVIX) TABLET PO SCH (08:26)
[2022-07-31] MEDS: TAMSULOSIN 0.4 MG (FLOMAX) CAP PO SCH ×2 (08:26→21:40)
[2022-07-31] MEDS ORDERED: HYDROCORTISONE 2.5% CREAM (ANUSOL-HC) 30 GM TOP PRN (11:15)
--- NOTE | 2022-07-31 11:16 | Physical Therapy Daily Note ---
PT Daily Note-Current Subjective Patient in bed pre tx, agrees to PT, has no complaints of pain. Pain Section J - Health Conditions 1. Rarely or not at all 2. Occasionally 3. Frequently 4. Almost constantly 8. Unable to answer Pain Effect on Sleep: 1 Pain Interference with Therapy: 1 Pain Interference w/Day-to-Day: 1 Appearance Patient in bed post tx with nurse call, phone, tray, bed alarm on. Mental Status Patient Orientation: Person, Place, Situation Transfers SCALE: Activities may be completed with or without assistive devices. 1-Rcdcvyvstz-nuctibh completes the activity by him/herself with no assistance from a helper. 5-Set-up or Clean-up Assistance-helper sets up or cleans up; patient completes activity. [place] assists only prior to or following the activity. 4-Supervision or Touching Assistance-helper provides verbal cues and/or touching/steadying and/or contact guard assistance as patient completes activity. Assistance may be provided throughout the activity or intermittently. 3-Partial/Moderate Assistance-helper does LESS THAN HALF the effort. [place] lifts, holds or supports trunk or limbs, but provides less than half the effort. 2-Substantial/Maximal Assistance-helper does MORE THAN HALF the effort. [place] lifts or holds trunk or limbs and provides more than half the effort. 8-Zasmbivyt-zkxuuh does ALL the effort. Patient does none of the effort to complete the activity. Or, the assistance of 2 or more helpers is required for the patient to complete the activity. If activity was not attempted, code reason: 7-Patient Refused. 9-Not Applicable-not attempted and the patient did not perform the activity before the current illness, exacerbation or injury. 10-Not Attempted due to Environmental Limitations-(lack of equipment, weather restraints, etc.). 88-Not Attempted due to Medical Conditions or Safety Concerns. Roll Left & Right (QC): 6 Sit to Lying (QC): 4 Lying to Sitting/Side of Bed(Q: 4 Sit to Stand (QC): 4 Chair/Hmn-ip-[place]eu[place] Xfer(QC): 4 CGA for sit <-> stand and transfers, cues for hand placement Weight Bearing Right Lower Extremity: Right Full Weight Bearing Left Lower Extremity: Left Full Weight Bearing Gait Training Distance: 200' Walk 10 feet (QC): 4 Walk 50 ft with 2 Turns(QC): 4 Walk 150 ft (QC): 4 Gait Persons Needed: 1 Gait Assistive Device: FWW slow ambulation, improving coordination and ataxia, needs cues to stand up straight and keep head up Exercises Supine Ex: Ankle pumps, Glut sets, Heel Slides Supine Reps: 20 Treatments bed mobility and transfers, ambulation Assessment Current Status: Fair Progress improving trunk control and LLE control during ambulation PT Short Term Goals Short Term Goals Time Frame: Aug 11, 2022 Roll Left & Right: 4 Sit to lyin Lying to sitting on side of be: 4 Sit to stand: 4 Chair/fkc-tm-ywlmg transfer: 4 Toilet transfer: 4 Car transfer: 4 Walk 10 feet: 3 Walk 50 feet with two turns: 3 Walk 150 feet: 3 Walking 10ft on uneven surface: 3 1 step (curb): 3 PT Grout Worker Goals Grout Worker Goals PT Grout Worker Goals Time Frame: Aug 28, 2022 Roll Left & Right (QC): 6 Sit to Lying (QC): 6 Lying-Sitting on Side/Bed(QC): 6 Sit to Stand (QC): 6 Chair/Cuy-lv-Wnmqx Xfer(QC): 6 Toilet Transfer (QC): 6 Car Transfer (QC): 6 Does the Patient Walk: Yes Walk 10 feet (QC): 5 Walk 50ft with 2 Turns (QC): 5 Walk 150 ft (QC): 5 Walking 10ft on Uneven Surface: 5 1 Step (curb) (QC): 4 4 Steps (QC): 4 12 Steps (QC): 4 Picking up an Object (QC): 4 Wheel 50 feet with 2 turns (QC: 9 Wheel 150 feet: 9 PT Plan Problem List Problem List: Activity Tolerance, Functional Strength, Safety, Balance, Gait, Transfer, Bed Mobility, ROM Treatment/Plan Treatment Plan: Continue Plan of Care Treatment Plan: Bed Mobility, Concurrent Therapy, Education, Functional Activity Brit, Functional Strength, Group Therapy, Gait, Safety, Therapeutic Exercise, Transfers Treatment Duration: Aug 28, 2022 Frequency: At least 5 of 7 days/Wk (IRF) Estimated Hrs Per Day: 1.5 hours per day Patient and/or Family Agrees t: Yes Safety Risks/Education Patient Education: Gait Training, Transfer Techniques, Correct Positioning, Safety Issues Teaching Recipient: Patient Teaching Methods: Demonstration, Discussion Response to Teaching: Reinforcement Needed Time Time In: 1039 Time Out: 1049 DATE: Jul 31, 2022 Total Billed Treatment Time: 10 Total Billed Treatment 1 visit GT 10' BENNETT GONZALEZ PT Jul 31, 2022 11:16
[2022-07-31] MEDS: ENOXAPARIN INJECTION 30 MG/0.3 ML SYR SC SCH (13:18)
[2022-07-31] MEDS: GABAPENTIN 100 MG (NEURONTIN) CAP PO SCH (16:20)
[2022-07-31 19:18] VITALS: BP 119/69
[2022-07-31] MEDS: clonazePAM 0.5 MG (KlonoPIN) TAB PO SCH (21:40)
[2022-07-31] MEDS: amLODIPine 5 MG (NORVASC) TAB PO SCH (21:40)
--- NOTE | 2022-08-01 07:42 | PM&R Progress Note ---
Subjective HPI/CC On Admission Date Seen by Provider: Aug 01, 2022 Time Seen by Provider: 15:30 Subjective/Events-last exam 08/01/2022: No major issues No pain reported Improved status Hemorrhoids improved 07/31/2022: Patient doing well Needs hemorrhoid cream so ordered that Feet were very cold last night Using saline nasal spray 07/30/2022: Patient doing really well IV fluids really helped him Hep-Lock now In a good mood Saline nasal spray will be ordered as he requested 07/29/2022: Patient doing fairly well IVF initiated for hypotension Diarrhea likely has volume depleted him Appreciate Yisel Duarte and Rivera 07/28/2022: Patient doing well after in/out cath He does have urinary retention when he is constipated Will initiate soapsuds enema if needed along with lactulose and senna KUB showed dilated loops of bowel so in case this is an ileus we will initiate clear liquid diet 07/27/2022: Patient doing well No pain is reported Eating and drinking well Moving left arm a bit more 07/26/2022: Patient doing well Bowels moved yesterday Took a shower today with therapy Moving left arm a bit 07/25/2022: Much improved status Left sided weakness remains Suicidal ideation reported by family at times but none that RN notes Monitoring closely Labs stable EGD postponed until stable Review of Systems General: Fatigue, Malaise Objective Exam Vital Signs Vital Signs Date Time Temp Pulse Resp B/P (MAP) Pulse Ox O2 Delivery O2 Flow Rate FiO2 08/02/22 01:00 68 08/01/22 21:00 Room Air 08/01/22 20:32 37.2 16 131/67 (88) 94 Capillary Refill : General Appearance: No Apparent Distress, WD/WN, Chronically ill HEENT: PERRL/EOMI, Normal ENT Inspection, Pharynx Normal Neck: Full Range of Motion, Normal Inspection, Non Tender, Supple, Carotid Bruit Respiratory: Chest Non Tender, Lungs Clear, Normal Breath Sounds, No Accessory Muscle Use, No Respiratory Distress Cardiovascular: Regular Rate, Rhythm, No Edema, No Gallop, No JVD, No Murmur, Normal Peripheral Pulses Gastrointestinal: Normal Bowel Sounds, No Organomegaly, No Pulsatile Mass, Non Tender, Soft Back: Normal Inspection, No CVA Tenderness, No Vertebral Tenderness Extremity: Normal Capillary Refill, Normal Inspection, Normal Range of Motion (except left side), Non Tender, No Calf Tenderness, No Pedal Edema Neurologic/Psychiatric: Alert, Oriented x3, Normal Mood/Affect, 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 FIM Transfers Therapy Code Descriptions/Definitions Functional [place] Measure: 0=Not Assessed/NA 4=Minimal Assistance 1=Total Assistance 5=Supervision or Setup 2=Maximal Assistance 6=Modified [place] 3=Moderate Assistance 7=Complete IndependenceSCALE: Activities may be completed with or without assistive devices. 9-Vejqzdbgvk-cahosas completes the activity by him/herself with no assistance from a helper. 5-Set-up or Clean-up Assistance-helper sets up or cleans up; patient completes activity. [place] assists only prior to or following the activity. 4-Supervision or Touching Assistance-helper provides verbal cues and/or touching/steadying and/or contact guard assistance as patient completes activity. Assistance may be provided throughout the activity or intermittently. 3-Partial/Moderate Assistance-helper does LESS THAN HALF the effort. [place] lifts, holds or supports trunk or limbs, but provides less than half the effort. 2-Substantial/Maximal Assistance-helper does MORE THAN HALF the effort. [place] lifts or holds trunk or limbs and provides more than half the effort. 4-Crieedxjb-vgafyp does ALL the effort. Patient does none of the effort to complete the activity. Or, the assistance of 2 or more helpers is required for the patient to complete the activity. If activity was not attempted, code reason: 7-Patient Refused. 9-Not Applicable-not attempted and the patient did not perform the activity before the current illness, exacerbation or injury. 10-Not Attempted due to Environmental Limitations-(lack of equipment, weather restraints, etc.). 88-Not Attempted due to Medical Conditions or Safety Concerns. Roll Left to Right (QC): 6 Sit to Lying (QC): 4 Sit to Stand (QC): 4 Chair/Dac-im-Gevhz Xfer(QC): 4 Car Transfer (QC): 2 Gait Training Does the Patient Walk?: Yes Distance: 200' Walk 10 feet (QC): 4 Walk 50 ft with 2 Turns(QC): 4 Walk 150 ft (QC): 4 Walking 10ft/uneven surface-QC: 88 Gait Persons Needed: 1 Gait Assistive Device: FWW Wheelchair Training Does the Pt Use a Wheelchair?: Yes Wheel 50 ft with 2 turns (QC): 4 Wheel 150 ft (QC): 4 Type of Wheelchair: Manual Stair Training 1 Step (curb) (QC): 88 (not safe to perform due to Poor balance and diminished coordination) 4 Steps (QC): 88 12 Steps (QC): 88 Balance Picking up an Object (QC): 88 ADL-Treatment Eating (QC): 5 Oral Hygiene (QC): 5 Bathing Location: L Arm, R Arm, L Upper Leg, R Upper Leg, Chest, Abdomen Shower/Bathe Self (QC): 4 Upper Body Dressing (QC): 3 (min assist with buttons) Lower Body Dressing (QC): 3 (mod assist) On/Off Footwear (QC): 1 (due to time (leaving room for stat x-ray) and pain) Toileting Hygiene (QC): 3 Toilet Transfer (QC): 4 Assessment/Plan Assessment and Plan Assess & Plan/Chief Complaint Assessment: CVA with left-sided weakness Bilateral carotid stenosis Hypertension Hyperlipidemia History of TIA Advanced age Depression hx Suicidal ideation reported by family but no acute issues CKD Acute kidney injury creatinine 2.2 due to volume depletion status post IV fluids on 07/29/2022 Hemorrhoid flare up 07/31/20 Dry nasal passageways ordered saline nasal spray Plan: Supportive care Monitor closely Aggressive rehab 07/25/2022: Monitor closely 07/26/2022: Supportive care Monitor closely 07/27/2022: Supportive care Fall risk 07/28/2022: Supportive care Consult Dr. CHRISTIE Clear liquid diet MiraLAX and lactulose and senna 07/29/22: IVF Monitor closely 07/30/2022: Saline nasal spray Status post IV fluid 07/31/2022: Hemorrhoid cream 08/01/2022: Monitor closely (1) Acute cerebrovascular accident Assessment & Plan: He had a cerebrovascular accident that involved multiple vascular territories as noted on his MRI of the brain. This raises a concern for possible underlying atrial fibrillation. There has not been any evidence of atrial fibrillation on telemetry. He is currently receiving aspirin and clopidogrel in addition to intensive dose statin medication. Once he is ready for discharge, I will plan on an external cardiac surgeon. I have ordered this through the office. If he is discharged on the weekend, he will need to come back to the hospital to get the monitor at a later point in time. These external monitors are an outpatient test and cannot be placed while the patient is on inpatient status. If this external monitor does not show atrial fibrillation, he may need an implantable loop recorder following discharge. Additionally, he has significant bilateral carotid disease, worse on the left. Unclear whether or not this may have had anything to do with his stroke. He will ultimately need evaluation by vascular surgery but this can be done as an outpatient after he completely recovers from the stroke. 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 He is not on any AV jalil blocking agents and his TSH level was normal. I recommend we just continue the patient on telemetry monitoring for the time being. We can also evaluate this with the external monitor that we will be coordinating following discharge. (3) Bilateral carotid artery stenosis Status: Acute Assessment & Plan: As above, he has significant bilateral carotid stenosis. I recommend he continue on aspirin, clopidogrel, and intensive dose statin medication in light of the stroke. Since neither side is critically stenosed it is often preferable to wait for a patient to recover from an acute stroke before performing any sort of carotid intervention. (4) Primary hypertension Assessment & Plan: His blood pressures had been running somewhat high but are improved but then improved. He should continue the present combination of antihypertensive medication. (5) Mixed hyperlipidemia Assessment & Plan: Continue intensive dose statin medication in light of the stroke. NEHEMIAH CHAMORRO DO Aug 01, 2022 07:42
[2022-08-01 07:44] VITALS: BP 147/67
[2022-08-01] MEDS: ASPIRIN 81 MG CHEW (CHILDREN'S ASA) PO SCH (08:16)
[2022-08-01] MEDS: LACTULOSE SYRUP 10GM/15ML (ENULOSE) 30ML UDC PO SCH ×2 (08:16→20:39)
[2022-08-01] MEDS: GABAPENTIN 300 MG (NEURONTIN) CAP PO SCH ×2 (08:17→20:36)
[2022-08-01] MEDS: TAMSULOSIN 0.4 MG (FLOMAX) CAP PO SCH ×2 (08:17→20:36)
[2022-08-01] MEDS: DOCUSATE SODIUM 100 MG (COLACE) CAP PO SCH ×2 (08:17→20:36)
[2022-08-01] MEDS: CLOPIDOGREL 75 MG (PLAVIX) TABLET PO SCH (08:17)
[2022-08-01] MEDS: SENNA W/DOCUSATE (SENOKOT S) TABLET PO SCH ×2 (08:17→20:36)
[2022-08-01] MEDS: lisINopril 10 MG (PRINIVIL) TABLET PO SCH (08:17)
[2022-08-01] MEDS: polyethylene glycoL POWDER 17 GM (MIRALAX) PACK PO SCH ×2 (08:18→20:40)
[2022-08-01] MEDS: SALINE NASAL SPRAY (OCEAN) 45 ML BTL SCH ×4 (08:18→20:34)
[2022-08-01] MEDS: DICLOFENAC 1% GEL 100 GM (VOLTAREN) TUBE TOP SCH ×4 (08:18→20:37)
[2022-08-01] MEDS: ENOXAPARIN INJECTION 30 MG/0.3 ML SYR SC SCH (12:40)
[2022-08-01] MEDS: GABAPENTIN 100 MG (NEURONTIN) CAP PO SCH (16:06)
[2022-08-01 20:32] VITALS: BP 131/67
[2022-08-01] MEDS: clonazePAM 0.5 MG (KlonoPIN) TAB PO SCH (20:35)
[2022-08-01] MEDS: amLODIPine 5 MG (NORVASC) TAB PO SCH (20:36)
--- NOTE | 2022-08-02 06:18 | PM&R Progress Note ---
Subjective HPI/CC On Admission Date Seen by Provider: Aug 02, 2022 Time Seen by Provider: 08:30 Subjective/Events-last exam 08/02/2022: Patient having no new problems Walking with therapy No pain is reported Normal sinus rhythm on telemetry Allevyn on coccyx Bowels are moving 08/01/2022: No major issues No pain reported Improved status Hemorrhoids improved 07/31/2022: Patient doing well Needs hemorrhoid cream so ordered that Feet were very cold last night Using saline nasal spray 07/30/2022: Patient doing really well IV fluids really helped him Hep-Lock now In a good mood Saline nasal spray will be ordered as he requested 07/29/2022: Patient doing fairly well IVF initiated for hypotension Diarrhea likely has volume depleted him Appreciate Yisel Duarte and Rivera 07/28/2022: Patient doing well after in/out cath He does have urinary retention when he is constipated Will initiate soapsuds enema if needed along with lactulose and senna KUB showed dilated loops of bowel so in case this is an ileus we will initiate clear liquid diet 07/27/2022: Patient doing well No pain is reported Eating and drinking well Moving left arm a bit more 07/26/2022: Patient doing well Bowels moved yesterday Took a shower today with therapy Moving left arm a bit 07/25/2022: Much improved status Left sided weakness remains Suicidal ideation reported by family at times but none that RN notes Monitoring closely Labs stable EGD postponed until stable Review of Systems General: Fatigue, Malaise Neurological: Weakness, Incoordination Objective Exam Vital Signs Vital Signs Date Time Temp Pulse Resp B/P (MAP) Pulse Ox O2 Delivery O2 Flow Rate FiO2 08/03/22 01:00 69 08/02/22 20:29 36.8 18 122/65 (84) 95 Room Air Capillary Refill : General Appearance: No Apparent Distress, WD/WN, Chronically ill HEENT: PERRL/EOMI, Normal ENT Inspection, Pharynx Normal Neck: Full Range of Motion, Normal Inspection, Non Tender, Supple, Carotid Bruit Respiratory: Chest Non Tender, Lungs Clear, Normal Breath Sounds, No Accessory Muscle Use, No Respiratory Distress Cardiovascular: Regular Rate, Rhythm, No Edema, No Gallop, No JVD, No Murmur, Normal Peripheral Pulses Gastrointestinal: Normal Bowel Sounds, No Organomegaly, No Pulsatile Mass, Non Tender, Soft Back: Normal Inspection, No CVA Tenderness, No Vertebral Tenderness Extremity: Normal Capillary Refill, Normal Inspection, Normal Range of Motion (except left side), Non Tender, No Calf Tenderness, No Pedal Edema Neurologic/Psychiatric: Alert, Oriented x3, Normal Mood/Affect, 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 FIM Transfers Therapy Code Descriptions/Definitions Functional [place] Measure: 0=Not Assessed/NA 4=Minimal Assistance 1=Total Assistance 5=Supervision or Setup 2=Maximal Assistance 6=Modified [place] 3=Moderate Assistance 7=Complete IndependenceSCALE: Activities may be completed with or without assistive devices. 9-Upoekbiien-eenztzr completes the activity by him/herself with no assistance from a helper. 5-Set-up or Clean-up Assistance-helper sets up or cleans up; patient completes activity. [place] assists only prior to or following the activity. 4-Supervision or Touching Assistance-helper provides verbal cues and/or touching/steadying and/or contact guard assistance as patient completes activity. Assistance may be provided throughout the activity or intermittently. 3-Partial/Moderate Assistance-helper does LESS THAN HALF the effort. [place] lifts, holds or supports trunk or limbs, but provides less than half the effort. 2-Substantial/Maximal Assistance-helper does MORE THAN HALF the effort. [place] lifts or holds trunk or limbs and provides more than half the effort. 7-Xfslqkpza-ytkmau does ALL the effort. Patient does none of the effort to complete the activity. Or, the assistance of 2 or more helpers is required for the patient to complete the activity. If activity was not attempted, code reason: 7-Patient Refused. 9-Not Applicable-not attempted and the patient did not perform the activity before the current illness, exacerbation or injury. 10-Not Attempted due to Environmental Limitations-(lack of equipment, weather restraints, etc.). 88-Not Attempted due to Medical Conditions or Safety Concerns. Roll Left to Right (QC): 6 Sit to Lying (QC): 4 Sit to Stand (QC): 4 Chair/Jmo-pw-Numed Xfer(QC): 4 Car Transfer (QC): 2 Gait Training Does the Patient Walk?: Yes Distance: 200' Walk 10 feet (QC): 4 Walk 50 ft with 2 Turns(QC): 4 Walk 150 ft (QC): 4 Walking 10ft/uneven surface-QC: 88 Gait Persons Needed: 1 Gait Assistive Device: FWW Wheelchair Training Does the Pt Use a Wheelchair?: Yes Wheel 50 ft with 2 turns (QC): 4 Wheel 150 ft (QC): 4 Type of Wheelchair: Manual Stair Training 1 Step (curb) (QC): 88 (not safe to perform due to Poor balance and diminished coordination) 4 Steps (QC): 88 12 Steps (QC): 88 Balance Picking up an Object (QC): 88 ADL-Treatment Eating (QC): 5 Oral Hygiene (QC): 5 Bathing Location: L Arm, R Arm, L Upper Leg, R Upper Leg, Chest, Abdomen Shower/Bathe Self (QC): 4 Upper Body Dressing (QC): 3 (min assist with buttons) Lower Body Dressing (QC): 3 (mod assist) On/Off Footwear (QC): 1 (due to time (leaving room for stat x-ray) and pain) Toileting Hygiene (QC): 3 Toilet Transfer (QC): 4 Assessment/Plan Assessment and Plan Assess & Plan/Chief Complaint Assessment: CVA with left-sided weakness Bilateral carotid stenosis Hypertension Hyperlipidemia History of TIA Advanced age Depression hx Suicidal ideation reported by family but no acute issues CKD Acute kidney injury creatinine 2.2 due to volume depletion status post IV fluids on 07/29/2022 Hemorrhoid flare up 07/31/20 Dry nasal passageways ordered saline nasal spray Plan: Supportive care Monitor closely Aggressive rehab 07/25/2022: Monitor closely 07/26/2022: Supportive care Monitor closely 07/27/2022: Supportive care Fall risk 07/28/2022: Supportive care Consult Dr. CHRISTIE Clear liquid diet MiraLAX and lactulose and senna 07/29/22: IVF Monitor closely 07/30/2022: Saline nasal spray Status post IV fluid 07/31/2022: Hemorrhoid cream 08/01/2022: Monitor closely 08/02/2022: Continue aggressive physical therapy (1) Acute cerebrovascular accident Assessment & Plan: He had a cerebrovascular accident that involved multiple vascular territories as noted on his MRI of the brain. This raises a concern for possible underlying atrial fibrillation. There has not been any evidence of atrial fibrillation on telemetry. He is currently receiving aspirin and clopidogrel in addition to intensive dose statin medication. Once he is ready for discharge, I will plan on an external shoe parts molder. I have ordered this through the office. If he is discharged on the weekend, he will need to come back to the hospital to get the monitor at a later point in time. These external monitors are an outpatient test and cannot be placed while the patient is on inpatient status. If this external monitor does not show atrial fibrillation, he may need an implantable loop recorder following discharge. Additionally, he has significant bilateral carotid disease, worse on the left. Unclear whether or not this may have had anything to do with his stroke. He will ultimately need evaluation by vascular surgery but this can be done as an outpatient after he completely recovers from the stroke. 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 He is not on any AV jalil blocking agents and his TSH level was normal. I recommend we just continue the patient on telemetry monitoring for the time being. We can also evaluate this with the external monitor that we will be coordinating following discharge. (3) Bilateral carotid artery stenosis Status: Acute Assessment & Plan: As above, he has significant bilateral carotid stenosis. I recommend he continue on aspirin, clopidogrel, and intensive dose statin medication in light of the stroke. Since neither side is critically stenosed it is often preferable to wait for a patient to recover from an acute stroke before performing any sort of carotid intervention. (4) Primary hypertension Assessment & Plan: His blood pressures had been running somewhat high but are improved but then improved. He should continue the present combination of antihypertensive medication. (5) Mixed hyperlipidemia Assessment & Plan: Continue intensive dose statin medication in light of the stroke. NEHEMIAH CHAMORRO DO Aug 02, 2022 06:18
[2022-08-02 06:19] LABS: BASOPHILS % (AUTO) 1 % (0-10); EOSINOPHILS # (AUTO) 0.3 10^3/uL (0.0-0.3); EOSINOPHILS % (AUTO) 4 % (0-10); HEMATOCRIT 36 % (40-54); HEMOGLOBIN 11.6 g/dL (13.3-17.7); LYMPHOCYTES # (AUTO) 2.3 10^3/uL (1.0-4.0); LYMPHOCYTES % (AUTO) 34 % (12-44); MEAN CORPUSCULAR HEMOGLOBIN 30 pg (25-34); MEAN CORPUSCULAR HGB CONC 32 g/dL (32-36); MEAN CORPUSCULAR VOLUME 91 fL (80-99); MEAN PLATELET VOLUME 11.4 fL (9.0-12.2); MONOCYTES # (AUTO) 0.7 10^3/uL (0.0-1.0); MONOCYTES % (AUTO) 11 % (0-12); NEUTROPHILS # (AUTO) 3.5 10^3/uL (1.8-7.8); NEUTROPHILS % (AUTO) 50 % (42-75); PLATELET COUNT 224 10^3/uL (130-400); WHITE BLOOD COUNT 6.9 10^3/uL (4.3-11.0)
[2022-08-02 06:36] LABS: ALBUMIN 3.3 GM/DL (3.2-4.5); BILIRUBIN,TOTAL 0.9 MG/DL (0.1-1.0); CALCIUM 8.6 MG/DL (8.5-10.1); CREATININE SERUM 1.3 MG/DL (0.60-1.30); POTASSIUM 4.2 MMOL/L (3.6-5.0); TOTAL PROTEIN 5.9 GM/DL (6.4-8.2)
[2022-08-02 07:32] VITALS: BP 132/73
--- NOTE | 2022-08-02 08:28 | Occupational Ther Daily Note ---
OT Current Status-Daily Note Subjective Pt denies pain, agreeable to shower. Appearance Pt left sitting in recliner, all needs within reach at OT departure. Mental Status/Objective Patient Orientation: Person, Place, Situation Attachments: IV ADL-Treatment Therapy Code Descriptions/Definitions Functional [place] Measure: 0=Not Assessed/NA 4=Minimal Assistance 1=Total Assistance 5=Supervision or Setup 2=Maximal Assistance 6=Modified [place] 3=Moderate Assistance 7=Complete IndependenceSCALE: Activities may be completed with or without assistive devices. 5-Wpxupnfetj-zraranp completes the activity by him/herself with no assistance from a helper. 5-Set-up or Clean-up Assistance-helper sets up or cleans up; patient completes activity. [place] assists only prior to or following the activity. 4-Supervision or Touching Assistance-helper provides verbal cues and/or touching/steadying and/or contact guard assistance as patient completes activity. Assistance may be provided throughout the activity or intermittently. 3-Partial/Moderate Assistance-helper does LESS THAN HALF the effort. [place] lifts, holds or supports trunk or limbs, but provides less than half the effort. 2-Substantial/Maximal Assistance-helper does MORE THAN HALF the effort. [place] lifts or holds trunk or limbs and provides more than half the effort. 4-Jmnelerba-ufqsig does ALL the effort. Patient does none of the effort to complete the activity. Or, the assistance of 2 or more helpers is required for the patient to complete the activity. If activity was not attempted, code reason: 7-Patient Refused. 9-Not Applicable-not attempted and the patient did not perform the activity before the current illness, exacerbation or injury. 10-Not Attempted due to Environmental Limitations-(lack of equipment, weather restraints, etc.). 88-Not Attempted due to Medical Conditions or Safety Concerns. Eating (QC): 5 Oral Hygiene (QC): 5 Shower/Bathe Self (QC): 4 Upper Body Dressing (QC): 5 Lower Body Dressing (QC): 4 On/Off Footwear: 5 Toileting Hygiene (QC): 4 Toilet Transfer (QC): 4 Shower performed; majority completed in sitting. Pt stood only briefly to wash agnes area/buttocks with CGA for safety. 1 cue to return to sitting when washing LE's. Pt able to reach/wash all body parts without physical assistance. Clothing donned seated on shower bench. Extra time to thread feet, no LOB in sitting this date. Again, CGA-min a for standing balance as he stood to manage clothing over hips and to buckle belt. With prolonged standing, pt sinks further into knee flexion. Able to correct post cues. Pt requesting to sit to complete shaving and oral care. Encouragement to attempt oral care in standing next session. Other Treatment Pt participated in standing coordination activity with BUE's. Improved coordination and AROM notable with LUE. CGA-Min a needed for standing balance when removing single UE support from walker. Pt does have tendency to sink into knee flexion with prolonged standing. Able to correct post cues but unable to sustain/self correct throughout session. Education OT Patient Education: Correct positioning, Energy conservation, Modified ADL techniques, Progress toward Goal/Update tx plan, Purpose of tx/functional activities, Rehab process, Safety issues, Transfer techniques Teaching Recipient: Patient Teaching Methods: Demonstration, Discussion Response to Teaching: Verbalize Understanding, Return Demonstration, Re inforcement Needed OT Short Term Goals Short Term Goals Time Frame: Aug 06, 2022 Eatin Oral hygiene: 5 Toileting hygiene: 3 Shower/bathe self: 3 Upper body dressin Lower body dressin Putting on/taking off footwear: 4 OT Dewaxer Goals Dewaxer Goals Time Frame: Aug 13, 2022 Acute change in mental status: 0 Inattention: 0 Disorganized thinkin Altered level of consciousness: 0 Eating (QC): 6 Oral Hygiene (QC): 6 Toileting Hygiene (QC): 5 Shower/Bathe Self (QC): 5 Upper Body Dressing (QC): 5 Lower Body Dressing (QC): 5 On/Off Footwear (QC): 6 Additional Goals: 1-Demonstrate ADL Tasks, 2-Verbalize Understanding, 3-Improve Strength/Brit 1=Demonstrate adherence to instructed precautions during ADL tasks. 2=Patient will verbalize/demonstrate understanding of assistive devices/modifications for ADL. 3=Patient will improve strength/tolerance for activity to enable patient to pe rform ADL's. OT Education/Plan Problem List/Assessment Assessment: Decreased Activ Tolerance, Decreased Safety Aware, Decreased UE Strength, Impaired Funct Balance, Impaired I ADL's, Impaired Self-Care Skills Discharge Recommendations Plan/Recommendations: Continue POC Treatment Plan/Plan of Care Treatment,Training & Education: Yes Patient would benefit from OT for education, treatment and training to promote independence in ADL's, mobility, safety and/or upper extremity function for ADL's. Plan of Care: ADL Retraining, Caregiver Training, Functional Mobility, Group Exercise/Act as Ind, UE Funct Exercise/Act, UE Neuromus Re-Ed/Coord, W/C Management Training Treatment Duration: Aug 13, 2022 Frequency: At least 5 of 7 days/Wk (IRF) Estimated Hrs Per Day: 1.5 hours per day (75-90 min/day) Agreement: Yes Rehab Potential: Good Time Start Time: 07:20 Stop Time: 08:50 DATE: Aug 02, 2022 Total Time Billed (hr/min): 90 Billed Treatment Time 1 visit ADL x5 (75 min) FA (15 min) Taylor Rinaldi OT Aug 02, 2022 08:28
[2022-08-02] MEDS: polyethylene glycoL POWDER 17 GM (MIRALAX) PACK PO SCH ×2 (08:32→19:47)
[2022-08-02] MEDS: LACTULOSE SYRUP 10GM/15ML (ENULOSE) 30ML UDC PO SCH ×3 (09:37→20:13)
[2022-08-02] MEDS: DOCUSATE SODIUM 100 MG (COLACE) CAP PO SCH ×3 (09:39→20:12)
[2022-08-02] MEDS: DICLOFENAC 1% GEL 100 GM (VOLTAREN) TUBE TOP SCH ×4 (09:39→20:14)
[2022-08-02] MEDS: SALINE NASAL SPRAY (OCEAN) 45 ML BTL SCH ×4 (09:39→20:07)
[2022-08-02] MEDS: CLOPIDOGREL 75 MG (PLAVIX) TABLET PO SCH (09:39)
[2022-08-02] MEDS: ASPIRIN 81 MG CHEW (CHILDREN'S ASA) PO SCH (09:39)
[2022-08-02] MEDS: lisINopril 10 MG (PRINIVIL) TABLET PO SCH (09:39)
[2022-08-02] MEDS: GABAPENTIN 300 MG (NEURONTIN) CAP PO SCH ×2 (09:39→20:04)
[2022-08-02] MEDS: TAMSULOSIN 0.4 MG (FLOMAX) CAP PO SCH ×2 (09:39→20:04)
[2022-08-02] MEDS: SENNA W/DOCUSATE (SENOKOT S) TABLET PO SCH ×3 (09:39→20:12)
--- NOTE | 2022-08-02 10:03 | Progress Note ---
YONY VILLASENOR 08/02/22 1003: Progress Note S: 87-year-old male who presented to the ARU s/p CVA with L-sided weakness. Patient is awake and alert this morning seen while preparing to shave. Patient reports that therapy is going well and that his weakness is improving. His hemorrhoids have improved and are not currently causing any symptoms. The patien t reports that he is having BMs regularly. Patient has no new complaints, states he is doing well overall. O: VS: T 36.7, HR 103, RR 20, BP 115/73, SpO2 95% RA PE: -Cardiovascular: HRRR -Pulmonary: LCTAB Labs: Hg 11.6 (11.8 on 07/30), BUN 22 (34 on 07/30), Cr 1.30 (1.64 on 07/30) KUB 07/28: FINDINGS: The minimally visualized lung bases are clear. Small amount of gas and stool within the colon. No abnormally dilated loops of small bowel. No free air. Scattered osseous degenerative changes without acute osseous abnormality. IMPRESSION: Nonobstructive bowel gas pattern without free air. A/P: 1. L-sided weakness s/p CVA; continue PT/OT 2. Continue Lovenox inj, ASA, and clopidogrel therapy for DVT prophylaxis and cardiovascular/neuro protection 3. Hyperbilirubinemia - improved after initial reading, continue to monitor 4. Urinary retention - improved, continue flomax 5. KEYSHAWN likely due to dehydration - BUN and Cr continue to improve, encourage patient to hydrate 6. Dehydration/hypotension - improved, encourage patient to continue hydrating 7. Hemmorhoids - chronic issue, hydrocortisone cream as needed 8. Anemia - mild, probably dilutional, monitor Hg ATIYA BALDWIN DO 08/03/22 0514: Supervisory-Addendum Brief Verification & Attestation Participated in pt care: history, MDM, physical Personally performed: exam, history, MDM, supervision of care Care discussed with: Medical Student Procedures: n/a Results interpretation: Verified all documentation Verification and Attestation of Medical Student E/M Service A medical student performed and documented this service in my presence. I reviewed and verified all information documented by the medical student and made modifications to such information, when appropriate. I personally performed the physical exam and medical decision making. Atiya Baldwin, Aug 03, 2022,05:14 YONY VILLASENOR Aug 02, 2022 10:03 ATIYA BALDWIN DO Aug 03, 2022 05:14
--- NOTE | 2022-08-02 10:29 | Physical Therapy Daily Note ---
PT Daily Note-Current Subjective Patient in recliner pre-tx, reports no pain, agrees to PT. Pain Section J - Health Conditions 1. Rarely or not at all 2. Occasionally 3. Frequently 4. Almost constantly 8. Unable to answer Pain Effect on Sleep: 1 Pain Interference with Therapy: 1 Pain Interference w/Day-to-Day: 1 Appearance Patient in recliner post-tx with nurse call, phone, tray, all needs met. Mental Status Patient Orientation: Person, Place, Situation Transfers SCALE: Activities may be completed with or without assistive devices. 3-Ytycmujjok-dwqceoe completes the activity by him/herself with no assistance from a helper. 5-Set-up or Clean-up Assistance-helper sets up or cleans up; patient completes activity. [place] assists only prior to or following the activity. 4-Supervision or Touching Assistance-helper provides verbal cues and/or touching/steadying and/or contact guard assistance as patient completes activity. Assistance may be provided throughout the activity or intermittently. 3-Partial/Moderate Assistance-helper does LESS THAN HALF the effort. [place] lifts, holds or supports trunk or limbs, but provides less than half the effort. 2-Substantial/Maximal Assistance-helper does MORE THAN HALF the effort. [place] lifts or holds trunk or limbs and provides more than half the effort. 0-Toaeeynci-ikneqi does ALL the effort. Patient does none of the effort to complete the activity. Or, the assistance of 2 or more helpers is required for the patient to complete the activity. If activity was not attempted, code reason: 7-Patient Refused. 9-Not Applicable-not attempted and the patient did not perform the activity before the current illness, exacerbation or injury. 10-Not Attempted due to Environmental Limitations-(lack of equipment, weather restraints, etc.). 88-Not Attempted due to Medical Conditions or Safety Concerns. Sit to Stand (QC): 4 Chair/Fug-uu-Yuijp Xfer(QC): 4 SBA Weight Bearing Right Lower Extremity: Right Full Weight Bearing Left Lower Extremity: Left Full Weight Bearing Gait Training Does the Patient Walk?: Yes Distance: 125', 125' Walk 10 feet (QC): 4 Walk 50 ft with 2 Turns(QC): 4 Gait Persons Needed: 1 Gait Assistive Device: FWW SBA with most ambulation except at end of treatment today, CGA walking back to room because patient reported feeling fatigued and like L knee could give out. Otherwise patient walks with good gait speed, good foot clearance, and good step length. Exercises Seated Therapy Exercises: Long arc quads, Hip abd/add (adduct using red ball between legs and manual resistance for abd) Seated Reps: 20 Standing: Hip Abduction (10 reps), Heel/toe raises, Marching, Sit to Stand (10 reps), Side steps, Step-ups Standing Reps: 20 SLR in sitting x20 reps NuStep Minutes: 15 NuStep Workload: 6 Assessment Current Status: Fair Progress Patient telemetry hooked up pre-tx by PT. Patient began to fatigue towards end, so more frequent breaks were given. Patient strength, endurance, and balance continue to increase. PT Short Term Goals Short Term Goals Time Frame: Aug 11, 2022 Roll Left & Right: 4 Sit to lyin Lying to sitting on side of be: 4 Sit to stand: 4 Chair/wgv-yt-ywgni transfer: 4 Toilet transfer: 4 Car transfer: 4 Walk 10 feet: 3 Walk 50 feet with two turns: 3 Walk 150 feet: 3 Walking 10ft on uneven surface: 3 1 step (curb): 3 PT Decorating Machine Operator Goals Skilled Nursing Goals PT Skilled Nursing Goals Time Frame: Aug 28, 2022 Roll Left & Right (QC): 6 Sit to Lying (QC): 6 Lying-Sitting on Side/Bed(QC): 6 Sit to Stand (QC): 6 Chair/Hbj-cr-Odwwy Xfer(QC): 6 Toilet Transfer (QC): 6 Car Transfer (QC): 6 Does the Patient Walk: Yes Walk 10 feet (QC): 5 Walk 50ft with 2 Turns (QC): 5 Walk 150 ft (QC): 5 Walking 10ft on Uneven Surface: 5 1 Step (curb) (QC): 4 4 Steps (QC): 4 12 Steps (QC): 4 Picking up an Object (QC): 4 Wheel 50 feet with 2 turns (QC: 9 Wheel 150 feet: 9 PT Plan Problem List Problem List: Activity Tolerance, Functional Strength, Safety, Balance, Gait, Transfer, Bed Mobility, ROM Treatment/Plan Treatment Plan: Continue Plan of Care Treatment Plan: Bed Mobility, Concurrent Therapy, Education, Functional Activity Brit, Functional Strength, Group Therapy, Gait, Safety, Therapeutic Exercise, Transfers Treatment Duration: Aug 28, 2022 Frequency: At least 5 of 7 days/Wk (IRF) Estimated Hrs Per Day: 1.5 hours per day Patient and/or Family Agrees t: Yes Safety Risks/Education Patient Education: Gait Training, Transfer Techniques, Steps, Correct Positioning, Safety Issues Teaching Recipient: Patient Teaching Methods: Demonstration, Discussion Response to Teaching: Reinforcement Needed Time Time In: 0900 Time Out: 1030 DATE: Aug 02, 2022 Total Billed Treatment Time: 90 Total Billed Treatment 1 visit FA x2 (30min EX x4 (60') BENNETT GONZALEZ PT Aug 02, 2022 10:28
[2022-08-02] MEDS: ENOXAPARIN 40 MG/0.4 ML (LOVENOX) SYR SC SCH (13:55)
[2022-08-02] MEDS: GABAPENTIN 100 MG (NEURONTIN) CAP PO SCH (14:00)
[2022-08-02] MEDS: clonazePAM 0.5 MG (KlonoPIN) TAB PO SCH (20:04)
[2022-08-02] MEDS: amLODIPine 5 MG (NORVASC) TAB PO SCH (20:04)
[2022-08-02 20:29] VITALS: BP 122/65
--- NOTE | 2022-08-03 06:25 | PM&R Progress Note ---
Subjective HPI/CC On Admission Date Seen by Provider: Aug 03, 2022 Time Seen by Provider: 08:30 Subjective/Events-last exam 08/03/2022: Doing well Bowels are loose BP 145/75 Gabapentin will be changed to exactly how he takes it at home 08/02/2022: Patient having no new problems Walking with therapy No pain is reported Normal sinus rhythm on telemetry Allevyn on coccyx Bowels are moving 08/01/2022: No major issues No pain reported Improved status Hemorrhoids improved 07/31/2022: Patient doing well Needs hemorrhoid cream so ordered that Feet were very cold last night Using saline nasal spray 07/30/2022: Patient doing really well IV fluids really helped him Hep-Lock now In a good mood Saline nasal spray will be ordered as he requested 07/29/2022: Patient doing fairly well IVF initiated for hypotension Diarrhea likely has volume depleted him Appreciate Yisel Duarte and Rivera 07/28/2022: Patient doing well after in/out cath He does have urinary retention when he is constipated Will initiate soapsuds enema if needed along with lactulose and senna KUB showed dilated loops of bowel so in case this is an ileus we will initiate clear liquid diet 07/27/2022: Patient doing well No pain is reported Eating and drinking well Moving left arm a bit more 07/26/2022: Patient doing well Bowels moved yesterday Took a shower today with therapy Moving left arm a bit 07/25/2022: Much improved status Left sided weakness remains Suicidal ideation reported by family at times but none that RN notes Monitoring closely Labs stable EGD postponed until stable Review of Systems General: Fatigue, Malaise Neurological: Weakness Objective Exam Vital Signs Vital Signs Date Time Temp Pulse Resp B/P (MAP) Pulse Ox O2 Delivery O2 Flow Rate FiO2 08/03/22 21:00 Room Air 08/03/22 19:40 36.1 67 20 114/64 (81) 96 Capillary Refill : General Appearance: No Apparent Distress, WD/WN, Chronically ill HEENT: PERRL/EOMI, Normal ENT Inspection, Pharynx Normal Neck: Full Range of Motion, Normal Inspection, Non Tender, Supple, Carotid Bruit Respiratory: Chest Non Tender, Lungs Clear, Normal Breath Sounds, No Accessory Muscle Use, No Respiratory Distress Cardiovascular: Regular Rate, Rhythm, No Edema, No Gallop, No JVD, No Murmur, Normal Peripheral Pulses Gastrointestinal: Normal Bowel Sounds, No Organomegaly, No Pulsatile Mass, Non Tender, Soft Back: Normal Inspection, No CVA Tenderness, No Vertebral Tenderness Extremity: Normal Capillary Refill, Normal Inspection, Normal Range of Motion (except left side), Non Tender, No Calf Tenderness, No Pedal Edema Neurologic/Psychiatric: Alert, Oriented x3, Normal Mood/Affect, pressure sealer and tester II-XII Norm as Tested, Abnormal Gait, Motor Weakness (left sided weakness 1/5) Skin: Normal Color, Warm/Dry Lymphatic: No Adenopathy Results/Procedures Lab Patient resulted labs reviewed. FIM Transfers Therapy Code Descriptions/Definitions Functional [place] Measure: 0=Not Assessed/NA 4=Minimal Assistance 1=Total Assistance 5=Supervision or Setup 2=Maximal Assistance 6=Modified [place] 3=Moderate Assistance 7=Complete IndependenceSCALE: Activities may be completed with or without assistive devices. 5-Cqubpnfvlm-gwknbzl completes the activity by him/herself with no assistance from a helper. 5-Set-up or Clean-up Assistance-helper sets up or cleans up; patient completes activity. [place] assists only prior to or following the activity. 4-Supervision or Touching Assistance-helper provides verbal cues and/or touching/steadying and/or contact guard assistance as patient completes activity. Assistance may be provided throughout the activity or intermittently. 3-Partial/Moderate Assistance-helper does LESS THAN HALF the effort. [place] lifts, holds or supports trunk or limbs, but provides less than half the effort. 2-Substantial/Maximal Assistance-helper does MORE THAN HALF the effort. [place] lifts or holds trunk or limbs and provides more than half the effort. 6-Mduzginfn-ztevfn does ALL the effort. Patient does none of the effort to complete the activity. Or, the assistance of 2 or more helpers is required for the patient to complete the activity. If activity was not attempted, code reason: 7-Patient Refused. 9-Not Applicable-not attempted and the patient did not perform the activity before the current illness, exacerbation or injury. 10-Not Attempted due to Environmental Limitations-(lack of equipment, weather restraints, etc.). 88-Not Attempted due to Medical Conditions or Safety Concerns. Roll Left to Right (QC): 6 Sit to Lying (QC): 4 Sit to Stand (QC): 4 Chair/Mec-lj-Yduex Xfer(QC): 4 Car Transfer (QC): 2 Gait Training Does the Patient Walk?: Yes Distance: 125', 125' Walk 10 feet (QC): 4 Walk 50 ft with 2 Turns(QC): 4 Walk 150 ft (QC): 4 Walking 10ft/uneven surface-QC: 88 Gait Persons Needed: 1 Gait Assistive Device: FWW Wheelchair Training Does the Pt Use a Wheelchair?: Yes Wheel 50 ft with 2 turns (QC): 4 Wheel 150 ft (QC): 4 Type of Wheelchair: Manual Stair Training 1 Step (curb) (QC): 88 (not safe to perform due to Poor balance and diminished coordination) 4 Steps (QC): 88 12 Steps (QC): 88 Balance Picking up an Object (QC): 88 ADL-Treatment Eating (QC): 5 Oral Hygiene (QC): 5 Bathing Location: L Arm, R Arm, L Upper Leg, R Upper Leg, Chest, Abdomen Shower/Bathe Self (QC): 4 Upper Body Dressing (QC): 5 Lower Body Dressing (QC): 4 On/Off Footwear (QC): 5 Toileting Hygiene (QC): 4 Toilet Transfer (QC): 4 Assessment/Plan Assessment and Plan Assess & Plan/Chief Complaint Assessment: CVA with left-sided weakness Bilateral carotid stenosis Hypertension Hyperlipidemia History of TIA Advanced age Depression hx Suicidal ideation reported by family but no acute issues CKD Acute kidney injury creatinine 2.2 due to volume depletion status post IV fluids on 07/29/2022 Hemorrhoid flare up 07/31/20 Dry nasal passageways ordered saline nasal spray Plan: Supportive care Monitor closely Aggressive rehab 07/25/2022: Monitor closely 07/26/2022: Supportive care Monitor closely 07/27/2022: Supportive care Fall risk 07/28/2022: Supportive care Consult Dr. CHRISTIE Clear liquid diet MiraLAX and lactulose and senna 07/29/22: IVF Monitor closely 07/30/2022: Saline nasal spray Status post IV fluid 07/31/2022: Hemorrhoid cream 08/01/2022: Monitor closely 08/02/2022: Continue aggressive physical therapy 08/03/2022: Change gabapentin (1) Acute cerebrovascular accident Assessment & Plan: He had a cerebrovascular accident that involved multiple vascular territories as noted on his MRI of the brain. This raises a concern for possible underlying atrial fibrillation. There has not been any evidence of atrial fibrillation on telemetry. He is currently receiving aspirin and clopidogrel in addition to intensive dose statin medication. Once he is ready for discharge, I will plan on an external monitor technician. I have ordered this through the office. If he is discharged on the weekend, he will need to come back to the hospital to get the monitor at a later point in time. These external monitors are an outpatient test and cannot be placed while the patient is on inpatient status. If this external monitor does not show atrial fib rillation, he may need an implantable loop recorder following discharge. Additionally, he has significant bilateral carotid disease, worse on the left. Unclear whether or not this may have had anything to do with his stroke. He will ultimately need evaluation by vascular surgery but this can be done as an outpatient after he completely recovers from the stroke. 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 He is not on any AV jalil blocking agents and his TSH level was normal. I recommend we just continue the patient on telemetry monitoring for the time being. We can also evaluate this with the external monitor that we will be coordinating following discharge. (3) Bilateral carotid artery stenosis Status: Acute Assessment & Plan: As above, he has significant bilateral carotid stenosis. I recommend he continue on aspirin, clopidogrel, and intensive dose statin medication in light of the stroke. Since neither side is critically stenosed it is often preferable to wait for a patient to recover from an acute stroke before performing any sort of carotid intervention. (4) Primary hypertension Assessment & Plan: His blood pressures had been running somewhat high but are improved but then improved. He should continue the present combination of antihypertensive medication. (5) Mixed hyperlipidemia Assessment & Plan: Continue intensive dose statin medication in light of the stroke. NEHEMIAH CHAMORRO DO Aug 03, 2022 06:25
[2022-08-03] MEDS: DOCUSATE SODIUM 100 MG (COLACE) CAP PO SCH ×2 (07:41→21:58)
[2022-08-03] MEDS: LACTULOSE SYRUP 10GM/15ML (ENULOSE) 30ML UDC PO SCH ×2 (07:41→21:58)
[2022-08-03 07:42] VITALS: BP 145/75
[2022-08-03] MEDS: polyethylene glycoL POWDER 17 GM (MIRALAX) PACK PO SCH ×2 (07:43→21:58)
[2022-08-03] MEDS: SENNA W/DOCUSATE (SENOKOT S) TABLET PO SCH ×2 (07:43→21:58)
--- NOTE | 2022-08-03 08:40 | Occupational Ther Daily Note ---
OT Current Status-Daily Note Subjective Pt denies pain, agreeable to treatment. Appearance Pt left sitting in recliner, all needs within reach at OT departure. Mental Status/Objective Patient Orientation: Person, Place, Situation Attachments: IV ADL-Treatment Therapy Code Descriptions/Definitions Functional [place] Measure: 0=Not Assessed/NA 4=Minimal Assistance 1=Total Assistance 5=Supervision or Setup 2=Maximal Assistance 6=Modified [place] 3=Moderate Assistance 7=Complete IndependenceSCALE: Activities may be completed with or without assistive devices. 1-Pxbhbibgcq-npmebyq completes the activity by him/herself with no assistance from a helper. 5-Set-up or Clean-up Assistance-helper sets up or cleans up; patient completes activity. [place] assists only prior to or following the activity. 4-Supervision or Touching Assistance-helper provides verbal cues and/or touching/steadying and/or contact guard assistance as patient completes activity. Assistance may be provided throughout the activity or intermittently. 3-Partial/Moderate Assistance-helper does LESS THAN HALF the effort. [place] lifts, holds or supports trunk or limbs, but provides less than half the effort. 2-Substantial/Maximal Assistance-helper does MORE THAN HALF the effort. [place] lifts or holds trunk or limbs and provides more than half the effort. 1-Ibevptljd-ghasdj does ALL the effort. Patient does none of the effort to complete the activity. Or, the assistance of 2 or more helpers is required for the patient to complete the activity. If activity was not attempted, code reason: 7-Patient Refused. 9-Not Applicable-not attempted and the patient did not perform the activity before the current illness, exacerbation or injury. 10-Not Attempted due to Environmental Limitations-(lack of equipment, weather restraints, etc.). 88-Not Attempted due to Medical Conditions or Safety Concerns. Oral Hygiene (QC): 4 (Decrease in score secondary to being completed in standing vs sitting) Upper Body Dressing (QC): 5 Lower Body Dressing (QC): 4 On/Off Footwear: 5 Toileting Hygiene (QC): 4 Toilet Transfer (QC): 4 Toilet transfer x2 during session. CGA for safety as he stands for clothing management pre/post toileting. Pt encouraged to stand to complete grooming tasks this date. When given enough time, pt able to self correct posture ~50% of the time. With extended standing, pt does sink further into knee flexion with slight lateral left lean this date. CGA required while at sink. Post task, pt ambulating back to room when L knee shirley, needing mod a to maintain upright posture. Clothing donned seated on bed. Assist only for steadying when standing to pull pants over hips. Other Treatment While in therapy gym, pt participated in several activities with goal to improve UE strength, ROM, endurance, core strength, balance, and coordination. Pt passed small ball around back, neck and each LE. 3# wrist weights donned to BUE's for added strengthening component. Extra time for shoulder extension/internal rotation when reaching posteriorly with LUE but no tactile assist required. Pt also lifted medium sized yoga ball overhead, 3x10 with rest break between each set. Leg press 3x10 with LLE; heavy focus on improving strength in LE's needed for standing balance during ADLs. Pt tolerates activity well but is extremely fatigued at end of session. Education OT Patient Education: Correct positioning, Energy conservation, Exercise program, Modified ADL techniques, Progress toward Goal/Update tx plan, Purpose of tx/functional activities, Rehab process, Safety issues, Transfer techniques, W/C management Teaching Recipient: Patient Teaching Methods: Demonstration, Discussion Response to Teaching: Verbalize Understanding, Return Demonstration, Reinforcement Needed OT Short Term Goals Short Term Goals Time Frame: Aug 06, 2022 Eatin Oral hygiene: 5 Toileting hygiene: 3 Shower/bathe self: 3 Upper body dressin Lower body dressin Putting on/taking off footwear: 4 OT Dispatch Machine Runner Goals Dispatch Machine Runner Goals Time Frame: Aug 13, 2022 Acute change in mental status: 0 Inattention: 0 Disorganized thinkin Altered level of consciousness: 0 Eating (QC): 6 Oral Hygiene (QC): 6 Toileting Hygiene (QC): 5 Shower/Bathe Self (QC): 5 Upper Body Dressing (QC): 5 Lower Body Dressing (QC): 5 On/Off Footwear (QC): 6 Additional Goals: 1-Demonstrate ADL Tasks, 2-Verbalize Understanding, 3- ImproveStrength/Brit 1=Demonstrate adherence to instructed precautions during ADL tasks. 2=Patient will verbalize/demonstrate understanding of assistive devices/modifications for ADL. 3=Patient will improve strength/tolerance for activity to enable patient to perform ADL's. OT Education/Plan Problem List/Assessment Assessment: Decreased Activ Tolerance, Decreased Safety Aware, Decreased UE Strength, Impaired Coordination, Impaired Funct Balance, Impaired I ADL's, Impaired Self-Care Skills Discharge Recommendations Plan/Recommendations: Continue POC Therapy Discharge Recommendati: Post Acute OT Treatment Plan/Plan of Care Treatment,Training & Education: Yes Patient would benefit from OT for education, treatment and training to promote independence in ADL's, mobility, safety and/or upper extremity function for ADL's. Plan of Care: ADL Retraining, Caregiver Training, Functional Mobility, Group Exercise/Act as Ind, UE Funct Exercise/Act, UE Neuromus Re-Ed/Coord, W/C Mariana gement Training Treatment Duration: Aug 13, 2022 Frequency: At least 5 of 7 days/Wk (IRF) Estimated Hrs Per Day: 1.5 hours per day (75-90 min/day) Agreement: Yes Rehab Potential: Good Time Start Time: 07:25 Stop Time: 08:55 DATE: Aug 03, 2022 Total Time Billed (hr/min): 90 Billed Treatment Time 1 visit ADL x3 (40 min) FA x2 (30 min) EX (20 min) Taylor Rinaldi OT Aug 03, 2022 08:40
[2022-08-03] MEDS: GABAPENTIN 300 MG (NEURONTIN) CAP PO SCH ×2 (08:46→21:40)
[2022-08-03] MEDS: lisINopril 10 MG (PRINIVIL) TABLET PO SCH (08:46)
[2022-08-03] MEDS: DICLOFENAC 1% GEL 100 GM (VOLTAREN) TUBE TOP SCH ×4 (08:46→21:44)
[2022-08-03] MEDS: ASPIRIN 81 MG CHEW (CHILDREN'S ASA) PO SCH (08:46)
[2022-08-03] MEDS: SALINE NASAL SPRAY (OCEAN) 45 ML BTL SCH ×4 (08:46→21:43)
[2022-08-03] MEDS: CLOPIDOGREL 75 MG (PLAVIX) TABLET PO SCH (08:48)
[2022-08-03] MEDS: TAMSULOSIN 0.4 MG (FLOMAX) CAP PO SCH ×2 (08:48→21:40)
[2022-08-03] MEDS: GABAPENTIN 100 MG (NEURONTIN) CAP PO SCH ×2 (09:24→16:06)
--- NOTE | 2022-08-03 09:51 | Physical Therapy Daily Note ---
PT Daily Note-Current Subjective Patient in recliner pre-tx, reports no pain, agrees to PT. Pain Section J - Health Conditions 1. Rarely or not at all 2. Occasionally 3. Frequently 4. Almost constantly 8. Unable to answer Pain Effect on Sleep: 1 Pain Interference with Therapy: 1 Pain Interference w/Day-to-Day: 1 Appearance Patient in recliner post-tx with nurse call, phone, tray, all needs met. Mental Status Patient Orientation: Person, Place, Situation Transfers SCALE: Activities may be completed with or without assistive devices. 9-Pozssadwoz-kpmpocu completes the activity by him/herself with no assistance from a helper. 5-Set-up or Clean-up Assistance-helper sets up or cleans up; patient completes activity. [place] assists only prior to or following the activity. 4-Supervision or Touching Assistance-helper provides verbal cues and/or touching/steadying and/or contact guard assistance as patient completes activity. Assistance may be provided throughout the activity or intermittently. 3-Partial/Moderate Assistance-helper does LESS THAN HALF the effort. [place] lifts, holds or supports trunk or limbs, but provides less than half the effort. 2-Substantial/Maximal Assistance-helper does MORE THAN HALF the effort. [place] lifts or holds trunk or limbs and provides more than half the effort. 9-Fjjxbikay-xrltfp does ALL the effort. Patient does none of the effort to complete the activity. Or, the assistance of 2 or more helpers is required for the patient to complete the activity. If activity was not attempted, code reason: 7-Patient Refused. 9-Not Applicable-not attempted and the patient did not perform the activity before the current illness, exacerbation or injury. 10-Not Attempted due to Environmental Limitations-(lack of equipment, weather restraints, etc.). 88-Not Attempted due to Medical Conditions or Safety Concerns. Sit to Stand (QC): 4 (SBA) Chair/Zka-qi-Qrgjb Xfer(QC): 4 (SBA) Weight Bearing Right Lower Extremity: Right Full Weight Bearing Left Lower Extremity: Left Full Weight Bearing Gait Training Distance: 75'x2, 200'x2, 20'x4 Walk 10 feet (QC): 4 Walk 50 ft with 2 Turns(QC): 4 Walk 150 ft (QC): 4 Gait Persons Needed: 1 Gait Assistive Device: FWW CGA, Patient walked in parallel bars without holding on to anything to see how good balance was and it went well. Patient sometimes walks too fast and needs verbal cueing to slow down so that the walker doesn't get away from him. Treatments Gait Training, Transfers Assessment Current Status: Good Progress Patient was educated on single point cane ambulation and was able to walk with single point cane in parallel bars and then outside for 20'x4. Patient did well with single point cane after being verbally cued to walk faster and not to focus on foot placement as much. He is still a moderate fall risk though and needs somebody with him during transfers and ambulation ([place] 22/28), he also has occasional LOB mostly with turning. PT Short Term Goals Short Term Goals Time Frame: Aug 11, 2022 Roll Left & Right: 4 Sit to lyin Lying to sitting on side of be: 4 Sit to stand: 4 Chair/fda-ey-dnatr transfer: 4 Toilet transfer: 4 Car transfer: 4 Walk 10 feet: 3 Walk 50 feet with two turns: 3 Walk 150 feet: 3 Walking 10ft on uneven surface: 3 1 step (curb): 3 PT [facility] Goals Manager Core Goals PT [facility] Goals Time Frame: Aug 28, 2022 Roll Left & Right (QC): 6 Sit to Lying (QC): 6 Lying-Sitting on Side/Bed(QC): 6 Sit to Stand (QC): 6 Chair/Ijh-lh-Nkinn Xfer(QC): 6 Toilet Transfer (QC): 6 Car Transfer (QC): 6 Does the Patient Walk: Yes Walk 10 feet (QC): 5 Walk 50ft with 2 Turns (QC): 5 Walk 150 ft (QC): 5 Walking 10ft on Uneven Surface: 5 1 Step (curb) (QC): 4 4 Steps (QC): 4 12 Steps (QC): 4 Picking up an Object (QC): 4 Wheel 50 feet with 2 turns (QC: 9 Wheel 150 feet: 9 PT Plan Problem List Problem List: Activity Tolerance, Functional Strength, Safety, Balance, Gait, Transfer, Bed Mobility, ROM Treatment/Plan Treatment Plan: Continue Plan of Care Treatment Plan: Bed Mobility, Concurrent Therapy, Education, Functional Activity Brit, Functional Strength, Group Therapy, Gait, Safety, Therapeutic Exercise, Transfers Treatment Duration: Aug 28, 2022 Frequency: At least 5 of 7 days/Wk (IRF) Estimated Hrs Per Day: 1.5 hours per day Patient and/or Family Agrees t: Yes Safety Risks/Education Patient Education: Gait Training, Transfer Techniques, Correct Positioning, Safety Issues Teaching Recipient: Patient Teaching Methods: Demonstration, Discussion Response to Teaching: Reinforcement Needed Time Time In: 0900 Time Out: 1000 DATE: Aug 03, 2022 Total Billed Treatment Time: 60 Total Billed Treatment 1 visit GT x4 BENNETT GONZALEZ PT Aug 03, 2022 09:51
--- NOTE | 2022-08-03 12:56 | Physical Therapy Daily Note ---
PT Daily Note-Current Subjective Patient in recliner with family in room pre-tx, reports no pain, agrees to PT. Pain Section J - Health Conditions 1. Rarely or not at all 2. Occasionally 3. Frequently 4. Almost constantly 8. Unable to answer Pain Effect on Sleep: 1 Pain Interference with Therapy: 1 Pain Interference w/Day-to-Day: 1 Appearance Patient in recliner post-tx with family in room, nurse call, tray, phone, all needs met. Mental Status Patient Orientation: Person, Place, Situation Transfers SCALE: Activities may be completed with or without assistive devices. 5-Wdakjbired-pnibber completes the activity by him/herself with no assistance from a helper. 5-Set-up or Clean-up Assistance-helper sets up or cleans up; patient completes activity. [place] assists only prior to or following the activity. 4-Supervision or Touching Assistance-helper provides verbal cues and/or touching/steadying and/or contact guard assistance as patient completes activity. Assistance may be provided throughout the activity or intermittently. 3-Partial/Moderate Assistance-helper does LESS THAN HALF the effort. [place] lifts, holds or supports trunk or limbs, but provides less than half the effort. 2-Substantial/Maximal Assistance-helper does MORE THAN HALF the effort. [place] lifts or holds trunk or limbs and provides more than half the effort. 1-Kbfoxenuh-wmaxkp does ALL the effort. Patient does none of the effort to complete the activity. Or, the assistance of 2 or more helpers is required for the patient to complete the activity. If activity was not attempted, code reason: 7-Patient Refused. 9-Not Applicable-not attempted and the patient did not perform the activity before the current illness, exacerbation or injury. 10-Not Attempted due to Environmental Limitations-(lack of equipment, weather restraints, etc.). 88-Not Attempted due to Medical Conditions or Safety Concerns. Sit to Stand (QC): 4 Chair/Wca-xc-Ykupy Xfer(QC): 4 SBA Weight Bearing Right Lower Extremity: Right Full Weight Bearing Left Lower Extremity: Left Full Weight Bearing Gait Training Does the Patient Walk?: Yes Distance: 250'x2 Walk 10 feet (QC): 4 Walk 50 ft with 2 Turns(QC): 4 Walk 150 ft (QC): 4 Gait Persons Needed: 1 Gait Assistive Device: Cane Single Point CGA, Patient walking better with single point cane, still tends to take a wide step sometimes and gets a bit unsteady but recovers himself. Exercises Seated Therapy Exercises: Ankle pumps, Long arc quads, Hip flexion, Hip abd/add (manual resistance) Seated Reps: 20 Treatments Ambulation, LE Strengthening Assessment Current Status: Fair Progress Patient walking better with single point cane, but still needs verbal cueing to slow down and stand up straight and look ahead while walking. PT Short Term Goals Short Term Goals Time Frame: Aug 11, 2022 Roll Left & Right: 4 Sit to lyin Lying to sitting on side of be: 4 Sit to stand: 4 Chair/zuy-rr-qghsg transfer: 4 Toilet transfer: 4 Car transfer: 4 Walk 10 feet: 3 Walk 50 feet with two turns: 3 Walk 150 feet: 3 Walking 10ft on uneven surface: 3 1 step (curb): 3 PT [employer] P[employer] Inspector Goals Half-Way Goals PT [employer] P[employer] Inspector Goals Time Frame: Aug 28, 2022 Roll Left & Right (QC): 6 Sit to Lying (QC): 6 Lying-Sitting on Side/Bed(QC): 6 Sit to Stand (QC): 6 Chair/Hxp-pu-Kypzl Xfer(QC): 6 Toilet Transfer (QC): 6 Car Transfer (QC): 6 Does the Patient Walk: Yes Walk 10 feet (QC): 5 Walk 50ft with 2 Turns (QC): 5 Walk 150 ft (QC): 5 Walking 10ft on Uneven Surface: 5 1 Step (curb) (QC): 4 4 Steps (QC): 4 12 Steps (QC): 4 Picking up an Object (QC): 4 Wheel 50 feet with 2 turns (QC: 9 Wheel 150 feet: 9 PT Plan Problem List Problem List: Activity Tolerance, Functional Strength, Safety, Balance, Gait, Transfer, Bed Mobility, ROM Treatment/Plan Treatment Plan: Continue Plan of Care Treatment Plan: Bed Mobility, Concurrent Therapy, Education, Functional Activity Brit, Functional Strength, Group Therapy, Gait, Safety, Therapeutic Exercise, Transfers Treatment Duration: Aug 28, 2022 Frequency: At least 5 of 7 days/Wk (IRF) Estimated Hrs Per Day: 1.5 hours per day Patient and/or Family Agrees t: Yes Safety Risks/Education Patient Education: Gait Training, Transfer Techniques Teaching Recipient: Patient Teaching Methods: Demonstration, Discussion Response to Teaching: Reinforcement Needed Time Time In: 1230 Time Out: 1300 DATE: Aug 03, 2022 Total Billed Treatment Time: 30 Total Billed Treatment 1 visit FA 15' EX 15' BENNETT GONZALEZ PT Aug 03, 2022 12:56
[2022-08-03] MEDS: ENOXAPARIN 40 MG/0.4 ML (LOVENOX) SYR SC SCH (13:55)
[2022-08-03 19:40] VITALS: BP 114/64
[2022-08-03] MEDS: clonazePAM 0.5 MG (KlonoPIN) TAB PO SCH (21:40)
[2022-08-03] MEDS: amLODIPine 5 MG (NORVASC) TAB PO SCH (21:40)
--- NOTE | 2022-08-04 05:26 | PM&R Progress Note ---
Subjective HPI/CC On Admission Date Seen by Provider: Aug 04, 2022 Time Seen by Provider: 13:00 Subjective/Events-last exam 08/04/2022: Patient doing well DC on Tuesday had 3 new meds she picked up at [email or web address] and it appears those were sent in from upstairs admit. 08/03/2022: Doing well Bowels are loose BP 145/75 Gabapentin will be changed to exactly how he takes it at home 08/02/2022: Patient having no new problems Walking with therapy No pain is reported Normal sinus rhythm on telemetry Allevyn on coccyx Bowels are moving 08/01/2022: No major issues No pain reported Improved status Hemorrhoids improved 07/31/2022: Patient doing well Needs hemorrhoid cream so ordered that Feet were very cold last night Using saline nasal spray 07/30/2022: Patient doing really well IV fluids really helped him Hep-Lock now In a good mood Saline nasal spray will be ordered as he requested 07/29/2022: Patient doing fairly well IVF initiated for hypotension Diarrhea likely has volume depleted him Appreciate Yisel Duarte and Rivera 07/28/2022: Patient doing well after in/out cath He does have urinary retention when he is constipated Will initiate soapsuds enema if needed along with lactulose and senna KUB showed dilated loops of bowel so in case this is an ileus we will initiate clear liquid diet 07/27/2022: Patient doing well No pain is reported Eating and drinking well Moving left arm a bit more 07/26/2022: Patient doing well Bowels moved yesterday Took a shower today with therapy Moving left arm a bit 07/25/2022: Much improved status Left sided weakness remains Suicidal ideation reported by family at times but none that RN notes Monitoring closely Labs stable EGD postponed until stable Review of Systems General: Fatigue, Malaise Objective Exam Vital Signs Vital Signs Date Time Temp Pulse Resp B/P (MAP) Pulse Ox O2 Delivery O2 Flow Rate FiO2 08/04/22 13:00 75 08/04/22 08:00 Room Air 08/04/22 07:13 36.4 18 120/63 (82) 96 Capillary Refill : General Appearance: No Apparent Distress, WD/WN, Chronically ill HEENT: PERRL/EOMI, Normal ENT Inspection, Pharynx Normal Neck: Full Range of Motion, Normal Inspection, Non Tender, Supple, Carotid Bruit Respiratory: Chest Non Tender, Lungs Clear, Normal Breath Sounds, No Accessory Muscle Use, No Respiratory Distress Cardiovascular: Regular Rate, Rhythm, No Edema, No Gallop, No JVD, No Murmur, Normal Peripheral Pulses Gastrointestinal: Normal Bowel Sounds, No Organomegaly, No Pulsatile Mass, Non Tender, Soft Back: Normal Inspection, No CVA Tenderness, No Vertebral Tenderness Extremity: Normal Capillary Refill, Normal Inspection, Normal Range of Motion (except left side), Non Tender, No Calf Tenderness, No Pedal Edema Neurologic/Psychiatric: Alert, Oriented x3, Normal Mood/Affect, senior staff psychologist II-XII Norm as Tested, Abnormal Gait, Motor Weakness (left sided weakness 1/5) Skin: Normal Color, Warm/Dry Lymphatic: No Adenopathy Results/Procedures Lab Patient resulted labs reviewed. FIM Transfers Therapy Code Descriptions/Definitions Functional [place] Measure: 0=Not Assessed/NA 4=Minimal Assistance 1=Total Assistance 5=Supervision or Setup 2=Maximal Assistance 6=Modified [place] 3=Moderate Assistance 7=Complete IndependenceSCALE: Activities may be completed with or without assistive devices. 5-Cearemvqib-kusxrbw completes the activity by him/herself with no assistance from a helper. 5-Set-up or Clean-up Assistance-helper sets up or cleans up; patient completes activity. [place] assists only prior to or following the activity. 4-Supervision or Touching Assistance-helper provides verbal cues and/or touching/steadying and/or contact guard assistance as patient completes activity. Assistance may be provided throughout the activity or intermittently. 3-Partial/Moderate Assistance-helper does LESS THAN HALF the effort. [place] lifts, holds or supports trunk or limbs, but provides less than half the effort. 2-Substantial/Maximal Assistance-helper does MORE THAN HALF the effort. [place] lifts or holds trunk or limbs and provides more than half the effort. 7-Ayjudewsb-ndrkqz does ALL the effort. Patient does none of the effort to complete the activity. Or, the assistance of 2 or more helpers is required for the patient to complete the activity. If activity was not attempted, code reason: 7-Patient Refused. 9-Not Applicable-not attempted and the patient did not perform the activity before the current illness, exacerbation or injury. 10-Not Attempted due to Environmental Limitations-(lack of equipment, weather restraints, etc.). 88-Not Attempted due to Medical Conditions or Safety Concerns. Roll Left to Right (QC): 6 Sit to Lying (QC): 4 Sit to Stand (QC): 4 Chair/Tfk-dh-Cbfkk Xfer(QC): 4 Car Transfer (QC): 2 Gait Training Does the Patient Walk?: Yes Distance: 250'x2 Walk 10 feet (QC): 4 Walk 50 ft with 2 Turns(QC): 4 Walk 150 ft (QC): 4 Walking 10ft/uneven surface-QC: 88 Gait Persons Needed: 1 Gait Assistive Device: Cane Single Point Wheelchair Training Does the Pt Use a Wheelchair?: Yes Wheel 50 ft with 2 turns (QC): 4 Wheel 150 ft (QC): 4 Type of Wheelchair: Manual Stair Training 1 Step (curb) (QC): 88 (not safe to perform due to Poor balance and diminished coordination) 4 Steps (QC): 88 12 Steps (QC): 88 Balance Picking up an Object (QC): 88 ADL-Treatment Eating (QC): 5 Oral Hygiene (QC): 4 (Decrease in score secondary to being completed in standing vs sitting) Bathing Location: L Arm, R Arm, L Upper Leg, R Upper Leg, Chest, Abdomen Shower/Bathe Self (QC): 4 Upper Body Dressing (QC): 5 Lower Body Dressing (QC): 4 On/Off Footwear (QC): 5 Toileting Hygiene (QC): 4 Toilet Transfer (QC): 4 Assessment/Plan Assessment and Plan Assess & Plan/Chief Complaint Assessment: CVA with left-sided weakness Bilateral carotid stenosis Hypertension Hyperlipidemia History of TIA Advanced age Depression hx Suicidal ideation reported by family but no acute issues CKD Acute kidney injury creatinine 2.2 due to volume depletion status post IV fluids on 07/29/2022 Hemorrhoid flare up 07/31/20 Dry nasal passageways ordered saline nasal spray Plan: Supportive care Monitor closely Aggressive rehab 07/25/2022: Monitor closely 07/26/2022: Supportive care Monitor closely 07/27/2022: Supportive care Fall risk 07/28/2022: Supportive care Consult Dr. CHRISTIE Clear liquid diet MiraLAX and lactulose and senna 07/29/22: IVF Monitor closely 07/30/2022: Saline nasal spray Status post IV fluid 07/31/2022: Hemorrhoid cream 08/01/2022: Monitor closely 08/02/2022: Continue aggressive physical therapy 08/03/2022: Change gabapentin 08/04/2022: DC Tuesday (1) Acute cerebrovascular accident Assessment & Plan: He had a cerebrovascular accident that involved multiple vascular territories as noted on his MRI of the brain. This raises a concern for possible underlying atrial fibrillation. There has not been any evidence of atrial fibrillation on telemetry. He is currently receiving aspirin and clopidogrel in addition to intensive dose statin medication. Once he is ready for discharge, I will plan on an external traffic monitor specialist. I have ordered this through the office. If he is discharged on the weekend, he will need to come back to the hospital to get the monitor at a later point in time. These external monitors are an outpatient test and cannot be placed while the patient is on inpatient status. If this external monitor does not show atrial fibrillation, he may need an implantable loop recorder following discharge. Additionally, he has significant bilateral carotid disease, worse on the left. Unclear whether or not this may have had anything to do with his stroke. He will ultimately need evaluation by vascular surgery but this can be done as an outpatient after he completely recovers from the stroke. 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 He is not on any AV jalil blocking agents and his TSH level was normal. I recommend we just continue the patient on telemetry monitoring for the time being. We can also evaluate this with the external monitor that we will be coordinating following discharge. (3) Bilateral carotid artery stenosis Status: Acute Assessment & Plan: As above, he has significant bilateral carotid stenosis. I recommend he continue on aspirin, clopidogrel, and intensive dose statin medication in light of the stroke. Since neither side is critically stenosed it is often preferable to wait for a patient to recover from an acute stroke before performing any sort of carotid intervention. (4) Primary hypertension Assessment & Plan: His blood pressures had been running somewhat high but are improved but then improved. He should continue the present combination of antihypertensive medication. (5) Mixed hyperlipidemia Assessment & Plan: Continue intensive dose statin medication in light of the stroke. NEHEMIAH CHAMORRO DO Aug 04, 2022 05:25
[2022-08-04 07:13] VITALS: BP 120/63
[2022-08-04] MEDS: ASPIRIN 81 MG CHEW (CHILDREN'S ASA) PO SCH (08:10)
[2022-08-04] MEDS: TAMSULOSIN 0.4 MG (FLOMAX) CAP PO SCH ×2 (08:10→20:23)
[2022-08-04] MEDS: lisINopril 10 MG (PRINIVIL) TABLET PO SCH (08:10)
[2022-08-04] MEDS: GABAPENTIN 100 MG (NEURONTIN) CAP PO SCH ×2 (08:10→14:49)
[2022-08-04] MEDS: SALINE NASAL SPRAY (OCEAN) 45 ML BTL SCH ×5 (08:10→20:29)
[2022-08-04] MEDS: CLOPIDOGREL 75 MG (PLAVIX) TABLET PO SCH (08:10)
[2022-08-04] MEDS: DICLOFENAC 1% GEL 100 GM (VOLTAREN) TUBE TOP SCH ×4 (08:11→20:24)
[2022-08-04] MEDS: polyethylene glycoL POWDER 17 GM (MIRALAX) PACK PO SCH ×2 (08:13→20:54)
[2022-08-04] MEDS: DOCUSATE SODIUM 100 MG (COLACE) CAP PO SCH ×2 (08:13→20:23)
[2022-08-04] MEDS: LACTULOSE SYRUP 10GM/15ML (ENULOSE) 30ML UDC PO SCH ×2 (08:13→20:54)
[2022-08-04] MEDS: SENNA W/DOCUSATE (SENOKOT S) TABLET PO SCH ×2 (08:13→20:23)
--- NOTE | 2022-08-04 08:14 | Occupational Ther Daily Note ---
OT Current Status-Daily Note Subjective Pt denies pain, reports poor sleep. Appearance Pt returned to sitting in recliner, all needs within reach at OT departure. Mental Status/Objective Patient Orientation: Person, Place, Situation Attachments: IV ADL-Treatment Therapy Code Descriptions/Definitions Functional [place] Measure: 0=Not Assessed/NA 4=Minimal Assistance 1=Total Assistance 5=Supervision or Setup 2=Maximal Assistance 6=Modified [place] 3=Moderate Assistance 7=Complete IndependenceSCALE: Activities may be completed with or without assistive devices. 9-Dojolpxusu-afsslog completes the activity by him/herself with no assistance from a helper. 5-Set-up or Clean-up Assistance-helper sets up or cleans up; patient completes activity. [place] assists only prior to or following the activity. 4-Supervision or Touching Assistance-helper provides verbal cues and/or touching/steadying and/or contact guard assistance as patient completes activity. Assistance may be provided throughout the activity or intermittently. 3-Partial/Moderate Assistance-helper does LESS THAN HALF the effort. [place] lifts, holds or supports trunk or limbs, but provides less than half the effort. 2-Substantial/Maximal Assistance-helper does MORE THAN HALF the effort. [place] lifts or holds trunk or limbs and provides more than half the effort. 3-Fnjacszsd-ejgmbr does ALL the effort. Patient does none of the effort to complete the activity. Or, the assistance of 2 or more helpers is required for the patient to complete the activity. If activity was not attempted, code reason: 7-Patient Refused. 9-Not Applicable-not attempted and the patient did not perform the activity befo re the current illness, exacerbation or injury. 10-Not Attempted due to Environmental Limitations-(lack of equipment, weather re straints, etc.). 88-Not Attempted due to Medical Conditions or Safety Concerns. Oral Hygiene (QC): 6 (in sitting) Upper Body Dressing (QC): 5 Lower Body Dressing (QC): 4 On/Off Footwear: 4 Toileting Hygiene (QC): 4 Toilet Transfer (QC): 4 Partial sponge bath performed seated at sink. Post set up, pt able to wash upper body and thighs without assist. He sat to complete oral care, face washing, and shaving. Continues to need close Supervision-intermittent CGA for safety during standing functional tasks such as clothing management. Other Treatment Pt participated in standing therapeutic activity (This Week In pipe building) with goal to improve standing tolerance, posture, LE strength, balance, and overall endurance. Pt begins to sink into knee flexion and lateral lean to the left after the 2 minute derek. He is able to correct post cues but unable to sustain. Education on body awareness and taking breaks when legs begin to weaken. No cues for problem solving through task. Education OT Patient Education: Correct positioning, Energy conservation, Modified ADL techniques, Progress toward Goal/Update tx plan, Purpose of tx/functional activities, Safety issues Teaching Recipient: Patient Teaching Methods: Demonstration, Discussion Response to Teaching: Verbalize Understanding, Return Demonstration, Reinforcement Needed OT Short Term Goals Short Term Goals Time Frame: Aug 06, 2022 Eatin Oral hygiene: 5 Toileting hygiene: 3 Shower/bathe self: 3 Upper body dressin Lower body dressin Putting on/taking off footwear: 4 OT Auto Seat Cover Installer Goals Jail Goals Time Frame: Aug 13, 2022 Acute change in mental status: 0 Inattention: 0 Disorganized thinkin Altered level of consciousness: 0 Eating (QC): 6 Oral Hygiene (QC): 6 Toileting Hygiene (QC): 5 Shower/Bathe Self (QC): 5 Upper Body Dressing (QC): 5 Lower Body Dressing (QC): 5 On/Off Footwear (QC): 6 Additional Goals: 1-Demonstrate ADL Tasks, 2-Verbalize Understanding, 3- ImproveStrength/Brit 1=Demonstrate adherence to instructed precautions during ADL tasks. 2=Patient will verbalize/demonstrate understanding of assistive devices/modifications for ADL. 3=Patient will improve strength/tolerance for activity to enable patient to perform ADL's. OT Education/Plan Problem List/Assessment Assessment: Decreased Activ Tolerance, Decreased Safety Aware, Decreased UE Strength, Impaired Funct Balance, Impaired I ADL's, Impaired Self-Care Skills Discharge Recommendations Plan/Recommendations: Continue POC Treatment Plan/Plan of Care Treatment,Training & Education: Yes Patient would benefit from OT for education, treatment and training to promote independence in ADL's, mobility, safety and/or upper extremity function for ADL's. Plan of Care: ADL Retraining, Caregiver Training, Functional Mobility, Group Exercise/Act as Ind, UE Funct Exercise/Act, UE Neuromus Re-Ed/Coord, W/C Management Training Treatment Duration: Aug 13, 2022 Frequency: At least 5 of 7 days/Wk (IRF) Estimated Hrs Per Day: 1.5 hours per day (75-90 min/day) Agreement: Yes Rehab Potential: Good Time Start Time: 07:10 Stop Time: 08:15 DATE: Aug 04, 2022 Total Time Billed (hr/min): 65 Billed Treatment Time 1 visit ADL x3 (45 min) FA (20 min) Taylor Rinaldi OT Aug 04, 2022 08:14
--- NOTE | 2022-08-04 10:05 | Physical Therapy Daily Note ---
PT Daily Note-Current Subjective Pt. agrees to Rx, inquires about SW helping him get a cane, states he has a FWW at home. P.t requested to use SPC partner marketing manager during gait training. see results below Pain Location: No Pain Reported Section J - Health Conditions 1. Rarely or not at all 2. Occasionally 3. Frequently 4. Almost constantly 8. Unable to answer Pain Effect on Sleep: 1 Pain Interference with Therapy: 1 Pain Interference w/Day-to-Day: 1 Mental Status Patient Orientation: Normal For Age Transfers SCALE: Activities may be completed with or without assistive devices. 4-Qccoxyyvim-ffbrlsc completes the activity by him/herself with no assistance from a helper. 5-Set-up or Clean-up Assistance-helper sets up or cleans up; patient completes activity. [place] assists only prior to or following the activity. 4-Supervision or Touching Assistance-helper provides verbal cues and/or touching/steadying and/or contact guard assistance as patient completes activity. Assistance may be provided throughout the activity or intermittently. 3-Partial/Moderate Assistance-helper does LESS THAN HALF the effort. [place] lifts, holds or supports trunk or limbs, but provides less than half the effort. 2-Substantial/Maximal Assistance-helper does MORE THAN HALF the effort. [place] lifts or holds trunk or limbs and provides more than half the effort. 1-Ejdehyckw-kwbkhf does ALL the effort. Patient does none of the effort to complete the activity. Or, the assistance of 2 or more helpers is required for the patient to complete the activity. If activity was not attempted, code reason: 7-Patient Refused. 9-Not Applicable-not attempted and the patient did not perform the activity before the current illness, exacerbation or injury. 10-Not Attempted due to Environmental Limitations-(lack of equipment, weather restraints, etc.). 88-Not Attempted due to Medical Conditions or Safety Concerns. Roll Left & Right (QC): 6 Sit to Lying (QC): 6 Lying to Sitting/Side of Bed(Q: 6 Sit to Stand (QC): 6 Chair/Yyb-tt-Bpsvi Xfer(QC): 4 pt. had several incidents of plopping hard today into chair after walking to approach the chair and turn nilsa when using cane, therefore sit to stand and stand to sit was emphasized with pt demonstrating strength and control to sit and stand without use of hands if he was cued and encouraged, Weight Bearing Right Lower Extremity: Right Full Weight Bearing Left Lower Extremity: Left Full Weight Bearing Gait Training Does the Patient Walk?: Yes Walk 10 feet (QC): 4 Walk 50 ft with 2 Turns(QC): 4 Walk 150 ft (QC): 4 Gait Persons Needed: 1 Gait Assistive Device: Cane Single Point (and FWW) with FWW pt ambulated 150 ft SBA, pt. requested use of SPC,. Pt. walked 75ftx2, 50ft x 4 while challenging pt to approach chairs and sit , x 3 pt. needed mod assist while approaching chair to sit as he crossed feet over and had LOB. Pt. is impulsive at times and needs cues for awareness. Exercises Supine Ex: Bridging, Ankle pumps, Quad Set, Rolling, Glut sets, Lower trunk rotation, Heel Slides, Short Arc Quads, Scooting, Straight leg raise, Hip abd/add Supine Reps: 15 NuStep Minutes: 8 NuStep Workload: 6 Treatments gait training with SPC,, balance, TRFs and "take offs and landings" balance, sup LE strengthening and Nustep followed by leg presses x 12, up in recliner after Rx with em at hand Assessment Current Status: Good Progress at risk for falls with SPC use , impulsive, FWW appears much safer with SPC in near future PT Short Term Goals Short Term Goals Time Frame: Aug 11, 2022 Roll Left & Right: 4 Sit to lyin Lying to sitting on side of be: 4 Sit to stand: 4 Chair/zdk-ju-zbpnc transfer: 4 Toilet transfer: 4 Car transfer: 4 Walk 10 feet: 3 Walk 50 feet with two turns: 3 Walk 150 feet: 3 Walking 10ft on uneven surface: 3 1 step (curb): 3 PT Group Home Goals Cytologist Goals PT Cytologist Goals Time Frame: Aug 28, 2022 Roll Left & Right (QC): 6 Sit to Lying (QC): 6 Lying-Sitting on Side/Bed(QC): 6 Sit to Stand (QC): 6 Chair/Zcp-lq-Nagrh Xfer(QC): 6 Toilet Transfer (QC): 6 Car Transfer (QC): 6 Does the Patient Walk: Yes Walk 10 feet (QC): 5 Walk 50ft with 2 Turns (QC): 5 Walk 150 ft (QC): 5 Walking 10ft on Uneven Surface: 5 1 Step (curb) (QC): 4 4 Steps (QC): 4 12 Steps (QC): 4 Picking up an Object (QC): 4 Wheel 50 feet with 2 turns (QC: 9 Wheel 150 feet: 9 PT Plan Treatment/Plan Treatment Plan: Continue Plan of Care Treatment Plan: Bed Mobility, Concurrent Therapy, Education, Functional Activity Brit, Functional Strength, Group Therapy, Gait, Safety, Therapeutic Exercise, Transfers Treatment Duration: Aug 28, 2022 Frequency: At least 5 of 7 days/Wk (IRF) Estimated Hrs Per Day: 1.5 hours per day Patient and/or Family Agrees t: Yes Safety Risks/Education Patient Education: Gait Training, Transfer Techniques, Correct Positioning, Disease Process, Safety Issues Teaching Recipient: Patient Teaching Methods: Demonstration, Discussion Response to Teaching: Verbalize Understanding, Return Demonstration, Reinforcement Needed Time Time In: 900 Time Out: 1000 DATE: Aug 04, 2022 Total Billed Treatment Time: 60 Total Billed Treatment 1,GT30m,EX30m MAXIMILIAN GARCÍA MACHINE LAY OUT WORKER Aug 04, 2022 10:05
--- NOTE | 2022-08-04 10:30 | Occupational Ther Daily Note ---
OT Current Status-Daily Note Subjective Pt sleeping at OT arrival, easy to rouse, agreeable to exercises. Appearance Pt returned to supine in bed, all needs within reach at OT arrival. Mental Status/Objective Patient Orientation: Person, Place, Situation Attachments: IV ADL-Treatment Therapy Code Descriptions/Definitions Functional [place] Measure: 0=Not Assessed/NA 4=Minimal Assistance 1=Total Assistance 5=Supervision or Setup 2=Maximal Assistance 6=Modified [place] 3=Moderate Assistance 7=Complete IndependenceSCALE: Activities may be completed with or without assistive devices. 9-Tqgwcqiyvf-kmznply completes the activity by him/herself with no assistance from a helper. 5-Set-up or Clean-up Assistance-helper sets up or cleans up; patient completes activity. [place] assists only prior to or following the activity. 4-Supervision or Touching Assistance-helper provides verbal cues and/or touching/steadying and/or contact guard assistance as patient completes activity. Assistance may be provided throughout the activity or intermittently. 3-Partial/Moderate Assistance-helper does LESS THAN HALF the effort. [place] lifts, holds or supports trunk or limbs, but provides less than half the effort. 2-Substantial/Maximal Assistance-helper does MORE THAN HALF the effort. [place] lifts or holds trunk or limbs and provides more than half the effort. 1-Xjgclcgjx-qvcwlq does ALL the effort. Patient does none of the effort to complete the activity. Or, the assistance of 2 or more helpers is required for the patient to complete the activity. If activity was not attempted, code reason: 7-Patient Refused. 9-Not Applicable-not attempted and the patient did not perform the activity before the current illness, exacerbation or injury. 10-Not Attempted due to Environmental Limitations-(lack of equipment, weather restraints, etc.). 88-Not Attempted due to Medical Conditions or Safety Concerns. Other Treatment Pt participated in UE exercises with 3# hand held weight. He was able to complete all joints through full range. Slight drift/incoordination noted with LUE during shoulder flexion but good control and awareness noted by patient. Short rest breaks after 2 sets of 10. 2x10 all planes. Pt has good recall of techniques/education taught in past sessions. Education OT Patient Education: Correct positioning, Exercise program, Progress toward Goal/Update tx plan, Purpose of tx/functional activities, Safety issues Teaching Recipient: Patient Teaching Methods: Demonstration, Discussion Response to Teaching: Verbalize Understanding, Return Demonstration, Rein forcement Needed OT Short Term Goals Short Term Goals Time Frame: Aug 06, 2022 Eatin Oral hygiene: 5 Toileting hygiene: 3 Shower/bathe self: 3 Upper body dressin Lower body dressin Putting on/taking off footwear: 4 OT Cut Plug Packer Goals Cut Plug Packer Goals Time Frame: Aug 13, 2022 Acute change in mental status: 0 Inattention: 0 Disorganized thinkin Altered level of consciousness: 0 Eating (QC): 6 Oral Hygiene (QC): 6 Toileting Hygiene (QC): 5 Shower/Bathe Self (QC): 5 Upper Body Dressing (QC): 5 Lower Body Dressing (QC): 5 On/Off Footwear (QC): 6 Additional Goals: 1-Demonstrate ADL Tasks, 2-Verbalize Understanding, 3-ImproveStrength/Brit 1=Demonstrate adherence to instructed precautions during ADL tasks. 2=Patient will verbalize/demonstrate understanding of assistive devices/modifications for ADL. 3=Patient will improve strength/tolerance for activity to enable patient to perf orm ADL's. OT Education/Plan Problem List/Assessment Assessment: Decreased Activ Tolerance, Decreased UE Strength, Impaired Funct Balance, Impaired I ADL's, Impaired Self-Care Skills Discharge Recommendations Plan/Recommendations: Continue POC Therapy Discharge Recommendati: Post Acute OT Treatment Plan/Plan of Care Treatment,Training & Education: Yes Patient would benefit from OT for education, treatment and training to promote independence in ADL's, mobility, safety and/or upper extremity function for ADL's. Plan of Care: ADL Retraining, Caregiver Training, Functional Mobility, Group Exercise/Act as Ind, UE Funct Exercise/Act, UE Neuromus Re-Ed/Coord, W/C Management Training Treatment Duration: Aug 13, 2022 Frequency: At least 5 of 7 days/Wk (IRF) Estimated Hrs Per Day: 1.5 hours per day (75-90 min/day) Agreement: Yes Rehab Potential: Good Time Start Time: 10:00 Stop Time: 10:25 DATE: Aug 04, 2022 Total Time Billed (hr/min): 25 Billed Treatment Time 1 visit EX Taylor Thomson OT Aug 04, 2022 10:30
--- NOTE | 2022-08-04 11:47 | Physical Therapy Daily Note ---
PT Daily Note-Current Subjective Pt. agrees to Rx, no c/o Pain Location: No Pain Reported Section J - Health Conditions 1. Rarely or not at all 2. Occasionally 3. Frequently 4. Almost constantly 8. Unable to answer Pain Effect on Sleep: 1 Pain Interference with Therapy: 1 Pain Interference w/Day-to-Day: 1 Mental Status Patient Orientation: Normal For Age Transfers SCALE: Activities may be completed with or without assistive devices. 3-Hijemhsgqo-rkqhndg completes the activity by him/herself with no assistance from a helper. 5-Set-up or Clean-up Assistance-helper sets up or cleans up; patient completes activity. [place] assists only prior to or following the activity. 4-Supervision or Touching Assistance-helper provides verbal cues and/or touching/steadying and/or contact guard assistance as patient completes activity. Assistance may be provided throughout the activity or intermittently. 3-Partial/Moderate Assistance-helper does LESS THAN HALF the effort. [place] lifts, holds or supports trunk or limbs, but provides less than half the effort. 2-Substantial/Maximal Assistance-helper does MORE THAN HALF the effort. [place] lifts or holds trunk or limbs and provides more than half the effort. 6-Irynlfqze-bwslwa does ALL the effort. Patient does none of the effort to complete the activity. Or, the assistance of 2 or more helpers is required for the patient to complete the activity. If activity was not attempted, code reason: 7-Patient Refused. 9-Not Applicable-not attempted and the patient did not perform the activity before the current illness, exacerbation or injury. 10-Not Attempted due to Environmental Limitations-(lack of equipment, weather restraints, etc.). 88-Not Attempted due to Medical Conditions or Safety Concerns. all TRFs SBA Weight Bearing Right Lower Extremity: Right Full Weight Bearing Left Lower Extremity: Left Full Weight Bearing Gait Training Does the Patient Walk?: Yes Gait Assistive Device: Cane Single Point 75ft x 3 , 50 ft x 1, 2 turns requiring min asst for balance as pt. crosses over with feet and loses balance Treatments HOLM balance conducted with pt. having difficulty with eyes closed, turning head left and right , scored 42/56. Pt. instructed to use FWW while up with nursing and cane while with PT for further balance training Assessment Current Status: Good Progress gives full effort PT Short Term Goals Short Term Goals Time Frame: Aug 11, 2022 Roll Left & Right: 4 Sit to lyin Lying to sitting on side of be: 4 Sit to stand: 4 Chair/adh-sy-lfnze transfer: 4 Toilet transfer: 4 Car transfer: 4 Walk 10 feet: 3 Walk 50 feet with two turns: 3 Walk 150 feet: 3 Walking 10ft on uneven surface: 3 1 step (curb): 3 PT Leader Writer Goals Leader Writer Goals PT Leader Writer Goals Time Frame: Aug 28, 2022 Roll Left & Right (QC): 6 Sit to Lying (QC): 6 Lying-Sitting on Side/Bed(QC): 6 Sit to Stand (QC): 6 Chair/Lsz-tp-Uxddi Xfer(QC): 6 Toilet Transfer (QC): 6 Car Transfer (QC): 6 Does the Patient Walk: Yes Walk 10 feet (QC): 5 Walk 50ft with 2 Turns (QC): 5 Walk 150 ft (QC): 5 Walking 10ft on Uneven Surface: 5 1 Step (curb) (QC): 4 4 Steps (QC): 4 12 Steps (QC): 4 Picking up an Object (QC): 4 Wheel 50 feet with 2 turns (QC: 9 Wheel 150 feet: 9 PT Plan Treatment/Plan Treatment Plan: Continue Plan of Care Treatment Plan: Bed Mobility, Concurrent Therapy, Education, Functional Activity Brit, Functional Strength, Group Therapy, Gait, Safety, Therapeutic Exercise, Transfers Treatment Duration: Aug 28, 2022 Frequency: At least 5 of 7 days/Wk (IRF) Estimated Hrs Per Day: 1.5 hours per day Patient and/or Family Agrees t: Yes Safety Risks/Education Patient Education: Gait Training, Transfer Techniques, Reviewed Precautions, Correct Positioning, Disease Process, Safety Issues Teaching Recipient: Patient Teaching Methods: Demonstration, Discussion Response to Teaching: Verbalize Understanding, Return Demonstration, Reinforcement Needed Time Time In: 1100 Time Out: 1140 DATE: Aug 04, 2022 Total Billed Treatment Time: 40 Total Billed Treatment 1,NM25m,GT15m MAXIMILIAN GARCÍA STEAM METER READER Aug 04, 2022 11:47
[2022-08-04] MEDS: ENOXAPARIN 40 MG/0.4 ML (LOVENOX) SYR SC SCH (14:48)
[2022-08-04 19:26] VITALS: BP 144/78
[2022-08-04] MEDS: amLODIPine 5 MG (NORVASC) TAB PO SCH (20:23)
[2022-08-04] MEDS: GABAPENTIN 300 MG (NEURONTIN) CAP PO SCH (20:23)
[2022-08-04] MEDS: clonazePAM 0.5 MG (KlonoPIN) TAB PO SCH (20:23)
[2022-08-04] MEDS: CALCIUM CARBONATE 500 MG (TUMS) TAB.CHEW PO PRN (23:48)
--- NOTE | 2022-08-05 05:09 | PM&R Progress Note ---
Subjective HPI/CC On Admission Date Seen by Provider: Aug 05, 2022 Time Seen by Provider: 11:00 Subjective/Events-last exam 08/05/2022: Patient doing well No pain reported Moving very well No falls 08/04/2022: Patient doing well DC on Tuesday had 3 new meds she picked up at [facility] and it appears those were sent in from upstairs admit. 08/03/2022: Doing well Bowels are loose BP 145/75 Gabapentin will be changed to exactly how he takes it at home 08/02/2022: Patient having no new problems Walking with therapy No pain is reported Normal sinus rhythm on telemetry Allevyn on coccyx Bowels are moving 08/01/2022: No major issues No pain reported Improved status Hemorrhoids improved 07/31/2022: Patient doing well Needs hemorrhoid cream so ordered that Feet were very cold last night Using saline nasal spray 07/30/2022: Patient doing really well IV fluids really helped him Hep-Lock now In a good mood Saline nasal spray will be ordered as he requested 07/29/2022: Patient doing fairly well IVF initiated for hypotension Diarrhea likely has volume depleted him Appreciate Yisel Duarte and Rivera 07/28/2022: Patient doing well after in/out cath He does have urinary retention when he is constipated Will initiate soapsuds enema if needed along with lactulose and senna KUB showed dilated loops of bowel so in case this is an ileus we will initiate clear liquid diet 07/27/2022: Patient doing well No pain is reported Eating and drinking well Moving left arm a bit more 07/26/2022: Patient doing well Bowels moved yesterday Took a shower today with therapy Moving left arm a bit 07/25/2022: Much improved status Left sided weakness remains Suicidal ideation reported by family at times but none that RN notes Monitoring closely Labs stable EGD postponed until stable Review of Systems General: Fatigue, Malaise Neurological: Weakness, Incoordination Objective Exam Vital Signs Vital Signs Date Time Temp Pulse Resp B/P (MAP) Pulse Ox O2 Delivery O2 Flow Rate FiO2 08/05/22 13:00 72 08/05/22 09:59 Room Air 08/05/22 07:10 36.4 18 144/76 (98) 95 Capillary Refill : General Appearance: No Apparent Distress, WD/WN, Chronically ill HEENT: PERRL/EOMI, Normal ENT Inspection, Pharynx Normal Neck: Full Range of Motion, Normal Inspection, Non Tender, Supple, Carotid Bruit Respiratory: Chest Non Tender, Lungs Clear, Normal Breath Sounds, No Accessory Muscle Use, No Respiratory Distress Cardiovascular: Regular Rate, Rhythm, No Edema, No Gallop, No JVD, No Murmur, Normal Peripheral Pulses Gastrointestinal: Normal Bowel Sounds, No Organomegaly, No Pulsatile Mass, Non Tender, Soft Back: Normal Inspection, No CVA Tenderness, No Vertebral Tenderness Extremity: Normal Capillary Refill, Normal Inspection, Normal Range of Motion (except left side), Non Tender, No Calf Tenderness, No Pedal Edema Neurologic/Psychiatric: Alert, Oriented x3, Normal Mood/Affect, pattern maker programer II-XII Norm as Tested, Abnormal Gait, Motor Weakness (left sided weakness 1/5) Skin: Normal Color, Warm/Dry Lymphatic: No Adenopathy Results/Procedures Lab Patient resulted labs reviewed. FIM Transfers Therapy Code Descriptions/Definitions Functional [place] Measure: 0=Not Assessed/NA 4=Minimal Assistance 1=Total Assistance 5=Supervision or Setup 2=Maximal Assistance 6=Modified [place] 3=Moderate Assistance 7=Complete IndependenceSCALE: Activities may be completed with or without assistive devices. 7-Wpgpjgexak-btpsidn completes the activity by him/herself with no assistance from a helper. 5-Set-up or Clean-up Assistance-helper sets up or cleans up; patient completes activity. [place] assists only prior to or following the activity. 4-Supervision or Touching Assistance-helper provides verbal cues and/or touc lois/steadying and/or contact guard assistance as patient completes activity. Assistance may be provided throughout the activity or intermittently. 3-Partial/Moderate Assistance-helper does LESS THAN HALF the effort. [place] lifts, holds or supports trunk or limbs, but provides less than half the effort. 2-Substantial/Maximal Assistance-helper does MORE THAN HALF the effort. [place] lifts or holds trunk or limbs and provides more than half the effort. 4-Zdgltlzxm-hnttrx does ALL the effort. Patient does none of the effort to complete the activity. Or, the assistance of 2 or more helpers is required for the patient to complete the activity. If activity was not attempted, code reason: 7-Patient Refused. 9-Not Applicable-not attempted and the patient did not perform the activity before the current illness, exacerbation or injury. 10-Not Attempted due to Environmental Limitations-(lack of equipment, weather restraints, etc.). 88-Not Attempted due to Medical Conditions or Safety Concerns. Roll Left to Right (QC): 6 Sit to Lying (QC): 6 Sit to Stand (QC): 6 Chair/Kqw-rt-Pynce Xfer(QC): 4 Car Transfer (QC): 2 Gait Training Does the Patient Walk?: Yes Distance: 250'x2 Walk 10 feet (QC): 4 Walk 50 ft with 2 Turns(QC): 4 Walk 150 ft (QC): 4 Walking 10ft/uneven surface-QC: 88 Gait Persons Needed: 1 Gait Assistive Device: Cane Single Point Wheelchair Training Does the Pt Use a Wheelchair?: Yes Wheel 50 ft with 2 turns (QC): 4 Wheel 150 ft (QC): 4 Type of Wheelchair: Manual Stair Training 1 Step (curb) (QC): 88 (not safe to perform due to Poor balance and diminished coordination) 4 Steps (QC): 88 12 Steps (QC): 88 Balance Picking up an Object (QC): 88 ADL-Treatment Eating (QC): 5 Oral Hygiene (QC): 6 (in sitting) Bathing Location: L Arm, R Arm, L Upper Leg, R Upper Leg, Chest, Abdomen Shower/Bathe Self (QC): 4 Upper Body Dressing (QC): 5 Lower Body Dressing (QC): 4 On/Off Footwear (QC): 4 Toileting Hygiene (QC): 4 Toilet Transfer (QC): 4 Assessment/Plan Assessment and Plan Assess & Plan/Chief Complaint Assessment: CVA with left-sided weakness Bilateral carotid stenosis Hypertension Hyperlipidemia History of TIA Advanced age Depression hx Suicidal ideation reported by family but no acute issues CKD Acute kidney injury creatinine 2.2 due to volume depletion status post IV fluids on 07/29/2022 Hemorrhoid flare up 07/31/20 Dry nasal passageways ordered saline nasal spray Plan: Supportive care Monitor closely Aggressive rehab 07/25/2022: Monitor closely 07/26/2022: Supportive care Monitor closely 07/27/2022: Supportive care Fall risk 07/28/2022: Supportive care Consult Dr. CHRISTIE Clear liquid diet MiraLAX and lactulose and senna 07/29/22: IVF Monitor closely 07/30/2022: Saline nasal spray Status post IV fluid 07/31/2022: Hemorrhoid cream 08/01/2022: Monitor closely 08/02/2022: Continue aggressive physical therapy 08/03/2022: Change gabapentin 08/04/2022: DC Tuesday08/05/2022: Supportive care Continue CVA management (1) Acute cerebrovascular accident Assessment & Plan: He had a cerebrovascular accident that involved multiple vascular territories as noted on his MRI of the brain. This raises a concern for possible underlying atrial fibrillation. There has not been any evidence of atrial fibrillation on telemetry. He is currently receiving aspirin and clopidogrel in addition to intensive dose statin medication. Once he is ready for discharge, I will plan on an external irrigation system operator. I have ordered this through the office. If he is discharged on the weekend, he will need to come back to the hospital to get the monitor at a later point in time. These external monitors are an outpatient test and cannot be placed while the patient is on inpatient status. If this external monitor does not show atrial fibrillation, he may need an implantable loop recorder following discharge. Additionally, he has significant bilateral carotid disease, worse on the left. Unclear whether or not this may have had anything to do with his stroke. He will ultimately need evaluation by vascular surgery but this can be done as an outpatient after he completely recovers from the stroke. 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 He is not on any AV jalil blocking agents and his TSH level was normal. I recommend we just continue the patient on telemetry monitoring for the time being. We can also evaluate this with the external monitor that we will be coordinating following discharge. (3) Bilateral carotid artery stenosis Status: Acute Assessment & Plan: As above, he has significant bilateral carotid stenosis. I recommend he continue on aspirin, clopidogrel, and intensive dose statin medication in light of the stroke. Since neither side is critically stenosed it is often preferable to wait for a patient to recover from an acute stroke before performing any sort of carotid intervention. (4) Primary hypertension Assessment & Plan: His blood pressures had been running somewhat high but are improved but then improved. He should continue the present combination of antihypertensive medication. (5) Mixed hyperlipidemia Assessment & Plan: Continue intensive dose statin medication in light of the stroke. NEHEMIAH CHAMORRO DO Aug 05, 2022 05:09
[2022-08-05 07:10] VITALS: BP 144/76
[2022-08-05] MEDS: DOCUSATE SODIUM 100 MG (COLACE) CAP PO SCH ×2 (07:54→20:35)
[2022-08-05] MEDS: TAMSULOSIN 0.4 MG (FLOMAX) CAP PO SCH ×2 (07:54→20:35)
[2022-08-05] MEDS: ASPIRIN 81 MG CHEW (CHILDREN'S ASA) PO SCH (07:54)
[2022-08-05] MEDS: lisINopril 10 MG (PRINIVIL) TABLET PO SCH (07:55)
[2022-08-05] MEDS: CLOPIDOGREL 75 MG (PLAVIX) TABLET PO SCH (07:55)
[2022-08-05] MEDS: DICLOFENAC 1% GEL 100 GM (VOLTAREN) TUBE TOP SCH ×4 (07:55→20:39)
[2022-08-05] MEDS: GABAPENTIN 100 MG (NEURONTIN) CAP PO SCH ×2 (07:55→15:11)
[2022-08-05] MEDS: SENNA W/DOCUSATE (SENOKOT S) TABLET PO SCH ×2 (07:55→20:35)
[2022-08-05] MEDS: LACTULOSE SYRUP 10GM/15ML (ENULOSE) 30ML UDC PO SCH ×2 (07:57→20:42)
[2022-08-05] MEDS: SALINE NASAL SPRAY (OCEAN) 45 ML BTL SCH ×4 (07:57→20:39)
[2022-08-05] MEDS: polyethylene glycoL POWDER 17 GM (MIRALAX) PACK PO SCH ×2 (07:57→20:36)
--- NOTE | 2022-08-05 08:44 | Occupational Ther Daily Note ---
OT Current Status-Daily Note Subjective Pt alert, lying in bed. Pt agrees to therapy. Pt has tendency to have LOB backwards. No c/o pain. Mental Status/Objective Patient Orientation: Person, Place, Time, Situation ADL-Treatment After set up, pt able to thread pants over feet then CGA to hike pants over hips due to leaning backwards. Pt able to slide footwear onto feet by self after set up. Pt already completed grooming and toileting with nrsg. Therapy Code Descriptions/Definitions Functional [place] Measure: 0=Not Assessed/NA 4=Minimal Assistance 1=Total Assistance 5=Supervision or Setup 2=Maximal Assistance 6=Modified [place] 3=Moderate Assistance 7=Complete IndependenceSCALE: Activities may be completed with or without assistive devices. 8-Vmloomwvmz-vihiicj completes the activity by him/herself with no assistance from a helper. 5-Set-up or Clean-up Assistance-helper sets up or cleans up; patient completes activity. [place] assists only prior to or following the activity. 4-Supervision or Touching Assistance-helper provides verbal cues and/or touching/steadying and/or contact guard assistance as patient completes activity. Assistance may be provided throughout the activity or intermittently. 3-Partial/Moderate Assistance-helper does LESS THAN HALF the effort. [place] lifts, holds or supports trunk or limbs, but provides less than half the effort. 2-Substantial/Maximal Assistance-helper does MORE THAN HALF the effort. [place] lifts or holds trunk or limbs and provides more than half the effort. 4-Xtexxrzbe-rhynkr does ALL the effort. Patient does none of the effort to complete the activity. Or, the assistance of 2 or more helpers is required for the patient to complete the activity. If activity was not attempted, code reason: 7-Patient Refused. 9-Not Applicable-not attempted and the patient did not perform the activity before the current illness, exacerbation or injury. 10-Not Attempted due to Environmental Limitations-(lack of equipment, weather restraints, etc.). 88-Not Attempted due to Medical Conditions or Safety Concerns. Lower Body Dressing (QC): 4 On/Off Footwear: 5 Pt takes increased time to complete all tasks due to balance issues, decreased activity tolerance. Other Treatment Pt ambulated using FWW to therapy gym. Pt then complete arm bike with minimal resistance for 8 min and 2 recovery breaks. Pt then completed pipe tree to work on cognition, fine motor dexterity and strengthening for daily functional tasks. Pt then ambulated using FWW with CGA around [facility]. After session, pt lying in bed with call light/phone in reach. All needs met in room. OT Short Term Goals Short Term Goals Time Frame: Aug 06, 2022 Eatin Oral hygiene: 5 Toileting hygiene: 3 Shower/bathe self: 3 Upper body dressin Lower body dressin Putting on/taking off footwear: 4 OT Senior Living Goals Senior Living Goals Time Frame: Aug 13, 2022 Acute change in mental status: 0 Inattention: 0 Disorganized thinkin Altered level of consciousness: 0 Eating (QC): 6 Oral Hygiene (QC): 6 Toileting Hygiene (QC): 5 Shower/Bathe Self (QC): 5 Upper Body Dressing (QC): 5 Lower Body Dressing (QC): 5 On/Off Footwear (QC): 6 Additional Goals: 1-Demonstrate ADL Tasks, 2-Verbalize Understanding, 3- ImproveStrength/Brit 1=Demonstrate adherence to instructed precautions during ADL tasks. 2=Patient will verbalize/demonstrate understanding of assistive devices/modifications for ADL. 3=Patient will improve strength/tolerance for activity to enable patient to perform ADL's. OT Education/Plan Problem List/Assessment Assessment: Decreased Activ Tolerance, Decreased UE Strength, Impaired Funct Balance, Impaired Self-Care Skills Discharge Recommendations Plan/Recommendations: Continue POC Treatment Plan/Plan of Care Patient would benefit from OT for education, treatment and training to promote independence in ADL's, mobility, safety and/or upper extremity function for ADL's. Plan of Care: ADL Retraining, Caregiver Training, Functional Mobility, Group Exercise/Act as Ind, UE Funct Exercise/Act, UE Neuromus Re-Ed/Coord, W/C Managem ent Training Treatment Duration: Aug 13, 2022 Frequency: At least 5 of 7 days/Wk (IRF) Estimated Hrs Per Day: 1.5 hours per day (75-90 min/day) Agreement: Yes Rehab Potential: Good Time Start Time: 07:45 Stop Time: 08:45 DATE: Aug 05, 2022 Total Time Billed (hr/min): 60 Billed Treatment Time 1 visit-ADL 3 (40 min) EX 1 (20 min) ELOISE FIGUEROA BONIFACIO Aug 05, 2022 08:44
--- NOTE | 2022-08-05 11:04 | Physical Therapy Daily Note ---
PT Daily Note-Current Subjective Upon arrival, pt was supine in bed. Pt states that he slept fine and that he has no pain this morning. Pt agrees to PT. Pain Numeric Pain Scale: 0-No Pain Section J - Health Conditions 1. Rarely or not at all 2. Occasionally 3. Frequently 4. Almost constantly 8. Unable to answer Pain Effect on Sleep: 1 Pain Interference with Therapy: 1 Pain Interference w/Day-to-Day: 1 Mental Status Patient Orientation: Person, Time, Situation Transfers SCALE: Activities may be completed with or without assistive devices. 4-Jjxstelpza-vtzfbhh completes the activity by him/herself with no assistance from a helper. 5-Set-up or Clean-up Assistance-helper sets up or cleans up; patient completes activity. [place] assists only prior to or following the activity. 4-Supervision or Touching Assistance-helper provides verbal cues and/or touching/steadying and/or contact guard assistance as patient completes activ ity. Assistance may be provided throughout the activity or intermittently. 3-Partial/Moderate Assistance-helper does LESS THAN HALF the effort. [place] lifts, holds or supports trunk or limbs, but provides less than half the effort. 2-Substantial/Maximal Assistance-helper does MORE THAN HALF the effort. [place] lifts or holds trunk or limbs and provides more than half the effort. 6-Nzsvqbhhq-hpdnvs does ALL the effort. Patient does none of the effort to complete the activity. Or, the assistance of 2 or more helpers is required for the patient to complete the activity. If activity was not attempted, code reason: 7-Patient Refused. 9-Not Applicable-not attempted and the patient did not perform the activity before the current illness, exacerbation or injury. 10-Not Attempted due to Environmental Limitations-(lack of equipment, weather restraints, etc.). 88-Not Attempted due to Medical Conditions or Safety Concerns. Sit to Lying (QC): 4 Lying to Sitting/Side of Bed(Q: 6 Sit to Stand (QC): 4 Toilet Transfer (QC): 4 Pt transferred from bed to EOB, w/o assistance. Pts foot slide a little with attempting to stand, but was able to safely with "nose over toes" method with standing. Weight Bearing Right Lower Extremity: Right Full Weight Bearing Left Lower Extremity: Left Full Weight Bearing Gait Training Does the Patient Walk?: Yes Distance: 150' Walk 10 feet (QC): 4 Walk 50 ft with 2 Turns(QC): 4 Walk 150 ft (QC): 4 Gait Persons Needed: 1 Gait Assistive Device: FWW Pt ambulated from room down to south hallway and around 2nd floor and RN station and back to room. Pt required two lengthy rest breaks. Pt was able to ambulate with a slow, but steady step through GT pattern. Pt had tendency to let FWW go ahead of him and needed to stop and walk in walker. Exercises Supine Ex: Ankle pumps (2x20), Pelvic tilt, Quad Set, Glut sets, Heel Slides, Hip abd/add Supine Reps: 10 Neuromuscular Pt completed all exercises activities listed above. Pt ambulated from room around 2nd floor and back to room. Pt used BR, and was able to wipe himself, RN arrives and changes pts dressing. Once PT was concluded, pt was supine in bed with call light and tray in reach and all needs met. Assessment Current Status: Good Progress Pt would benefit from continued skilled PT to address strength, and activity tolerance. PT Short Term Goals Short Term Goals Time Frame: Aug 11, 2022 Roll Left & Right: 4 Sit to lyin Lying to sitting on side of be: 4 Sit to stand: 4 Chair/vso-rg-vddqr transfer: 4 Toilet transfer: 4 Car transfer: 4 Walk 10 feet: 3 Walk 50 feet with two turns: 3 Walk 150 feet: 3 Walking 10ft on uneven surface: 3 1 step (curb): 3 PT Intermediate Goals [employer] App[employer]atus Model Maker Goals PT Intermediate Goals Time Frame: Aug 28, 2022 Roll Left & Right (QC): 6 Sit to Lying (QC): 6 Lying-Sitting on Side/Bed(QC): 6 Sit to Stand (QC): 6 Chair/Yci-bx-Ivrgk Xfer(QC): 6 Toilet Transfer (QC): 6 Car Transfer (QC): 6 Does the Patient Walk: Yes Walk 10 feet (QC): 5 Walk 50ft with 2 Turns (QC): 5 Walk 150 ft (QC): 5 Walking 10ft on Uneven Surface: 5 1 Step (curb) (QC): 4 4 Steps (QC): 4 12 Steps (QC): 4 Picking up an Object (QC): 4 Wheel 50 feet with 2 turns (QC: 9 Wheel 150 feet: 9 PT Plan Problem List Problem List: Activity Tolerance, Functional Strength Treatment/Plan Treatment Plan: Continue Plan of Care Treatment Plan: Bed Mobility, Concurrent Therapy, Education, Functional Activity Brit, Functional Strength, Group Therapy, Gait, Safety, Therapeutic Exercise, Transfers Treatment Duration: Aug 28, 2022 Frequency: At least 5 of 7 days/Wk (IRF) Estimated Hrs Per Day: 1.5 hours per day Patient and/or Family Agrees t: Yes Time Time In: 0900 Time Out: 1000 DATE: Aug 05, 2022 Total Billed Treatment Time: 60 Total Billed Treatment 1, FA, EX (3) JORGE LUIS LAO PTA Aug 05, 2022 11:04
--- NOTE | 2022-08-05 12:21 | Therapy Group Daily Note ---
Therapy Daily Group Note Patient Education Topic Other List Below (Nutrition) Exercises Fine Motor, UE Exercise Session Ratio (pt:therapist): 2:7 Goal of Session: UE/LE Strengthing, Other (list) (Nutrition/food safety) Goal Met for this Session: Yes Pt Benefit of Group: Contributions to Others, F/U Use of Strategies @Home, Increased Functional Safety, Improved Cognition, Recognition of Peers, Socialization Other/Notes Pt ambulated using FWW with CGA to [facility] for OT/PT group. Group consisted of introductions (name,place living), fine motor coordination tasks with B UE strengthening against gravity, safe transfers to/from table, educational topics on nutrition and food safety. Pt introduced self humphrey ropriately and actively listened to peers. Pt verbalized own experiences and strategies for educational topics. Tolerated all activities well. After session, pt lying in bed with call light/phone in reach. All needs met in room. Start Time: 11:00 Stop Time: 12:15 Total Billed Treatment Time: 75 Total Billed Treatment 1-ELOISE DEL VALLE Aug 05, 2022 12:21
[2022-08-05] MEDS: ENOXAPARIN 40 MG/0.4 ML (LOVENOX) SYR SC SCH (15:11)
[2022-08-05 19:24] VITALS: BP 130/61
[2022-08-05] MEDS: clonazePAM 0.5 MG (KlonoPIN) TAB PO SCH (20:35)
[2022-08-05] MEDS: amLODIPine 5 MG (NORVASC) TAB PO SCH (20:35)
[2022-08-05] MEDS: GABAPENTIN 300 MG (NEURONTIN) CAP PO SCH (20:35)
--- NOTE | 2022-08-06 06:03 | PM&R Progress Note ---
Subjective HPI/CC On Admission Date Seen by Provider: Aug 06, 2022 Time Seen by Provider: 11:30 Subjective/Events-last exam 08/06/2022: Doing well No pain reported Eating well BM+ No falls 08/05/2022: Patient doing well No pain reported Moving very well No falls 08/04/2022: Patient doing well DC on Tuesday had 3 new meds she picked up at [facility] [employer] and it appears those were sent in from upstairs admit. 08/03/2022: Doing well Bowels are loose BP 145/75 Gabapentin will be changed to exactly how he takes it at home 08/02/2022: Patient having no new problems Walking with therapy No pain is reported Normal sinus rhythm on telemetry Allevyn on coccyx Bowels are moving 08/01/2022: No major issues No pain reported Improved status Hemorrhoids improved 07/31/2022: Patient doing well Needs hemorrhoid cream so ordered that Feet were very cold last night Using saline nasal spray 07/30/2022: Patient doing really well IV fluids really helped him Hep-Lock now In a good mood Saline nasal spray will be ordered as he requested 07/29/2022: Patient doing fairly well IVF initiated for hypotension Diarrhea likely has volume depleted him Appreciate Yisel Duarte and Rivera 07/28/2022: Patient doing well after in/out cath He does have urinary retention when he is constipated Will initiate soapsuds enema if needed along with lactulose and senna KUB showed dilated loops of bowel so in case this is an ileus we will initiate clear liquid diet 07/27/2022: Patient doing well No pain is reported Eating and drinking well Moving left arm a bit more 07/26/2022: Patient doing well Bowels moved yesterday Took a shower today with therapy Moving left arm a bit 07/25/2022: Much improved status Left sided weakness remains Suicidal ideation reported by family at times but none that RN notes Monitoring closely Labs stable EGD postponed until stable Review of Systems General: Fatigue, Malaise Neurological: Weakness, Incoordination Objective Exam Vital Signs Vital Signs Date Time Temp Pulse Resp B/P (MAP) Pulse Ox O2 Delivery O2 Flow Rate FiO2 08/06/22 12:44 90 08/06/22 09:13 Room Air 08/06/22 07:45 36.5 18 132/72 (92 96 Capillary Refill : General Appearance: No Apparent Distress, WD/WN, Chronically ill HEENT: PERRL/EOMI, Normal ENT Inspection, Pharynx Normal Neck: Full Range of Motion, Normal Inspection, Non Tender, Supple, Carotid Bruit Respiratory: Chest Non Tender, Lungs Clear, Normal Breath Sounds, No Accessory Muscle Use, No Respiratory Distress Cardiovascular: Regular Rate, Rhythm, No Edema, No Gallop, No JVD, No Murmur, Normal Peripheral Pulses Gastrointestinal: Normal Bowel Sounds, No Organomegaly, No Pulsatile Mass, Non Tender, Soft Back: Normal Inspection, No CVA Tenderness, No Vertebral Tenderness Extremity: Normal Capillary Refill, Normal Inspection, Normal Range of Motion (except left side), Non Tender, No Calf Tenderness, No Pedal Edema Neurologic/Psychiatric: Alert, Oriented x3, Normal Mood/Affect, manager global communications II-XII Norm as Tested, Abnormal Gait, Motor Weakness (left sided weakness 1/5) Skin: Normal Color, Warm/Dry Lymphatic: No Adenopathy Results/Procedures Lab Patient resulted labs reviewed. FIM Transfers Therapy Code Descriptions/Definitions Functional [place] Measure: 0=Not Assessed/NA 4=Minimal Assistance 1=Total Assistance 5=Supervision or Setup 2=Maximal Assistance 6=Modified [place] 3=Moderate Assistance 7=Complete IndependenceSCALE: Activities may be completed with or without assistive devices. 7-Wvqbfrmyqh-sknyhwn completes the activity by him/herself with no assistance from a helper. 5-Set-up or Clean-up Assistance-helper sets up or cleans up; patient completes activity. [place] assists only prior to or following the activity. 4-Supervision or Touching Assistance-helper provides verbal cues and/or touching/steadying and/or contact guard assistance as patient completes activity. Assistance may be provided throughout the activity or intermittently. 3-Partial/Moderate Assistance-helper does LESS THAN HALF the effort. [place] lifts, holds or supports trunk or limbs, but provides less than half the effort. 2-Substantial/Maximal Assistance-helper does MORE THAN HALF the effort. [place] lifts or holds trunk or limbs and provides more than half the effort. 5-Dkuccqylp-yulwrs does ALL the effort. Patient does none of the effort to complete the activity. Or, the assistance of 2 or more helpers is required for the patient to complete the activity. If activity was not attempted, code reason: 7-Patient Refused. 9-Not Applicable-not attempted and the patient did not perform the activity before the current illness, exacerbation or injury. 10-Not Attempted due to Environmental Limitations-(lack of equipment, weather restraints, etc.). 88-Not Attempted due to Medical Conditions or Safety Concerns. Roll Left to Right (QC): 6 Sit to Lying (QC): 4 Sit to Stand (QC): 4 Chair/Jpp-oo-Plttz Xfer(QC): 4 Car Transfer (QC): 2 Gait Training Does the Patient Walk?: Yes Distance: 150' Walk 10 feet (QC): 4 Walk 50 ft with 2 Turns(QC): 4 Walk 150 ft (QC): 4 Walking 10ft/uneven surface-QC: 88 Gait Persons Needed: 1 Gait Assistive Device: FWW Wheelchair Training Does the Pt Use a Wheelchair?: Yes Wheel 50 ft with 2 turns (QC): 4 Wheel 150 ft (QC): 4 Type of Wheelchair: Manual Stair Training 1 Step (curb) (QC): 88 (not safe to perform due to Poor balance and diminished coordination) 4 Steps (QC): 88 12 Steps (QC): 88 Balance Picking up an Object (QC): 88 ADL-Treatment Eating (QC): 5 Oral Hygiene (QC): 6 (in sitting) Bathing Location: L Arm, R Arm, L Upper Leg, R Upper Leg, Chest, Abdomen Shower/Bathe Self (QC): 4 Upper Body Dressing (QC): 5 Lower Body Dressing (QC): 4 On/Off Footwear (QC): 5 Toileting Hygiene (QC): 4 Toilet Transfer (QC): 4 Assessment/Plan Assessment and Plan Assess & Plan/Chief Complaint Assessment: CVA with left-sided weakness Bilateral carotid stenosis Hypertension Hyperlipidemia History of TIA Advanced age Depression hx Suicidal ideation reported by family but no acute issues CKD Acute kidney injury creatinine 2.2 due to volume depletion status post IV fluids on 07/29/2022 Hemorrhoid flare up 07/31/20 Dry nasal passageways ordered saline nasal spray Plan: Supportive care Monitor closely Aggressive rehab 07/25/2022: Monitor closely 07/26/2022: Supportive care Monitor closely 07/27/2022: Supportive care Fall risk 07/28/2022: Supportive care Consult Dr. KIDO Clear liquid diet MiraLAX and lactulose and senna 07/29/22: IVF Monitor closely 07/30/2022: Saline nasal spray Status post IV fluid 07/31/2022: Hemorrhoid cream 08/01/2022: Monitor closely 08/02/2022: Continue aggressive physical therapy 08/03/2022: Change gabapentin 08/04/2022: DC Tuesday08/05/2022: Supportive care Continue CVA management 08/06/2022: No changes DC Tuesday (1) Acute cerebrovascular accident Assessment & Plan: He had a cerebrovascular accident that involved multiple vascular territories as noted on his MRI of the brain. This raises a concern for possible underlying atrial fibrillation. There has not been any evidence of atrial fibrillation on telemetry. He is currently receiving aspirin and clopidogrel in addition to intensive dose statin medication. Once he is ready for discharge, I will plan on an external cardiac cath technician. I have ordered this through the office. If he is discharged on the weekend, he will need to come back to the hospital to get the monitor at a later point in time. These external monitors are an outpatient test and cannot be placed while the patient is on inpatient status. If this external monitor does not show atrial fibrillation, he may need an implantable loop recorder following discharge. Additionally, he has significant bilateral carotid disease, worse on the left. Unclear whether or not this may have had anything to do with his stroke. He will ultimately need evaluation by vascular surgery but this can be done as an outpatient after he completely recovers from the stroke. 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 He is not on any AV jalil blocking agents and his TSH level was normal. I recommend we just continue the patient on telemetry monitoring for the time being. We can also evaluate this with the external monitor that we will be coordinating following discharge. (3) Bilateral carotid artery stenosis Status: Acute Assessment & Plan: As above, he has significant bilateral carotid stenosis. I recommend he continue on aspirin, clopidogrel, and intensive dose statin medication in light of the stroke. Since neither side is critically stenosed it is often preferable to wait for a patient to recover from an acute stroke before performing any sort of carotid intervention. (4) Primary hypertension Assessment & Plan: His blood pressures had been running somewhat high but are improved but then improved. He should continue the present combination of antihypertensive medication. (5) Mixed hyperlipidemia Assessment & Plan: Continue intensive dose statin medication in light of the stroke. NEHEMIAH CHAMORRO DO Aug 06, 2022 06:03
[2022-08-06 07:45] VITALS: BP 132/72
--- NOTE | 2022-08-06 07:45 | Occupational Ther Daily Note ---
OT Current Status-Daily Note Subjective Pt alert, sitting in recliner. Pt agrees to therapy. No c/o pain at this time. Mental Status/Objective Patient Orientation: Person, Place, Time, Situation Attachments: IV ADL-Treatment Pt agrees to shower. Pt demonstrates SBA for toilet transfer and toileting. Pt completes 90% of shower sitting on shower bench using grabbars and hand held shower by self then while standing SBA for safety as pt cleansed buttocks/agnes area. Set up for upper body dressing and footwear. SBA for lower body dressing for safety. Independent for eating. Pt stated that he has stool that he uses in bathroom. Independent with oral care and grooming while seated at sink. After session, pt sitting in recliner with call light/phone in reach. All needs met. Nrsg in room. Therapy Code Descriptions/Definitions Functional [place] Measure: 0=Not Assessed/NA 4=Minimal Assistance 1=Total Assistance 5=Supervision or Setup 2=Maximal Assistance 6=Modified [place] 3=Moderate Assistance 7=Complete IndependenceSCALE: Activities may be completed with or without assistive devices. 0-Ybhaakhiif-chogsqq completes the activity by him/herself with no assistance from a helper. 5-Set-up or Clean-up Assistance-helper sets up or cleans up; patient completes activity. [place] assists only prior to or following the activity. 4-Supervision or Touching Assistance-helper provides verbal cues and/or touching/steadying and/or contact guard assistance as patient completes activity. Assistance may be provided throughout the activity or intermittently. 3-Partial/Moderate Assistance-helper does LESS THAN HALF the effort. [place] lifts, holds or supports trunk or limbs, but provides less than half the effort. 2-Substantial/Maximal Assistance-helper does MORE THAN HALF the effort. [place] lifts or holds trunk or limbs and provides more than half the effort. 1-Eygetrcwb-awrxil does ALL the effort. Patient does none of the effort to complete the activity. Or, the assistance of 2 or more helpers is required for the patient to complete the activity. If activity was not attempted, code reason: 7-Patient Refused. 9-Not Applicable-not attempted and the patient did not perform the activity before the current illness, exacerbation or injury. 10-Not Attempted due to Environmental Limitations-(lack of equipment, weather restraints, etc.). 88-Not Attempted due to Medical Conditions or Safety Concerns. Eating (QC): 6 Shower/Bathe Self (QC): 4 (SBA) Upper Body Dressing (QC): 5 Lower Body Dressing (QC): 4 (SBA) On/Off Footwear: 5 Toileting Hygiene (QC): 4 (SBA) Toilet Transfer (QC): 4 (SBA) BIMS CAM BIMS Expression of Ideas and Wants: Without Difficulty Brief Interview/Mental Status: Yes IRF ANA MARÍA BIMS: IRF ANA MARÍA BIMS Response (Comments) Value Repitition of Three Words Three 3 Recalls Socks Yes, After Cueing (Wear) 1 Recalls Blue Yes, No Cue Required 2 Recalls Bed Yes, No Cue Required 2 Year Correct 3 Month Accurate Within 5 Days 2 Day Correct 1 Total 14 Patient Normally Able to Recal: Current Session, Location of own room, That he/she in a hsp Should Staff Asses. Mental St.: No CAM Mental Status Change/Baseline: 0 Inattention: 0 Disorganized thinkin Altered level of consciousness: 0 OT Short Term Goals Short Term Goals Time Frame: Aug 06, 2022 Eatin Oral hygiene: 5 Toileting hygiene: 3 Shower/bathe self: 3 Upper body dressin Lower body dressin Putting on/taking off footwear: 4 OT Retirement Goals Special Library Librarian Goals Time Frame: Aug 13, 2022 Acute change in mental status: 0 Inattention: 0 Disorganized thinkin Altered level of consciousness: 0 Eating (QC): 6 Oral Hygiene (QC): 6 (met) Toileting Hygiene (QC): 5 (not met) Shower/Bathe Self (QC): 5 (not met) Upper Body Dressing (QC): 5 (met) Lower Body Dressing (QC): 5 (not met) On/Off Footwear (QC): 6 (not met) Additional Goals: 1-Demonstrate ADL Tasks, 2-Verbalize Understanding, 3- ImproveStrength/Brit 1=Demonstrate adherence to instructed precautions during ADL tasks. 2=Patient will verbalize/demonstrate understanding of assistive devices/modifications for ADL. 3=Patient will improve strength/tolerance for activity to enable patient to perform ADL's. OT Education/Plan Problem List/Assessment Assessment: Impaired Funct Balance, Impaired Self-Care Skills Discharge Recommendations Plan/Recommendations: Continue POC Therapy Discharge Recommendati: Home & Family Treatment Plan/Plan of Care Patient would benefit from OT for education, treatment and training to promote independence in ADL's, mobility, safety and/or upper extremity function for ADL's. Plan of Care: ADL Retraining, Caregiver Training, Functional Mobility, Group Exercise/Act as Ind, UE Funct Exercise/Act, UE Neuromus Re-Ed/Coord, W/C Management Training Treatment Duration: Aug 13, 2022 Frequency: At least 5 of 7 days/Wk (IRF) Estimated Hrs Per Day: 1.5 hours per day (75-90 min/day) Agreement: Yes Rehab Potential: Good Time Start Time: 06:55 Stop Time: 08:25 DATE: Aug 06, 2022 Total Time Billed (hr/min): 90 Billed Treatment Time 1 visit-ADL 6 (90 min) ELOISE FIGUEROA Aug 06, 2022 07:45
[2022-08-06] MEDS: DOCUSATE SODIUM 100 MG (COLACE) CAP PO SCH ×2 (08:06→20:12)
[2022-08-06] MEDS: TAMSULOSIN 0.4 MG (FLOMAX) CAP PO SCH ×2 (08:06→20:13)
[2022-08-06] MEDS: DICLOFENAC 1% GEL 100 GM (VOLTAREN) TUBE TOP SCH ×4 (08:06→20:13)
[2022-08-06] MEDS: lisINopril 10 MG (PRINIVIL) TABLET PO SCH (08:06)
[2022-08-06] MEDS: CLOPIDOGREL 75 MG (PLAVIX) TABLET PO SCH (08:06)
[2022-08-06] MEDS: ASPIRIN 81 MG CHEW (CHILDREN'S ASA) PO SCH (08:06)
[2022-08-06] MEDS: SENNA W/DOCUSATE (SENOKOT S) TABLET PO SCH ×2 (08:06→20:13)
[2022-08-06] MEDS: GABAPENTIN 100 MG (NEURONTIN) CAP PO SCH ×2 (08:06→15:43)
[2022-08-06] MEDS: LACTULOSE SYRUP 10GM/15ML (ENULOSE) 30ML UDC PO SCH ×2 (08:06→20:10)
[2022-08-06] MEDS: polyethylene glycoL POWDER 17 GM (MIRALAX) PACK PO SCH ×2 (08:07→20:43)
[2022-08-06] MEDS: SALINE NASAL SPRAY (OCEAN) 45 ML BTL SCH ×4 (08:07→20:27)
--- NOTE | 2022-08-06 11:05 | Physical Therapy Daily Note ---
PT Daily Note-Current Subjective Pt seated in recliner chair upon arrival to room, family present at bedside. Agreeable to PT treatment, no c/o voiced. Pain Section J - Health Conditions 1. Rarely or not at all 2. Occasionally 3. Frequently 4. Almost constantly 8. Unable to answer Pain Effect on Sleep: 1 Pain Interference with Therapy: 1 Pain Interference w/Day-to-Day: 1 Appearance Following session, pt seated in recliner, call light tray table and phone within reach. All needs met at this time. Mental Status Patient Orientation: Person, Place, Situation Transfers SCALE: Activities may be completed with or without assistive devices. 8-Xhpgssxvib-fsipofh completes the activity by him/herself with no assistance from a helper. 5-Set-up or Clean-up Assistance-helper sets up or cleans up; patient completes activity. [place] assists only prior to or following the activity. 4-Supervision or Touching Assistance-helper provides verbal cues and/or touching/steadying and/or contact guard assistance as patient completes activity. Assistance may be provided throughout the activity or intermittently. 3-Partial/Moderate Assistance-helper does LESS THAN HALF the effort. [place] lifts, holds or supports trunk or limbs, but provides less than half the effort. 2-Substantial/Maximal Assistance-helper does MORE THAN HALF the effort. [place] lifts or holds trunk or limbs and provides more than half the effort. 2-Qfpdcfjcl-whxftj does ALL the effort. Patient does none of the effort to complete the activity. Or, the assistance of 2 or more helpers is required for the patient to complete the activity. If activity was not attempted, code reason: 7-Patient Refused. 9-Not Applicable-not attempted and the patient did not perform the activity before the current illness, exacerbation or injury. 10-Not Attempted due to Environmental Limitations-(lack of equipment, weather restraints, etc.). 88-Not Attempted due to Medical Conditions or Safety Concerns. Roll Left & Right (QC): 6 Sit to Lying (QC): 6 Lying to Sitting/Side of Bed(Q: 6 Sit to Stand (QC): 6 Chair/Otx-ac-Jalxw Xfer(QC): 4 Toilet Transfer (QC): 4 Car Transfer (QC): 6 SBA with chair transfers, as pt occasionally "plops" down with fatigue. he is able to correct with cueing and reminding to prevent. Weight Bearing Right Lower Extremity: Right Full Weight Bearing Left Lower Extremity: Left Full Weight Bearing Gait Training Does the Patient Walk?: Yes Distance: 150' x 2; 100' x 1; 75' x 2 Walk 10 feet (QC): 4 Walk 50 ft with 2 Turns(QC): 4 Walk 150 ft (QC): 4 Walking 10ft/uneven surface-QC: 4 Gait Assistive Device: Cane Single Point With SPC, pt has steps across midline which causes him to lose balance, he is able to self correct using stepping strategy. Wheelchair Training Wheel 50 ft with 2 turns (QC): 9 Wheel 150 ft (QC): 9 Stair Training Stair Training: Handrails/: 2 handrails #of Steps: 12 1 Step (curb) (QC): 4 4 Steps (QC): 4 12 Steps (QC): 4 Stairs: Pattern: Step to SBA for safety, pt has several steps where he places L foot on R due to poor proprioception; able to self correct safely. Balance Picking up an Object (QC): 4 Exercises NuStep Minutes: 15 NuStep Workload: 6 Neuromuscular Static stance on airex x 1' NBOS on airex x 1' Modified tandem x 30s Static stance on airex and handing ball behind to therapist x 10 Treatments QC codes taken this date, treatment focused on balance training, gait training, endurance and strengthening activities Assessment Current Status: Good Progress Pt tolerated very well, he did have a couple of instances of poor balance with SPC due to scissoring steps. PT Short Term Goals Short Term Goals Time Frame: Aug 11, 2022 Roll Left & Right: 4 Sit to lyin Lying to sitting on side of be: 4 Sit to stand: 4 Chair/zst-nr-ufuia transfer: 4 Toilet transfer: 4 Car transfer: 4 Walk 10 feet: 3 Walk 50 feet with two turns: 3 Walk 150 feet: 3 Walking 10ft on uneven surface: 3 1 step (curb): 3 PT Longterm Goals Longterm Goals PT Ad Compositor Goals Time Frame: Aug 28, 2022 Roll Left & Right (QC): 6 Sit to Lying (QC): 6 Lying-Sitting on Side/Bed(QC): 6 Sit to Stand (QC): 6 Chair/Mev-ty-Ooyja Xfer(QC): 6 Toilet Transfer (QC): 6 Car Transfer (QC): 6 Does the Patient Walk: Yes Walk 10 feet (QC): 5 Walk 50ft with 2 Turns (QC): 5 Walk 150 ft (QC): 5 Walking 10ft on Uneven Surface: 5 1 Step (curb) (QC): 4 4 Steps (QC): 4 12 Steps (QC): 4 Picking up an Object (QC): 4 Wheel 50 feet with 2 turns (QC: 9 Wheel 150 feet: 9 PT Plan Problem List Problem List: Activity Tolerance, Functional Strength, Safety, Balance, Gait, Transfer, Bed Mobility, ROM Treatment/Plan Treatment Plan: Continue Plan of Care Treatment Plan: Bed Mobility, Concurrent Therapy, Education, Functional Activ ity Brit, Functional Strength, Group Therapy, Gait, Safety, Therapeutic Exercise, Transfers Treatment Duration: Aug 28, 2022 Frequency: At least 5 of 7 days/Wk (IRF) Estimated Hrs Per Day: 1.5 hours per day Patient and/or Family Agrees t: Yes Time Time In: 925 Time Out: 1055 DATE: Aug 06, 2022 Total Billed Treatment Time: 90 Total Billed Treatment 1 visit NM (20') FA (20') EX (25') GT (') PETRA DANG PT Aug 06, 2022 11:05
[2022-08-06] MEDS: ENOXAPARIN 40 MG/0.4 ML (LOVENOX) SYR SC SCH (13:45)
[2022-08-06] MEDS ORDERED: SODI44SP2 ×2 (15:41)
[2022-08-06] MEDS ORDERED: DICL100G13 TOP ×2 (15:41)
[2022-08-06] MEDS ORDERED: GABA-486 PO ×4 (15:41)
[2022-08-06] MEDS ORDERED: TMSL.4C PO ×2 (15:41)
--- NOTE | 2022-08-06 15:42 | D/C HH Face to Face Order ---
D/C Face to Face Orders Reconcile Patient Problems Problems Reviewed?: Yes Instructions for Patient Via [facility], Patient Instructions/FollowUp: PCP 1 week Physician to follow Patient: Juan Miguel Discharge Diet for Home: No Restrictions Patient Problems: CVA Patient Data-Allergies,Ht & Wt Patient Allergies: Coded Allergies: amoxicillin (Verified Allergy, Unknown, 07/25/16) Height (Feet): 5 Height (Inches): 7.00 Weight (Pounds): 160 Home Health Need/Face to Face Date of Face to Face: Aug 06, 2022 Clinical Findings: Generalized weakness and fatigue, Muscle weakness I have seen Pt louf-dy-faxg: Yes Discharged To: Home Diagnosis/Conditions: CVA Patient is Homebound due to: CognItive deficits, Mushtaq fall risk due to instabilty, Muscle weakness Homebound Status Due to the above stated illness, injury or surgical procedure (medical condition or diagnosis) and associated clinical findings, the patient is homebound because of his/her inability to leave home except with aid of a supportive device and/or person AND leaving the home requires a considerable and taxing effort or is medically contraindicated. Pt req the following assistanc: Walker Home Health Nursing Orders Home Health Services Order: Nursing Services, Drainage Design Coordinator-Evaluate & Tr eat, Physical Therapy-Evaluate & Treat, Other (bath aide) Certify Stmt I certify that this patient is under my care and that I, a nurse practitioner or a physician; a assistant producer working with me, had a face to face encounter that -meets the physician face to face encounter requirements with this patient as dated. NEHEMIAH CHAMORRO DO Aug 06, 2022 15:42
[2022-08-06 19:35] VITALS: BP 127/68
[2022-08-06] MEDS: GABAPENTIN 300 MG (NEURONTIN) CAP PO SCH (20:13)
[2022-08-06] MEDS: clonazePAM 0.5 MG (KlonoPIN) TAB PO SCH (20:13)
[2022-08-06] MEDS: amLODIPine 5 MG (NORVASC) TAB PO SCH (20:13)
--- NOTE | 2022-08-07 05:54 | PM&R Progress Note ---
Subjective HPI/CC On Admission Date Seen by Provider: Aug 07, 2022 Time Seen by Provider: 12:00 Subjective/Events-last exam 08/07/2022: No major issues Had some indigestion today so he took Tums Ready for discharge tomorrow 08/06/2022: Doing well No pain reported Eating well BM+ No falls 08/05/2022: Patient doing well No pain reported Moving very well No falls 08/04/2022: Patient doing well DC on Tuesday had 3 new meds she picked up at [facility] and it appears those were sent in from upstairs admit. 08/03/2022: Doing well Bowels are loose BP 145/75 Gabapentin will be changed to exactly how he takes it at home 08/02/2022: Patient having no new problems Walking with therapy No pain is reported Normal sinus rhythm on telemetry Allevyn on coccyx Bowels are moving 08/01/2022: No major issues No pain reported Improved status Hemorrhoids improved 07/31/2022: Patient doing well Needs hemorrhoid cream so ordered that Feet were very cold last night Using saline nasal spray 07/30/2022: Patient doing really well IV fluids really helped him Hep-Lock now In a good mood Saline nasal spray will be ordered as he requested 07/29/2022: Patient doing fairly well IVF initiated for hypotension Diarrhea likely has volume depleted him Appreciate Yisel Duarte and Rivera 07/28/2022: Patient doing well after in/out cath He does have urinary retention when he is constipated Will initiate soapsuds enema if needed along with lactulose and senna KUB showed dilated loops of bowel so in case this is an ileus we will initiate clear liquid diet 07/27/2022: Patient doing well No pain is reported Eating and drinking well Moving left arm a bit more 07/26/2022: Patient doing well Bowels moved yesterday Took a shower today with therapy Moving left arm a bit 07/25/2022: Much improved status Left sided weakness remains Suicidal ideation reported by family at times but none that RN notes Monitoring closely Labs stable EGD postponed until stable Review of Systems General: Fatigue, Malaise Neurological: Weakness, Incoordination Objective Exam Vital Signs Vital Signs Date Time Temp Pulse Resp B/P (MAP) Pulse Ox O2 Delivery O2 Flow Rate FiO2 08/07/22 13:00 75 08/07/22 09:05 Room Air 08/07/22 07:15 36.8 18 127/72 (90) 95 Capillary Refill : General Appearance: No Apparent Distress, WD/WN, Chronically ill HEENT: PERRL/EOMI, Normal ENT Inspection, Pharynx Normal Neck: Full Range of Motion, Normal Inspection, Non Tender, Supple, Carotid Bruit Respiratory: Chest Non Tender, Lungs Clear, Normal Breath Sounds, No Accessory Muscle Use, No Respiratory Distress Cardiovascular: Regular Rate, Rhythm, No Edema, No Gallop, No JVD, No Murmur, Normal Peripheral Pulses Gastrointestinal: Normal Bowel Sounds, No Organomegaly, No Pulsatile Mass, Non Tender, Soft Back: Normal Inspection, No CVA Tenderness, No Vertebral Tenderness Extremity: Normal Capillary Refill, Normal Inspection, Normal Range of Motion ( except left side), Non Tender, No Calf Tenderness, No Pedal Edema Neurologic/Psychiatric: Alert, Oriented x3, Normal Mood/Affect, mortgage collector II-XII Norm as Tested, Abnormal Gait, Motor Weakness (left sided weakness 1/5) Skin: Normal Color, Warm/Dry Lymphatic: No Adenopathy Results/Procedures Lab Patient resulted labs reviewed. FIM Transfers Therapy Code Descriptions/Definitions Functional [place] Measure: 0=Not Assessed/NA 4=Minimal Assistance 1=Total Assistance 5=Supervision or Setup 2=Maximal Assistance 6=Modified [place] 3=Moderate Assistance 7=Complete IndependenceSCALE: Activities may be completed with or without assistive devices. 2-Rurdddfsyv-iyuzawh completes the activity by him/herself with no assistance from a helper. 5-Set-up or Clean-up Assistance-helper sets up or cleans up; patient completes activity. [place] assists only prior to or following the activity. 4-Supervision or Touching Assistance-helper provides verbal cues and/or touching/steadying and/or contact guard assistance as patient completes activity. Assistance may be provided throughout the activity or intermittently. 3-Partial/Moderate Assistance-helper does LESS THAN HALF the effort. [place] lifts, holds or supports trunk or limbs, but provides less than half the effort. 2-Substantial/Maximal Assistance-helper does MORE THAN HALF the effort. [place] lifts or holds trunk or limbs and provides more than half the effort. 4-Brtjpoxwj-lsster does ALL the effort. Patient does none of the effort to complete the activity. Or, the assistance of 2 or more helpers is required for the patient to complete the activity. If activity was not attempted, code reason: 7-Patient Refused. 9-Not Applicable-not attempted and the patient did not perform the activity before the current illness, exacerbation or injury. 10-Not Attempted due to Environmental Limitations-(lack of equipment, weather restraints, etc.). 88-Not Attempted due to Medical Conditions or Safety Concerns. Roll Left to Right (QC): 6 Sit to Lying (QC): 6 Sit to Stand (QC): 6 Chair/Kbz-ve-Msvjg Xfer(QC): 4 Car Transfer (QC): 6 Gait Training Does the Patient Walk?: Yes Distance: 150' x 2; 100' x 1; 75' x 2 Walk 10 feet (QC): 4 Walk 50 ft with 2 Turns(QC): 4 Walk 150 ft (QC): 4 Walking 10ft/uneven surface-QC: 4 Gait Persons Needed: 1 Gait Assistive Device: Cane Single Point Wheelchair Training Does the Pt Use a Wheelchair?: Yes Wheel 50 ft with 2 turns (QC): 9 Wheel 150 ft (QC): 9 Type of Wheelchair: Manual Stair Training Stair Training: Handrails/: 2 handrails #of Steps: 12 1 Step (curb) (QC): 4 4 Steps (QC): 4 12 Steps (QC): 4 Stairs: Pattern: Step to Balance Picking up an Object (QC): 4 ADL-Treatment Eating (QC): 6 Oral Hygiene (QC): 6 (in sitting) Bathing Location: L Arm, R Arm, L Upper Leg, R Upper Leg, Chest, Abdomen Shower/Bathe Self (QC): 4 (SBA) Upper Body Dressing (QC): 5 Lower Body Dressing (QC): 4 (SBA) On/Off Footwear (QC): 5 Toileting Hygiene (QC): 4 (SBA) Toilet Transfer (QC): 4 (SBA) Assessment/Plan Assessment and Plan Assess & Plan/Chief Complaint Assessment: CVA with left-sided weakness Bilateral carotid stenosis Hypertension Hyperlipidemia History of TIA Advanced age Depression hx Suicidal ideation reported by family but no acute issues CKD Acute kidney injury creatinine 2.2 due to volume depletion status post IV fluids on 07/29/2022 Hemorrhoid flare up 07/31/20 Dry nasal passageways ordered saline nasal spray Plan: Supportive care Monitor closely Aggressive rehab 07/25/2022: Monitor closely 07/26/2022: Supportive care Monitor closely 07/27/2022: Supportive care Fall risk 07/28/2022: Supportive care Consult Dr. CHRISTIE Clear liquid diet MiraLAX and lactulose and senna 07/29/22: IVF Monitor closely 07/30/2022: Saline nasal spray Status post IV fluid 07/31/2022: Hemorrhoid cream 08/01/2022: Monitor closely 08/02/2022: Continue aggressive physical therapy 08/03/2022: Change gabapentin 08/04/2022: DC Tuesday08/05/2022: Supportive care Continue CVA management 08/06/2022: No changes DC Tuesday08/07/2022: Discharge home tomorrow (1) Acute cerebrovascular accident Assessment & Plan: He had a cerebrovascular accident that involved multiple vascular territories as noted on his MRI of the brain. This raises a concern for possible underlying atrial fibrillation. There has not been any evidence of atrial fibrillation on telemetry. He is currently receiving aspirin and clopidogrel in addition to intensive dose statin medication. Once he is ready for discharge, I will plan on an external monitor tech. I have ordered this through the office. If he is discharged on the weekend, he will need to come back to the hospital to get the monitor at a later point in time. These external monitors are an outpatient test and cannot be placed while the patient is on inpatient status. If this external monitor does not show atrial fibrillation, he may need an implantable loop recorder following discharge. Additionally, he has significant bilateral carotid disease, worse on the left. Unclear whether or not this may have had anything to do with his stroke. He will ultimately need evaluation by vascular surgery but this can be done as an outpatient after he completely recovers from the stroke. 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 He is not on any AV jalil blocking agents and his TSH level was normal. I recommend we just continue the patient on telemetry monitoring for th e time being. We can also evaluate this with the external monitor that we will be coordinating following discharge. (3) Bilateral carotid artery stenosis Status: Acute Assessment & Plan: As above, he has significant bilateral carotid stenosis. I recommend he continue on aspirin, clopidogrel, and intensive dose statin medication in light of the stroke. Since neither side is critically stenosed it is often preferable to wait for a patient to recover from an acute stroke before performing any sort of carotid intervention. (4) Primary hypertension Assessment & Plan: His blood pressures had been running somewhat high but are improved but then improved. He should continue the present combination of antihypertensive medication. (5) Mixed hyperlipidemia Assessment & Plan: Continue intensive dose statin medication in light of the stroke. NEHEMIAH CHAMORRO DO Aug 07, 2022 05:54
[2022-08-07 07:15] VITALS: BP 127/72
[2022-08-07] MEDS: GABAPENTIN 100 MG (NEURONTIN) CAP PO SCH ×2 (08:34→14:20)
[2022-08-07] MEDS: TAMSULOSIN 0.4 MG (FLOMAX) CAP PO SCH ×2 (08:34→20:07)
[2022-08-07] MEDS: CLOPIDOGREL 75 MG (PLAVIX) TABLET PO SCH (08:34)
[2022-08-07] MEDS: SENNA W/DOCUSATE (SENOKOT S) TABLET PO SCH ×2 (08:34→20:08)
[2022-08-07] MEDS: lisINopril 10 MG (PRINIVIL) TABLET PO SCH (08:34)
[2022-08-07] MEDS: DOCUSATE SODIUM 100 MG (COLACE) CAP PO SCH ×2 (08:34→20:08)
[2022-08-07] MEDS: ASPIRIN 81 MG CHEW (CHILDREN'S ASA) PO SCH (08:34)
[2022-08-07] MEDS: polyethylene glycoL POWDER 17 GM (MIRALAX) PACK PO SCH ×2 (08:35→19:18)
[2022-08-07] MEDS: DICLOFENAC 1% GEL 100 GM (VOLTAREN) TUBE TOP SCH ×4 (08:35→20:09)
[2022-08-07] MEDS: LACTULOSE SYRUP 10GM/15ML (ENULOSE) 30ML UDC PO SCH ×2 (08:35→19:18)
[2022-08-07] MEDS: SALINE NASAL SPRAY (OCEAN) 45 ML BTL SCH ×4 (08:36→20:17)
--- NOTE | 2022-08-07 09:38 | Physical Therapy Daily Note ---
PT Daily Note-Current Subjective Pt sitting in recliner upon arrival. Pt agrees to PT. Pain Section J - Health Conditions 1. Rarely or not at all 2. Occasionally 3. Frequently 4. Almost constantly 8. Unable to answer Pain Effect on Sleep: 1 Pain Interference with Therapy: 1 Pain Interference w/Day-to-Day: 1 Mental Status Patient Orientation: Person, Place, Time, Situation Transfers SCALE: Activities may be completed with or without assistive devices. 0-Kqzdqobknj-jnrpcbv completes the activity by him/herself with no assistance from a helper. 5-Set-up or Clean-up Assistance-helper sets up or cleans up; patient completes activity. Milnor assists only prior to or following the activity. 4-Supervision or Touching Assistance-helper provides verbal cues and/or touching/steadying and/or contact guard assistance as patient completes activity. Assistance may be provided throughout the activity or intermittently. 3-Partial/Moderate Assistance-helper does LESS THAN HALF the effort. Milnor lifts, holds or supports trunk or limbs, but provides less than half the effort. 2-Substantial/Maximal Assistance-helper does MORE THAN HALF the effort. Milnor lifts or holds trunk or limbs and provides more than half the effort. 3-Xptqwsegf-jpokkp does ALL the effort. Patient does none of the effort to complete the activity. Or, the assistance of 2 or more helpers is required for the patient to complete the activity. If activity was not attempted, code reason: 7-Patient Refused. 9-Not Applicable-not attempted and the patient did not perform the activity before the current illness, exacerbation or injury. 10-Not Attempted due to Environmental Limitations-(lack of equipment, weather restraints, etc.). 88-Not Attempted due to Medical Conditions or Safety Concerns. Sit to Stand (QC): 4 Weight Bearing Right Lower Extremity: Right Full Weight Bearing Left Lower Extremity: Left Full Weight Bearing Gait Training Does the Patient Walk?: Yes Distance: 150' Walk 10 feet (QC): 5 Walk 50 ft with 2 Turns(QC): 4 Walk 150 ft (QC): 4 Gait Persons Needed: 1 Gait Assistive Device: Cane Single Point Off balance when first standing although able to self correct. Exercises NuStep Minutes: 11 NuStep Workload: 6 Treatments TF to standing and amb. in hallway. Pt uses NuStep then takes short RB, amb in hallway. Pt returns to recliner to rest at end of tx. All needs met, call light in hand. Assessment PT self corrects balance when walking as pt miss steps a couple of times. PT Short Term Goals Short Term Goals Time Frame: Aug 11, 2022 Roll Left & Right: 4 Sit to lyin Lying to sitting on side of be: 4 Sit to stand: 4 Chair/vam-cp-nxsxu transfer: 4 Toilet transfer: 4 Car transfer: 4 Walk 10 feet: 3 Walk 50 feet with two turns: 3 Walk 150 feet: 3 Walking 10ft on uneven surface: 3 1 step (curb): 3 PT Revenue Analyst Goals Shelter Goals PT Shelter Goals Time Frame: Aug 28, 2022 Roll Left & Right (QC): 6 Sit to Lying (QC): 6 Lying-Sitting on Side/Bed(QC): 6 Sit to Stand (QC): 6 Chair/Azc-ji-Fqmmf Xfer(QC): 6 Toilet Transfer (QC): 6 Car Transfer (QC): 6 Does the Patient Walk: Yes Walk 10 feet (QC): 5 Walk 50ft with 2 Turns (QC): 5 Walk 150 ft (QC): 5 Walking 10ft on Uneven Surface: 5 1 Step (curb) (QC): 4 4 Steps (QC): 4 12 Steps (QC): 4 Picking up an Object (QC): 4 Wheel 50 feet with 2 turns (QC: 9 Wheel 150 feet: 9 PT Plan Problem List Problem List: Balance Treatment/Plan Treatment Plan: Continue Plan of Care Treatment Plan: Bed Mobility, Concurrent Therapy, Education, Functional Activity Brit, Functional Strength, Group Therapy, Gait, Safety, Therapeutic Exercise, Transfers Treatment Duration: Aug 28, 2022 Frequency: At least 5 of 7 days/Wk (IRF) Estimated Hrs Per Day: 1.5 hours per day Patient and/or Family Agrees t: Yes Safety Risks/Education Patient Education: Gait Training, Correct Positioning, Safety Issues Teaching Recipient: Patient Teaching Methods: Discussion Response to Teaching: Verbalize Understanding Time Time In: 745 Time Out: 818 DATE: Aug 07, 2022 Total Billed Treatment Time: 33 Total Billed Treatment 1, GT (18m) & EX (15m) LETICIA BROOKS ASSEMBLER FAUCETS Aug 07, 2022 09:38
[2022-08-07] MEDS: CALCIUM CARBONATE 500 MG (TUMS) TAB.CHEW PO PRN ×2 (10:58→17:47)
[2022-08-07] MEDS: ENOXAPARIN 40 MG/0.4 ML (LOVENOX) SYR SC SCH (14:20)
[2022-08-07 19:37] VITALS: BP 125/70
[2022-08-07] MEDS: clonazePAM 0.5 MG (KlonoPIN) TAB PO SCH (20:06)
[2022-08-07] MEDS: amLODIPine 5 MG (NORVASC) TAB PO SCH (20:07)
[2022-08-07] MEDS: GABAPENTIN 300 MG (NEURONTIN) CAP PO SCH (20:07)
--- NOTE | 2022-08-08 06:09 | Discharge Summary ---
Diagnosis/Chief Complaint Date of Admission Jul 24, 2022 at 11:00 Date of Discharge Discharge Date: Aug 08, 2022 Discharge Diagnosis Assessment: CVA with left-sided weakness Bilateral carotid stenosis Hypertension Hyperlipidemia History of TIA Advanced age Depression hx Suicidal ideation reported by family but no acute issues CKD Acute kidney injury creatinine 2.2 due to volume depletion status post IV fluids on 07/29/2022 Hemorrhoid flare up 07/31/20 Dry nasal passageways ordered saline nasal spray Plan: Supportive care Monitor closely Aggressive rehab 07/25/2022: Monitor closely 07/26/2022: Supportive care Monitor closely 07/27/2022: Supportive care Fall risk 07/28/2022: Supportive care Consult Dr. CHRISTIE Clear liquid diet MiraLAX and lactulose and senna 07/29/22: IVF Monitor closely 07/30/2022: Saline nasal spray Status post IV fluid 07/31/2022: Hemorrhoid cream 08/01/2022: Monitor closely 08/02/2022: Continue aggressive physical therapy 08/03/2022: Change gabapentin 08/04/2022: DC Tuesday08/05/2022: Supportive care Continue CVA management 08/06/2022: No changes DC Tuesday08/07/2022: Discharge home tomorrow (1) Acute cerebrovascular accident Assessment & Plan: He had a cerebrovascular accident that involved multiple vascular territories as noted on his MRI of the brain. This raises a concern for possible underlying atrial fibrillation. There has not been any evidence of atrial fibrillation on telemetry. He is currently receiving aspirin and clopidogrel in addition to intensive dose statin medication. Once he is ready for discharge, I will plan on an external economics consultant. I have ordered this through the office. If he is discharged on the weekend, he will need to come back to the hospital to get the monitor at a later point in time. These external monitors are an outpatient test and cannot be placed while the patient is on inpatient status. If this external monitor does not show atrial fibrillation, he may need an implantable loop recorder following discharge. Additionally, he has significant bilateral carotid disease, worse on the left. Unclear whether or not this may have had anything to do with his stroke. He will ultimately need evaluation by vascular surgery but this can be done as an outpatient after he completely recovers from the stroke. 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 He is not on any AV jalil blocking agents and his TSH level was normal. I recommend we just continue the patient on telemetry monitoring for the time being. We can also evaluate this with the external monitor that we will be coordinating following discharge. (3) Bilateral carotid artery stenosis Status: Acute Assessment & Plan: As above, he has significant bilateral carotid stenosis. I recommend he continue on aspirin, clopidogrel, and intensive dose statin medication in light of the stroke. Since neither side is critically stenosed it is often preferable to wait for a patient to recover from an acute stroke before performing any sort of carotid intervention. (4) Primary hypertension Assessment & Plan: His blood pressures had been running somewhat high but are improved but then improved. He should continue the present combination of antihypertensive medication. (5) Mixed hyperlipidemia Assessment & Plan: Continue intensive dose statin medication in light of the stroke. Discharge Summary Discharge Physical Examination Allergies: Coded Allergies: amoxicillin (Verified Allergy, Unknown, 07/25/16) Vitals & I&Os Vital Signs Date Time Temp Pulse Resp B/P (MAP) Pulse Ox O2 Delivery O2 Flow Rate FiO2 08/08/22 10:40 36.1 71 18 128/73 95 Room Air General Appearance: Alert, Oriented X3, Cooperative Respiratory: Clear to Auscultation Cardiovascular: Regular Rate Psych/Mental Status: Mental Status NL Hospital Course Was the Problem List Reviewed?: Yes Patient had a lengthy inpatient rehab stay. Patient was admitted following a stroke he underwent extensive and aggressive therapy and return back to near baseline activity. Dr. Duarte evaluated him and monitored telemetry for several days without any arrhythmia noted. He will have an external economics consultant placed the day after discharge. Patient was maintained on Plavix and aspirin and statin therapy and he was discharged in improved condition. Labs (last 24 hrs) Laboratory Tests 07/24/22 13:29: Thyroid Stimulating Hormone (TSH) 1.43 07/25/22 05:20: White Blood Count 7.2, Red Blood Count 4.41, Hemoglobin 13.3, Hematocrit 40, Mean Corpuscular Volume 91, Mean Corpuscular Hemoglobin 30, Mean Corpuscular Hemoglobin Concent 33, Red Cell Distribution Width 12.8, Platelet Count 204, Mean Platelet Volume 10.9, Immature Granulocyte % (Auto) 0, Neutrophils (%) (Auto) 50, Lymphocytes (%) (Auto) 34, Monocytes (%) (Auto) 10, Eosinophils (%) (Auto) 5, Basophils (%) (Auto) 1, Neutrophils # (Auto) 3.6, Lymphocytes # (Auto) 2.4, Monocytes # (Auto) 0.7, Eosinophils # (Auto) 0.4H, Basophils # (Auto) 0.1, Immature Granulocyte # (Auto) 0.0, Sodium Level 142, Potassium Level 3.8, Chloride Level 112H, Carbon Dioxide Level 20L, Anion Gap 10, Blood Urea Nitrogen 17, Creatinine 1.30, Estimat Glomerular Filtration Rate 53, BUN/Creatinine Ratio 13, Glucose Level 98, Calcium Level 8.9, Corrected Calcium 9.2, Total Bilirubin 1.2H, Aspartate Amino Transf (AST/SGOT) 16, Alanine Aminotransferase (ALT/SGPT) 8, Alkaline Phosphatase 74, Total Protein 6.4, Albumin 3.6 07/28/22 08:20: Urine Color YELLOW, Urine Clarity CLEAR, Urine pH 6.0, Urine Specific [place] 1.010L, Urine Protein NEGATIVE, Urine Glucose (UA) NEGATIVE, Urine Ketones NEGATIVE, Urine Nitrite NEGATIVE, Urine Bilirubin NEGATIVE, Urine Urobilinogen 0.2, Urine Leukocyte Esterase NEGATIVE, Urine RBC (Auto) NEGATIVE, Urine RBC NONE, Urine WBC NONE, Urine Squamous Epithelial Cells NONE, Urine Crystals NONE, Urine Bacteria NEGATIVE, Urine Casts NONE, Urine Mucus NEGATIVE, Urine Culture Indicated NO 07/29/22 05:20: Sodium Level 139, Potassium Level 4.4, Chloride Level 107, Carbon Dioxide Level 21, Anion Gap 11, Blood Urea Nitrogen 31H, Creatinine 2.22H, Estimat Glomerular Filtration Rate 28, BUN/Creatinine Ratio 14, Glucose Level 104, Calcium Level 9.0 07/30/22 06:06: White Blood Count 8.4, Red Blood Count 3.86L, Hemoglobin 11.8L, Hematocrit 36L, Mean Corpuscular Volume 92, Mean Corpuscular Hemoglobin 31, Mean Corpuscular Hemoglobin Concent 33, Red Cell Distribution Width 13.2, Platelet Count 200, Mean Platelet Volume 11.5, Immature Granulocyte % (Auto) 1, Neutrophils (%) (Auto) 55, Lymphocytes (%) (Auto) 29, Monocytes (%) (Auto) 11, Eosinophils (%) (Auto) 4, Basophils (%) (Auto) 1, Neutrophils # (Auto) 4.6, Lymphocytes # (Auto) 2.4, Monocytes # (Auto) 0.9, Eosinophils # (Auto) 0.4H, Basophils # (Auto) 0.0, Immature Granulocyte # (Auto) 0.0, Sodium Level 141, Potassium Level 4.4, Chloride Level 113H, Carbon Dioxide Level 17L, Anion Gap 11, Blood Urea Nitrogen 34H, Creatinine 1.64H, Estimat Glomerular Filtration Rate 40, BUN/Creatinine Ratio 21, Glucose Level 101, Calcium Level 8.4L, Corrected Calcium 9.0, Total Bilirubin 1.0, Aspartate Amino Transf (AST/SGOT) 16, Alanine Aminotransferase (ALT/SGPT) 11, Alkaline Phosphatase 65, Total Protein 5.8L, Albumin 3.3 08/02/22 06:10: White Blood Count 6.9, Red Blood Count 3.93L, Hemoglobin 11.6L, Hematocrit 36L, Mean Corpuscular Volume 91, Mean Corpuscular Hemoglobin 30, Mean Corpuscular Hemoglobin Concent 32, Red Cell Distribution Width 12.7, Platelet Count 224, Mean Platelet Volume 11.4, Immature Granulocyte % (Auto) 0, Neutrophils (%) (Auto) 50, Lymphocytes (%) (Auto) 34, Monocytes (%) (Auto) 11, Eosinophils (%) (Auto) 4, Basophils (%) (Auto) 1, Neutrophils # (Auto) 3.5, Lymphocytes # (Auto) 2.3, Monocytes # (Auto) 0.7, Eosinophils # (Auto) 0.3, Basophils # (Auto) 0.0, Immature Granulocyte # (Auto) 0.0, Sodium Level 143, Potassium Level 4.2, Chloride Level 113H, Carbon Dioxide Level 19L, Anion Gap 11, Blood Urea Nitrogen 22H, Creatinine 1.30, Estimat Glomerular Filtration Rate 53, BUN/Creatinine Ratio 17, Glucose Level 97, Calcium Level 8.6, Corrected Calcium 9.2, Total Bilirubin 0.9, Aspartate Amino Transf (AST/SGOT) 16, Alanine Aminotransferase (ALT/SGPT) 13, Alkaline Phosphatase 64, Total Protein 5.9L, Albumin 3.3 Pending Labs Laboratory Tests 07/24/22 13:29: Thyroid Stimulating Hormone (TSH) 1.43 07/25/22 05:20: White Blood Count 7.2, Red Blood Count 4.41, Hemoglobin 13.3, Hematocrit 40, Mean Corpuscular Volume 91, Mean Corpuscular Hemoglobin 30, Mean Corpuscular Hemoglobin Concent 33, Red Cell Distribution Width 12.8, Platelet Count 204, Mean Platelet Volume 10.9, Immature Granulocyte % (Auto) 0, Neutrophils (%) (Auto) 50, Lymphocytes (%) (Auto) 34, Monocytes (%) (Auto) 10, Eosinophils (%) (Auto) 5, Basophils (%) (Auto) 1, Neutrophils # (Auto) 3.6, Lymphocytes # (Auto) 2.4, Monocytes # (Auto) 0.7, Eosinophils # (Auto) 0.4, Basophils # (Auto) 0.1, Immature Granulocyte # (Auto) 0.0, Sodium Level 142, Potassium Level 3.8, Chloride Level 112, Carbon Dioxide Level 20, Anion Gap 10, Blood Urea Nitrogen 17, Creatinine 1.30, Estimat Glomerular Filtration Rate 53, BUN/Creatinine Ratio 13, Glucose Level 98, Calcium Level 8.9, Corrected Calcium 9.2, Total Bilirubin 1.2, Aspartate Amino Transf (AST/SGOT) 16, Alanine Aminotransferase (ALT/SGPT) 8, Alkaline Phosphatase 74, Total Protein 6.4, Albumin 3.6 07/28/22 08:20: Urine Color YELLOW, Urine Clarity CLEAR, Urine pH 6.0, Urine Specific [place] 1.010, Urine Protein NEGATIVE, Urine Glucose (UA) NEGATIVE, Urine Ketones NEGATIVE, Urine Nitrite NEGATIVE, Urine Bilirubin NEGATIVE, Urine Urobilinogen 0.2, Urine Leukocyte Esterase NEGATIVE, Urine RBC (Auto) NEGATIVE, Urine RBC NONE, Urine WBC NONE, Urine Squamous Epithelial Cells NONE, Urine Crystals NONE, Urine Bacteria NEGATIVE, Urine Casts NONE, Urine Mucus NEGATIVE, Urine Culture Indicated NO 07/29/22 05:20: Sodium Level 139, Potassium Level 4.4, Chloride Level 107, Carbon Dioxide Level 21, Anion Gap 11, Blood Urea Nitrogen 31, Creatinine 2.22, Estimat Glomerular Filtration Rate 28, BUN/Creatinine Ratio 14, Glucose Level 104, Calcium Level 9.0 07/30/22 06:06: White Blood Count 8.4, Red Blood Count 3.86, Hemoglobin 11.8, Hematocrit 36, Mean Corpuscular Volume 92, Mean Corpuscular Hemoglobin 31, Mean Corpuscular Hemoglobin Concent 33, Red Cell Distribution Width 13.2, Platelet Count 200, Mean Platelet Volume 11.5, Immature Granulocyte % (Auto) 1, Neutrophils (%) (Auto) 55, Lymphocytes (%) (Auto) 29, Monocytes (%) (Auto) 11, Eosinophils (%) (Auto) 4, Basophils (%) (Auto) 1, Neutrophils # (Auto) 4.6, Lymphocytes # (Auto) 2.4, Monocytes # (Auto) 0.9, Eosinophils # (Auto) 0.4, Basophils # (Auto) 0.0, Immature Granulocyte # (Auto) 0.0, Sodium Level 141, Potassium Level 4.4, Chloride Level 113, Carbon Dioxide Level 17, Anion Gap 11, Blood Urea Nitrogen 34, Creatinine 1.64, Estimat Glomerular Filtration Rate 40, BUN/Creatinine Ratio 21, Glucose Level 101, Calcium Level 8.4, Corrected Calcium 9.0, Total Bilirubin 1.0, Aspartate Amino Transf (AST/SGOT) 16, Alanine Aminotransferase (ALT/SGPT) 11, Alkaline Phosphatase 65, Total Protein 5.8, Albumin 3.3 08/02/22 06:10: White Blood Count 6.9, Red Blood Count 3.93, Hemoglobin 11.6, Hematocrit 36, Mean Corpuscular Volume 91, Mean Corpuscular Hemoglobin 30, Mean Corpuscular Hem oglobin Concent 32, Red Cell Distribution Width 12.7, Platelet Count 224, Mean Platelet Volume 11.4, Immature Granulocyte % (Auto) 0, Neutrophils (%) (Auto) 50, Lymphocytes (%) (Auto) 34, Monocytes (%) (Auto) 11, Eosinophils (%) (Auto) 4, Basophils (%) (Auto) 1, Neutrophils # (Auto) 3.5, Lymphocytes # (Auto) 2.3, Monocytes # (Auto) 0.7, Eosinophils # (Auto) 0.3, Basophils # (Auto) 0.0, Immature Granulocyte # (Auto) 0.0, Sodium Level 143, Potassium Level 4.2, Chloride Level 113, Carbon Dioxide Level 19, Anion Gap 11, Blood Urea Nitrogen 22, Creatinine 1.30, Estimat Glomerular Filtration Rate 53, BUN/Creatinine Ratio 17, Glucose Level 97, Calcium Level 8.6, Corrected Calcium 9.2, Total Bilirubin 0.9, Aspartate Amino Transf (AST/SGOT) 16, Alanine Aminotransferase (ALT/SGPT) 13, Alkaline Phosphatase 64, Total Protein 5.9, Albumin 3.3 Discharge Home Medications: Active Scripts Active Deep Sea (Sodium Chloride) 0.65 % Sterling 0 Ml NA QID four times a day Diclofenac Sodium 1 % Gel..gram. 0 Gm TOP QID three times daily prn Flomax (Tamsulosin HCl) 0.4 Mg Cap 0.4 Mg PO BID Gabapentin 100 Mg Capsule 200 Mg PO BID 30 Days TAKES 2 (100MG) CAPS at 0900 and 1500 Gabapentin 100 Mg Capsule 300 Mg PO HS 30 Days TAKES 3 (100MG) CAPS Children's Aspirin (Aspirin) 81 Mg Tab.chew 81 Mg PO DAILY 30 Days Lipitor (Atorvastatin Calcium) 40 Mg Tablet 40 Mg PO HS 30 Days Clopidogrel (Clopidogrel Bisulfate) 75 Mg Tablet 75 Mg PO DAILY 30 Days Reported Multivitamin Gummies (Multivit-Minerals/Folic Acid) 200 Mcg Tab.chew 200 Mcg PO DAILY Fish Oil 1,200 mg Fish Oil (Fish Oil/Dha/Epa) 1,200 Mg-144 Mg-216 Mg Capsule 1 Each PO DAILY Stool Softener (Docusate Sodium) 100 Mg Capsule 100 Mg PO DAILY Clonazepam 0.5 Mg Tablet 0.25 Mg PO 2100 TAKES OF A 0.5MG Amlodipine Besylate 5 Mg Tablet 5 Mg PO 2100 Lisinopril 10 Mg Tablet 10 Mg PO DAILY Instructions to patient/family Please see electronic discharge instructions given to patient. Diagnosis/Problems Diagnosis/Problems (1) Acute cerebrovascular accident Assessment & Plan: He had a cerebrovascular accident that involved multiple vascular territories as noted on his MRI of the brain. This raises a concern for possible underlying atrial fibrillation. There has not been any evidence of atrial fibrillation on telemetry. He is currently receiving aspirin and clopidogrel in addition to intensive dose statin medication. Once he is ready for discharge, I will plan on an external economics consultant. I have ordered this through the office. If he is discharged on the weekend, he will need to come back to the hospital to get the monitor at a later point in time. These external monitors are an outpatient test and cannot be placed while the patient is on inpatient status. If this external monitor does not show atrial fibrillation, he may need an implantable loop recorder following discharge. Additionally, he has significant bilateral carotid disease, worse on the left. Unclear whether or not this may have had anything to do with his stroke. He will ultimately need evaluation by vascular surgery but this can be done as an outpatient after he completely recovers from the stroke. 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 He is not on any AV jalil blocking agents and his TSH level was normal. I recommend we just continue the patient on telemetry monitoring for the time being. We can also evaluate this with the external monitor that we will be coordinating following discharge. (3) Bilateral carotid artery stenosis Status: Acute Assessment & Plan: As above, he has significant bilateral carotid stenosis. I recommend he continue on aspirin, clopidogrel, and intensive dose statin medication in light of the stroke. Since neither side is critically stenosed it is often preferable to wait for a patient to recover from an acute stroke before performing any sort of carotid intervention. (4) Primary hypertension Assessment & Plan: His blood pressures had been running somewhat high but are improved but then improved. He should continue the present combination of ant ihypertensive medication. (5) Mixed hyperlipidemia Assessment & Plan: Continue intensive dose statin medication in light of the stroke. NEHEMIAH CHAMORRO DO Aug 08, 2022 06:09
[2022-08-08 07:49] VITALS: BP 128/73
[2022-08-08] MEDS: CLOPIDOGREL 75 MG (PLAVIX) TABLET PO SCH (08:33)
[2022-08-08] MEDS: lisINopril 10 MG (PRINIVIL) TABLET PO SCH (08:33)
[2022-08-08] MEDS: GABAPENTIN 100 MG (NEURONTIN) CAP PO SCH (08:33)
[2022-08-08] MEDS: DOCUSATE SODIUM 100 MG (COLACE) CAP PO SCH (08:33)
[2022-08-08] MEDS: ASPIRIN 81 MG CHEW (CHILDREN'S ASA) PO SCH (08:33)
[2022-08-08] MEDS: TAMSULOSIN 0.4 MG (FLOMAX) CAP PO SCH (08:33)
[2022-08-08] MEDS: polyethylene glycoL POWDER 17 GM (MIRALAX) PACK PO SCH (08:34)
[2022-08-08] MEDS: LACTULOSE SYRUP 10GM/15ML (ENULOSE) 30ML UDC PO SCH (08:34)
[2022-08-08] MEDS: DICLOFENAC 1% GEL 100 GM (VOLTAREN) TUBE TOP SCH (08:34)
[2022-08-08] MEDS: SENNA W/DOCUSATE (SENOKOT S) TABLET PO SCH (08:34)
[2022-08-08] MEDS: SALINE NASAL SPRAY (OCEAN) 45 ML BTL SCH (08:35)
[2022-08-08 10:40] VITALS: BP 128/73
--- NOTE | 2022-08-09 11:51 | Therapy Team Discharge Summary ---
Therapy Discharge Summary Discharge Recommendations Date of Discharge Aug 08, 2022 at 10:35 Therapy D/C Recommendations: Bath Aide, Home w/ Family Support, Occupational Therapy Home Care, Homemaker Support Physical Therapy Roll Left to Right (QC): 6 Sit to Lying (QC): 6 Lying to Sitting/Side of Bed(Q: 6 Sit to Stand (QC): 4 Chair/Eqc-ag-Iiqxx Xfer(QC): 4 Toilet Transfer (QC): 4 Car Transfer (QC): 6 Does the Patient Walk: Yes Mode of Locomotion: Walk Anticipated Mode of Locomotion: Walk Walk 10 feet (QC): 5 Walk 50 ft with 2 Turns(QC): 4 Walk 150 ft (QC): 4 Walking 10ft on uneven surface: 4 Distance: 10' Gait Assistive Device: Cane Single Point Does the Pt Use a Wheelchair: Yes Wheel 50 ft with 2 turns (QC): 9 Wheel 150 ft (QC): 9 Type of Wheelchair: Manual #of Steps: 12 1 Step (curb) (QC): 4 4 Steps (QC): 4 12 Steps (QC): 4 Balance Sitting Static: Fair Balance Sitting Dynamic: Poor Balance-Standing Static: Poor Picking up an Object (QC): 4 Occupational Therapy Pt admitted to ARU with CVA. At time of evaluation he was dependent for toileting, lower body dressing, and bathing, mod a for oral care, upper body dressing, and footwear, and set up for eating. During his rehab stay, OT focused on safety, balance, endurance, strengthening, ROM, sequencing, problem solving, coordination, and energy conservation in order to improve performance and independence in adls and functional mobility. 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 No physical assistance required. See below for current levels of assist. Pt has been discharged from this facility and will be discharged from OT at this time. Impaired Funct Balance, Impaired Self-Care Skills Eating (QC): 6 Oral Hygiene (QC): 6 (in sitting) Shower/Bathe Self (QC): 4 (SBA) Upper Body Dressing (QC): 5 Lower Body Dressing (QC): 4 (SBA) On/Off Footwear (QC): 5 Toileting Hygiene (QC): 4 (SBA) PT Sprayer Hand Goals Senior Living Goals PT Sprayer Hand Goals Time Frame: Aug 28, 2022 Roll Left to Right (QC): 6 Sit to Lying (QC): 6 Lying-Sitting on Side/Bed(QC): 6 Sit to Stand (QC): 6 Chair/Ayb-nr-Izjep Xfer(QC): 6 Toilet/Commode Transfer (QC): 6 Car Transfer (QC): 6 Does the Patient Walk: Yes Walk 10 feet (QC): 5 Walk 10ft-Uneven Surface(QC): 5 Walk 50ft with 2 Turns (QC): 5 Walk 150 ft (QC): 5 Wheel 50 feet with 2 turns (QC: 9 Wheel 150 feet: 9 1 Step (curb) (QC): 4 4 Steps (QC): 4 12 Steps (QC): 4 Picking up an Object (QC): 4 OT Sprayer Hand Goals Senior Living Goals Time Frame: Aug 13, 2022 Acute change in mental status: 0 Inattention: 0 Disorganized thinkin Altered level of consciousness: 0 Eating (QC): 6 (met) Oral Hygiene (QC): 6 (met) Toileting Hygiene (QC): 5 (not met, SBA) Shower/Bathe Self (QC): 5 (not met, SBA) Upper Body Dressing (QC): 5 (met) Lower Body Dressing (QC): 5 (not met, SBA) On/Off Footwear (QC): 6 (not met, SET up) Additional Goals: 1-Demonstrate ADL Tasks, 2-Verbalize Understanding, 3- ImproveStrength/Brit 1=Demonstrate adherence to instructed precautions during ADL tasks. 2=Patient will verbalize/demonstrate understanding of assistive devices/mod ifications for ADL. 3=Patient will improve strength/tolerance for activity to enable patient to perform ADL's. Taylor Rinaldi OT Aug 09, 2022 11:51
== END 2022-08-08 10:35 | disposition home health service (06) | DRG 57 ==
PROVIDERS: ADMIT Internal Medicine; ATTEND Internal Medicine
DX: I69.354 Hemiplegia and hemiparesis following cerebral infarction affecting left non-dominant side (principal); R45.851 Suicidal ideations; N17.9 Acute kidney failure, unspecified; I69.391 Dysphagia following cerebral infarction; R13.10 Dysphagia, unspecified; I65.23 Occlusion and stenosis of bilateral carotid arteries; E78.2 Mixed hyperlipidemia; G40.909 Epilepsy, unspecified, not intractable, without status epilepticus; I44.1 Atrioventricular block, second degree; R33.9 Retention of urine, unspecified; K59.00 Constipation, unspecified; I95.9 Hypotension, unspecified; R19.7 Diarrhea, unspecified; E86.9 Volume depletion, unspecified; K64.9 Unspecified hemorrhoids; I12.9 Hypertensive chronic kidney disease with stage 1 through stage 4 chronic kidney disease, or unspecified chronic kidney disease; N18.9 Chronic kidney disease, unspecified; F41.9 Anxiety disorder, unspecified; F32.A Depression, unspecified; J34.89 Other specified disorders of nose and nasal sinuses; Z87.891 Personal history of nicotine dependence; Z79.82 Long term (current) use of aspirin
CPT/HCPCS: 36415; 74018; 80048; 80053; 81000; 84443; 85025; 93005

== ENCOUNTER → 2022-08-09 | Outpatient (CLI) | payer MEDICARE, OTHER ==
[~2022-08-09] MED LIST changes: +DICL100G13 TOP; +SODI44SP2; +TMSL.4C PO
== END ==
LOC: CARD 11:36
PROVIDERS: ATTEND Internal Medicine Cardiovascular Disease
DX: I44.1 Atrioventricular block, second degree (principal)
CPT/HCPCS: 93246